=== PATIENT | female | born 1940 | race Caucasian/White ===

== ENCOUNTER 2020-02-17 11:54 | Observation (INO) | payer MEDICARE, OTHER, SELFPAY ==
[2020-02-17] VITALS (8 sets, daily range): BP systolic 134–165; BP diastolic 71–89; PULSE 115–130; RESP 22–30; TEMP 36.3–38.1; O2SAT 90–95; BMI 15.1
--- NOTE | ~2020-02-17 | CT_ITS ---
EXAMINATION: CTA chest PE protocol DATE: 02/17/2020 13:24 INDICATION: Shortness of breath, cough. Tachycardia. Positive d-dimer. Covid-positive patient. TECHNIQUE: Computed tomography angiography (CTA) of the chest was performed with 100 mL Omnipaque-350 intravenous contrast timed to evaluate the pulmonary arteries. Coronal maximum intensity projection 3D-reconstructions were created by the technologist. Automated exposure control and iterative reconst ruction technique were employed. Exam dose: 140.94 mGy-cm total exam DLP. COMPARISON: 03/15/2018 portable AP chest FINDINGS: There is diagnostic contrast enhancement of the pulmonary arteries and no evidence of pulmo nary embolism. Minimal posterior arch thoracic aortic aneurysm, measuring up to approximately 3.2 cm diameter. No ao rtic dissection. Normal heart size. Coronary artery calcification. No pericardial or pleural effusion. No hilar or mediastinal mass lesion or lymphadenopathy. There is substernal thyroid extension with so me calcification on the left, likely due to thyroid goiter. There is severe emphysema. There is mild dependent infiltrate or atelectasis at the lung bases, prima rily on the right. Otherwise no pulmonary consolidation. There are peripheral areas of honeycombing a nd/or bronchiectasis involving both lungs. There is a focal approximately 10 mm mass or infarct at the medial upper left kidney. Diffuse osteopenia. 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 Reviewed, dictated and finalized at [facility]. 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
--- NOTE | 2020-02-17 12:00 | ECG_ITS ---
Measurements Intervals [place] Rate: 118 P: 84 UT: 116 QRS: 42 QRSD: 84 T: 15 QT: 342 QTc: 480 Interpretive Statements SINUS TACHYCARDIA WITH SHORT UT INTERVAL ATRIAL PREMATURE COMPLEXES INFERIOR INFARCT, AGE INDETERMINATE BASELINE ARTIFACT- I, II, III, AVR, AVL, AVF, V1-V6 ABNORMAL ECG Electronically Signed On 02-17-2020 13:16:42 HEEL BUFFER by Jorge Alberto Olvera D.O.
--- NOTE | 2020-02-17 12:05 | ED.GENADULT ---
HPI - General Adult General Chief complaint: Shortness of Breath/Dyspnea Stated complaint: fever sob Source: patient Mode of arrival: ambulatory Limitations: no limitations History of Present Illness HPI narrative: Ragini is a 79F with a PMH of COPD, asthma and hypertension that presented to the ED with a cough, SOB and chills/feeling flushed. She chroncally has a productive cough and SOB. However, it may have been worse over the last couple days and she has been alternating between chills and feeling flushed as well. She did have a COVID exposure couple weeks ago as well. No CP, syncope/near-syncope, nausea or vomiting. Related Data Home Medications Medication Instructions Recorded Confirmed aspirin 81 mg tablet,delayed 81 mg PO DAILY 05/04/19 02/17/20 release budesonide 0.5 mg/2 mL suspension 0.5 mg INHALATION DAILY 05/04/19 02/17/20 for nebulization formoterol fumarate 20 mcg/2 mL 2 ml INHALATION Q12H 05/04/19 02/17/20 solution for nebulization ipratropium 0.5 mg-albuterol 3 mg 3 ml INHALATION Q4H PRN 05/04/19 02/17/20 (2.5 mg base)/3 mL nebulization soln theophylline 300 mg 150 mg PO DAILY cap 05/04/19 02/17/20 capsule,extended release 24 hr amlodipine 5 mg PO DAILY 02/17/20 02/17/20 lisinopril 10 mg PO DAILY 02/17/20 02/17/20 Allergies Allergy/AdvReac Type Severity Reaction Status Date / Time No Known Allergies Allergy Verified 05/04/19 12:29 Review of Systems Constitutional: Constitutional: Reports chills, Reports fatigue, Reports fever(s) and Reports weakness Eyes: Eyes: Reports no additional eye complaints ENT: Reports system reviewed and no additional complaints, except as documented Cardiovascular: Cardiovascular: Reports no additional cardiovascular complaints Respiratory: Respiratory: Reports no additional respiratory complaints Gastrointestinal: Gastrointestinal: Reports no additional gastrointestinal complaints Genitourinary: Genitourinary: Reports no additional female genitourinary complaints Musculoskeletal: Musculoskeletal: Reports no additional musculoskeletal complaints Integumentary/Breasts: Skin/Breast: Reports system reviewed and no additional complaints, except as docu Neurologic: Reports system reviewed and no additional complaints, except as documented Psychiatric: Psychiatric: Reports no additional psychiatric complaints Endocrine: Endocrine: Reports no additional endocrine complaints Hematologic/Lymphatic: Hematologic/Lymphatic: Reports no additional hematologic/lymphatic complaints Allergic/Immunologic: Allergic/Immunologic: Reports no additional allergic/immunologic complaints [facility] Past Medical History Medical History (Updated 02/17/20 @ 16:41 by Greyson Vogt DO) Asthma COPD (chronic obstructive pulmonary disease) Hypertension Surgical History Surgical History No history of previous surgery Social History Social History Smoking status: Former smoker Tobacco type: cigarettes Additional smoking assessment comments: Quit July 2015. 50 pack-year history Exam Const: General: alert Orientation/consciousness: patient oriented x3 Limitations: No altered mental status Other: In mild respiratory distress. HENMT: Head: normal to inspection Eyes: Conjunctivae: conjunctivae normal Pupils: Equal, round and reactive pupils present Neck: Neck: normal visual inspection Chest: Other: Barrel chested Resp: Other: Increased respiratory effort, tachypnea, prolonged expiratory phase, poor air movement, wet cough present on exam Cardio: Rate: regular rate Rhythm: regular rhythm Heart sounds: no murmurs GI: GI Palp: Yes Soft to palpation, No Tenderness to palpation present (GI) and No Guarding due to palpation present (GI) Back/Spine/Pelvis: Back: no CVA tenderness Skin: General skin exam: normal color Rashes: no rashes N
[2020-02-17 12:21] LABS: Hematocrit 42.3 % (35.0-42.0); Hemoglobin 14.5 g/dL (11.7-13.8); Immature Granulocyte Absolute 0.03 K/mm3 (0.00-0.00); Immature Granulocyte Percent A 0.6 % (0.0-0.0); Lymphocytes Absolute Auto 0.57 K/mm3 (1.10-4.50); Lymphocytes Percent Auto 11.2 % (18.0-42.0); Mean Corpuscular HGB Conc 34.3 g/dL (32.0-36.0); Mean Corpuscular Hemoglobin 31.7 pg (27.0-31.0); Mean Corpuscular Volume 92.6 fL (78.0-102.0); Mean Platelet Volume 9.1 fl (9.2-11.8); Monocytes Absolute Auto 0.61 K/mm3 (0.10-0.90); Neutrophils Absolute Auto 3.9 K/mm3 (1.7-7.2); Neutrophils Percent Auto 76.2 % (50.0-70.0); Platelet Count Result 199 K/mm3 (150-420); Red Blood Count 4.57 M/mm3 (4.20-5.40); Red Cell Distribution Width 12.6 % (11.6-14.4); White Blood Count 5.1 K/mm3 (4.8-10.8)
[2020-02-17] MEDS: ALBUTEROL SULFATE (*SP) INHALER 6 PUFF INHALATION (12:30)
[2020-02-17 12:38] LABS: Prothrombin Time 11.3 Seconds (9.50-12.10)
[2020-02-17 12:39] LABS: D Dimer 1.04 mg/L (0.19-0.50)
[2020-02-17 12:40] LABS: Influenza Control Valid (Valid); SARS-CoV-2 Ag Positive (Negative)
[2020-02-17 12:43] LABS: BNP 26.7 pg/mL (0-100)
[2020-02-17 12:47] LABS: Alanine Aminotransferase 26 U/L (14-59); Albumin Level 3.5 g/dL (3.4-5.0); Alkaline Phosphatase 86 U/L (46-116); Anion Gap 13 mmol/L (8-16); Aspartate Amino Transferase 26 U/L (15-37); Bilirubin,Total 0.4 mg/dL (0.00-1.00); Blood Urea Nitrogen 24 mg/dL (7-18); Calcium 9.5 mg/dL (8.5-10.1); Carbon Dioxide 26 mmol/L (21-32); Chloride 93 mmol/L (98-108); Estimated Glomerular Filt Rate 57; Glucose 121 mg/dL (70-99); Osmolality Calculated 279 mOsm/kg (285-295); Potassium 3.1 mmol/L (3.5-5.1); Sodium 132 mmol/L (136-145); Total Protein 7.3 g/dL (6.4-8.2); Troponin I 18.5 ng/L (0.00-60.4)
[2020-02-17] MEDS: POTASSIUM CHLORIDE 20 MEQ TABLET 40 MEQ PO (13:30)
[2020-02-17] MEDS: DEXAMETHASONE 2 MG TABLET 6 MG PO (13:30)
[2020-02-17 15:21] LABS: Lactate Dehydrogenase 232 U/L (81-234)
[2020-02-17 16:06] LABS: CRP 2.9 mg/dL (0.0-0.9)
[2020-02-17] MEDS: SODIUM CHLORIDE 0.9% IV 1,000 ML 999 ML IV CONT (18:09)
[2020-02-17] MEDS: ALBUTEROL SULFATE (*SP) INHALER 2 PUFF INHALATION (20:33)
[2020-02-17] MEDS: ENOXAPARIN 30 MG/0.3 ML SYRINGE SUB-Q (20:33)
[2020-02-18] VITALS (12 sets, daily range): BP systolic 92–169; BP diastolic 56–89; PULSE 77–122; RESP 14–24; TEMP 36.1; O2SAT 87–100
--- NOTE | 2020-02-18 02:10 | PC.NURSE ---
pt sleeping, respirations even and regular, no evidence of distress noted, tele monitor on heart rate in the upper 60's - 70's
--- NOTE | 2020-02-18 03:35 | PC.NURSE ---
pt ambulated to bathroom with no assistance, returned to bed, o2 sat checked and was upper 70's, pt recovered to 91% within a few minutes, pt reports this is normal for her to desat with exertion, pt denies any worsening sob at this time.
[2020-02-18] MEDS: ALBUTEROL SULFATE (*SP) INHALER 2 PUFF INHALATION ×2 (05:36→09:00)
--- NOTE | 2020-02-18 05:50 | PC.NURSE ---
pt oxygen saturation checked and found to be 89-90%, offered to apply oxygen and pt refused, pt stated she does not want to use oxygen until she has to, and doesn't feel it is necessary at this time.
--- NOTE | 2020-02-18 07:59 | PC.NURSE ---
Patient lying in bed without dyspnea. 92% room air. know COPD for long time. Ambulated to bathroom and back with just stand by assist. Has some grunting or sound with activity, but appears to be her normal- compensation with breathing with her COPD illness. Once back in bed o2 sat 88% but within 1 minute up 92-93% Noted morning coughing up secretions as she does at home. Patient states, I have a routine with my different nebs that I'm not having here.
[2020-02-18] MEDS: amLODIPine BESYLATE 5 MG TABLET PO (08:15)
[2020-02-18] MEDS: ASPIRIN 81 MG ENTERIC TABLET PO (08:15)
[2020-02-18] MEDS: ENOXAPARIN 30 MG/0.3 ML SYRINGE SUB-Q (08:16)
[2020-02-18] MEDS: lisinopriL 10 MG TABLET PO (08:17)
[2020-02-18] MEDS: BUDESONIDE/FORMOTEROL (*SP) 160-4.5 MCG 6 GM INH 2 PUFF INHALATION (08:56)
[2020-02-18 09:27] LABS: Hematocrit 39.5 % (35.0-42.0); Hemoglobin 13.8 g/dL (11.7-13.8); Immature Granulocyte Absolute 0.03 K/mm3 (0.00-0.00); Immature Granulocyte Percent A 0.6 % (0.0-0.0); Lymphocytes Absolute Auto 0.52 K/mm3 (1.10-4.50); Lymphocytes Percent Auto 11.3 % (18.0-42.0); Mean Corpuscular HGB Conc 34.9 g/dL (32.0-36.0); Mean Corpuscular Hemoglobin 32.4 pg (27.0-31.0); Mean Corpuscular Volume 92.7 fL (78.0-102.0); Mean Platelet Volume 9.4 fl (9.2-11.8); Monocytes Absolute Auto 0.21 K/mm3 (0.10-0.90); Monocytes Percent Auto 4.5 % (2.0-11.0); Neutrophils Absolute Auto 3.9 K/mm3 (1.7-7.2); Neutrophils Percent Auto 83.6 % (50.0-70.0); Platelet Count Result 198 K/mm3 (150-420); Red Blood Count 4.26 M/mm3 (4.20-5.40); Red Cell Distribution Width 12.5 % (11.6-14.4); White Blood Count 4.6 K/mm3 (4.8-10.8)
[2020-02-18 09:36] LABS: Alanine Aminotransferase 23 U/L (14-59); Alkaline Phosphatase 76 U/L (46-116); Anion Gap 9 mmol/L (8-16); Aspartate Amino Transferase 26 U/L (15-37); Bilirubin,Total 0.3 mg/dL (0.00-1.00); Blood Urea Nitrogen 17 mg/dL (7-18); Calcium 9.3 mg/dL (8.5-10.1); Carbon Dioxide 26 mmol/L (21-32); Chloride 96 mmol/L (98-108); Estimated CRCL calculation 30 ml/min; Estimated Glomerular Filt Rate > 60; Glucose 150 mg/dL (70-99); Osmolality Calculated 276 mOsm/kg (285-295); Potassium 4.3 mmol/L (3.5-5.1); Sodium 131 mmol/L (136-145); Total Protein 6.5 g/dL (6.4-8.2)
[2020-02-18 09:37] LABS: Magnesium 1.5 mg/dL (1.8-2.4)
[2020-02-18] MEDS: MAGNESIUM SULF 4 GM/WATER100ML 4 GM/100 ML BAG IVPB (10:17)
[2020-02-18] MEDS: SODIUM CHLORIDE 0.9% IV 1,000 ML 75 ML IV CONT (10:18)
[2020-02-18] MEDS: IPRATROPIUM 0.5 MG/ALBUTEROL SULFATE 2.5 MG AMPUL.NEB 3 ML INHALATION (12:31)
--- NOTE | 2020-02-18 12:59 | PM.SD ---
Same Day Admit/Disch: HPI History of Present Illness Chief complaint: covid 19 Narrative: Ragini Rodas is a 79 year old female who presented to the hospital with a cough shortness of breath and chills patient does have COPD asthma and hypertension her cough is chronic along with her shortness of breath related to her COPD. Shortness of breast has been increased over the last couple days and she did have a COVID exposure 2 weeks ago. COVID positive result from 02/17/2020. Patient admits that when she is at home she can walk short short distances but becomes short of breath she explains that this is an ongoing thing related to her COPD. Patient states that she has refused home oxygen in the past. Patient denies chest pain nausea vomiting or syncopal episodes. CTA was done in the ER and negative for PE. This morning during rounds patient states she feels pretty much at her normal with respect to breathing. [facility] Past Medical History Medical History (Updated 02/18/20 @ 14:06 by DIEGO Conn) Asthma COPD (chronic obstructive pulmonary disease) Hypertension Surgical History Surgical History No history of previous surgery Social History Social History Smoking packs per day: 0.75 Smoking cigarettes per day: 15.0 Smoking status: Former smoker Tobacco type: cigarettes Additional smoking assessment comments: Quit July 2015. 50 pack-year history Alcohol intake: never Substance use: never Spiritual care concerns: No Same Day Admit/Disch: Med Pre-admit Medications Home Medications Medication Instructions Recorded Confirmed Type aspirin 81 mg tablet,delayed 81 mg PO DAILY 05/04/19 02/17/20 History release budesonide 0.5 mg/2 mL suspension 0.5 mg INHALATION DAILY 05/04/19 02/17/20 History for nebulization formoterol fumarate 20 mcg/2 mL 2 ml INHALATION Q12H 05/04/19 02/17/20 History solution for nebulization ipratropium 0.5 mg-albuterol 3 mg 3 ml INHALATION Q4H PRN 05/04/19 02/17/20 History (2.5 mg base)/3 mL nebulization soln theophylline 300 mg 300 mg PO DAILY cap 05/04/19 02/18/20 History capsule,extended release 24 hr amlodipine 5 mg PO DAILY 02/17/20 02/17/20 History lisinopril 10 mg PO DAILY 02/17/20 02/17/20 History dexamethasone [Decadron] 6 mg PO DAILY 9 Days #9 tablet 02/18/20 Rx Exam Const: General: cooperative, comfortable, no acute distress, alert, awake and Physically active (for short distances) Nutritional Appearance: thin Chest: Other: barrel chest Resp: Effort & Inspection: labored (patient states this is her normal, she refused home oxygen in the past) Auscultation: clear to auscultation bilaterally Cardio: Rate: regular rate Rhythm: regular rhythm Heart sounds: S1 normal heart sound present and S2 normal heart sound present GI: GI Palp: Yes Soft to palpation and No Tenderness to palpation present (GI) Auscultation: normal bowel sounds Neuro: General: oriented to person, oriented to place and oriented to time Cranial nerves: Yes CN's II-XII intact bilaterally (grossly intact) Cognition (Neuro): normal cognition Speech: normal speech (does finish most sentences) Extrem: General: no pedal edema Psych: Mental Status: mental status grossly normal Affect: normal affect Attitude: cooperative Thought process: Normal thought process present Thought content: Yes Normal thought content present DS: Data Data Completed and Pending Labs on day of discharge: Labs from last 24 hours 02/18/20 02/18/20 02/18/20 08:40 08:39 08:39 WBC 4.6 L RBC 4.26 Hgb 13.8 Hct 39.5 MCV 92.7 MCH 32.4 H MCHC 34.9 RDW 12.5 Plt Count 198 MPV 9.4 Immature Gran % (Auto) 0.6 H Neut % (Auto) 83.6 H Lymph % (Auto) 11.3 L [place] % (Auto) 4.5 Eos % (Auto) 0.0 L Baso % (Auto) 0.0 Lymph # (Auto) 0.52 L Mon
--- NOTE | 2020-02-18 13:00 | HOMEO2EVAL ---
Home Oxygen Evaluation RC: Home Oxygen (O2) Evaluation Start: 02/18/20 10:25 Freq: ONCE Status: Active Protocol: RPE Activity Type Activity Date Activity User E-Sign Co-Sign Detail Recorded Client Recorded Date Recorded By Document 02/18/20 12:45 SJB [id number] 02/18/20 13:00 SJB Document 02/18/20 12:47 SJB [id number] 02/18/20 13:00 SJB Document 02/18/20 12:50 SJB [id number] 02/18/20 13:00 SJB 02/18/20 02/18/20 02/18/20 12:45 12:47 12:50 Home O2 Evaluation Test Phase Resting Exercise Exercise Oxygen Delivery Room Air Room Air Nasal Cannula Oxygen Flow Rate (L/min) 2 Pulse Oximetry (90-100 %) 91 87 L 95 Pulse Rate (60-100 beats/min) 117 H 122 H 112 H Activity Tolerance Good Good Good Rating of Perceived Dyspnea (PD) +3 Moderate +3 Moderate +3 Moderate Difficulty, But Difficulty, But Difficulty, But Can Continue Can Continue Can Continue Rate of Perceived Exertion (PE) 14 13 Somewhat 12 Hard Ambulation Distance (feet) 10 20 Home Oxygen Evaluation Comments Oxygen started Pt finished at 2 lpm. walk on 2 lpm with Sp02 from 92-95%, PLB encouraged. Tolerated well. Treatment Charges O2 Evaluation
--- NOTE | 2020-02-18 16:12 | PC.NURSE ---
iv removed, pt instructed on how to use portable oxygen tank and to make sure she turns it off when not in use, sumi called upon discharge to meet her at her house for further instruction on home o2
[2020-02-19 19:39] LABS: Procalcitonin <0.10 ng/mL (<0.10)
== END 2020-02-18 15:45 | disposition home or self-care (01) ==
LOC: CHSED 11:58 → CHS2ND 15:15
PROVIDERS: Nurse Practitioner Family; Admitting Provider Family Medicine; Emergency Provider Family Medicine; PCP Family Medicine; Visit Provider Family Medicine
DX: U07.1 COVID-19 (principal); E87.8 Other disorders of electrolyte and fluid balance, not elsewhere classified; J44.9 Chronic obstructive pulmonary disease, unspecified; I10 Essential (primary) hypertension; Z87.891 Personal history of nicotine dependence
CPT/HCPCS: 36415; 71275; 80053; 83615; 83735; 83880; 84145; 84484; 85025; 85380; 85610; 86140; 87426; 87804; 93005; 94618; 94640; 96365; 96372; 99285; A9270; G0378; J1650; J3475; J7030; J8540; Q9965; Q9967

== ENCOUNTER 2020-02-22 20:45 | Inpatient (IN) | payer MEDICARE, OTHER, SELFPAY ==
--- NOTE | ~2020-02-22 | XR_ITS ---
EXAMINATION: XR chest 1V portable EXAM DATE: 02/22/2020 21:23 INDICATION: Dyspnea, Covid + . TECHNIQUE: Portable AP frontal chest x-ray was obtained. Comparison is made to prior examination from 03/15/2018, 05/21/2017. FINDINGS: There is severe chronic hyperinflation. Again there is basilar reticulonodular pattern, cou ld be acute or chronic infection given that it was not present on prior studies. No confluent consoli dation, pneumothorax or pleural effusion suspected. There are no osseous abnormalities identified. Th ere is aortic arteriosclerosis. IMPRESSION: 1. Basilar reticulonodular opacities, could be acute or chronic infectious process. 2. Severe chronic hyperinflation. Reviewed, dictated and finalized at [facility]. 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 Basilar reticulonodular opacities, could be acute or chronic infectious pro cess. 2. Severe chronic hyperinflation.
--- NOTE | 2020-02-22 20:53 | ED.SOB ---
HPI - SOB/Dyspnea General Chief Complaint: Shortness of Breath/Dyspnea Stated Complaint: Trouble breathing,COVID + Time Seen by Provider: 02/22/20 20:53 Source: patient, family and RN notes reviewed Mode of arrival: wheelchair Limitations: no limitations History of Present Illness HPI Narrative: Patient was here 5 days ago. She was admitted and then discharged on 02/17. She was positive for COVID and was sent home on Decadron. She has been getting increasingly short of breath. She feels worse than when she was here 4 days ago. her daughter says that she would not normally asked to go to the hospital, but today asked to come to the hospital because she was so short of breath. She did not have any other treatment besides the Decadron. She also states that she has not been eating because her sense of taste and smell are gone. She says she has not felt like eating. MD elicited complaint: shortness of breath Pertinent past history: COPD Onset (ago): day(s) (4) Context: recent illness Timing: constant Severity: severe Exacerbating factors: lying flat, exertion and movement Relieving factors: nothing Known history of: COPD and congestive heart failure Associated symptoms: cough Treatment prior to arrival: oxygen Related Data Home oxygen amount: none Home Medications Medication Instructions Recorded Confirmed aspirin 81 mg tablet,delayed 81 mg PO DAILY 05/04/19 02/22/20 release budesonide 0.5 mg/2 mL suspension 0.5 mg INHALATION DAILY 05/04/19 02/22/20 for nebulization formoterol fumarate 20 mcg/2 mL 2 ml INHALATION Q12H 05/04/19 02/22/20 solution for nebulization ipratropium 0.5 mg-albuterol 3 mg 3 ml INHALATION Q4H PRN 05/04/19 02/22/20 (2.5 mg base)/3 mL nebulization soln theophylline 300 mg 300 mg PO DAILY cap 05/04/19 02/22/20 capsule,extended release 24 hr amlodipine 5 mg PO DAILY 02/17/20 02/22/20 lisinopril 10 mg PO DAILY 02/17/20 02/22/20 Allergies Allergy/AdvReac Type Severity Reaction Status Date / Time No Known Allergies Allergy Verified 02/22/20 21:09 Review of Systems Constitutional: Constitutional: Denies chills, Reports fatigue, Denies fever(s) and Reports weakness Eyes: Eyes: Reports no additional eye complaints ENT: Reports system reviewed and no additional complaints, except as documented Cardiovascular: Cardiovascular: Reports no additional cardiovascular complaints Respiratory: Respiratory: Reports as per HPI Gastrointestinal: Gastrointestinal: Reports no additional gastrointestinal complaints Genitourinary: Genitourinary: Reports no additional female genitourinary complaints Musculoskeletal: Musculoskeletal: Reports no additional musculoskeletal complaints Integumentary/Breasts: Skin/Breast: Reports system reviewed and no additional complaints, except as docu Neurologic: Reports system reviewed and no additional complaints, except as documented Psychiatric: Psychiatric: Reports no additional psychiatric complaints Endocrine: Endocrine: Reports no additional endocrine complaints [facility] Past Medical History Medical History (Updated 02/22/20 @ 22:45 by Hussain Merchant MD) Asthma COPD (chronic obstructive pulmonary disease) Hypertension Surgical History Surgical History No history of previous surgery Social History Social History Smoking packs per day: 0.75 Smoking cigarettes per day: 15.0 Smoking status: Former smoker Tobacco type: cigarettes Additional smoking assessment comments: Quit July 2015. 50 pack-year history Alcohol intake: never Substance use: never Spiritual care concerns: No Exam Const: General: ill appearing acutely and chronically Nutritional Appearance: thin Limitations: no limitations HENMT: Head: normal to inspection Ears: external ears normal Eyes: Conjunctivae: conjunctivae normal Pupils: Equal, round an
[2020-02-22 21:04] VITALS: BP 124/76; PULSE 116; RESP 24; TEMP 36.7; O2SAT 92
[2020-02-22 21:10] VITALS: PULSE 112; O2SAT 92
[2020-02-22 21:48] LABS: Basophils Absolute Auto 0.01 K/mm3 (0.00-0.10); Basophils Percent Auto 0.1 % (0.0-1.0); Hemoglobin 13.1 g/dL (11.7-13.8); Immature Granulocyte Absolute 0.12 K/mm3 (0.00-0.00); Immature Granulocyte Percent A 0.7 % (0.0-0.0); Lymphocytes Absolute Auto 0.15 K/mm3 (1.10-4.50); Lymphocytes Percent Auto 0.9 % (18.0-42.0); Mean Corpuscular HGB Conc 34.5 g/dL (32.0-36.0); Mean Corpuscular Hemoglobin 31.6 pg (27.0-31.0); Mean Corpuscular Volume 91.8 fL (78.0-102.0); Monocytes Percent Auto 2.5 % (2.0-11.0); Neutrophils Absolute Auto 15.3 K/mm3 (1.7-7.2); Neutrophils Percent Auto 95.8 % (50.0-70.0); Platelet Count Result 348 K/mm3 (150-420); Red Blood Count 4.14 M/mm3 (4.20-5.40); Red Cell Distribution Width 12.7 % (11.6-14.4)
[2020-02-22 21:49] LABS: HCO3 ABG 26.7 mmol/L (23-29); Oxygen Content ABG 19.5 %vol (16.0-22.0); Oxygen Saturation ABG 97.4 % (95-97); Oxyhemoglobin 96.5 % (94-100); PCO2 ABG 34.2 mmHg (35-45); PO2 ABG 89.1 mmHg (75-85); Total Hemoglobin 14.3 g/dL; pH ABG 7.51 (7.35-7.45)
[2020-02-22 21:51] LABS: Device NASAL CANNULA; Modified Allen's Test Pass; Site Drawn LEFT BRACHIAL
[2020-02-22 22:03] LABS: Alanine Aminotransferase 30 U/L (14-59); Albumin Level 3.1 g/dL (3.4-5.0); Alkaline Phosphatase 73 U/L (46-116); Anion Gap 10 mmol/L (8-16); Aspartate Amino Transferase 20 U/L (15-37); Bilirubin,Total 0.4 mg/dL (0.00-1.00); Blood Urea Nitrogen 23 mg/dL (7-18); Calcium 9.3 mg/dL (8.5-10.1); Carbon Dioxide 27 mmol/L (21-32); Chloride 97 mmol/L (98-108); Estimated Glomerular Filt Rate > 60; Glucose 130 mg/dL (70-99); Osmolality Calculated 283 mOsm/kg (285-295); Potassium 3.2 mmol/L (3.5-5.1); Sodium 134 mmol/L (136-145); Total Protein 6.7 g/dL (6.4-8.2)
[2020-02-22 22:05] LABS: CRP 6.4 mg/dL (0.0-0.9); Magnesium 1.7 mg/dL (1.8-2.4)
[2020-02-22 22:10] VITALS: BP 117/75; PULSE 117; RESP 18; O2SAT 94
[2020-02-22 22:34] VITALS: BP 120/68; PULSE 96; RESP 19; O2SAT 93
[2020-02-22] MEDS: POTASSIUM BICARBONATE 25 MEQ TABEF 50 MEQ PO (23:04)
[2020-02-22 23:32] VITALS: BP 139/76; PULSE 97; RESP 20; TEMP 37.1; O2SAT 94
[2020-02-23] VITALS (15 sets, daily range): BP systolic 90–167; BP diastolic 57–75; PULSE 68–126; RESP 20–30; TEMP 36.1–36.8; O2SAT 3–99; BMI 15.0
[2020-02-23] MEDS: REMDESIVIR 200 MG/NS 250 ML 200 MG/250 ML BAG 250 MG IVPB (00:33)
[2020-02-23] MEDS: DEXTROSE 5%/0.45% SOD CHL 1,000 ML 100 ML IV CONT (00:34)
--- NOTE | 2020-02-23 01:18 | ADMGEN ---
This patient, Ragini Rodas, was admitted to 2nd Floor Room 212-1. Patient/family oriented to hospital policies and general routines including ID bracelet, bed and alarms, visiting hours, pain management, procedures, bathroom and other care routines, personal items, smoking policy, room service/diet, and visiting hours. Information on how to activate the Rapid Response Team has been discussed. Patient/Family are encouraged to report perceived risks to care and to ask questions if they do not understand what they are told or what they should do.
[2020-02-23 05:47] LABS: Basophils Absolute Auto 0.01 K/mm3 (0.00-0.10); Basophils Percent Auto 0.1 % (0.0-1.0); Hematocrit 34.2 % (35.0-42.0); Hemoglobin 11.8 g/dL (11.7-13.8); Immature Granulocyte Absolute 0.07 K/mm3 (0.00-0.00); Immature Granulocyte Percent A 0.6 % (0.0-0.0); Lymphocytes Absolute Auto 0.32 K/mm3 (1.10-4.50); Lymphocytes Percent Auto 2.7 % (18.0-42.0); Mean Corpuscular HGB Conc 34.5 g/dL (32.0-36.0); Mean Corpuscular Hemoglobin 31.7 pg (27.0-31.0); Mean Corpuscular Volume 91.9 fL (78.0-102.0); Mean Platelet Volume 8.9 fl (9.2-11.8); Monocytes Absolute Auto 0.44 K/mm3 (0.10-0.90); Monocytes Percent Auto 3.6 % (2.0-11.0); Neutrophils Absolute Auto 11.2 K/mm3 (1.7-7.2); Platelet Count Result 262 K/mm3 (150-420); Red Blood Count 3.72 M/mm3 (4.20-5.40); Red Cell Distribution Width 12.5 % (11.6-14.4); White Blood Count 12.1 K/mm3 (4.8-10.8)
[2020-02-23 06:18] LABS: Alanine Aminotransferase 25 U/L (14-59); Anion Gap 8 mmol/L (8-16); Blood Urea Nitrogen 18 mg/dL (7-18); Calcium 8.5 mg/dL (8.5-10.1); Carbon Dioxide 29 mmol/L (21-32); Chloride 98 mmol/L (98-108); Estimated CRCL calculation 33 ml/min; Estimated Glomerular Filt Rate > 60; Glucose 139 mg/dL (70-99); Osmolality Calculated 283 mOsm/kg (285-295); Potassium 3.5 mmol/L (3.5-5.1); Sodium 135 mmol/L (136-145)
--- NOTE | 2020-02-23 07:43 | PM.IMHP ---
H&P: HPI History of Present Illness Date/Time: 02/23/20 07:43 Chief complaint: COVID + pneumonia Narrative: Ragini Rodas is a 79 year old female Who was in inpatient that was discharged on 02/18/2020. At that time patient was doing well and felt she could do the same at home with her nebulizers and home oxygen. At that time patient had low oxygen demand and had seemed to be improving during that stay. Unfortunately patient had increased oxygen demand and patient states that when she was discharged and using her home oxygen she only used a low amount. Patient denies any chest pain, no productive cough, minimal coughing, and denies any other issues. Review of Systems Review of Systems: Narrative: Little difficult to obtain since patient can only speak in 1-3 word sentences. Constitutional: Constitutional: Denies body ache(s), Denies chills and Reports fatigue Cardiovascular: Cardiovascular: Denies chest pain, Denies chest pain at rest and Denies chest pain with activity Respiratory: Respiratory: Reports cough (Nonproductive), Reports dyspnea and Reports dyspnea on exertion Gastrointestinal: Gastrointestinal: Reports no additional gastrointestinal complaints [facility] Past Medical History Medical History (Updated 02/23/20 @ 11:03 by DIEGO Conn) Asthma COPD (chronic obstructive pulmonary disease) Hypertension Surgical History Surgical History No history of previous surgery Social History Social History Smoking packs per day: 0.75 Smoking cigarettes per day: 15.0 Smoking status: Former smoker Tobacco type: cigarettes Additional smoking assessment comments: Quit July 2015. 50 pack-year history Alcohol intake: unknown Substance use: never Gender identity (if verbalized by the patient): Female Sexual Orientation (if Verbalized by the Patient): Straight or Heterosexual Spiritual care concerns: No Meds Home Medications and Allergies Home Medications Medication Instructions Recorded Confirmed Type aspirin 81 mg tablet,delayed 81 mg PO DAILY 05/04/19 02/22/20 History release budesonide 0.5 mg/2 mL suspension 0.5 mg INHALATION DAILY 05/04/19 02/22/20 History for nebulization formoterol fumarate 20 mcg/2 mL 2 ml INHALATION Q12H 05/04/19 02/22/20 History solution for nebulization ipratropium 0.5 mg-albuterol 3 mg 3 ml INHALATION Q4H PRN 05/04/19 02/22/20 History (2.5 mg base)/3 mL nebulization soln theophylline 300 mg 300 mg PO DAILY cap 05/04/19 02/22/20 History capsule,extended release 24 hr amlodipine 5 mg PO DAILY 02/17/20 02/22/20 History lisinopril 10 mg PO DAILY 02/17/20 02/22/20 History dexamethasone 6 mg tablet 6 mg PO DAILY #7 tablet 02/22/20 02/22/20 Rx dexamethasone 6 mg tablet 6 mg PO DAILY 9 Days #9 tablet 02/22/20 02/22/20 Rx Allergies Allergy/AdvReac Type Severity Reaction Status Date / Time No Known Allergies Allergy Verified 02/23/20 07:21 Vital Signs Vital Signs - 24 hr 02/22/20 21:04 02/22/20 21:10 02/22/20 22:10 Temperature 98.0 F Pulse Rate 116 H 112 H 117 H Respiratory Rate 24 H 18 Blood Pressure 124/76 117/75 Pulse Oximetry 92 92 94 02/22/20 22:34 02/22/20 23:32 02/23/20 00:00 Temperature 98.7 F 98.2 F Pulse Rate 96 97 97 Respiratory Rate 19 20 20 Blood Pressure 120/68 139/76 118/70 Pulse Oximetry 93 94 92 Exam Const: General: cooperative, alert and awake Nutritional Appearance: thin Resp: Effort & Inspection: labored (speaks in 1-3 word sentences, shallow respirations) Auscultation: diminished lung sounds Cardio: Rhythm: abnormal rhythm (AFib rate was up to 130s, gave metoprolol, now in the 70s to 80s) irregularly irregular Heart sounds: S1 normal heart sound present and S2 normal heart sound present GI: GI Palp: Yes Soft to palpation and No Tenderness to palpation present (GI) Auscult
[2020-02-23] MEDS: BUDESONIDE RESPULE NEB 0.5 MG/2 ML AMP INHALATION ×2 (08:51→17:41)
[2020-02-23] MEDS: amLODIPine BESYLATE 5 MG TABLET PO (08:56)
[2020-02-23] MEDS: ASPIRIN 81 MG ENTERIC TABLET PO (08:56)
[2020-02-23] MEDS: METOPROLOL TARTRATE INJ 5 MG/5 ML VIAL IV PUSH (08:56)
[2020-02-23] MEDS: DEXAMETHASONE SOD PHOS INJ 4 MG/ML VIAL IV PUSH ×2 (08:57→21:45)
[2020-02-23] MEDS: lisinopriL 10 MG TABLET PO (08:57)
[2020-02-23] MEDS: MAGNESIUM OXIDE 400 MG TABLET PO (08:57)
[2020-02-23] MEDS: THEOPHYLLINE ANHYDROUS 100 MG CAP.ER.24H 300 MG PO (08:57)
--- NOTE | 2020-02-23 09:00 | PC.NURSE ---
IV metoprolol 2.5mg given per MAIL ORDER BILLER Rowdy
[2020-02-23] MEDS: ENOXAPARIN 30 MG/0.3 ML SYRINGE SUB-Q ×2 (11:59→21:45)
[2020-02-23] MEDS: METOPROLOL SUCCINATE EXT REL 50 MG TABCR PO (12:00)
[2020-02-23] MEDS: IPRATROPIUM 0.5 MG/ALBUTEROL SULFATE 2.5 MG AMPUL.NEB 3 ML INHALATION ×3 (12:40→22:48)
--- NOTE | 2020-02-23 13:57 | PC.NURSE ---
Incinerator Attendant and RT ambulated patient in room. 100%. Decreased hi flow nasal cannula to 50 L 75% spo2 96%. OUTDOOR STUDIES PROFESSOR Rowdy notified.
--- NOTE | 2020-02-23 18:22 | PC.NURSE ---
TALBERT noted when up to commode, oxygen on at 3 L NC
[2020-02-23] MEDS: REMDESIVIR 100 MG/NS 250 ML 100 MG/250 ML BAG 250 MG IVPB (21:54)
[2020-02-24] VITALS (16 sets, daily range): BP systolic 114–160; BP diastolic 50–81; PULSE 65–94; RESP 22–26; TEMP 35.8–36.5; O2SAT 89–100
[2020-02-24] MEDS: IPRATROPIUM 0.5 MG/ALBUTEROL SULFATE 2.5 MG AMPUL.NEB 3 ML INHALATION ×4 (05:37→22:49)
[2020-02-24] MEDS: BUDESONIDE RESPULE NEB 0.5 MG/2 ML AMP INHALATION ×2 (05:38→17:33)
[2020-02-24 05:58] LABS: Hemoglobin 11.8 g/dL (11.7-13.8); Mean Corpuscular HGB Conc 34.7 g/dL (32.0-36.0); Mean Corpuscular Hemoglobin 31.7 pg (27.0-31.0); Mean Corpuscular Volume 91.4 fL (78.0-102.0); Mean Platelet Volume 9.2 fl (9.2-11.8); Platelet Count Result 345 K/mm3 (150-420); Red Blood Count 3.72 M/mm3 (4.20-5.40); Red Cell Distribution Width 12.8 % (11.6-14.4); White Blood Count 13.4 K/mm3 (4.8-10.8)
[2020-02-24 06:22] LABS: Alanine Aminotransferase 25 U/L (14-59); Anion Gap 8 mmol/L (8-16); Blood Urea Nitrogen 23 mg/dL (7-18); Calcium 8.6 mg/dL (8.5-10.1); Carbon Dioxide 28 mmol/L (21-32); Chloride 96 mmol/L (98-108); Estimated CRCL calculation 43 ml/min; Estimated Glomerular Filt Rate > 60; Glucose 96 mg/dL (70-99); Osmolality Calculated 277 mOsm/kg (285-295); Potassium 3.9 mmol/L (3.5-5.1); Sodium 132 mmol/L (136-145)
[2020-02-24] MEDS: lisinopriL 10 MG TABLET PO (09:16)
[2020-02-24] MEDS: THEOPHYLLINE ANHYDROUS 100 MG CAP.ER.24H 300 MG PO (09:16)
[2020-02-24] MEDS: ENOXAPARIN 30 MG/0.3 ML SYRINGE SUB-Q ×2 (09:16→21:25)
[2020-02-24] MEDS: DEXAMETHASONE SOD PHOS INJ 4 MG/ML VIAL IV PUSH ×2 (09:17→21:26)
[2020-02-24] MEDS: ASPIRIN 81 MG ENTERIC TABLET PO (09:17)
[2020-02-24] MEDS: MAGNESIUM OXIDE 400 MG TABLET PO (09:17)
[2020-02-24] MEDS: amLODIPine BESYLATE 5 MG TABLET PO (09:17)
[2020-02-24] MEDS: METOPROLOL SUCCINATE EXT REL 50 MG TABCR PO (09:17)
--- NOTE | 2020-02-24 10:26 | P.PN_ITS ---
Progress Note: A&P Assessment and Plan (1) Pneumonia due to 2019 novel coronavirus: Code(s): U07.1 - COVID-19; J12.89 - Other viral pneumonia <KALE Mcrae-C - Last Filed: 02/24/20 10:59> Status: Acute <FRANNY McraeP-C - Last Filed: 02/24/20 10:59> Assessment and Plan: * More than likely residual from covid * Chest x-ray and Basilar reticulonodular opacities, could be acute or chronic infectious process * Referred to Covid. * <FRANNY McraeP-C - Last Filed: 02/24/20 10:59> (2) Electrolyte imbalance: Code(s): E87.8 - Other disorders of electrolyte and fluid balance, not elsewhere classified <FRANNY McraeP-C - Last Filed: 02/24/20 10:59> Status: Acute <KALE Mcrae-C - Last Filed: 02/24/20 10:59> Assessment and Plan: * Resolved <FRANNY McraeP-C - Last Filed: 02/24/20 10:59> (3) COVID-19: Code(s): U07.1 - COVID-19 <KALE Mcrae-C - Last Filed: 02/24/20 10:59> Status: Acute <KALE Mcrae-C - Last Filed: 02/24/20 10:59> Assessment and Plan: * Patient tested positive on 02/17/2020 she will be off her quarantine on 02/28/2020 * Continue dexamethasone and remdesivir(restarted on 02/23/2020 * Patient on home oxygen at 3 L * Continue nebulizers and inhalers <Rosalinda Prescott KALE-C - Last Filed: 02/24/20 10:59> (4) Hypertension: Code(s): I10 - Essential (primary) hypertension <Rosalinda Prescott SENIOR PRINCIPAL-C - Last Filed: 02/24/20 10:59> Status: Acute <Rosalinda Prescott SENIOR PRINCIPAL-C - Last Filed: 02/24/20 10:59> Assessment and Plan: * Stable * Continue amlodipine 5 mg daily and metoprolol 50 mg daily * Vital signs as ordered. * Will adjust medication as needed <Rosalinda Prescott SENIOR PRINCIPALTrangDiego - Last Filed: 02/24/20 10:59> (5) COPD (chronic obstructive pulmonary disease): Code(s): J44.9 - Chronic obstructive pulmonary disease, unspecified <Rosalinda Prescott SENIOR PRINCIPALTrangDiego - Last Filed: 02/24/20 10:59> Status: Acute <Rosalinda Prescott SENIOR PRINCIPALChidi - Last Filed: 02/24/20 10:59> Assessment and Plan: * Continue inhalers * Continue steroids * Start Levaquin 500 mg daily <Rosalinda PrescottKALETrangDiego - Last Filed: 02/24/20 10:59> (6) Asthma: Code(s): J45.909 - Unspecified asthma, uncomplicated <Rosalinda Prescott TAHIRA - Last Filed: 02/24/20 10:59> Status: Acute <Rosalinda Prescott TAHIRA - Last Filed: 02/24/20 10:59> Assessment and Plan: * Referred to COPD <Rosalinda PrescottFRANNYAlfonzoDiego - Last Filed: 02/24/20 10:59> (7) Atrial fibrillation: Code(s): I48.91 - Unspecified atrial fibrillation <Rosalinda Prescott SENIOR PRINCIPALTrangDiego - Last Filed: 02/24/20 10:59> Status: Acute <Rosalinda PrescottKALETrangDiego - Last Filed: 02/24/20 10:59> Assessment and Plan: * Controlled * Continue metoprolol 50 mg * Continue Lovenox 30 mg twice daily * Continue telemetry <Rosalinda CastanedaTAHIRA Dickens - Last Filed: 02/24/20 10:59> Review of Systems Review of Systems: Narrative: 10 point system review <Rosalinda TonyaLISETTE Dickens - Last Filed: 02/24/20 10:59> All systems reviewed & are unremarkable except as noted in HPI and below (10 point system review) <Rosalinda TonyaTAHIRA Dickens - Last Filed: 02/24/20 10:59> Exam Narrative: Exam Narrative: GENERAL: Frail elderly woman with labored breathing, accessory muscle use, pierced lip breathing, and short of breath HEAD: normocephalic, atraumatic. EYES: PERRL. Sclera clear/white. Vision is
--- NOTE | 2020-02-24 10:26 | WPDPN ---
Progress Note: A&P Assessment and Plan (1) Pneumonia due to 2019 novel coronavirus: Code(s): U07.1 - COVID-19; J12.89 - Other viral pneumonia <Rosalinda Prescott KALE-C - Last Filed: 02/24/20 10:59> Status: Acute <KALE Mcrae-C - Last Filed: 02/24/20 10:59> Assessment and Plan: More than likely residual from covid Chest x-ray and Basilar reticulonodular opacities, could be acute or chronic infectious process Referred to Covid. <Rosalinda Prescott CELL TENDER-C - Last Filed: 02/24/20 10:59> (2) Electrolyte imbalance: Code(s): E87.8 - Other disorders of electrolyte and fluid balance, not elsewhere classified <Rosalinda Prescott KALE-C - Last Filed: 02/24/20 10:59> Status: Acute <Rosalinda Prescott KALE-C - Last Filed: 02/24/20 10:59> Assessment and Plan: Resolved <Rosalinda Prescott KALE-C - Last Filed: 02/24/20 10:59> (3) COVID-19: Code(s): U07.1 - COVID-19 <KALE Mcrae-C - Last Filed: 02/24/20 10:59> Status: Acute <Rosalinda Prescott KALE-C - Last Filed: 02/24/20 10:59> Assessment and Plan: Patient tested positive on 02/17/2020 she will be off her quarantine on 02/28/2020 Continue dexamethasone and remdesivir(restarted on 02/23/2020 Patient on home oxygen at 3 L Continue nebulizers and inhalers <Rosalinda Prescott KALE-C - Last Filed: 02/24/20 10:59> (4) Hypertension: Code(s): I10 - Essential (primary) hypertension <Rosalinda Prescott KALE-C - Last Filed: 02/24/20 10:59> Status: Acute <Rosalinda Prescott KALE-C - Last Filed: 02/24/20 10:59> Assessment and Plan: Stable Continue amlodipine 5 mg daily and metoprolol 50 mg daily Vital signs as ordered. Will adjust medication as needed <TAHIRA Mcrae - Last Filed: 02/24/20 10:59> (5) COPD (chronic obstructive pulmonary disease): Code(s): J44.9 - Chronic obstructive pulmonary disease, unspecified <Rosalinda Prescott TAHIRA - Last Filed: 02/24/20 10:59> Status: Acute <TAHIRA Mcrae - Last Filed: 02/24/20 10:59> Assessment and Plan: Continue inhalers Continue steroids Start Levaquin 500 mg daily <Rosalinda Prescott TAHIRA - Last Filed: 02/24/20 10:59> (6) Asthma: Code(s): J45.909 - Unspecified asthma, uncomplicated <TAHIRA Mcrae - Last Filed: 02/24/20 10:59> Status: Acute <Rosalinda Prescott TAHIRA - Last Filed: 02/24/20 10:59> Assessment and Plan: Referred to COPD <TAHIRA Mcrae - Last Filed: 02/24/20 10:59> (7) Atrial fibrillation: Code(s): I48.91 - Unspecified atrial fibrillation <Rosalinda Prescott TAHIRA - Last Filed: 02/24/20 10:59> Status: Acute <TAHIRA Mcrae - Last Filed: 02/24/20 10:59> Assessment and Plan: Controlled Continue metoprolol 50 mg Continue Lovenox 30 mg twice daily Continue telemetry <Rosalinda Prescott TAHIRA - Last Filed: 02/24/20 10:59> Review of Systems Review of Systems: Narrative: 10 point system review <Rosalinda Prescott CELL TENDERTrangDiego - Last Filed: 02/24/20 10:59> All systems reviewed & are unremarkable except as noted in HPI and below (10 point system review) <Rosalinda Prescott TAHIRA - Last Filed: 02/24/20 10:59> Exam Narrative: Exam Narrative: GENERAL: Frail elderly woman with labored breathing, accessory muscle use, pierced lip breathing, and short of breath HEAD: normocephalic, atraumatic. EYES: PERRL. Sclera clear/white. Vision is grossly intact. EARS: External ears normal, auditory canals clear and without drainage, TMs normal without perforation. Hearing grossly intact. NOSE: External nose normal with no obvious nasal discharge, nares without redness, no rhinorrhea. THROAT: Mucous membranes moist, posterior pharynx clear. NECK: Neck supple, non-tender without lymphadenopathy, masses or thyromegaly. CARDIOVASCULAR: Regula
[2020-02-24] MEDS: REMDESIVIR 100 MG/NS 250 ML 100 MG/250 ML BAG 250 MG IVPB (21:25)
[2020-02-25] VITALS (14 sets, daily range): BP systolic 105–118; BP diastolic 69; PULSE 59–88; RESP 14–24; TEMP 35.3–37; O2SAT 90–100
[2020-02-25 05:32] LABS: Hematocrit 37.4 % (35.0-42.0); Hemoglobin 12.8 g/dL (11.7-13.8); Mean Corpuscular HGB Conc 34.2 g/dL (32.0-36.0); Mean Corpuscular Hemoglobin 31.4 pg (27.0-31.0); Mean Corpuscular Volume 91.9 fL (78.0-102.0); Mean Platelet Volume 9.1 fl (9.2-11.8); Platelet Count Result 406 K/mm3 (150-420); Red Blood Count 4.07 M/mm3 (4.20-5.40); Red Cell Distribution Width 12.5 % (11.6-14.4); White Blood Count 14.4 K/mm3 (4.8-10.8)
[2020-02-25] MEDS: IPRATROPIUM 0.5 MG/ALBUTEROL SULFATE 2.5 MG AMPUL.NEB 3 ML INHALATION ×4 (05:35→22:48)
[2020-02-25] MEDS: BUDESONIDE RESPULE NEB 0.5 MG/2 ML AMP INHALATION ×2 (05:36→17:46)
[2020-02-25 06:12] LABS: Alanine Aminotransferase 25 U/L (14-59); Anion Gap 5 mmol/L (8-16); Blood Urea Nitrogen 23 mg/dL (7-18); Calcium 8.7 mg/dL (8.5-10.1); Carbon Dioxide 29 mmol/L (21-32); Chloride 94 mmol/L (98-108); Estimated CRCL calculation 35 ml/min; Estimated Glomerular Filt Rate > 60; Glucose 101 mg/dL (70-99); Magnesium 1.8 mg/dL (1.8-2.4); Osmolality Calculated 269 mOsm/kg (285-295); Potassium 3.9 mmol/L (3.5-5.1); Sodium 128 mmol/L (136-145)
[2020-02-25] MEDS: DEXAMETHASONE SOD PHOS INJ 4 MG/ML VIAL IV PUSH ×2 (09:58→21:18)
[2020-02-25] MEDS: ASPIRIN 81 MG ENTERIC TABLET PO (09:59)
[2020-02-25] MEDS: MAGNESIUM OXIDE 400 MG TABLET PO (09:59)
[2020-02-25] MEDS: lisinopriL 10 MG TABLET PO (09:59)
[2020-02-25] MEDS: ENOXAPARIN 30 MG/0.3 ML SYRINGE SUB-Q ×2 (09:59→21:18)
[2020-02-25] MEDS: ACETAMINOPHEN 500 MG TABLET 1000 MG PO (10:00)
[2020-02-25] MEDS: amLODIPine BESYLATE 5 MG TABLET PO (10:00)
[2020-02-25] MEDS: METOPROLOL SUCCINATE EXT REL 50 MG TABCR PO (10:01)
[2020-02-25] MEDS: THEOPHYLLINE ANHYDROUS 100 MG CAP.ER.24H 300 MG PO (10:01)
[2020-02-25] MEDS: SODIUM CHLORIDE 0.9% IV 1,000 ML 100 ML IV CONT ×2 (10:14→21:20)
--- NOTE | 2020-02-25 11:50 | P.PN_ITS ---
Progress Note: A&P Assessment and Plan (1) Pneumonia due to 2019 novel coronavirus: Code(s): U07.1 - COVID-19; J12.89 - Other viral pneumonia Status: Acute Assessment and Plan: * More than likely residual from covid * Chest x-ray and Basilar reticulonodular opacities, could be acute or chronic infectious process * Referred to Covid. * (2) Electrolyte imbalance: Code(s): E87.8 - Other disorders of electrolyte and fluid balance, not elsewhere classified Status: Acute Assessment and Plan: * Sodium low * Started normal saline (3) COVID-19: Code(s): U07.1 - COVID-19 Status: Acute Assessment and Plan: * Patient tested positive on 02/17/2020 she will be off her quarantine on 02/28/2020 * Continue dexamethasone and remdesivir(restarted on 02/23/2020 * Patient on home oxygen at 3 L * Continue nebulizers and inhalers (4) Hypertension: Code(s): I10 - Essential (primary) hypertension Status: Acute Assessment and Plan: * Stable * Continue amlodipine 5 mg daily and metoprolol 50 mg daily * Vital signs as ordered. * Will adjust medication as needed (5) COPD (chronic obstructive pulmonary disease): Code(s): J44.9 - Chronic obstructive pulmonary disease, unspecified Status: Acute Assessment and Plan: * Continue inhalers * Continue steroids * Continue Levaquin 500 mg daily (6) Asthma: Code(s): J45.909 - Unspecified asthma, uncomplicated Status: Acute Assessment and Plan: * Referred to COPD (7) Atrial fibrillation: Code(s): I48.91 - Unspecified atrial fibrillation Status: Acute Assessment and Plan: * Controlled * Continue metoprolol 50 mg * Continue Lovenox 30 mg twice daily * Continue telemetry Review of Systems Review of Systems: All systems reviewed & are unremarkable except as noted in HPI and below (10 point system review) Exam Narrative: Exam Narrative: GENERAL: Frail elderly woman with labored breathing, accessory muscle use, pierced lip breathing, and short of breath HEAD: normocephalic, atraumatic. EYES: PERRL. Sclera clear/white. Vision is grossly intact. EARS: External ears normal, auditory canals clear and without drainage, TMs normal without perforation. Hearing grossly intact. NOSE: External nose normal with no obvious nasal discharge, nares without redness, no rhinorrhea. THROAT: Mucous membranes moist, posterior pharynx clear. NECK: Neck supple, non-tender without lymphadenopathy, masses or thyromegaly. CARDIOVASCULAR: Regular rate and rhythm without murmurs, gallops, or rubs. RESPIRATORY: Diminished breath sounds throughout GASTROINTESTINAL: Abdomen soft, non-tender, nondistended. Bowel sounds are active. No hepato-splenomegaly, or palpable masses. No guarding. SKIN: warm, intact with no suspicious lesions or rash, good texture and turgor. NEURO: awake, alert, and oriented to person, place and time. There were no obvious focal neurologic abnormalities. Steady gait EXTREMITIES: Normal range of motion. No edema. No calf tenderness. Negative Homans sign bilaterally. BACK: Nontender without deformity or crepitance. No flank tenderness. Objective Data Vital Signs Vital Signs: Vital Signs - 24 hr 02/24/20 12:34 02/24/20 12:44 02/24/20 16:00 Temperature 97.0 F L Pulse Rate 75 76 76 Respiratory Rate 24 H 24 H 22 H Blood Pressure 114/81 Pulse Oximetry 91 100 91
--- NOTE | 2020-02-25 11:50 | WPDPN ---
Progress Note: A&P Assessment and Plan (1) Pneumonia due to 2019 novel coronavirus: Code(s): U07.1 - COVID-19; J12.89 - Other viral pneumonia Status: Acute Assessment and Plan: More than likely residual from covid Chest x-ray and Basilar reticulonodular opacities, could be acute or chronic infectious process Referred to Covid. (2) Electrolyte imbalance: Code(s): E87.8 - Other disorders of electrolyte and fluid balance, not elsewhere classified Status: Acute Assessment and Plan: Sodium low Started normal saline (3) COVID-19: Code(s): U07.1 - COVID-19 Status: Acute Assessment and Plan: Patient tested positive on 02/17/2020 she will be off her quarantine on 02/28/2020 Continue dexamethasone and remdesivir(restarted on 02/23/2020 Patient on home oxygen at 3 L Continue nebulizers and inhalers (4) Hypertension: Code(s): I10 - Essential (primary) hypertension Status: Acute Assessment and Plan: Stable Continue amlodipine 5 mg daily and metoprolol 50 mg daily Vital signs as ordered. Will adjust medication as needed (5) COPD (chronic obstructive pulmonary disease): Code(s): J44.9 - Chronic obstructive pulmonary disease, unspecified Status: Acute Assessment and Plan: Continue inhalers Continue steroids Continue Levaquin 500 mg daily (6) Asthma: Code(s): J45.909 - Unspecified asthma, uncomplicated Status: Acute Assessment and Plan: Referred to COPD (7) Atrial fibrillation: Code(s): I48.91 - Unspecified atrial fibrillation Status: Acute Assessment and Plan: Controlled Continue metoprolol 50 mg Continue Lovenox 30 mg twice daily Continue telemetry Review of Systems Review of Systems: All systems reviewed & are unremarkable except as noted in HPI and below (10 point system review) Exam Narrative: Exam Narrative: GENERAL: Frail elderly woman with labored breathing, accessory muscle use, pierced lip breathing, and short of breath HEAD: normocephalic, atraumatic. EYES: PERRL. Sclera clear/white. Vision is grossly intact. EARS: External ears normal, auditory canals clear and without drainage, TMs normal without perforation. Hearing grossly intact. NOSE: External nose normal with no obvious nasal discharge, nares without redness, no rhinorrhea. THROAT: Mucous membranes moist, posterior pharynx clear. NECK: Neck supple, non-tender without lymphadenopathy, masses or thyromegaly. CARDIOVASCULAR: Regular rate and rhythm without murmurs, gallops, or rubs. RESPIRATORY: Diminished breath sounds throughout GASTROINTESTINAL: Abdomen soft, non-tender, nondistended. Bowel sounds are active. No hepato-splenomegaly, or palpable masses. No guarding. SKIN: warm, intact with no suspicious lesions or rash, good texture and turgor. NEURO: awake, alert, and oriented to person, place and time. There were no obvious focal neurologic abnormalities. Steady gait EXTREMITIES: Normal range of motion. No edema. No calf tenderness. Negative Homans sign bilaterally. BACK: Nontender without deformity or crepitance. No flank tenderness. Objective Data Vital Signs Vital Signs: Vital Signs - 24 hr 02/24/20 12:34 02/24/20 12:44 02/24/20 16:00 Temperature 97.0 F L Pulse Rate 75 76 76 Respiratory Rate 24 H 24 H 22 H Blood Pressure 114/81 Pulse Oximetry 91 100 91 02/24/20 17:34 02/24/20 17:42 02/24/20 19:50 Temperature 97.7 F Pulse Rate 67 65 94 Respiratory Rate 24 H 24 H 26 H Blood Pressure 160/79 H Pulse Oximetry 94 99 90 02/24/20 22:49 02/24/20 23:01 02/24/20 23:30 Temperature 96.5 F L Pulse Rate 68 78 77 Respiratory Rate 22 H 24 H 22 H Blood Pressure 115/50 L Pulse Oximetry 91 99 91 02/25/20 05:37 02/25/20 05:42 02/25/20 05:43 Temperature Pulse Rate 84 88 76 Respiratory Rate 24 H 22 H 22 H Blood Pressure Pulse Oximetry 92 98 100 02/25/20 05:49 02/25/20
[2020-02-25] MEDS: REMDESIVIR 100 MG/NS 250 ML 100 MG/250 ML BAG 250 MG IVPB (21:35)
--- NOTE | 2020-02-25 23:26 | PC.NURSE ---
Patient's daughter returned call from case coordination. Stated patient will discharge to her home. She will have someone at her home 24 hour day with her mother. Patient also wants to make certain she continues on her home neb treatments when discharged.
[2020-02-26] VITALS (10 sets, daily range): BP systolic 113–133; BP diastolic 60–76; PULSE 70–87; RESP 18–24; TEMP 36.3–36.5; O2SAT 93–100
[2020-02-26] MEDS: IPRATROPIUM 0.5 MG/ALBUTEROL SULFATE 2.5 MG AMPUL.NEB 3 ML INHALATION ×2 (05:43→12:42)
[2020-02-26] MEDS: BUDESONIDE RESPULE NEB 0.5 MG/2 ML AMP INHALATION (05:44)
[2020-02-26 05:57] LABS: Hematocrit 41.3 % (35.0-42.0); Hemoglobin 13.7 g/dL (11.7-13.8); Mean Corpuscular HGB Conc 33.2 g/dL (32.0-36.0); Mean Corpuscular Hemoglobin 31.1 pg (27.0-31.0); Mean Corpuscular Volume 93.9 fL (78.0-102.0); Mean Platelet Volume 8.9 fl (9.2-11.8); Platelet Count Result 441 K/mm3 (150-420); Red Cell Distribution Width 12.6 % (11.6-14.4); White Blood Count 6.9 K/mm3 (4.8-10.8)
[2020-02-26 06:02] LABS: Alanine Aminotransferase 25 U/L (14-59); Albumin Level 2.5 g/dL (3.4-5.0); Alkaline Phosphatase 64 U/L (46-116); Anion Gap 6 mmol/L (8-16); Aspartate Amino Transferase 15 U/L (15-37); Bilirubin,Total 0.3 mg/dL (0.00-1.00); Blood Urea Nitrogen 18 mg/dL (7-18); Calcium 8.4 mg/dL (8.5-10.1); Carbon Dioxide 28 mmol/L (21-32); Chloride 96 mmol/L (98-108); Estimated CRCL calculation 38 ml/min; Estimated Glomerular Filt Rate > 60; Glucose 106 mg/dL (70-99); Osmolality Calculated 271 mOsm/kg (285-295); Potassium 4.3 mmol/L (3.5-5.1); Sodium 130 mmol/L (136-145); Total Protein 5.5 g/dL (6.4-8.2)
--- NOTE | 2020-02-26 09:42 | PM.DS ---
DS: Admitting Diagnosis Admitting Diagnosis Admitting Diagnosis: End-stage COPD and Covid DS: Discharge Diagnosis Discharge Diagnosis (1) Pneumonia due to 2019 novel coronavirus: Code(s): U07.1 - COVID-19; J12.89 - Other viral pneumonia Status: Acute Assessment and Plan: More than likely residual from covid Chest x-ray and Basilar reticulonodular opacities, could be acute or chronic infectious process Referred to Covid. (2) Electrolyte imbalance: Code(s): E87.8 - Other disorders of electrolyte and fluid balance, not elsewhere classified Status: Acute Assessment and Plan: Sodium low will discharge home with sodium pill and a repeat lab level in a couple of days (3) COVID-19: Code(s): U07.1 - COVID-19 Status: Acute Assessment and Plan: Patient tested positive on 02/17/2020 she will be off her quarantine on 02/28/2020 Continue dexamethasone and remdesivir(restarted on 02/23/2020) patient completed remdesivir she will go home with dexamethasone Patient on home oxygen at 3 L Continue nebulizers and inhalers (4) Hypertension: Code(s): I10 - Essential (primary) hypertension Status: Acute Assessment and Plan: Stable Continue amlodipine 5 mg daily and metoprolol 50 mg daily (5) COPD (chronic obstructive pulmonary disease): Code(s): J44.9 - Chronic obstructive pulmonary disease, unspecified Status: Acute Assessment and Plan: Continue inhalers Continue steroids Continue Levaquin 500 mg daily (6) Asthma: Code(s): J45.909 - Unspecified asthma, uncomplicated Status: Acute Assessment and Plan: Referred to COPD (7) Atrial fibrillation: Code(s): I48.91 - Unspecified atrial fibrillation Status: Acute Assessment and Plan: Controlled Continue metoprolol 50 mg Continue aspirin 81 mg daily DS: Summary Hospital Course Hospital Course: This is a 79-year-old white female that presented to the urgent care on 02/17/20 with shortness of breath she does have end-stage COPD, and chills. She did test positive for Covid on 02/17/2020 exposure 2 weeks previously. Patient was discharged on 02/18/2020 sent home with 10 days of dexamethasone. Patient return back to the ED on 02/22/2020 due to worsening shortness of breath. This time patient was given complete dose of remdesivir and dexamethasone. She was discharged home to complete her dexamethasone. Patient does have end-stage COPD and hospice was discussed with her. She will discuss it with her daughters to determine whether she should go under the care of hospice. This day of discharge she is at baseline with breathing and notes that she feels much better than she did when she was admitted. The patient denies CP, palpitation, extremity numbness, lightheadedness, dizziness, constipation, diarrhea, chills, or fever. Time Spent with Patient Time attestation: Total time spent providing and/or coordinating discharge services:60 Exam Narrative: Exam Narrative: GENERAL: Frail elderly woman with labored breathing, accessory muscle use, pierced lip breathing, and short of breath HEAD: normocephalic, atraumatic. EYES: PERRL. Sclera clear/white. Vision is grossly intact. EARS: External ears normal, auditory canals clear and without drainage, TMs normal without perforation. Hearing grossly intact. NOSE: External nose normal with no obvious nasal discharge, nares without redness, no rhinorrhea. THROAT: Mucous membranes moist, posterior pharynx clear. NECK: Neck supple, non-tender without lymphadenopathy, masses or thyromegaly. CARDIOVASCULAR: Regular rate and rhythm without murmurs, gallops, or rubs. RESPIRATORY: Diminished breath sounds throughout GASTROINTESTINAL: Abdomen soft, non-tender, nondistended. Bowel sounds are active. No hepato-splenomegaly, or palpable masses. No guarding. SKIN: warm, intact with no suspicious lesions or rash, good texture and turg
[2020-02-26] MEDS: ENOXAPARIN 30 MG/0.3 ML SYRINGE SUB-Q (10:21)
[2020-02-26] MEDS: THEOPHYLLINE ANHYDROUS 100 MG CAP.ER.24H 300 MG PO (10:21)
[2020-02-26] MEDS: DEXAMETHASONE SOD PHOS INJ 4 MG/ML VIAL IV PUSH (10:21)
[2020-02-26] MEDS: ASPIRIN 81 MG ENTERIC TABLET PO (10:22)
[2020-02-26] MEDS: amLODIPine BESYLATE 5 MG TABLET PO (10:22)
[2020-02-26] MEDS: METOPROLOL SUCCINATE EXT REL 50 MG TABCR PO (10:22)
[2020-02-26] MEDS: MAGNESIUM OXIDE 400 MG TABLET PO (10:23)
[2020-02-26] MEDS: lisinopriL 10 MG TABLET PO (10:23)
--- NOTE | 2020-03-15 14:47 | PC.NURSE ---
Unable to contact for discharge call back.
== END 2020-02-26 14:40 | disposition home or self-care (01) | DRG 177 ==
LOC: CHSED 22:45 → CHS2ND 02-23 08:10
PROVIDERS: Nurse Practitioner; Nurse Practitioner Family; Admitting Provider Emergency Medicine; Emergency Provider Emergency Medicine; PCP Family Medicine; Visit Provider Emergency Medicine
DX: U07.1 COVID-19 (principal); J12.89 Other viral pneumonia; J44.9 Chronic obstructive pulmonary disease, unspecified; I10 Essential (primary) hypertension; Z87.891 Personal history of nicotine dependence; I48.91 Unspecified atrial fibrillation; E87.8 Other disorders of electrolyte and fluid balance, not elsewhere classified
CPT/HCPCS: 36415; 36600; 71045; 80048; 80053; 82805; 83735; 84460; 85025; 85027; 86140; 94640; 99285; A9270; J1100; J1650; J7030

== ENCOUNTER 2021-01-02 10:04 | Outpatient (CLI) | payer MEDICARE, SELFPAY ==
[2021-01-02 10:19] LABS: Basophils Absolute Auto 0.03 K/mm3 (0.00-0.10); Basophils Percent Auto 0.4 % (0.0-1.0); Eosinophils Absolute Auto 0.31 K/mm3 (0.02-0.50); Eosinophils Percent Auto 4.6 % (1.0-6.0); Hematocrit 41.2 % (35.0-42.0); Hemoglobin 13.6 g/dL (11.7-13.8); Immature Granulocyte Absolute 0.02 K/mm3 (0.00-0.00); Immature Granulocyte Percent A 0.3 % (0.0-0.0); Lymphocytes Absolute Auto 2.08 K/mm3 (1.10-4.50); Lymphocytes Percent Auto 30.8 % (18.0-42.0); Mean Corpuscular Hemoglobin 31.9 pg (27.0-31.0); Mean Corpuscular Volume 96.7 fL (78.0-102.0); Mean Platelet Volume 8.8 fl (9.2-11.8); Monocytes Absolute Auto 0.66 K/mm3 (0.10-0.90); Monocytes Percent Auto 9.8 % (2.0-11.0); Neutrophils Absolute Auto 3.7 K/mm3 (1.7-7.2); Neutrophils Percent Auto 54.1 % (50.0-70.0); Platelet Count Result 204 K/mm3 (150-420); Red Blood Count 4.26 M/mm3 (4.20-5.40); Red Cell Distribution Width 12.8 % (11.6-14.4); White Blood Count 6.8 K/mm3 (4.8-10.8)
[2021-01-02 11:40] LABS: Alanine Aminotransferase 26 U/L (14-59); Albumin Level 4.1 g/dL (3.4-5.0); Alkaline Phosphatase 93 U/L (46-116); Anion Gap 8 mmol/L (8-16); Aspartate Amino Transferase 15 U/L (15-37); Bilirubin,Total 0.5 mg/dL (0.00-1.00); Blood Urea Nitrogen 9 mg/dL (7-18); Calcium 9.1 mg/dL (8.5-10.1); Carbon Dioxide 32 mmol/L (21-32); Chloride 101 mmol/L (98-108); Cholesterol 172 mg/dL (0-200); Estimated Glomerular Filt Rate > 60; Glucose 100 mg/dL (70-99); HDL Direct 95 mg/dL (40-60); LDL Cholesterol Calculated 63 mg/dL (<130); Osmolality Calculated 290 mOsm/kg (285-295); Potassium 3.4 mmol/L (3.5-5.1); Sodium 141 mmol/L (136-145); Total Protein 6.9 g/dL (6.4-8.2); Triglycerides 70 mg/dL (0-150)
== END 2021-01-02 10:05 | disposition home or self-care (01) ==
LOC: CHSLAB 10:06
PROVIDERS: PCP Nurse Practitioner Family; Visit Provider Nurse Practitioner Family
DX: I10 Essential (primary) hypertension (principal)
CPT/HCPCS: 36415; 80053; 80061; 85025

== ENCOUNTER 2021-01-14 08:43 | Inpatient (IN) | payer MEDICARE, OTHER, SELFPAY ==
[2021-01-14] VITALS (13 sets, daily range): BP systolic 115–165; BP diastolic 67–114; PULSE 74–96; RESP 16–24; TEMP 37–37.2; O2SAT 95–100; BMI 15.3
--- NOTE | ~2021-01-14 | XR_ITS ---
XR chest 1V portable DATE: 01/15/2021 12:31 INDICATION: Shortness of breath TECHNIQUE: Portable upright AP chest on 01/15/2021 at 1229 hours COMPARISON: 01/14/2021 portable AP chest FINDINGS: There is bilateral hyperinflation consistent with COPD. There is suggestion of mild infiltrate and/atelectasis in the left lower lung. The lungs otherwise ap pear clear. No pleural effusion or pulmonary congestion or pneumothorax. Normal heart size. There is aortic calcification. Prominent diffuse osteopenia. IMPRESSION: Bilateral hyperinflation consistent with COPD Mild infiltrate or atelectasis in the left lower lung Aortic atherosclerosis Prominent diffuse osteopenia Reviewed, dictated and finalized at location A. S SALESPERSON
--- NOTE | ~2021-01-14 | XR_ITS ---
EXAMINATION: XR chest 1V portable DATE: 01/14/2021 09:13 INDICATION: COPD presenting with dyspnea TECHNIQUE: frontal view of the chest was obtained. COMPARISON: Chest radiograph dated 02/22/2020 FINDINGS: Hyperexpansion of the lungs with increased lucency and architectural distortion consistent with emphy sema. Flattening of the diaphragm with blunting at costophrenic angles which could represent pleural parenchymal scarring or very small bilateral pleural effusions. There are few peripheral Darrick B-randal es at the lateral lower lung zones with improvement of the previously more prominent interstitial pat tern with no new airspace opacities, pleural effusion or pneumothorax. The cardiomediastinal silhouet te is normal. Calcified left hilar lymph nodes consistent with old granulomatous disease. Mild thorac ic levocurvature. IMPRESSION: 1. Emphysema. 2. Peripheral Darrick B-lines at the bilateral lower lung zones consistent with decreased now minimal pulmonary edema. Reviewed, dictated and finalized at location A.
--- NOTE | 2021-01-14 08:48 | ECG_ITS ---
Measurements Intervals [place] Rate: 85 P: 90 NE: 128 QRS: 60 QRSD: 86 T: -44 QT: 294 QTc: 351 Interpretive Statements SINUS RHYTHM WITH SINUS ARRHYTHMIA POSSIBLE LEFT ATRIAL ENLARGEMENT NONSPECIFIC ST & T-WAVE ABNORMALITY- DIFFUSE LEADS BASELINE ARTIFACT- I, II, III, AVR, AVL, AVF, V1-V6 BORDERLINE ECG Electronically Signed On 01-15-2021 20:05:48 PLSQL DEVELOPER by Jorge Alberto Olvera D.O.
[2021-01-14 09:08] LABS: Base Excess ABG 3.7 mmol/L (0-2); HCO3 ABG 30.2 mmol/L (23-29); Oxygen Content ABG 19.7 %vol (16.0-22.0); Oxygen Saturation ABG 97.3 % (95-97); Oxyhemoglobin 96.7 % (94-100); PCO2 ABG 53.5 mmHg (35-45); PO2 ABG 101.4 mmHg (75-85); Total Hemoglobin 14.4 g/dL (12.0-18.0); pH ABG 7.37 (7.35-7.45)
[2021-01-14 09:09] LABS: Basophils Absolute Auto 0.03 K/mm3 (0.00-0.10); Basophils Percent Auto 0.5 % (0.0-1.0); Hematocrit 42.4 % (35.0-42.0); Hemoglobin 14.1 g/dL (11.7-13.8); Immature Granulocyte Absolute 0.02 K/mm3 (0.00-0.00); Immature Granulocyte Percent A 0.3 % (0.0-0.0); Lymphocytes Absolute Auto 1.76 K/mm3 (1.10-4.50); Lymphocytes Percent Auto 26.6 % (18.0-42.0); Mean Corpuscular HGB Conc 33.3 g/dL (32.0-36.0); Mean Corpuscular Volume 96.1 fL (78.0-102.0); Mean Platelet Volume 8.8 fl (9.2-11.8); Monocytes Absolute Auto 0.93 K/mm3 (0.10-0.90); Monocytes Percent Auto 14.1 % (2.0-11.0); Neutrophils Absolute Auto 3.7 K/mm3 (1.7-7.2); Neutrophils Percent Auto 55.5 % (50.0-70.0); Platelet Count Result 162 K/mm3 (150-420); Red Blood Count 4.41 M/mm3 (4.20-5.40); Red Cell Distribution Width 12.7 % (11.6-14.4); White Blood Count 6.6 K/mm3 (4.8-10.8)
[2021-01-14 09:13] LABS: Device NASAL CANNULA; Modified Allen's Test Pass; Site Drawn RIGHT RADIAL
[2021-01-14 09:23] LABS: INR 1.1; Partial Thromboplastin Time 28.2 SEC (23.90-30.70); Prothrombin Time 12.1 Seconds (9.50-12.10)
[2021-01-14 09:33] LABS: Alanine Aminotransferase 25 U/L (14-59); Albumin Level 3.9 g/dL (3.4-5.0); Alkaline Phosphatase 106 U/L (46-116); Anion Gap 8 mmol/L (8-16); Aspartate Amino Transferase 16 U/L (15-37); Bilirubin,Total 0.3 mg/dL (0.00-1.00); Blood Urea Nitrogen 14 mg/dL (7-18); Calcium 9.2 mg/dL (8.5-10.1); Carbon Dioxide 34 mmol/L (21-32); Chloride 101 mmol/L (98-108); Estimated CRCL calculation 36 ml/min; Estimated Glomerular Filt Rate > 60; Glucose 119 mg/dL (70-99); NT Pro B Type Natriuretic Pept 411 pg/mL (0-450); Osmolality Calculated 297 mOsm/kg (285-295); Potassium 3.4 mmol/L (3.5-5.1); Sodium 143 mmol/L (136-145); Total Protein 7.2 g/dL (6.4-8.2); Troponin I 7.6 ng/L (0.00-60.4)
--- NOTE | 2021-01-14 09:39 | ED.SOB ---
HPI - SOB/Dyspnea General Chief Complaint: Shortness of Breath/Dyspnea Stated Complaint: Amulance Source: patient and EMS Mode of arrival: ambulatory Limitations: no limitations History of Present Illness HPI Narrative: This is 80-year-old female that is brought in by EMS with increased shortness of breath is currently on oxygen at2L at home but was not getting good flow with her oxygen and the patient desatted her saturations were 74 when EMS got there put her on 2L of oxygen along with a breathing treatment and steroids and the patient is currently satting at 100% there is some audible wheezing some shortness of breath with no chest pain no headache no blurry vision has a low-grade temperature with no abdominal pain no dysuria. MD elicited complaint: shortness of breath Pertinent past history: COPD Onset (ago): hour(s) Related Data Home Medications Medication Instructions Recorded Confirmed aspirin 81 mg tablet,delayed 81 mg PO DAILY 05/04/19 12/08/20 release budesonide 0.5 mg/2 mL suspension 0.5 mg INHALATION DAILY 05/04/19 12/08/20 for nebulization formoterol fumarate 20 mcg/2 mL 2 ml INHALATION Q12H 05/04/19 12/08/20 solution for nebulization ipratropium 0.5 mg-albuterol 3 mg 3 ml INHALATION Q4H PRN 05/04/19 12/08/20 (2.5 mg base)/3 mL nebulization soln theophylline 300 mg 300 mg PO DAILY cap 05/04/19 12/08/20 capsule,extended release 24 hr amlodipine 5 mg PO DAILY 02/17/20 12/08/20 Allergies Allergy/AdvReac Type Severity Reaction Status Date / Time No Known Allergies Allergy Verified 12/08/20 14:27 Review of Systems Review of Systems: All systems reviewed & are unremarkable except as noted in HPI and below PMFSH Past Medical History Medical History Asthma COPD (chronic obstructive pulmonary disease) COVID-19 Hypertension Pneumonia due to 2019 novel coronavirus Surgical History Surgical History No history of previous surgery Social History Social History Smoking packs per day: 0.75 Smoking cigarettes per day: 15.0 Smoking status: Former smoker Tobacco type: cigarettes Additional smoking assessment comments: Quit July 2015. 50 pack-year history Alcohol intake: unknown Substance use: never Gender identity (if verbalized by the patient): Female Sexual Orientation (if Verbalized by the Patient): Straight or Heterosexual Spiritual care concerns: No Exam Const: General: no acute distress Orientation/consciousness: patient oriented x3 HENMT: Head: normal to inspection Eyes: Conjunctivae: conjunctivae normal Pupils: Equal, round and reactive pupils present EOM: EOMs intact bilaterally Neck: Neck: normal visual inspection, no lymphadenopathy and no meningeal signs Chest: Chest palpation & inspection: normal inspection of the chest Resp: Effort & Inspection: normal respiratory effort Auscultation: wheezes and diminished lung sounds Cardio: Rate: regular rate Rhythm: regular rhythm GI: GI Palp: Yes Soft to palpation Percussion: Yes normal to percussion : General: Yes no CVA tenderness Urinary Catheter: Urinary Catheter: patent and draining Back/Spine/Pelvis: Back: no CVA tenderness Skin: General skin exam: normal color Rashes: no rashes Extrem: General: normal to inspection and no pedal edema Psych: Mental Status: mental status grossly normal Affect: normal affect Course Course Emergency Course: Patient x-ray and labs reviewed patient received breathing treatment EN route via EMS and steroids currently satting 100% advised patient will will admit the patient to the hospital. Admission diagnosis COPD exacerbation Disposition admission to acute hospital [facility] Condition guarded Vital Signs Vital signs: Vital Signs Pulse Rate 80 21 09:00 Respiratory Rate 20
--- NOTE | 2021-01-14 09:50 | PC.NURSE ---
Floor and registration notified of pt being admitted.
--- NOTE | 2021-01-14 10:51 | PC.NURSE ---
Phone report given to floor RN.
--- NOTE | 2021-01-14 11:54 | PM.IMHP ---
H&P: HPI History of Present Illness Date/Time: 01/14/21 11:54 this is a 80-year-old female who presented to our emergency department with complaints of shortness of breath. Patient has a past medical history of COPD, COVID pneumonia hypertension. According to patient last night she started to feel increased shortness of breath. Patient does have a history of COPD so she has chronic shortness of breath and uses 2 L nasal cannula at home. Along with her shortness of breath she describes her throat as having a burning sensation. Patient noted that this a.m. her shortness of breath worsened and not resolved with her breathing treatments. At that time her daughter told her that she needed to come to the emergency department, EMS was called she notes that when she was about to take her nebulizer treatment they came and she did not. While she was with EMS she did receive a nebulizer treatment in ED she received steroids. Patient has been vaccinated and tested positive for Covid pneumonia and February and was hospitalized here. Patient's vital signs 98.8, 89, 4, 97% on 2 L nasal cannula, 145/67, WBC 6.6, hemoglobin 14.1, hematocrit 42.4, platelet 162, sodium 143, potassium 3.4, BUN 14, creatinine 0.63, AST 16, ALT 25, troponin 7.6, BNP 411, blood gas pH 37, CO2 53.5, O2 101.4, bicarb 20.2 ,chest x-ray indicates emphysema and decreased now minimal pulmonary edema. Patient will be admitted for COPD exacerbation. Patient notes that her shortness of breath has now improved and she feels fine. Chief Complaint: Shortness of breath Review of Systems Review of Systems: A 14 organ system Review of Systems was performed and pertinent positives included in the HPI, otherwise remaining ROS is negative. [facility] Past Medical History Medical History Asthma COPD (chronic obstructive pulmonary disease) COVID-19 Hypertension Pneumonia due to 2019 novel coronavirus Surgical History Surgical History No history of previous surgery Social History Social History Smoking packs per day: 0.75 Smoking cigarettes per day: 15.0 Years smoked: 30 Smoking pack-years: 22.50 Smoking status: Former smoker Tobacco type: cigarettes Additional smoking assessment comments: Quit July 2015. 50 pack-year history Alcohol intake: never Substance use: never Gender identity (if verbalized by the patient): Female Sexual Orientation (if Verbalized by the Patient): Straight or Heterosexual Spiritual care concerns: No Meds Home Medications and Allergies Home Medications Medication Instructions Recorded Confirmed Type aspirin 81 mg tablet,delayed 81 mg PO DAILY 05/04/19 01/14/21 History release budesonide 0.5 mg/2 mL suspension 0.5 mg INHALATION DAILY 05/04/19 01/14/21 History for nebulization formoterol fumarate 20 mcg/2 mL 2 ml INHALATION Q12H 05/04/19 01/14/21 History solution for nebulization ipratropium 0.5 mg-albuterol 3 mg 3 ml INHALATION Q4H PRN 05/04/19 01/14/21 History (2.5 mg base)/3 mL nebulization soln lisinopril 10 mg PO DAILY 01/14/21 01/14/21 History metoprolol succinate 50 mg PO QAM 01/14/21 01/14/21 History theophylline 300 mg PO DAILY 01/14/21 01/14/21 History Allergies Allergy/AdvReac Type Severity Reaction Status Date / Time No Known Allergies Allergy Verified 01/14/21 09:50 Vital Signs Vital Signs - 24 hr 01/14/21 08:45 01/14/21 09:00 01/14/21 09:17 Temperature 98.9 F Pulse Rate 80 88 Respiratory Rate 20 24 H Blood Pressure 146/114 H 165/76 H Pulse Oximetry 100 100 99 01/14/21 10:47 01/14/21 11:07 01/14/21 11:10 Temperature 98.8 F Pulse Rate 90 89 Respiratory Rate 20 24 H Blood Pressure 145/67 H 145/67 H Pulse Oximetry 97 97 96 Exam Narrative: GENERAL: Elderly frail female, in no apparent distress. HEAD:
[2021-01-14] MEDS: IPRATROPIUM 0.5 MG/ALBUTEROL SULFATE 2.5 MG AMPUL.NEB 3 ML INHALATION ×2 (13:21→18:58)
[2021-01-14] MEDS: methylPREDNISolone SOD SUCC 125 MG VIAL 60 MG IV PUSH ×2 (13:22→18:58)
[2021-01-14] MEDS: ASPIRIN 81 MG ENTERIC TABLET PO (13:23)
[2021-01-14] MEDS: lisinopriL 10 MG TABLET PO (13:23)
[2021-01-14] MEDS: ENOXAPARIN 30 MG/0.3 ML SYRINGE SUB-Q (13:23)
[2021-01-14] MEDS: FUROSEMIDE INJ 40 MG/4 ML VIAL IV PUSH (13:23)
[2021-01-14] MEDS: POTASSIUM CHLORIDE 20 MEQ TABLET 40 MEQ PO (13:23)
[2021-01-14] MEDS: METOPROLOL SUCCINATE EXT REL 50 MG TABCR PO (13:24)
[2021-01-15] VITALS (13 sets, daily range): BP systolic 114–152; BP diastolic 63–80; PULSE 72–100; RESP 18–22; TEMP 36.3–37.2; O2SAT 91–100
[2021-01-15] MEDS: IPRATROPIUM 0.5 MG/ALBUTEROL SULFATE 2.5 MG AMPUL.NEB 3 ML INHALATION ×4 (00:34→18:15)
[2021-01-15] MEDS: ENOXAPARIN 30 MG/0.3 ML SYRINGE SUB-Q ×2 (00:34→12:33)
[2021-01-15] MEDS: methylPREDNISolone SOD SUCC 125 MG VIAL 60 MG IV PUSH ×3 (00:34→12:33)
[2021-01-15 05:27] LABS: Basophils Absolute Auto 0.01 K/mm3 (0.00-0.10); Basophils Percent Auto 0.1 % (0.0-1.0); Hematocrit 38.4 % (35.0-42.0); Immature Granulocyte Absolute 0.05 K/mm3 (0.00-0.00); Immature Granulocyte Percent A 0.5 % (0.0-0.0); Lymphocytes Absolute Auto 0.99 K/mm3 (1.10-4.50); Lymphocytes Percent Auto 9.5 % (18.0-42.0); Mean Corpuscular HGB Conc 33.9 g/dL (32.0-36.0); Mean Corpuscular Hemoglobin 32.3 pg (27.0-31.0); Mean Corpuscular Volume 95.3 fL (78.0-102.0); Mean Platelet Volume 9.2 fl (9.2-11.8); Monocytes Absolute Auto 0.52 K/mm3 (0.10-0.90); Neutrophils Absolute Auto 8.9 K/mm3 (1.7-7.2); Neutrophils Percent Auto 84.9 % (50.0-70.0); Platelet Count Result 202 K/mm3 (150-420); Red Blood Count 4.03 M/mm3 (4.20-5.40); Red Cell Distribution Width 12.7 % (11.6-14.4); White Blood Count 10.4 K/mm3 (4.8-10.8)
[2021-01-15 05:57] LABS: Alanine Aminotransferase 23 U/L (14-59); Albumin Level 3.4 g/dL (3.4-5.0); Alkaline Phosphatase 89 U/L (46-116); Anion Gap 8 mmol/L (8-16); Aspartate Amino Transferase < 10 U/L (15-37); Bilirubin,Total 0.2 mg/dL (0.00-1.00); Blood Urea Nitrogen 29 mg/dL (7-18); Calcium 9.3 mg/dL (8.5-10.1); Carbon Dioxide 30 mmol/L (21-32); Chloride 102 mmol/L (98-108); Estimated CRCL calculation 20 ml/min; Estimated Glomerular Filt Rate 44; Glucose 136 mg/dL (70-99); Magnesium 1.9 mg/dL (1.8-2.4); Osmolality Calculated 297 mOsm/kg (285-295); Potassium 4.8 mmol/L (3.5-5.1); Sodium 140 mmol/L (136-145); Total Protein 6.4 g/dL (6.4-8.2)
--- NOTE | 2021-01-15 08:31 | P.DS_ITS ---
DS: Admitting Diagnosis Discharge Date 01/25/2021 <TAHIRA Mcrae - Last Filed: 01/15/21 11:03> 01/15/2021 <Joanne Bull MD - Last Filed: 01/16/21 00:07> Admitting Diagnosis COPD exacerbation <TAHIRA Mcrae - Last Filed: 01/15/21 11:03> copd exacerbation <Joanne Bull MD - Last Filed: 01/16/21 00:07> DS: Discharge Diagnosis Discharge Diagnosis (1) Chronic respiratory failure with hypoxia, on home oxygen therapy: Code(s): J96.11 - Chronic respiratory failure with hypoxia; Z99.81 - Dependence on supplemental oxygen <TAHIRA Mcrae - Last Filed: 01/15/21 11:03> Status: Acute <TAHIRA Mcrae - Last Filed: 01/15/21 11:03> Assessment and Plan: * Secondary to COPD exacerbation * blood gas pH 37, CO2 53.5, O2 101.4, bicarb 20.2 * Continue supplementary oxygen with steroids and nebulizer treatment * Chest x-ray indicate emphysema with mild pulmonary edema <TAHIRA Mcrae - Last Filed: 01/15/21 11:03> (2) COPD exacerbation: Code(s): J44.1 - Chronic obstructive pulmonary disease with (acute) exacerbation <TAHIRA Mcrae - Last Filed: 01/15/21 11:03> Status: Acute <TAHIRA Mcrae - Last Filed: 01/15/21 11:03> Assessment and Plan: * blood gas pH 37, CO2 53.5, O2 101.4, bicarb 20.2 * Continue supplementary oxygen with steroids and nebulizer treatment Discharge Patient was discharged home with a taper prednisone and Symbicort <TAHIRA Mcrae - Last Filed: 01/15/21 11:03> (3) Electrolyte imbalance: Code(s): E87.8 - Other disorders of electrolyte and fluid balance, not elsewhere classified <TAHIRA Mcrae - Last Filed: 01/15/21 11:03> Status: Acute <FRANNY McraeP-C - Last Filed: 01/15/21 11:03> Assessment and Plan: * Potassium 3.4>4.8 * Replace with supplement <TAHIRA Mcrae - Last Filed: 01/15/21 11:03> (4) Hypertension: Code(s): I10 - Essential (primary) hypertension <Rosalinda Prescott TAHIRA - Last Filed: 01/15/21 11:03> Status: Acute <TAHIRA Mcrae - Last Filed: 01/15/21 11:03> Assessment and Plan: * Stable * Continue lisinopril and metoprolol <TAHIRA Mcrae - Last Filed: 01/15/21 11:03> (5) Asthma: Code(s): J45.909 - Unspecified asthma, uncomplicated <Rosalinda Prescott TAHIRA - Last Filed: 01/15/21 11:03> Status: Acute <Rosalinda Prescott TAHIRA - Last Filed: 01/15/21 11:03> Assessment and Plan: * Prior to COPD <TAHIRA Mcrae - Last Filed: 01/15/21 11:03> (6) Pulmonary edema: Code(s): J81.1 - Chronic pulmonary edema <Rosalinda Prescott TAHIRA - Last Filed: 01/15/21 11:03> Status: Acute <Rosalinda Prescott TAHIRA - Last Filed: 01/15/21 11:03> Assessment and Plan: * Chest x-ray indicate mild pulmonary edema patient without history of congestive heart failure * Possibly secondary to COPD * BMP within normal limits * 40 of Lasix given <Rosalinda Prescott TAHIRA - Last Filed: 01/15/21 11:03> DS: Summary Hospital Course Reason for hospitalization: Shortness of breath <Rosalinda Prescott RESIDENTIAL SALES REPRESENTATIVETrangDiego - Last Filed: 01/15/21 11:03> Hospital Course: this is a 80-year-old female who presented to our emergency department with complaints of shortness of breath. Patient has a past medical history of COPD, COVID pneumonia hypertension. According to patient last night she started to feel increased shortness of breath. Patient does have a history
--- NOTE | 2021-01-15 08:31 | PM.DS ---
DS: Admitting Diagnosis Discharge Date 01/25/2021 <TAHIRA Mcrae - Last Filed: 01/15/21 11:03> 01/15/2021 <Joanne Bull MD - Last Filed: 01/16/21 00:07> Admitting Diagnosis COPD exacerbation <TAHIRA Mcrae - Last Filed: 01/15/21 11:03> copd exacerbation <Joanne Bull MD - Last Filed: 01/16/21 00:07> DS: Discharge Diagnosis Discharge Diagnosis (1) Chronic respiratory failure with hypoxia, on home oxygen therapy: Code(s): J96.11 - Chronic respiratory failure with hypoxia; Z99.81 - Dependence on supplemental oxygen <TAHIRA Mcrae - Last Filed: 01/15/21 11:03> Status: Acute <TAHIRA Mcrae - Last Filed: 01/15/21 11:03> Assessment and Plan: Secondary to COPD exacerbation blood gas pH 37, CO2 53.5, O2 101.4, bicarb 20.2 Continue supplementary oxygen with steroids and nebulizer treatment Chest x-ray indicate emphysema with mild pulmonary edema <TAHIRA Mcrae - Last Filed: 01/15/21 11:03> (2) COPD exacerbation: Code(s): J44.1 - Chronic obstructive pulmonary disease with (acute) exacerbation <TAHIRA Mcrae - Last Filed: 01/15/21 11:03> Status: Acute <TAHIRA Mcrae - Last Filed: 01/15/21 11:03> Assessment and Plan: blood gas pH 37, CO2 53.5, O2 101.4, bicarb 20.2 Continue supplementary oxygen with steroids and nebulizer treatment Discharge Patient was discharged home with a taper prednisone and Symbicort <TAHIRA Mcrae - Last Filed: 01/15/21 11:03> (3) Electrolyte imbalance: Code(s): E87.8 - Other disorders of electrolyte and fluid balance, not elsewhere classified <TAHIRA Mcrae - Last Filed: 01/15/21 11:03> Status: Acute <TAHIRA Mcrae - Last Filed: 01/15/21 11:03> Assessment and Plan: Potassium 3.4>4.8 Replace with supplement <Rosalinda Cunningham KALE PrescottTrangDiego - Last Filed: 01/15/21 11:03> (4) Hypertension: Code(s): I10 - Essential (primary) hypertension <Rosalinda Prescott LISETTEDiego - Last Filed: 01/15/21 11:03> Status: Acute <Rosalinda Prescott LISETTEDiego - Last Filed: 01/15/21 11:03> Assessment and Plan: Stable Continue lisinopril and metoprolol <Rosalinda Cunningham Kenyon TAHIRA - Last Filed: 01/15/21 11:03> (5) Asthma: Code(s): J45.909 - Unspecified asthma, uncomplicated <Rosalinda Prescott LISETTEDiego - Last Filed: 01/15/21 11:03> Status: Acute <Rosalinda Prescott LISETTEDiego - Last Filed: 01/15/21 11:03> Assessment and Plan: Prior to COPD <Rosalinda Prescott TAHIRA - Last Filed: 01/15/21 11:03> (6) Pulmonary edema: Code(s): J81.1 - Chronic pulmonary edema <Rosalinda Prescott CASER INTrangDiego - Last Filed: 01/15/21 11:03> Status: Acute <Rosalinda Prescott TAHIRA - Last Filed: 01/15/21 11:03> Assessment and Plan: Chest x-ray indicate mild pulmonary edema patient without history of congestive heart failure Possibly secondary to COPD BMP within normal limits 40 of Lasix given <Rosalinda Cunningham Kenyon CASER INTrangDiego - Last Filed: 01/15/21 11:03> DS: Summary Hospital Course Reason for hospitalization: Shortness of breath <Rosalinda Cunningham TAHIRA Prescott - Last Filed: 01/15/21 11:03> Hospital Course: this is a 80-year-old female who presented to our emergency department with complaints of shortness of breath. Patient has a past medical history of COPD, COVID pneumonia hypertension. According to patient last night she started to feel increased shortness of breath. Patient does have a history of COPD so she has chronic shortness of breath and uses 2 L nasal cannula at home. Along with her shortness of breath she describes her throat as having a burning sensation. Patient noted that her shortness of breath worsened and did not resolved with her breathing treatments. At that time her daughter told her that she needed to come to
[2021-01-15] MEDS: AMOXICILLIN/CLAVULANATE K 875-125 MG TAB 1 TABLET PO ×2 (09:36→21:26)
[2021-01-15] MEDS: ASPIRIN 81 MG ENTERIC TABLET PO (09:37)
[2021-01-15] MEDS: METOPROLOL SUCCINATE EXT REL 50 MG TABCR PO (09:37)
[2021-01-15] MEDS: lisinopriL 10 MG TABLET PO (09:37)
[2021-01-15 13:18] LABS: Base Excess ABG 1.9 mmol/L (0-2); Oxygen Content ABG 19.5 %vol (16.0-22.0); Oxygen Saturation ABG 94.7 % (95-97); Oxyhemoglobin 94.1 % (94-100); PCO2 ABG 55.3 mmHg (35-45); PO2 ABG 77.5 mmHg (75-85); Total Hemoglobin 14.7 g/dL (12.0-18.0); pH ABG 7.34 (7.35-7.45)
[2021-01-15 13:19] LABS: Device ROOM AIR; Modified Allen's Test Pass; Site Drawn RIGHT RADIAL
[2021-01-15] MEDS: methylPREDNISolone SOD SUCC 40 MG VIAL IV PUSH (21:26)
[2021-01-16] VITALS (9 sets, daily range): BP systolic 122–126; BP diastolic 64–66; PULSE 69–88; RESP 16–20; TEMP 36.3–37.1; O2SAT 96–98
[2021-01-16] MEDS: IPRATROPIUM 0.5 MG/ALBUTEROL SULFATE 2.5 MG AMPUL.NEB 3 ML INHALATION ×3 (00:49→12:10)
[2021-01-16] MEDS: ENOXAPARIN 30 MG/0.3 ML SYRINGE SUB-Q (00:50)
[2021-01-16] MEDS: methylPREDNISolone SOD SUCC 40 MG VIAL IV PUSH ×2 (05:10→14:32)
[2021-01-16 05:13] LABS: Hematocrit 37.3 % (35.0-42.0); Hemoglobin 12.3 g/dL (11.7-13.8); Mean Corpuscular Hemoglobin 31.5 pg (27.0-31.0); Mean Corpuscular Volume 95.4 fL (78.0-102.0); Mean Platelet Volume 9.1 fl (9.2-11.8); Platelet Count Result 205 K/mm3 (150-420); Red Blood Count 3.91 M/mm3 (4.20-5.40); Red Cell Distribution Width 12.9 % (11.6-14.4); White Blood Count 15.7 K/mm3 (4.8-10.8)
[2021-01-16 05:28] LABS: Alanine Aminotransferase 21 U/L (14-59); Albumin Level 3.1 g/dL (3.4-5.0); Alkaline Phosphatase 79 U/L (46-116); Anion Gap 4 mmol/L (8-16); Aspartate Amino Transferase 17 U/L (15-37); Bilirubin,Total 0.2 mg/dL (0.00-1.00); Blood Urea Nitrogen 34 mg/dL (7-18); Calcium 9.2 mg/dL (8.5-10.1); Carbon Dioxide 33 mmol/L (21-32); Chloride 101 mmol/L (98-108); Estimated CRCL calculation 28 ml/min; Estimated Glomerular Filt Rate > 60; Glucose 129 mg/dL (70-99); Osmolality Calculated 295 mOsm/kg (285-295); Potassium 5.1 mmol/L (3.5-5.1); Sodium 138 mmol/L (136-145); Total Protein 6.2 g/dL (6.4-8.2)
[2021-01-16] MEDS: METOPROLOL SUCCINATE EXT REL 50 MG TABCR PO (09:18)
[2021-01-16] MEDS: lisinopriL 10 MG TABLET PO (09:19)
[2021-01-16] MEDS: ASPIRIN 81 MG ENTERIC TABLET PO (09:19)
[2021-01-16] MEDS: AMOXICILLIN/CLAVULANATE K 875-125 MG TAB 1 TABLET PO (09:20)
--- NOTE | 2021-01-16 09:53 | PM.DS ---
DS: Admitting Diagnosis Discharge Date 01/16/2021 Admitting Diagnosis copd DS: Discharge Diagnosis Discharge Diagnosis (1) Chronic respiratory failure with hypoxia, on home oxygen therapy: Code(s): J96.11 - Chronic respiratory failure with hypoxia; Z99.81 - Dependence on supplemental oxygen Status: Acute Assessment and Plan: Secondary to COPD exacerbation blood gas pH 37, CO2 53.5, O2 101.4, bicarb 20.2 Continue supplementary oxygen with steroids and nebulizer treatment Chest x-ray indicate emphysema with mild pulmonary edema (2) COPD exacerbation: Code(s): J44.1 - Chronic obstructive pulmonary disease with (acute) exacerbation Status: Acute Assessment and Plan: blood gas pH 37, CO2 53.5, O2 101.4, bicarb 20.2 Continue supplementary oxygen with steroids and nebulizer treatment Discharge Patient was discharged home with a taper prednisone and Symbicort (3) Electrolyte imbalance: Code(s): E87.8 - Other disorders of electrolyte and fluid balance, not elsewhere classified Status: Acute Assessment and Plan: Potassium 3.4>4.8 Replace with supplement (4) Hypertension: Code(s): I10 - Essential (primary) hypertension Status: Acute Assessment and Plan: Stable Continue lisinopril and metoprolol (5) Asthma: Code(s): J45.909 - Unspecified asthma, uncomplicated Status: Acute Assessment and Plan: Prior to COPD (6) Pulmonary edema: Code(s): J81.1 - Chronic pulmonary edema Status: Acute Assessment and Plan: Chest x-ray indicate mild pulmonary edema patient without history of congestive heart failure Possibly secondary to COPD BMP within normal limits 40 of Lasix given DS: Summary Hospital Course Reason for hospitalization: this is a 80-year-old female who presented to our emergency department with complaints of shortness of breath. Patient has a past medical history of COPD, COVID pneumonia hypertension. According to patient last night she started to feel increased shortness of breath. Patient does have a history of COPD so she has chronic shortness of breath and uses 2 L nasal cannula at home. Along with her shortness of breath she describes her throat as having a burning sensation. Patient noted that her shortness of breath worsened and did not resolved with her breathing treatments. At that time her daughter told her that she needed to come to the emergency department, EMS was called she notes that when she was about to take her nebulizer treatment they came and she did not take her treatment. While she was with EMS she did receive a nebulizer treatment and in ED she received steroids. Patient has been vaccinated and tested positive for Covid pneumonia and February and was hospitalized here. This day her condition has improved she agrees that she is ready for discharge she will discharge with taper prednisone. The patient denies , CP, palpitation, extremity numbness, lightheadedness, dizziness, constipation, diarrhea, chills, or fever. Hospital Course: this is a 80-year-old female who presented to our emergency department with complaints of shortness of breath. Patient has a past medical history of COPD, COVID pneumonia hypertension. According to patient last night she started to feel increased shortness of breath. Patient does have a history of COPD so she has chronic shortness of breath and uses 2 L nasal cannula at home. Along with her shortness of breath she describes her throat as having a burning sensation. Patient noted that her shortness of breath worsened and did not resolved with her breathing treatments. At that time her daughter told her that she needed to come to the emergency department, EMS was called she notes that when she was about to take her nebulizer treatment they came and she did not take her treatment. While she was with EMS she did receive a nebulizer treatment and in ED she receive
--- NOTE | 2021-01-16 10:49 | PHAR ---
01/16/21: spoke w/[facility]. confirmed pt takes theophylline 300mg 12hr tabs, one tab once daily, with rph. tls
--- NOTE | 2021-01-16 12:40 | ECHO_ITS ---
Patient Info Name: Ragini Rodas Age: 80 years : 1940 Gender: Female Ht: 62 in Wt: 83 lbs BSA: 1.27 m2 HR: 86 bpm BP: 140 / 58 mmHg Technical Quality: Fair Exam Date: 01/16/2021 1:33 PM Exam Location: [facility] Patient Status: Inpatient Admit Date: 01/14/2021 Staff Ordering Physician: Rosalinda PrescottP-Diego [employer] Supervisor: Natalya Louis Attending Provider: Shan Cardenas MD Referring Physician: Kenyon ALBRIGHT; Exam Type: CA echo doppler color flow Study Info Indications J81.1 - Chronic pulmonary edema Complete two-dimensional, color flow and Doppler transthoracic echocardiogram is performed. Summary 1. Complete two-dimensional, color flow and Doppler transthoracic echocardiogram is performed. 2. Left ventricular chamber dimension is normal. 3. Left ventricular systolic function is normal, estimated at 65-70%. 4. There is mildly increased left ventricular wall thickness. 5. The left ventricular diastolic function is grade I diastolic dysfunction. 6. E/e' 10 is mildly elevated. 7. There is mild aortic valve sclerosis. 8. The mitral valve has moderately calcified annulus. Left Ventricle E/e' 10 is mildly elevated. Left ventricular chamber dimension is normal. Left ventricular systolic function is normal, estimated at 65-70%. There is mildly increased left ventricular wall thickness. The left ventricular diastolic function is grade I diastolic dysfunction. Right Ventricle Right ventricular systolic function is normal and with normal TAPSE 1.9 cm. Right ventricular chamber dimension is normal. Left Atria Left atrial chamber dimension is normal. Right Atria Right atrial chamber dimension is normal. Aortic Valve The aortic valve is trileaflet. There is mild aortic valve sclerosis. There is no aortic valve stenosis. There is no aortic valve regurgitation. Pulmonic Valve There is no pulmonic regurgitation. Mitral Valve The mitral valve has moderately calcified annulus. There is no mitral valve stenosis. There is no mitral valve regurgitation. Tricuspid Valve There is no tricuspid valve regurgitation. Pericardium/Pleural There is no pericardial effusion. Inferior Vena Cava Normal inferior vena cava with >50% collapse upon inspiration consistent with normal right atrial pressure, 5 mmHg. Aorta The aortic root size at the sinus of Valsalva is normal. Left Ventricular Outflow Tract Name Value Normal LVOT 2D LVOT Diameter 1.9 cm LVOT Doppler LVOT Peak Velocity 129 cm/s LVOT Peak Gradient 7 mmHg LVOT Mean Gradient 4 mmHg LVOT VTI 28 cm LVOT VTI/AV VTI Ratio 0.8 LVOT Stroke Volume 83 ml Mitral Valve Name Value Normal MV Doppler MV Decel Sl
--- NOTE | 2021-01-17 13:30 | PC.NURSE ---
Pt states she received and understood her discharge instructions. Pt has no other comments.
== END 2021-01-16 15:40 | disposition home or self-care (01) | DRG 191 ==
LOC: CHSED 09:43 → CHS2ND 10:00
PROVIDERS: Nurse Practitioner; Admitting Provider Emergency Medicine; Emergency Provider Emergency Medicine; PCP Nurse Practitioner Family; Visit Provider Emergency Medicine
DX: J96.11 Chronic respiratory failure with hypoxia (principal); J44.9 Chronic obstructive pulmonary disease, unspecified; I10 Essential (primary) hypertension; Z99.81 Dependence on supplemental oxygen; Z87.891 Personal history of nicotine dependence; J44.1 Chronic obstructive pulmonary disease with (acute) exacerbation; J81.1 Chronic pulmonary edema; E87.8 Other disorders of electrolyte and fluid balance, not elsewhere classified; Z86.16 Personal history of COVID-19
CPT/HCPCS: 36415; 36600; 71045; 80053; 82805; 83735; 83880; 84484; 85025; 85027; 85380; 85610; 85730; 93005; 93306; 94640; 99285; A9270; J1650; J1940; J2920; J2930

== ENCOUNTER 2021-05-15 13:59 | Outpatient (CLI) | payer MEDICARE, SELFPAY ==
[2021-05-15 14:34] LABS: Anion Gap 12 mmol/L (8-16); Blood Urea Nitrogen 8 mg/dL (7-18); Calcium 9.6 mg/dL (8.5-10.1); Carbon Dioxide 30 mmol/L (21-32); Chloride 92 mmol/L (98-108); Estimated Glomerular Filt Rate > 60; Glucose 77 mg/dL (70-99); Magnesium 1.5 mg/dL (1.8-2.4); Osmolality Calculated 275 mOsm/kg (285-295); Potassium 3.4 mmol/L (3.5-5.1); Sodium 134 mmol/L (136-145)
== END 2021-05-15 14:00 | disposition home or self-care (01) ==
LOC: CHSLAB 14:01
PROVIDERS: PCP Family Medicine; Visit Provider Internal Medicine Cardiovascular Disease
DX: R60.0 Localized edema (principal)
CPT/HCPCS: 36415; 80048; 83735

== ENCOUNTER 2021-09-04 14:01 | Outpatient (CLI) | payer MEDICARE, SELFPAY ==
[2021-09-04 14:39] LABS: Anion Gap 6 mmol/L (8-16); Blood Urea Nitrogen 8 mg/dL (7-18); Calcium 9.5 mg/dL (8.5-10.1); Carbon Dioxide 33 mmol/L (21-32); Chloride 89 mmol/L (98-108); Estimated Glomerular Filt Rate > 60; Glucose 89 mg/dL (70-99); Magnesium 1.7 mg/dL (1.8-2.4); Osmolality Calculated 263 mOsm/kg (285-295); Potassium 3.7 mmol/L (3.5-5.1); Sodium 128 mmol/L (136-145)
== END 2021-09-04 14:02 | disposition home or self-care (01) ==
LOC: CHSLAB 14:05
PROVIDERS: PCP Family Medicine; Visit Provider Internal Medicine Cardiovascular Disease
DX: I51.89 Other ill-defined heart diseases (principal)
CPT/HCPCS: 36415; 80048; 83735

== ENCOUNTER 2021-09-12 22:37 | Inpatient (IN) | payer MEDICARE, OTHER, SELFPAY ==
--- NOTE | ~2021-09-12 | XR_ITS ---
EXAMINATION: XR chest 2V Exam Date/Time: 09/12/2021 22:45 CDT HISTORY: dyspnea/ HX OF COPD Comparison: 01/15/2021, and 06/13/2016. RESULT: Lines, tubes, and devices: None. Lungs and pleura: Severe emphysematous and senescent change, otherwise clear. Cardiomediastinal silhouette: Stable cardiomediastinal silhouette. Other: No acute osseous or upper abdominal finding. IMPRESSION: No acute cardiopulmonary process. Reviewed, dictated and finalized at location K.
[2021-09-12 22:41] VITALS: BP 190/90; PULSE 92; RESP 26; TEMP 36.6; O2SAT 93
--- NOTE | 2021-09-12 22:47 | ED.SOB ---
HPI - SOB/Dyspnea General Chief Complaint: Shortness of Breath/Dyspnea Stated Complaint: trouble breathing Time Seen by Provider: 09/12/21 22:47 Source: patient and RN notes reviewed Mode of arrival: ambulatory Limitations: no limitations History of Present Illness MD elicited complaint: shortness of breath Pertinent past history: COPD Onset (ago): day(s) (2) Timing: constant Severity: moderate Exacerbating factors: lying flat, exertion and coughing Relieving factors: nothing Known history of: COPD Associated symptoms: cough and sputum production Treatment prior to arrival: bronchodilator Related Data Home oxygen amount: 2 liters Home Medications Medication Instructions Recorded Confirmed aspirin 81 mg tablet,delayed 81 mg PO DAILY 05/04/19 09/12/21 release (Adult Low Dose Aspirin) budesonide 0.5 mg/2 mL suspension 0.5 mg inhalation DAILY 05/04/19 09/12/21 for nebulization formoterol fumarate 20 mcg/2 mL 2 ml inhalation Q12H 05/04/19 09/12/21 solution for nebulization (Perforomist) ipratropium 0.5 mg-albuterol 3 mg 3 ml inhalation Q4H PRN Shortness 05/04/19 09/12/21 (2.5 mg base)/3 mL nebulization Of Breath soln Allergies Allergy/AdvReac Type Severity Reaction Status Date / Time No Known Allergies Allergy Verified 09/12/21 23:19 Review of Systems Review of Systems: All systems reviewed & are unremarkable except as noted in HPI and below Constitutional: Constitutional: Denies chills and Denies fever(s) Cardiovascular: Cardiovascular: Denies chest pain and Denies rapid heart rate Respiratory: Respiratory: Reports as per HPI Gastrointestinal: Gastrointestinal: Denies diarrhea, Denies nausea and Denies vomiting PMF Past Medical History Medical History Asthma COPD (chronic obstructive pulmonary disease) COVID-19 Hypertension Pneumonia due to 2019 novel coronavirus Surgical History Surgical History No history of previous surgery Social History Social History Smoking packs per day: 0.75 Smoking cigarettes per day: 15.0 Years smoked: 30 Smoking pack-years: 22.50 Smoking status: Former smoker Tobacco type: cigarettes Second hand tobacco smoke exposure: No Additional smoking assessment comments: Quit July 2015. 50 pack-year history Alcohol intake: never Substance use: never Substance use type: does not use Gender identity (if verbalized by the patient): Female Sexual Orientation (if Verbalized by the Patient): Straight or Heterosexual Spiritual care concerns: No Exam Const: General: alert and ill appearing acutely and chronically Nutritional Appearance: well nourished and thin Orientation/consciousness: patient oriented x3 Limitations: no limitations HENMT: Head: normal to inspection Ears: external ears normal General nose exam: Normal external nose present Face and sinus: normal facial exam Mouth: Yes moist mucous membranes Eyes: Conjunctivae: conjunctivae normal Pupils: Equal, round and reactive pupils present EOM: EOMs intact bilaterally Neck: Neck: normal visual inspection Resp: Effort & Inspection: labored and tachypneic Auscultation: rales bilateral at the base and wheezes scattered wheezes Cardio: Rate: regular rate Rhythm: regular rhythm GI: GI Palp: Yes Soft to palpation and No Tenderness to palpation present (GI) Auscultation: normal bowel sounds Back/Spine/Pelvis: Cervical Spine: cervical ROM normal Thoracic/Lumbar Spine: thoraco-lumbar ROM normal Skin: General skin exam: normal color Rashes: no rashes Neuro: General: patient oriented x3, moves all extremities, no focal motor deficits and CN's II-XI intact bilaterally Speech: normal speech Extrem: General: normal to inspection and no clubbing, cyanosis or edema Psych: Mental Status: mental status grossly normal Af
[2021-09-12] MEDS: methylPREDNISolone SOD SUCC 125 MG VIAL IV PUSH (23:10)
[2021-09-12 23:16] LABS: Basophils Absolute Auto 0.03 K/mm3 (0.00-0.10); Basophils Percent Auto 0.2 % (0.0-1.0); Eosinophils Absolute Auto 0.06 K/mm3 (0.02-0.50); Eosinophils Percent Auto 0.5 % (1.0-6.0); Hematocrit 36.4 % (35.0-42.0); Hemoglobin 12.7 g/dL (11.7-13.8); Immature Granulocyte Absolute 0.05 K/mm3 (0.00-0.00); Immature Granulocyte Percent A 0.4 % (0.0-0.0); Lymphocytes Absolute Auto 1.76 K/mm3 (1.10-4.50); Lymphocytes Percent Auto 13.5 % (18.0-42.0); Mean Corpuscular HGB Conc 34.9 g/dL (32.0-36.0); Mean Corpuscular Hemoglobin 32.6 pg (27.0-31.0); Mean Corpuscular Volume 93.3 fL (78.0-102.0); Mean Platelet Volume 8.3 fl (9.2-11.8); Monocytes Absolute Auto 1.25 K/mm3 (0.10-0.90); Monocytes Percent Auto 9.6 % (2.0-11.0); Neutrophils Absolute Auto 9.8 K/mm3 (1.7-7.2); Neutrophils Percent Auto 75.8 % (50.0-70.0); Platelet Count Result 227 K/mm3 (150-420); Red Cell Distribution Width 12.3 % (11.6-14.4)
[2021-09-12 23:29] LABS: Prothrombin Time 11.1 Seconds (9.50-12.10)
[2021-09-12 23:34] LABS: Base Excess ABG 6.5 mmol/L (0-2); HCO3 ABG 31.7 mmol/L (23-29); Oxygen Saturation ABG 92.3 % (95-97); Oxyhemoglobin 91.8 % (94-100); PCO2 ABG 47.8 mmHg (35-45); PO2 ABG 63.8 mmHg (75-85); Total Hemoglobin 13.2 g/dL (12.0-18.0); pH ABG 7.44 (7.35-7.45)
[2021-09-12 23:35] LABS: Device NASAL CANNULA; Modified Allen's Test Pass; Site Drawn LEFT RADIAL
[2021-09-12 23:40] LABS: Alanine Aminotransferase 21 U/L (14-59); Albumin Level 4.3 g/dL (3.4-5.0); Alkaline Phosphatase 121 U/L (46-116); Anion Gap 8 mmol/L (8-16); Aspartate Amino Transferase 19 U/L (15-37); Bilirubin,Total 0.5 mg/dL (0.00-1.00); Blood Urea Nitrogen 13 mg/dL (7-18); Calcium 9.3 mg/dL (8.5-10.1); Carbon Dioxide 31 mmol/L (21-32); Chloride 84 mmol/L (98-108); Estimated Glomerular Filt Rate > 60; Glucose 125 mg/dL (70-99); Magnesium 1.9 mg/dL (1.8-2.4); NT Pro B Type Natriuretic Pept 810 pg/mL (0-450); Osmolality Calculated 257 mOsm/kg (285-295); Potassium 3.5 mmol/L (3.5-5.1); Sodium 123 mmol/L (136-145); Total Protein 7.6 g/dL (6.4-8.2)
[2021-09-12 23:46] VITALS: BP 155/89; PULSE 77; RESP 20; O2SAT 93
[2021-09-12 23:53] LABS: SARS-CoV-2 RNA PCR Negative (Negative)
[2021-09-13] VITALS (18 sets, daily range): BP systolic 118–167; BP diastolic 62–77; PULSE 72–90; RESP 16–22; TEMP 36.7–37; O2SAT 90–100; BMI 16.0
[2021-09-13] MEDS: SODIUM CHLORIDE 0.9% IV 1,000 ML 150 ML IV CONT (00:03)
[2021-09-13] MEDS: IPRATROPIUM 0.5 MG/ALBUTEROL SULFATE 2.5 MG AMPUL.NEB 3 ML INHALATION ×5 (00:09→23:40)
--- NOTE | 2021-09-13 01:57 | PC.NURSE ---
Patient admitted to room 202 from the ER, is alert but tired, chun c/o pain, oriented to room and call light, o2 at 2 l per n/c.
[2021-09-13] MEDS: LORATADINE 10 MG TABLET PO (08:20)
[2021-09-13] MEDS: METOPROLOL SUCCINATE EXT REL 50 MG TABCR PO (08:20)
[2021-09-13] MEDS: ASPIRIN 81 MG ENTERIC TABLET PO (08:20)
[2021-09-13] MEDS: MAGNESIUM OXIDE 400 MG TABLET PO (08:21)
[2021-09-13 08:25] LABS: Hemoglobin 12.6 g/dL (11.7-13.8); Mean Corpuscular Hemoglobin 32.6 pg (27.0-31.0); Mean Corpuscular Volume 93.3 fL (78.0-102.0); Mean Platelet Volume 8.3 fl (9.2-11.8); Platelet Count Result 193 K/mm3 (150-420); Red Blood Count 3.86 M/mm3 (4.20-5.40); Red Cell Distribution Width 12.5 % (11.6-14.4); White Blood Count 12.8 K/mm3 (4.8-10.8)
[2021-09-13 08:36] LABS: Anion Gap 6 mmol/L (8-16); Blood Urea Nitrogen 15 mg/dL (7-18); Calcium 9.1 mg/dL (8.5-10.1); Carbon Dioxide 32 mmol/L (21-32); Chloride 86 mmol/L (98-108); Estimated CRCL calculation 32 ml/min; Estimated Glomerular Filt Rate > 60; Glucose 135 mg/dL (70-99); Osmolality Calculated 260 mOsm/kg (285-295); Potassium 3.6 mmol/L (3.5-5.1); Sodium 124 mmol/L (136-145)
[2021-09-13] MEDS: hydroCHLOROthiazide 12.5 MG CAPSULE PO (09:16)
[2021-09-13] MEDS: lisinopriL 10 MG TABLET PO (09:16)
[2021-09-13] MEDS: THEOPHYLLINE 300 MG ER 12 HR TABLET PO (09:16)
--- NOTE | 2021-09-13 11:55 | PM.IMHP ---
H&P: HPI History of Present Illness Date/Time: 09/13/21 11:55 Chief Complaint: Increased Shortness of breath Narrative: This is a 81 year old female that presented to the emergency room with increased shortness of breath with Exertion. Patient has a past medical history of COPD, HtN, Electroylte imbalance and asthma . Patient was found to be negative of COVID and influenza and more than likely is having a exacerbation to her COPD . In the emergency room she was given a breathing treatment, IVF for Hyponatrema, IV Steroids and was sent to the floor. Patient has remained on oxygen and without oxygen she has been noted to be as low of 70's saturation. Once oxygen is back on patient is in the upper 90's. Patient sodium is currently 124 previously 119, Potassium 3.6 Cr 0.75, BUN 15, WBC 12.8 previously 13. At this time we will continue to gently treat the hyponatremia, and her breathing and plan for possible discharge one her electrolytes are more stable. Review of Systems Review of Systems: Shortness of breath All systems reviewed & are unremarkable except as noted in HPI and below PMFSH Past Medical History Medical History Asthma COPD (chronic obstructive pulmonary disease) COVID-19 Hypertension Pneumonia due to 2019 novel coronavirus Surgical History Surgical History No history of previous surgery Social History Social History Smoking packs per day: 0.75 Smoking cigarettes per day: 15.0 Years smoked: 30 Smoking pack-years: 22.50 Smoking status: Former smoker Tobacco type: cigarettes Second hand tobacco smoke exposure: No Additional smoking assessment comments: Quit July 2015. 50 pack-year history Alcohol intake: never Substance use: never Substance use type: does not use Gender identity (if verbalized by the patient): Female Sexual Orientation (if Verbalized by the Patient): Straight or Heterosexual Spiritual care concerns: No Comments At time as signature, I have reviewed and agree with nursing past medical, social, surgical and family history. Please see nursing chart for further information. There is no relevant family history pertinent to the presenting complaint. Meds Home Medications and Allergies Home Medications Medication Instructions Recorded Confirmed Type aspirin 81 mg tablet,delayed 81 mg PO DAILY 05/04/19 09/12/21 History release (Adult Low Dose Aspirin) budesonide 0.5 mg/2 mL suspension 0.5 mg inhalation DAILY 05/04/19 09/12/21 History for nebulization formoterol fumarate 20 mcg/2 mL 2 ml inhalation Q12H 05/04/19 09/12/21 History solution for nebulization (Perforomist) ipratropium 0.5 mg-albuterol 3 mg 3 ml inhalation Q4H PRN Shortness 05/04/19 09/12/21 History (2.5 mg base)/3 mL nebulization Of Breath soln magnesium oxide 400 mg PO DAILY #30 tabs 05/17/21 09/12/21 Rx lisinopril 10 See Rx Instructions .Route 09/08/21 09/12/21 Rx mg-hydrochlorothiazide 12.5 mg .COMPLEX #180 tabs tablet metoprolol succinate 50 mg See Rx Instructions .Route 09/08/21 09/12/21 Rx tablet,extended release 24 hr .COMPLEX #90 tabs theophylline 300 mg 300 mg PO DAILY #60 tabs 09/08/21 09/12/21 Rx tablet,extended release,12 hr cetirizine 10 mg tablet (Zyrtec) 10 mg PO DAILY PRN allergy 09/12/21 09/12/21 Rx symptoms 7 days #7 tabs Allergies Allergy/AdvReac Type Severity Reaction Status Date / Time No Known Allergies Allergy Verified 09/12/21 23:19 Vital Signs Vital Signs - 24 hr 09/12/21 22:41 09/12/21 22:41 09/12/21 22:41 Temperature 97.9 F Pulse Rate 92 92 Respiratory Rate 26 H Blood Pressure 190/90 H Pulse Oximetry 93 93 Oxygen Delivery Nasal Cannula Nasal Cannula Oxygen Flow Rate 2 2 09/12/21 23:46 09/13/21 00:09 09/13/21 00:20 Temperature Pulse Rate
[2021-09-13] MEDS: SODIUM CHLORIDE 0.9% IV 1,000 ML 75 ML IV CONT (12:35)
--- NOTE | 2021-09-13 17:08 | PC.NURSE ---
Pt daughter spoke with nurse, states pt is C/O decreased hearing, daughter states pt had been to her PCP for this issue and was given Claritin and Flonase. 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
[2021-09-14] VITALS (11 sets, daily range): BP systolic 132–138; BP diastolic 73–75; PULSE 64–96; RESP 18–20; TEMP 36.7–36.9; O2SAT 93–100
[2021-09-14] MEDS: SODIUM CHLORIDE 0.9% IV 1,000 ML 75 ML IV CONT (02:05)
[2021-09-14 05:08] LABS: Hematocrit 31.2 % (35.0-42.0); Hemoglobin 11.1 g/dL (11.7-13.8); Mean Corpuscular HGB Conc 35.6 g/dL (32.0-36.0); Mean Corpuscular Hemoglobin 32.7 pg (27.0-31.0); Mean Platelet Volume 8.5 fl (9.2-11.8); Platelet Count Result 190 K/mm3 (150-420); Red Blood Count 3.39 M/mm3 (4.20-5.40); Red Cell Distribution Width 12.4 % (11.6-14.4); White Blood Count 10.9 K/mm3 (4.8-10.8)
[2021-09-14] MEDS: BUDESONIDE RESPULE NEB 0.5 MG/2 ML AMP INHALATION (05:19)
[2021-09-14] MEDS: IPRATROPIUM 0.5 MG/ALBUTEROL SULFATE 2.5 MG AMPUL.NEB 3 ML INHALATION ×4 (05:20→23:57)
[2021-09-14 05:21] LABS: Anion Gap 4 mmol/L (8-16); Blood Urea Nitrogen 12 mg/dL (7-18); Calcium 8.6 mg/dL (8.5-10.1); Carbon Dioxide 33 mmol/L (21-32); Chloride 91 mmol/L (98-108); Estimated CRCL calculation 52 ml/min; Estimated Glomerular Filt Rate > 60; Glucose 111 mg/dL (70-99); Osmolality Calculated 266 mOsm/kg (285-295); Potassium 3.1 mmol/L (3.5-5.1); Sodium 128 mmol/L (136-145)
[2021-09-14] MEDS: lisinopriL 10 MG TABLET PO (09:19)
[2021-09-14] MEDS: PANTOPRAZOLE 40 MG TABLET PO (09:19)
[2021-09-14] MEDS: hydroCHLOROthiazide 12.5 MG CAPSULE PO (09:19)
[2021-09-14] MEDS: THEOPHYLLINE 300 MG ER 12 HR TABLET PO (09:19)
[2021-09-14] MEDS: LORATADINE 10 MG TABLET PO (09:19)
[2021-09-14] MEDS: MAGNESIUM OXIDE 400 MG TABLET PO (09:20)
[2021-09-14] MEDS: POTASSIUM CHLORIDE 20 MEQ TABLET PO (09:20)
[2021-09-14] MEDS: METOPROLOL SUCCINATE EXT REL 50 MG TABCR PO (09:20)
[2021-09-14] MEDS: ASPIRIN 81 MG ENTERIC TABLET PO (09:23)
--- NOTE | 2021-09-14 10:24 | P.PN_ITS ---
Progress Note: A&P Assessment and Plan (1) Hyponatremia: Code(s): E87.1 - Hypo-osmolality and hyponatremia Status: Acute Assessment and Plan: * IVF@ 75 ml/hr discontinued * monitor electrolytes slowly replenish * monitor intake and output (2) URI (upper respiratory infection): Code(s): J06.9 - Acute upper respiratory infection, unspecified Status: Acute Assessment and Plan: * Continue to use Oxygen as at home * monitor Dyspnea on exertion * continue breathing treatment * will consider steroids if indicated * Pneumonia has been ruled out at this time (3) TALBERT (dyspnea on exertion): Code(s): R06.00 - Dyspnea, unspecified Status: Acute Assessment and Plan: * not New this is worsening * Oxygen home dosage * continue breathing treatment * (4) COPD exacerbation: Code(s): J44.1 - Chronic obstructive pulmonary disease with (acute) exacerbation Status: Acute Assessment and Plan: * Continue breathing treatment * continue oxygen * continue to check saturation keep above 90% * Home health referral (5) Chronic GERD: Onset Date: 05/06/17 Code(s): K21.9 - Gastro-esophageal reflux disease without esophagitis Status: Acute Assessment and Plan: * Continue Protonix (6) Electrolyte imbalance: Code(s): E87.8 - Other disorders of electrolyte and fluid balance, not elsewhere classified Status: Acute Assessment and Plan: * Sodium 124 monitor and replenish as indication monitor for any neuro deficits currently 128 * Monitor WBC more than likely from steroid use * will start on Steroids * BNP 800 (7) Hypertension: Code(s): I10 - Essential (primary) hypertension Status: Acute Assessment and Plan: * Monitor blood pressure has remained stable * continue Medication from home * adjust medication as indicated Subjective Date/time seen: 09/14/21 10:24 Interval history: Mrs. Rodas Breathing continues to be labored and she has perched lip breathing. Patient labs are improving although she states she does not feel well. At this time we will continue to monitor patient. Patient saturation on oxygen is 96% but she quickly drops in the low 80's high 70's without it. Patient is encourage to get to the recliner chair although she would rather lay in bed. She is able to ambulae to the bathrooms. Exam Narrative: GENERAL:Ill-a profound respiratory Frail and in no acute distress. HEAD:Normocephalic, atraumatic. EYES: PERRLA ENT: Nares clear, no rhinorrhea or epistaxis. Mucous membranes moist. CHEST: Course to diminshed to auscultation. Mild respiratory distress. HEART: Regular rate and rhythm. Normal peripheral pulses. ABDOMEN: Soft, nontender, nondistended, normal active bowel sounds. EXTREMITIES: Normal range of motion. No edema. SKIN: Warm, dry, no rash. NEURO: No focal deficits. Alert and oriented x3. Objective Data Vital Signs Vital Signs: Vital Signs - 24 hr 09/13/21 12:45 09/13/21 12:52 09/13/21 15:36 Temperature 98.0 F Pulse Rate 86 86 72 Respiratory Rate 18 18 18 Blood Pressure 123/71 Pulse Oximetry 96 99 96 Oxygen Delivery Nasal Cannula Oxygen Flow Rate 2 8 2 09/13/21 18:24 09/13/21 18:34 09/13/21 23:05 Temperature 98.6 F Pulse Rate 83 80 84 Respiratory Rate 20 20 16
--- NOTE | 2021-09-14 10:24 | WPDPN ---
Progress Note: A&P Assessment and Plan (1) Hyponatremia: Code(s): E87.1 - Hypo-osmolality and hyponatremia Status: Acute Assessment and Plan: IVF@ 75 ml/hr discontinued monitor electrolytes slowly replenish monitor intake and output (2) URI (upper respiratory infection): Code(s): J06.9 - Acute upper respiratory infection, unspecified Status: Acute Assessment and Plan: Continue to use Oxygen as at home monitor Dyspnea on exertion continue breathing treatment will consider steroids if indicated Pneumonia has been ruled out at this time (3) TALBERT (dyspnea on exertion): Code(s): R06.00 - Dyspnea, unspecified Status: Acute Assessment and Plan: not New this is worsening Oxygen home dosage continue breathing treatment (4) COPD exacerbation: Code(s): J44.1 - Chronic obstructive pulmonary disease with (acute) exacerbation Status: Acute Assessment and Plan: Continue breathing treatment continue oxygen continue to check saturation keep above 90% Home health referral (5) Chronic GERD: Onset Date: 05/06/17 Code(s): K21.9 - Gastro-esophageal reflux disease without esophagitis Status: Acute Assessment and Plan: Continue Protonix (6) Electrolyte imbalance: Code(s): E87.8 - Other disorders of electrolyte and fluid balance, not elsewhere classified Status: Acute Assessment and Plan: Sodium 124 monitor and replenish as indication monitor for any neuro deficits currently 128 Monitor WBC more than likely from steroid use will start on Steroids BNP 800 (7) Hypertension: Code(s): I10 - Essential (primary) hypertension Status: Acute Assessment and Plan: Monitor blood pressure has remained stable continue Medication from home adjust medication as indicated Subjective Date/time seen: 09/14/21 10:24 Interval history: Mrs. Rodas Breathing continues to be labored and she has perched lip breathing. Patient labs are improving although she states she does not feel well. At this time we will continue to monitor patient. Patient saturation on oxygen is 96% but she quickly drops in the low 80's high 70's without it. Patient is encourage to get to the recliner chair although she would rather lay in bed. She is able to ambulae to the bathrooms. Exam Narrative: GENERAL:Ill-a profound respiratory Frail and in no acute distress. HEAD:Normocephalic, atraumatic. EYES: PERRLA ENT: Nares clear, no rhinorrhea or epistaxis. Mucous membranes moist. CHEST: Course to diminshed to auscultation. Mild respiratory distress. HEART: Regular rate and rhythm. Normal peripheral pulses. ABDOMEN: Soft, nontender, nondistended, normal active bowel sounds. EXTREMITIES: Normal range of motion. No edema. SKIN: Warm, dry, no rash. NEURO: No focal deficits. Alert and oriented x3. Objective Data Vital Signs Vital Signs: Vital Signs - 24 hr 09/13/21 12:45 09/13/21 12:52 09/13/21 15:36 Temperature 98.0 F Pulse Rate 86 86 72 Respiratory Rate 18 18 18 Blood Pressure 123/71 Pulse Oximetry 96 99 96 Oxygen Delivery Nasal Cannula Oxygen Flow Rate 2 8 2 09/13/21 18:24 09/13/21 18:34 09/13/21 23:05 Temperature 98.6 F Pulse Rate 83 80 84 Respiratory Rate 20 20 16 Blood Pressure 137/62 Pulse Oximetry 96 97 Oxygen Delivery Nasal Cannula Oxygen Flow Rate 2 2 09/13/21 23:41 09/13/21 23:58 09/14/21 05:20 Temperature Pulse Rate 90 88 96 Respiratory Rate 20 20 20 Blood Pressure Pulse Oximetry 91 94 Oxygen Delivery Oxygen Flow Rate 2 2 09/14/21 05:33 09/14/21 07:45 09/14/21 09:20 Temperature 98.1 F Pulse Rate 92 82 82 Respiratory Rate 20 18 Blood Pressure 138/73 Pulse Oximetry 96 Oxygen Delivery Nasal Cannula Oxygen Flow Rate 2 Intake/Output Intake/Output: Intake & Output 09/11/21 09/12/21 09/13/21 09/14/21 23:59 23:5
[2021-09-14] MEDS: methylPREDNISolone SOD SUCC 125 MG VIAL 60 MG IV PUSH (12:34)
--- NOTE | 2021-09-14 21:27 | PC.NURSE ---
Pt is currently sleeping w/the night light on and 3 side rails raised. NC in place. Call light within reach.
[2021-09-15] VITALS (9 sets, daily range): BP systolic 111–144; BP diastolic 57–77; PULSE 65–92; RESP 16–19; TEMP 36.5–36.9; O2SAT 94–100
[2021-09-15] MEDS: BUDESONIDE RESPULE NEB 0.5 MG/2 ML AMP INHALATION (06:17)
[2021-09-15] MEDS: IPRATROPIUM 0.5 MG/ALBUTEROL SULFATE 2.5 MG AMPUL.NEB 3 ML INHALATION ×2 (06:18→12:53)
[2021-09-15 09:00] LABS: Hematocrit 33.7 % (35.0-42.0); Hemoglobin 11.5 g/dL (11.7-13.8); Mean Corpuscular HGB Conc 34.1 g/dL (32.0-36.0); Mean Corpuscular Hemoglobin 32.6 pg (27.0-31.0); Mean Corpuscular Volume 95.5 fL (78.0-102.0); Mean Platelet Volume 8.5 fl (9.2-11.8); Platelet Count Result 229 K/mm3 (150-420); Red Blood Count 3.53 M/mm3 (4.20-5.40); Red Cell Distribution Width 12.6 % (11.6-14.4); White Blood Count 10.8 K/mm3 (4.8-10.8)
[2021-09-15] MEDS: POTASSIUM CHLORIDE 20 MEQ TABLET PO (09:13)
[2021-09-15] MEDS: hydroCHLOROthiazide 12.5 MG CAPSULE PO (09:13)
[2021-09-15] MEDS: LORATADINE 10 MG TABLET PO (09:13)
[2021-09-15 09:14] LABS: Anion Gap 4 mmol/L (8-16); Blood Urea Nitrogen 15 mg/dL (7-18); Calcium 9.3 mg/dL (8.5-10.1); Carbon Dioxide 35 mmol/L (21-32); Chloride 91 mmol/L (98-108); Estimated CRCL calculation 36 ml/min; Estimated Glomerular Filt Rate > 60; Glucose 169 mg/dL (70-99); Osmolality Calculated 274 mOsm/kg (285-295); Potassium 3.8 mmol/L (3.5-5.1); Sodium 130 mmol/L (136-145)
[2021-09-15] MEDS: PANTOPRAZOLE 40 MG TABLET PO (09:14)
[2021-09-15] MEDS: METOPROLOL SUCCINATE EXT REL 50 MG TABCR PO (09:14)
[2021-09-15] MEDS: ASPIRIN 81 MG ENTERIC TABLET PO (09:14)
[2021-09-15] MEDS: FLUTICASONE PROPIONATE 0.05% NA SPR 16 GM BTL (*BKC) 2 SPRAY NASAL (09:15)
[2021-09-15] MEDS: MAGNESIUM OXIDE 400 MG TABLET PO (09:15)
[2021-09-15] MEDS: lisinopriL 10 MG TABLET PO (09:15)
[2021-09-15] MEDS: THEOPHYLLINE 300 MG ER 12 HR TABLET PO (09:17)
--- NOTE | 2021-09-15 10:22 | PM.DS ---
DS: Admitting Diagnosis Discharge Date 09/15/2020 Admitting Diagnosis COPD exacerbation DS: Discharge Diagnosis Discharge Diagnosis (1) Hyponatremia: Code(s): E87.1 - Hypo-osmolality and hyponatremia Status: Acute Assessment and Plan: resolving NA 130 Fluid restriction (2) URI (upper respiratory infection): Code(s): J06.9 - Acute upper respiratory infection, unspecified Status: Acute Assessment and Plan: Inhaler antibiotic (3) Weakness: Code(s): R53.1 - Weakness Status: Acute Assessment and Plan: Adequate Nutrition Physical therapy at home Fall precaution Remove throw wrongs or anything that may cause a fall (4) Hypertension: Code(s): I10 - Essential (primary) hypertension Status: Acute Assessment and Plan: Take medication as prescribed monitor blood pressure Call when blood pressure medication is not working DS: Summary Hospital Course Reason for hospitalization: COPD Exacerbation Hospital Course: This is a 81 year old female that was admitted with COPD exacerbation and electrolyte imbalance. Patient has a past medical history of COPD, HtN, Electrolyte imbalance and asthma . Patient was negative for COVID and influenza and more than likely is having a exacerbation to her COPD .Patient has been treated with breathing treatment, IVF for Hyponatremia, IV Steroids in which she has continued to improve. Patient has remained on oxygen and without oxygen she has been noted to be as low of 70's saturation. Mrs. Hector has oxygen at home at all times. Patient continues to look sick but her labs have improved sodium is currently 130 previously 119, Potassium 3.8 Cr 0.64, BUN 15, WBC 12.8 previously 13. At this time we will send patient home with home health and oxygen. Patient will be on oral steroids and Flonase for nasal Time Spent with Patient Time attestation: Total time spent providing and/or coordinating discharge services: Exam Narrative: GENERAL:Ill-a profound respiratory? Frail? and in no acute distress. HEAD:Normocephalic, atraumatic. EYES: PERRLA ENT:? Nares clear, no rhinorrhea or epistaxis. Mucous membranes moist. CHEST: Course to? diminshed to auscultation. Mild respiratory distress. HEART:? Regular rate and rhythm. Normal peripheral pulses. ABDOMEN:? Soft, nontender, nondistended, normal active bowel sounds. EXTREMITIES: Normal range of motion. No edema. SKIN:? Warm, dry, no rash. NEURO: No focal deficits. Alert and oriented x3. DS: Data Data Completed and Pending Labs on day of discharge: Labs from last 24 hours 09/15/21 09/15/21 08:54 08:54 WBC 10.8 RBC 3.53 L Hgb 11.5 L Hct 33.7 L MCV 95.5 MCH 32.6 H MCHC 34.1 RDW 12.6 Plt Count 229 MPV 8.5 L Sodium 130 L Potassium 3.8 Chloride 91 L Carbon Dioxide 35 H Anion Gap 4 L BUN 15 Creatinine 0.64 Estim Creat Clear Calc 36 Estimated GFR > 60 Glucose 169 H Calculated Osmolality 274 L Calcium 9.3 Discharge Plan Discharge Attending physician on discharge: Ezra Nam Consulting providers: Susan Fatima ; Jean-Pierre Chung Discharging Clinician: Susan Fatima Anticipated Discharge Date/Time: 09/15/21 09:27 Patient Disposition: Home Health Service Activity: may shower and as tolerated Diet: as tolerated and regular Wound Care Instructions: follow printed instructions Discharge Instructions: Per Care Coordination: [facility] follow pt[facility] RN to call [phone] at discharge and fax discharge summary/orders to [phone]. Home Health will see Mercedes on Saturday and will call day prior to set up time of visit. Bath aide was requested as well. Appointment has been made for your Primary care provider Patient Instructions: Antibiotic Form, Methylprednisolone (By mouth), Fluticasone (Into the nose), A-fib (Atrial Fibrillation) (DC), Asthma (DC)
--- NOTE | 2021-09-16 11:12 | PC.NURSE ---
Follow up call made, spoke with daughter, states mom can't hear on the phone, doing well, was present during discharge and nurse did go over instructions, did not have any questions regarding care, states mom just raves about the nursing care as it is the most wonderful care.
== END 2021-09-15 15:30 | disposition home health service (06) | DRG 191 ==
LOC: CHSED 09-13 00:15 → CHS2ND 09-13 07:42
PROVIDERS: Nurse Practitioner Family; Admitting Provider Internal Medicine; Emergency Provider Emergency Medicine; PCP Nurse Practitioner Family; Visit Provider Internal Medicine
DX: J44.1 Chronic obstructive pulmonary disease with (acute) exacerbation (principal); E87.1 Hypo-osmolality and hyponatremia; I10 Essential (primary) hypertension; J06.9 Acute upper respiratory infection, unspecified; K21.9 Gastro-esophageal reflux disease without esophagitis; Z87.891 Personal history of nicotine dependence; Z99.81 Dependence on supplemental oxygen
CPT/HCPCS: 36415; 36600; 71046; 80048; 80053; 82805; 83735; 83880; 85025; 85027; 85610; 94640; 96374; 99285; A9270; C9803; J2930; J7030; U0003; U0005

== ENCOUNTER 2021-09-22 11:33 | Outpatient (CLI) | payer MEDICARE, SELFPAY ==
[2021-09-22 12:14] LABS: Alanine Aminotransferase 24 U/L (14-59); Albumin Level 3.6 g/dL (3.4-5.0); Alkaline Phosphatase 107 U/L (46-116); Anion Gap 6 mmol/L (8-16); Aspartate Amino Transferase 14 U/L (15-37); Bilirubin,Total 0.4 mg/dL (0.00-1.00); Blood Urea Nitrogen 13 mg/dL (7-18); Calcium 9.4 mg/dL (8.5-10.1); Carbon Dioxide 31 mmol/L (21-32); Chloride 91 mmol/L (98-108); Estimated Glomerular Filt Rate > 60; Glucose 107 mg/dL (70-99); Osmolality Calculated 266 mOsm/kg (285-295); Potassium 3.7 mmol/L (3.5-5.1); Sodium 128 mmol/L (136-145); Total Protein 7.6 g/dL (6.4-8.2)
== END 2021-09-22 11:34 | disposition home or self-care (01) ==
LOC: CHSLAB 11:36
PROVIDERS: PCP Nurse Practitioner Family; Visit Provider Nurse Practitioner Family
DX: E87.1 Hypo-osmolality and hyponatremia (principal)
CPT/HCPCS: 36415; 80053

== ENCOUNTER 2021-12-19 20:41 | Emergency (ER) | payer MEDICARE, OTHER, SELFPAY ==
--- NOTE | ~2021-12-19 | XR_ITS ---
EXAMINATION: XR chest 1V portable Exam Date/Time: 12/19/2021 21:25 CDT HISTORY: sob Comparison: 09/12/2021. RESULT: Lines, tubes, and devices: None. Lungs and pleura: Emphysematous and senescent change. Cardiomediastinal silhouette: Stable. Other: No acute osseous or upper abdominal finding. IMPRESSION: No acute cardiopulmonary process. Reviewed, dictated and finalized at location K.
[2021-12-19 20:59] VITALS: BP 158/97; PULSE 72; RESP 22; TEMP 36.6; O2SAT 99
[2021-12-19 21:39] VITALS: O2SAT 99
[2021-12-19 21:39] LABS: Basophils Absolute Auto 0.03 K/mm3 (0.00-0.10); Basophils Percent Auto 0.4 % (0.0-1.0); Eosinophils Absolute Auto 0.14 K/mm3 (0.02-0.50); Eosinophils Percent Auto 1.8 % (1.0-6.0); Hematocrit 34.3 % (35.0-42.0); Hemoglobin 11.9 g/dL (11.7-13.8); Immature Granulocyte Absolute 0.02 K/mm3 (0.00-0.00); Immature Granulocyte Percent A 0.3 % (0.0-0.0); Lymphocytes Percent Auto 18.8 % (18.0-42.0); Mean Corpuscular HGB Conc 34.7 g/dL (32.0-36.0); Mean Corpuscular Hemoglobin 31.9 pg (27.0-31.0); Mean Platelet Volume 8.2 fl (9.2-11.8); Monocytes Absolute Auto 0.94 K/mm3 (0.10-0.90); Monocytes Percent Auto 11.8 % (2.0-11.0); Neutrophils Absolute Auto 5.3 K/mm3 (1.7-7.2); Neutrophils Percent Auto 66.9 % (50.0-70.0); Platelet Count Result 217 K/mm3 (150-420); Red Blood Count 3.73 M/mm3 (4.20-5.40)
[2021-12-19 21:45] VITALS: BP 148/76; PULSE 67; O2SAT 99
[2021-12-19 21:54] LABS: Alanine Aminotransferase 17 U/L (14-59); Albumin Level 3.8 g/dL (3.4-5.0); Alkaline Phosphatase 82 U/L (46-116); Anion Gap 4 mmol/L (8-16); Aspartate Amino Transferase 14 U/L (15-37); Bilirubin,Total 0.3 mg/dL (0.00-1.00); Blood Urea Nitrogen 18 mg/dL (7-18); Carbon Dioxide 33 mmol/L (21-32); Chloride 89 mmol/L (98-108); Estimated Glomerular Filt Rate > 60; Glucose 116 mg/dL (70-99); Osmolality Calculated 264 mOsm/kg (285-295); Potassium 3.8 mmol/L (3.5-5.1); Sodium 126 mmol/L (136-145); Total Protein 6.6 g/dL (6.4-8.2)
--- NOTE | 2021-12-19 22:01 | ED.SOB ---
HPI - SOB/Dyspnea General Chief Complaint: Shortness of Breath/Dyspnea Stated Complaint: trouble breathing Time Seen by Provider: 12/19/21 20:45 Source: patient and RN notes reviewed Mode of arrival: ambulatory Limitations: no limitations History of Present Illness MD elicited complaint: shortness of breath Pertinent past history: COPD Onset (ago): day(s) (2) Timing: constant Severity: mild Exacerbating factors: nothing Relieving factors: oxygen, rest and bronchodilators Known history of: COPD Associated symptoms: wheezing and chest congestion Treatment prior to arrival: oxygen and bronchodilator Related Data Home Medications Medication Instructions Recorded Confirmed aspirin 81 mg tablet,delayed 81 mg PO DAILY 05/04/19 11/20/21 release (Adult Low Dose Aspirin) budesonide 0.5 mg/2 mL suspension 0.5 mg inhalation DAILY 05/04/19 11/20/21 for nebulization formoterol fumarate 20 mcg/2 mL 2 ml inhalation Q12H 05/04/19 11/20/21 solution for nebulization (Perforomist) ipratropium 0.5 mg-albuterol 3 mg 3 ml inhalation Q4H PRN Shortness 05/04/19 11/20/21 (2.5 mg base)/3 mL nebulization Of Breath soln lisinopril 10 1 tablet PO .afternoon 09/22/21 11/20/21 mg-hydrochlorothiazide 12.5 mg tablet Allergies Allergy/AdvReac Type Severity Reaction Status Date / Time No Known Allergies Allergy Verified 12/19/21 21:04 Review of Systems Review of Systems: All systems reviewed & are unremarkable except as noted in HPI and below Constitutional: Constitutional: Reports no additional constitutional complaints Eyes: Eyes: Reports no additional eye complaints ENT: Reports system reviewed and no additional complaints, except as documented Cardiovascular: Cardiovascular: Reports no additional cardiovascular complaints Respiratory: Respiratory: Reports chest congestion, Reports dyspnea and Reports wheezing Gastrointestinal: Gastrointestinal: Reports no additional gastrointestinal complaints Genitourinary: Genitourinary: Reports no additional female genitourinary complaints Musculoskeletal: Musculoskeletal: Reports no additional musculoskeletal complaints Integumentary/Breasts: Skin/Breast: Reports system reviewed and no additional complaints, except as docu Neurologic: Reports system reviewed and no additional complaints, except as documented Psychiatric: Psychiatric: Reports no additional psychiatric complaints Endocrine: Endocrine: Reports no additional endocrine complaints Hematologic/Lymphatic: Hematologic/Lymphatic: Reports no additional hematologic/lymphatic complaints Allergic/Immunologic: Allergic/Immunologic: Reports no additional allergic/immunologic complaints PMFSH Past Medical History Medical History Asthma COPD (chronic obstructive pulmonary disease) COPD exacerbation COVID-19 TALBERT (dyspnea on exertion) Edema of both legs Hypertension Pneumonia due to 2019 novel coronavirus Pulmonary edema Weakness Surgical History Surgical History No history of previous surgery Social History Social History Smoking packs per day: 0.75 Smoking cigarettes per day: 15.0 Years smoked: 30 Smoking pack-years: 22.50 Smoking status: Former smoker Tobacco type: cigarettes Second hand tobacco smoke exposure: No Additional smoking assessment comments: Quit July 2015. 50 pack-year history Alcohol intake: never Substance use: never Substance use type: does not use Gender identity (if verbalized by the patient): Female Sexual Orientation (if Verbalized by the Patient): Straight or Heterosexual Spiritual care concerns: No Exam Const: General: no acute distress, alert and well nourished; No diaphoretic Nutritional Appearance: well nourished Orientation/consciousness: patient oriented x3 Limitations: no limit
== END 2021-12-19 22:26 | disposition home or self-care (01) ==
PROVIDERS: Emergency Provider Emergency Medicine; PCP Family Medicine
DX: J40 Bronchitis, not specified as acute or chronic (principal); J44.9 Chronic obstructive pulmonary disease, unspecified; E87.1 Hypo-osmolality and hyponatremia; I10 Essential (primary) hypertension; Z86.16 Personal history of COVID-19; Z79.82 Long term (current) use of aspirin
CPT/HCPCS: 36415; 71045; 80053; 85025; 99283

== ENCOUNTER 2022-02-13 21:30 | Emergency (ER) | payer MEDICARE, OTHER, SELFPAY ==
--- NOTE | ~2022-02-13 | CT_ITS ---
EXAMINATION: CT brain wo con DATE: 02/13/2022 22:22 INDICATION: NEAR SYNCOPE, DAUGHTER STATES PT WAS NOT ACTING NORMAL . TECHNIQUE: Computed tomography (CT) of the head was performed without intravenous contrast. The mA wa s adjusted according to patient size. Iterative reconstruction technique was employed. The dose-lengt h product was 605.33 mGy-cm. COMPARISON: None FINDINGS: No acute intracranial hemorrhage or extra-axial fluid collection. No hydrocephalus, mass, or herniation. No acute ischemic infarct. Unremarkable dural venous sinus attenuation. No acute osseous abnormality. Minimal dependent fluid in the right sphenoid sinus. Small left mastoid effusion. The remaining aerat ed spaces are clear. Mild atrophy and moderate chronic white matter change. Atherosclerotic intracranial calcification. IMPRESSION: No acute intracranial process. Reviewed, dictated and finalized at location K. CAL LEADER
--- NOTE | ~2022-02-13 | CT_ITS ---
EXAMINATION: CT diagnostic chest wo con DATE: 02/14/2022 00:22 INDICATION: Right middle lobe pneumonia. TECHNIQUE: Computed tomography (CT) of the chest was performed without intravenous contrast. The dose -length product was 342.44 mGy-cm. Automated exposure control and iterative reconstruction technique were employed. COMPARISON: CT dated 02/17/2020 FINDINGS: There is atherosclerosis of the aorta and coronary arteries. Heart size normal. No thoracic lymphadenopathy. There is severe emphysema. There is thickening of the major fissure, likely right m iddle lobe atelectasis.. There is right lower lobe airspace disease, consistent with pneumonia. No pn eumothorax. No endobronchial lesions. There is atherosclerosis of the aorta and coronary arteries. No thoracic lymphadenopathy. The mass in the left kidney is not identified on the current study due to lack of contrast. There is moderate thoracic spondylosis. Accentuated kyphosis. Sclerotic lesion in T 9 is unchanged from prior examination, likely benign. IMPRESSION: 1. Thickening of the fissure, likely right middle lobe atelectasis. 2: Right lower lobe airspace disease, consistent with pneumonia. 3: Emphysema. Reviewed, dictated and finalized at location A. TURE TESTER
--- NOTE | ~2022-02-13 | XR_ITS ---
EXAMINATION: XR chest 1V portable Exam Date/Time: 02/13/2022 22:14 LOZENGE MAKER HISTORY: SOB, GENERALIZED CP HX COPD, PULMONARY EDEMA, PNEUMONIA Comparison: None available. RESULT: Lines, tubes, and devices: None. Lungs and pleura: Subsegmental consolidation in the right middle lobe, with some component of volume loss in the right middle lobe. Mild right lateral costophrenic angle blunting. Diffuse senescent/emp hysematous changes. Cardiomediastinal silhouette: Stable. Other: No acute osseous or upper abdominal finding. IMPRESSION: Findings suspicious for right middle lobe pneumonia, with some degree of atelectasis. Trace right ple ural effusion versus chronic pleural parenchymal scarring. Reviewed, dictated and finalized at location K. NGE MAKER 12/19/2021 IMPRESSION: Findings suspicious for right middle lobe pneumonia, with some degree of atelec tasis. Trace right pleural effusion versus chronic pleural parenchymal scarring .
[2022-02-13 21:35] VITALS: BP 126/78; PULSE 95
--- NOTE | 2022-02-13 21:35 | ECG_ITS ---
Measurements Intervals [place] Rate: 78 P: 80 NH: 127 QRS: 27 QRSD: 80 T: 120 QT: 336 QTc: 385 Interpretive Statements SINUS RHYTHM WITH SINUS ARRHYTHMIA MARKED BASELINE ARTIFACT LEFT VENTRICULAR HYPERTROPHY AND ST-T CHANGE, CONSIDER REPOLARIZATION ABNORMALITY OR MYOCARDIAL ISCHEMIA ABNORMAL ECG COMPARED TO ECG 01/14/2021 08:59:30 LEFT VENTRICULAR HYPERTROPHY NOW PRESENT ST (T WAVE) DEVIATION NOW PRESENT Electronically Signed On 02-14-2022 15:32:15 WELT INSOLE CHANNELER by True Fortune M.D.
[2022-02-13 21:46] VITALS: BP 128/68; PULSE 90
[2022-02-13 21:54] LABS: Basophils Absolute Auto 0.03 K/mm3 (0.00-0.10); Basophils Percent Auto 0.2 % (0.0-1.0); Eosinophils Absolute Auto 0.08 K/mm3 (0.02-0.50); Eosinophils Percent Auto 0.6 % (1.0-6.0); Hematocrit 34.7 % (35.0-42.0); Immature Granulocyte Absolute 0.08 K/mm3 (0.00-0.00); Immature Granulocyte Percent A 0.6 % (0.0-0.0); Lymphocytes Absolute Auto 2.02 K/mm3 (1.10-4.50); Lymphocytes Percent Auto 14.2 % (18.0-42.0); Mean Corpuscular HGB Conc 34.6 g/dL (32.0-36.0); Mean Corpuscular Hemoglobin 32.2 pg (27.0-31.0); Mean Platelet Volume 8.4 fl (9.2-11.8); Monocytes Absolute Auto 1.03 K/mm3 (0.10-0.90); Monocytes Percent Auto 7.2 % (2.0-11.0); Neutrophils Percent Auto 77.2 % (50.0-70.0); Platelet Count Result 224 K/mm3 (150-420); Red Blood Count 3.73 M/mm3 (4.20-5.40); Red Cell Distribution Width 12.9 % (11.6-14.4); White Blood Count 14.3 K/mm3 (4.8-10.8)
[2022-02-13] MEDS: SODIUM CHLORIDE 0.9% IV 500 ML 999 ML IV CONT (21:55)
[2022-02-13 22:11] LABS: Alanine Aminotransferase 18 U/L (14-59); Albumin Level 3.7 g/dL (3.4-5.0); Alkaline Phosphatase 89 U/L (46-116); Anion Gap 6 mmol/L (8-16); Aspartate Amino Transferase 19 U/L (15-37); Bilirubin,Total 0.3 mg/dL (0.00-1.00); Blood Urea Nitrogen 26 mg/dL (7-18); Calcium 9.6 mg/dL (8.5-10.1); Carbon Dioxide 33 mmol/L (21-32); Chloride 94 mmol/L (98-108); Estimated Glomerular Filt Rate > 60; Glucose 119 mg/dL (70-99); Osmolality Calculated 281 mOsm/kg (285-295); Potassium 3.5 mmol/L (3.5-5.1); Sodium 133 mmol/L (136-145); Total Protein 6.9 g/dL (6.4-8.2); Troponin I 11.5 ng/L (0.00-60.4)
[2022-02-13 22:14] LABS: Lactic Acid Reflex 1.6 mmol/L (0.4-2.0)
[2022-02-13 22:19] VITALS: PULSE 89; RESP 24; O2SAT 98
[2022-02-13] MEDS: ALBUTEROL SULFATE NEB 2.5 MG/3 ML INH INHALATION (22:19)
[2022-02-13 22:30] VITALS: PULSE 68; RESP 20
[2022-02-13 23:00] VITALS: BP 124/56; PULSE 84; RESP 16; O2SAT 98
[2022-02-14 00:18] LABS: Influenza A QL RT-PCR Negative (Negative); Influenza B QL RT-PCR Negative (Negative); RSV RNA, RT-PCR Negative (Negative); SARS-CoV-2 RNA PCR Negative (Negative); Strep Group A RT-PCR Not Detected (Negative)
[2022-02-14] MEDS: AZITHROMYCIN 250 MG TABLET 500 MG PO (00:24)
--- NOTE | 2022-02-14 00:51 | ED.GENADULT ---
HPI - General Adult General Chief complaint: Unspecified Stated complaint: ambulance Time Seen by Provider: 02/13/22 21:33 Source: patient, family, EMS and RN notes reviewed Mode of arrival: EMS Limitations: no limitations History of Present Illness complaint: Pt was slowly responsive w/o any acute LOC or syncope Onset (ago): hour(s) (1) Location: chest (mild SOB, no fever documented.) Radiation: non-radiation Severity: mild Severity scale (1-10): 3 Relieving factors: none Exacerbating factors: none Associated symptoms: cough Related Data Home Medications Medication Instructions Recorded Confirmed aspirin 81 mg tablet,delayed 81 mg PO DAILY 05/04/19 02/19/22 release (Adult Low Dose Aspirin) budesonide 0.5 mg/2 mL suspension 0.5 mg inhalation DAILY 05/04/19 02/19/22 for nebulization formoterol fumarate 20 mcg/2 mL 2 ml inhalation Q12H 05/04/19 02/19/22 solution for nebulization (Perforomist) lisinopril 10 1 tablet PO .afternoon 09/22/21 02/19/22 mg-hydrochlorothiazide 12.5 mg tablet revefenacin 175 mcg/3 mL solution 175 mcg inhalation DAILY 02/19/22 02/19/22 for nebulization (Yupelri) Allergies Allergy/AdvReac Type Severity Reaction Status Date / Time No Known Allergies Allergy Verified 02/19/22 13:58 Review of Systems Review of Systems: All systems reviewed & are unremarkable except as noted in HPI and below Constitutional: Constitutional: Reports no additional constitutional complaints Eyes: Eyes: Reports no additional eye complaints ENT: Reports system reviewed and no additional complaints, except as documented Cardiovascular: Cardiovascular: Reports no additional cardiovascular complaints Respiratory: Respiratory: Reports no additional respiratory complaints Gastrointestinal: Gastrointestinal: Reports no additional gastrointestinal complaints Genitourinary: Genitourinary: Reports no additional female genitourinary complaints Musculoskeletal: Musculoskeletal: Reports no additional musculoskeletal complaints Integumentary/Breasts: Skin/Breast: Reports system reviewed and no additional complaints, except as docu Neurologic: Reports system reviewed and no additional complaints, except as documented Psychiatric: Psychiatric: Reports no additional psychiatric complaints Endocrine: Endocrine: Reports no additional endocrine complaints Hematologic/Lymphatic: Hematologic/Lymphatic: Reports no additional hematologic/lymphatic complaints Allergic/Immunologic: Allergic/Immunologic: Reports no additional allergic/immunologic complaints PMFSH Past Medical History Medical History Asthma COPD (chronic obstructive pulmonary disease) COPD exacerbation COVID-19 TALBERT (dyspnea on exertion) Edema of both legs Hypertension Pneumonia due to 2019 novel coronavirus Pulmonary edema Weakness Surgical History Surgical History No history of previous surgery Social History Social History Smoking packs per day: 0.75 Smoking cigarettes per day: 15.0 Years smoked: 30 Smoking pack-years: 22.50 Smoking status: Former smoker Tobacco type: cigarettes Second hand tobacco smoke exposure: No Additional smoking assessment comments: Quit July 2015. 50 pack-year history Alcohol intake: never Substance use: never Substance use type: does not use Gender identity (if verbalized by the patient): Female Sexual Orientation (if Verbalized by the Patient): Straight or Heterosexual Spiritual care concerns: No Exam Const: General: healthy appearing, no acute distress and well nourished Nutritional Appearance: well nourished Orientation/consciousness: patient oriented x3 Limitations: no limitations HENMT: Head: normal to inspection Ears: external ears normal, TM's normal bilaterally and EAC's normal Face/Nose
[2022-02-14 01:17] VITALS: BP 114/58; PULSE 79; RESP 18; TEMP 36.8; O2SAT 100
== END 2022-02-14 01:26 | disposition home or self-care (01) ==
PROVIDERS: Emergency Provider Emergency Medicine; PCP Family Medicine
DX: J18.9 Pneumonia, unspecified organism (principal); J44.9 Chronic obstructive pulmonary disease, unspecified; I10 Essential (primary) hypertension; Z79.82 Long term (current) use of aspirin; Z87.891 Personal history of nicotine dependence; Z20.822 Contact with and (suspected) exposure to COVID-19
CPT/HCPCS: 36415; 70450; 71045; 71250; 80053; 83605; 84484; 85025; 87637; 87651; 93005; 94640; 96361; 96365; 99284; A9270; J0696; J7040

== ENCOUNTER 2022-03-11 09:48 | Inpatient (IN) | payer MEDICARE, OTHER, SELFPAY ==
--- NOTE | ~2022-03-11 | XR_ITS ---
EXAMINATION: XR surgery orthopedic DATE: 03/15/2022 10:04 INDICATION: Distal right radius fracture. TECHNIQUE: 3 intraoperative fluoroscopic views of right wrist were obtained. I was not present. Fluor oscopy exposure time was 101 seconds. COMPARISON: Right wrist radiographs 03/11/2022 FINDINGS: There is a comminuted fracture of distal radius in near anatomic alignment status post open reduction internal fixation with volar plate and screws. IMPRESSION: 1. Comminuted fracture of distal right radius status post open reduction internal fixation. Reviewed, dictated and finalized at location A. L SPRAY OPERATOR IMPRESSION: 1. Comminuted fracture of distal right radius status post open reduction manager of internal audit al fixation.
--- NOTE | ~2022-03-11 | XR_ITS ---
EXAMINATION: XR surgery orthopedic DATE: 03/15/2022 10:04 INDICATION: Intertrochanteric fracture of proximal right femur. TECHNIQUE: 5 intraoperative fluoroscopic views of right hip were obtained. I was not present. Fluoros copy exposure time was 81 seconds. COMPARISON: Right hip radiographs 03/11/2022 FINDINGS: There is a comminuted intertrochanteric fracture of proximal right femur in near-anatomic a lignment status post open reduction internal fixation with antegrade intramedullary michael, femoral head /neck screw, and distal interlocking screw. There is mild right hip osteoarthritis. IMPRESSION: 1. Comminuted intertrochanteric fracture of proximal right femur status post open reduction internal fixation. 2. Mild right hip osteoarthritis. Reviewed, dictated and finalized at location A. CARE LIAISON IMPRESSION: 1. Comminuted intertrochanteric fracture of proximal right femur status post op en reduction internal fixation. 2. Mild right hip osteoarthritis.
--- NOTE | ~2022-03-11 | US_ITS ---
EXAMINATION: US renal BI DATE: 03/13/2022 17:44 INDICATION: hematuria TECHNIQUE: Multiple grayscale and Doppler ultrasound images of the kidneys were obtained. COMPARISON: None. FINDINGS: The right kidney measures 11.2 x 3.5 x 4.0 cm. The left kidney measures 11.0 x 5.3 x 5.5 cm. The kidn eys demonstrate normal parenchymal echogenicity. Mild bilateral cortical thinning and scarring, great er on the left. There is no hydronephrosis. The bladder is partially filled and contains echogenic de bris. Donovan catheter. IMPRESSION: Mild renal atrophy and scarring. Urinary bladder debris, which may represent blood, pus, or crystalli ne material. Reviewed, dictated and finalized at location K. SPERSON MEN'S HATS IMPRESSION: Mild renal atrophy and scarring. Urinary bladder debris, which may represent bl ood, pus, or crystalline material.
--- NOTE | ~2022-03-11 | XR_ITS ---
EXAMINATION: XR chest 1V DATE: 03/11/2022 11:12 INDICATION: Fall. TECHNIQUE: A single frontal view of the chest was obtained. COMPARISON: Chest single view 02/13/2022, chest CT 02/14/2022 FINDINGS: The lungs are hyperexpanded with lucencies and interstitial opacities, consistent with emph ysema. No pleural effusion or pneumothorax. The heart size is normal. Calcified left hilar lymph node s are consistent with old granulomatous disease. IMPRESSION: 1. Emphysema. Reviewed, dictated and finalized at location A. CTOR OF EMERGENCY NURSING IMPRESSION: 1. Emphysema.
--- NOTE | ~2022-03-11 | XR_ITS ---
EXAMINATION: XR hip RT 2V w AP pelvis DATE: 03/11/2022 11:12 INDICATION: Right hip injury. Fall. TECHNIQUE: An anteroposterior view of the pelvis and 2 views of right hip were obtained. COMPARISON: None. FINDINGS: There is a comminuted intertrochanteric fracture of proximal right femur. The main distal f racture fragment demonstrates 15 degrees varus angulation and 22 degrees posterior angulation. There is mild osteoarthritis of the hips. There is lumbar dextroscoliosis and severe spondylosis. IMPRESSION: 1. Comminuted intertrochanteric fracture of proximal right femur. 2. Mild osteoarthritis of the hips. Reviewed, dictated and finalized at location A. [place] SALES TEAMMATE
--- NOTE | ~2022-03-11 | XR_ITS ---
EXAMINATION: XR wrist RT min 3V DATE: 03/11/2022 11:12 INDICATION: Right wrist injury. Fall. TECHNIQUE: 4 views of right wrist were obtained. COMPARISON: None. FINDINGS: There is a comminuted fracture of distal radial metaphysis. The main distal fracture fragme nt demonstrates impaction and dorsal angulation. There is 32 degrees dorsal tilt of the distal articu lar surface. Ulnar styloid is intact. Scapholunate dissociation is noted. There is mild osteoarthriti s of first carpometacarpal joint and severe osteoarthritis of first metacarpophalangeal joint. IMPRESSION: 1. Comminuted fracture of distal radius. 2. Scapholunate dissociation. 3. Polyarticular osteoarthritis. Reviewed, dictated and finalized at location A. THESIOLOGY TECH
--- NOTE | ~2022-03-11 | XR_ITS ---
EXAMINATION: XR wrist RT min 3V DATE: 03/11/2022 12:45 INDICATION: Distal right radius fracture status post splinting. TECHNIQUE: 3 views of right wrist were obtained. COMPARISON: Right wrist radiographs 03/11/2022 FINDINGS: There is a comminuted fracture of distal radial metaphysis. The distal fracture fragment de monstrates dorsal angulation and impaction. There is 22 degrees dorsal tilt of the distal articular s urface. Ulnar styloid is intact. There is mild osteoarthritis of triscaphe joint and first carpometac arpal joint. Splint material is noted. IMPRESSION: 1. Comminuted fracture of distal radius with improvement in alignment. Reviewed, dictated and finalized at location A. NT TECHNICAL PROFESSIONAL
[2022-03-11 09:50] VITALS: BP 114/68; PULSE 75; RESP 18; TEMP 36.9; O2SAT 100
--- NOTE | 2022-03-11 11:18 | ECG_ITS ---
Measurements Intervals [place] Rate: 58 P: 83 PA: 147 QRS: 17 QRSD: 86 T: 89 QT: 421 QTc: 416 Interpretive Statements SINUS BRADYCARDIA LEFT VENTRICULAR HYPERTROPHY AND ST-T CHANGE BORDERLINE T WAVE ABNORMALITY- INFERIOR LEADS BASELINE ARTIFACT- I, II, III, AVR, AVL, AVF, V1-V6 BORDERLINE ECG COMPARED TO ECG 02/13/2022 21:53:32 SINUS BRADYCARDIA NOW PRESENT Electronically Signed On 03-11-2022 15:24:17 [employer] PORT[employer] DEVELOPER by Jorge Alberto Olvera D.O.
--- NOTE | 2022-03-11 11:19 | ED.GENADULT ---
HPI - General Adult General Chief complaint: Fall Stated complaint: Fall - hip & wrist pain Time Seen by Provider: 03/11/22 10:04 History of Present Illness HPI narrative: This is a 81-year-old female history of severe COPD presenting ED following a fall. Patient says that she got tangled up in her oxygen tubing and fell landing on her right hip. She also hurt her right wrist. She denies head trauma, loss of consciousness, chest pain difficulty breathing abdominal pain or any other symptoms. She has not been ambulatory since the incident. Related Data Home Medications Medication Instructions Recorded Confirmed aspirin 81 mg tablet,delayed 81 mg PO DAILY 05/04/19 02/19/22 release (Adult Low Dose Aspirin) budesonide 0.5 mg/2 mL suspension 0.5 mg inhalation DAILY 05/04/19 02/19/22 for nebulization formoterol fumarate 20 mcg/2 mL 2 ml inhalation Q12H 05/04/19 02/19/22 solution for nebulization (Perforomist) lisinopril 10 1 tablet PO .afternoon 09/22/21 02/19/22 mg-hydrochlorothiazide 12.5 mg tablet revefenacin 175 mcg/3 mL solution 175 mcg inhalation DAILY 02/19/22 02/19/22 for nebulization (Yupelri) Allergies Allergy/AdvReac Type Severity Reaction Status Date / Time No Known Allergies Allergy Verified 03/11/22 10:01 [facility] Past Medical History Medical History Asthma COPD (chronic obstructive pulmonary disease) COPD exacerbation COVID-19 TALBERT (dyspnea on exertion) Edema of both legs Hypertension Pneumonia due to 2019 novel coronavirus Pulmonary edema Weakness Surgical History Surgical History No history of previous surgery Social History Social History Smoking packs per day: 0.75 Smoking cigarettes per day: 15.0 Years smoked: 30 Smoking pack-years: 22.50 Smoking status: Former smoker Tobacco type: cigarettes Second hand tobacco smoke exposure: No Additional smoking assessment comments: Quit July 2015. 50 pack-year history Alcohol intake: never Substance use: never Substance use type: does not use Gender identity (if verbalized by the patient): Female Sexual Orientation (if Verbalized by the Patient): Straight or Heterosexual Spiritual care concerns: No Exam Narrative: APPEARANCE: Patient appears frail Head: atraumatic. EYES: EOMI, NOSE: Atraumatic NECK: Trachea midline RESPIRATORY: No increased rate of breathing CARDIOVASCULAR: RRR, ABDOMINAL: Non-distended MUSCULOSKELETAl: focal exam of the right wrist revealed deformity. Warehouse Engineer strength is intact, cap refills less than 2 seconds, radial and ulnar pulses intact. Focal exam of the right lower extremity revealed a shortened and externally rotated foot. There is pain and hip with passive and active range of motion. Pulses are +2 in the TPN PT distribution. NEURO: Alert. Moving 4/4 extremities SKIN:: Warm, dry. Normal color PSYCHIATRIC: Normal affect Course Vital Signs Vital signs: Vital Signs Temperature 98.4 F 03/11/22 09:50 Pulse Rate 75 03/11/22 09:50 Respiratory Rate 18 03/11/22 09:50 Blood Pressure 114/68 03/11/22 09:50 Pulse Oximetry 100 03/11/22 09:50 Oxygen Delivery Nasal Cannula 03/11/22 09:50 Oxygen Flow Rate 2 03/11/22 09:50 Temperature 98.4 F 03/11/22 09:50 Pulse Rate 75 03/11/22 09:50 Respiratory Rate 18 03/11/22 09:50 Blood Pressure 114/68 03/11/22 09:50 Pulse Oximetry 100 03/11/22 09:50 Oxygen Delivery Nasal Cannula 03/11/22 09:50 Oxygen Flow Rate 2 03/11/22 09:50 Procedures Orthopedic Splinting/Casting Injury #1: Side: right Upper Extremity Injury Location: wrist Upper Extremity Immobilizer: sugar tong splint Splint: customized in ED Pre-Procedure Neuro Vascular Exam: normal Post-Procedure Neuro Vascular Exam: normal M
[2022-03-11] MEDS: SODIUM CHLORIDE 0.9% IV 1,000 ML 999 ML IV CONT (11:33)
[2022-03-11] MEDS: HYDROmorphone HCL INJ (*CRX) 1 MG/ML SYR 0.5 MG IV PUSH (11:35)
[2022-03-11 11:56] LABS: Basophils Percent Auto 0.4 % (0.2-1.2); Eosinophils Absolute Auto 0.1 K/mm3 (0-0.3); Eosinophils Percent Auto 1.6 % (0-4.4); Hematocrit 30.1 % (37.0-47.0); Hemoglobin 10.2 g/dL (12.0-15.0); Immature Granulocyte Absolute 0.04 K/mm3 (0.00-0.031); Immature Granulocyte Percent A 0.5 % (0-0.5); Lymphocytes Absolute Auto 0.94 K/mm3 (0.9-3.2); Lymphocytes Percent Auto 11.9 % (18.3-44.2); Mean Corpuscular HGB Conc 33.9 g/dl (32-36); Mean Corpuscular Hemoglobin 31.4 pg (26-34); Mean Corpuscular Volume 92.6 fl (80-100); Mean Platelet Volume 8.3 fl (7.4-10.4); Monocytes Absolute Auto 0.7 K/mm3 (0.1-0.6); Monocytes Percent Auto 8.4 % (2.6-8.5); Neutrophils Absolute Auto 6.1 K/mm3 (1.3-6.7); Neutrophils Percent Auto 77.2 % (45.5-73.1); Platelet Count Result 193 k/mm3 (150-375); Red Blood Count 3.25 M/mm3 (4.2-5.4); Red Cell Distribution Width 12.9 % (11.5-14.5); White Blood Count 7.9 K/mm3 (4.5-10.0)
[2022-03-11 12:15] LABS: Alanine Aminotransferase 19 U/L (6-35); Alkaline Phosphatase 71 U/L (38-126); Anion Gap 4 mmol/L (8-16); Aspartate Amino Transferase 25 U/L (14-36); Bilirubin,Total 0.3 mg/dL (0.2-1.3); Blood Urea Nitrogen 12 mg/dL (7-17); Calcium 8.8 mg/dL (8.4-10.2); Carbon Dioxide 32 mmol/L (22-30); Chloride 92 mmol/L (98-107); Estimated CRCL calculation 60 ml/min; Estimated Glomerular Filt Rate > 60; Glucose 120 mg/dL (65-110); Lipase 40 U/L (23-300); Magnesium 1.8 mg/dL (1.6-2.3); Potassium 3.4 mmol/L (3.4-5.0); Sodium 128 mmol/L (137-145)
[2022-03-11 12:27] LABS: INR 1.1; Prothrombin Time 14.1 Seconds (11.1-14.7)
[2022-03-11 12:28] LABS: Partial Thromboplastin Time 32.3 SECONDS (22.3-36.8)
[2022-03-11 12:38] LABS: SARS-CoV-2 RNA PCR Negative
[2022-03-11] MEDS: ONDANSETRON INJ 4 MG/2 ML VIAL IV PUSH (13:02)
[2022-03-11] MEDS: LACTATED RINGERS 1,000 ML 75 ML IV CONT (13:34)
[2022-03-11 13:56] VITALS: BP 149/73; PULSE 63; RESP 17; O2SAT 98
[2022-03-11 14:01] LABS: Add Urine Microscopic? YES; Appearance Urine Clear (Clear); Bilirubin Urine Negative (Negative); Blood Urine 1+ (Negative); Color Urine Yellow (Yellow); Glucose Urine UA Negative (Negative); Ketones Urine Negative (Negative); Leukocyte Esterase Ur Negative LEU/UL (Negative); Nitrate Urine Negative (Negative); Protein Urine Negative (Negative); Specific Grav Ur 1.015 (1.001-1.035); Urobilinogen Urine 0.2 mg/dL (<2.0); pH Urine 7.5 (5.0-9.0)
--- NOTE | 2022-03-11 14:05 | PM.CNOR ---
Assessment and Plan Assessment and plan (1) Intertrochanteric fracture of right hip: Code(s): S72.141A - Displaced intertrochanteric fracture of right femur, initial encounter for closed fracture Status: Acute (2) Fracture of wrist: Code(s): S62.109A - Fracture of unspecified carpal bone, unspecified wrist, initial encounter for closed fracture Status: Acute Plan Displaced right hip intertrochanteric fracture and displaced distal radius extra-articular of the distal radius. Pleasant active elderly female with severe COPD. Chronic O2 by nasal cannula. Will benefit from ORIF of the right hip with gamma nail. Ipsilateral right wrist fracture is moderately displaced and unstable. ORIF may improve postoperative function and mobility. We discussed the risks, benefits, and alternatives to surgery. Plan for Hanna gamma nail (short locked nail), and Hanna volar wrist plate. Proceed with ORIF right hip intertrochanteric fracture with gamma nail, and ORIF right distal radius fracture. History of Present Illness HPI Consult date: 03/11/22 Chief complaint: Hip Fracture Narrative: Patient complains of acute right hip and right wrist pain. She tripped on her oxygen cords. Fell from standing height. Admitted through the emergency room for definitive management. No previous hip pain. Comfortable at rest. No numbness, tingling, or other associated symptoms. Typically she is a community ambulator. She has a walker but does not always use it. Review of Systems Review of Systems: Denies loss of consciousness. O2 nasal cannula chronically. All systems reviewed & are unremarkable except as noted in HPI and below PMFSH Past Medical History Medical History (Updated 03/11/22 @ 14:08 by Nam Downs MD) Asthma COPD (chronic obstructive pulmonary disease) COPD exacerbation COVID-19 TALBERT (dyspnea on exertion) Edema of both legs Hypertension Intertrochanteric fracture of right hip Pneumonia due to 2019 novel coronavirus Pulmonary edema Weakness Surgical History Surgical History No history of previous surgery Social History Social History Smoking packs per day: 0.75 Smoking cigarettes per day: 15.0 Years smoked: 30 Smoking pack-years: 22.50 Smoking status: Former smoker Tobacco type: cigarettes Second hand tobacco smoke exposure: No Additional smoking assessment comments: Quit July 2015. 50 pack-year history Alcohol intake: never Substance use: never Substance use type: does not use Gender identity (if verbalized by the patient): Female Sexual Orientation (if Verbalized by the Patient): Straight or Heterosexual Spiritual care concerns: No Meds Home Medications and Allergies Home Medications Medication Instructions Recorded Confirmed Type aspirin 81 mg tablet,delayed 81 mg PO DAILY 05/04/19 02/19/22 History release (Adult Low Dose Aspirin) budesonide 0.5 mg/2 mL suspension 0.5 mg inhalation DAILY 05/04/19 02/19/22 History for nebulization formoterol fumarate 20 mcg/2 mL 2 ml inhalation Q12H 05/04/19 02/19/22 History solution for nebulization (Perforomist) magnesium oxide 400 mg PO DAILY #30 tabs 05/17/21 02/19/22 Rx metoprolol succinate 50 mg See Rx Instructions .Route 09/08/21 02/19/22 Rx tablet,extended release 24 hr .COMPLEX #90 tabs lisinopril 10 1 tablet PO .afternoon 09/22/21 02/19/22 History mg-hydrochlorothiazide 12.5 mg tablet theophylline 300 mg See Rx Instructions .Route 12/15/21 02/19/22 Rx tablet,extended release,12 hr .COMPLEX #90 tabs albuterol sulfate 90 mcg/actuation 2 puff inhalation QID #8.5 grams 12/20/21 02/19/22 Rx aerosol inhaler (Ventolin HFA) methylprednisolone 4 mg tablets in See Rx Instructions PO .COMPLEX 12/20/21 02/19/22 Rx a dose pack (Medrol (Philip)) #21 ea azithromycin 500 mg tablet 5
[2022-03-11 14:13] LABS: Mucus Urine Rare /lpf; Squamous Epithelial Cell Urine Rare /hpf (Few); WBC Urine 0-3 /hpf
--- NOTE | 2022-03-11 15:04 | ADMGEN ---
This patient, Ragini Rodas, was admitted to 2 Medical Room 259-. Patient/family oriented to hospital policies and general routines including ID bracelet, bed and alarms, visiting hours, pain management, procedures, bathroom and other care routines, personal items, smoking policy, room service/diet, and visiting hours. Information on how to activate the Rapid Response Team has been discussed. Patient/Family are encouraged to report perceived risks to care and to ask questions if they do not understand what they are told or what they should do.
[2022-03-11 15:05] VITALS: BMI 17.3
[2022-03-11 15:31] VITALS: O2SAT 97
[2022-03-11 16:00] VITALS: BP 148/63; PULSE 64; RESP 16; TEMP 36.1; O2SAT 96
[2022-03-11 20:00] VITALS: O2SAT 94
--- NOTE | 2022-03-11 21:43 | PM.IMHP ---
H&P: HPI History of Present Illness Date/Time: 03/11/22 21:43 Chief Complaint: Fall Narrative: this is an 81-year-old female patient who has COPD and is chronically on oxygen at 2 L per nasal cannula. The patient stated that she had tripped on her oxygen 2 being as she was going to take her medication. The patient fell on her right hip and her right wrist. The patient stated she did not have any dizziness or chest pain prior to falling on the floor. She stated that it was a mechanical fall. She did not lose consciousness and denies hitting her head. The patient has not been able to ambulate since the fall. H&H is 10.2 and 30.1. Sodium is low at 128 but it has been chronically low. The patient is negative for COVID. Right wrist x-ray was read as communicated fracture of distal radius with improvement in alignment. Her right wrist has been wrapped. Chest x-ray was read as emphysema. Hip and pelvis x-ray was read as comminuted intertrochanteric fracture of proximal right femur. Mild osteoarthritis of the hip. Wrist x-ray was read as comminuted fracture of distal radius. Scapholunate dissociation. Polyarticular osteoarthritis. Dr. Downs and has been consulted and plans on a orthopedic surgery tomorrow. The patient is being admitted to inpatient status on the date of service of 03/11/2022 Review of Systems Review of Systems: see HPI All systems reviewed & are unremarkable except as noted in HPI and below Constitutional: Constitutional: Reports as per HPI and Reports no additional constitutional complaints Eyes: Eyes: Reports as per HPI and Reports no additional eye complaints ENT: Reports system reviewed and no additional complaints, except as documented and Reports Normal hearing present Cardiovascular: Cardiovascular: Reports no additional cardiovascular complaints Respiratory: Respiratory: Reports no additional respiratory complaints and Reports no additional respiratory complaints Gastrointestinal: Gastrointestinal: Reports as per HPI and Reports no additional gastrointestinal complaints Musculoskeletal: Musculoskeletal: Reports no additional musculoskeletal complaints Integumentary/Breasts: Skin/Breast: Reports system reviewed and no additional complaints, except as docu and Reports as per HPI Neurologic: Reports system reviewed and no additional complaints, except as documented, Reports as per HPI and Reports Normal hearing present Psychiatric: Psychiatric: Reports no additional psychiatric complaints and Reports as per HPI Endocrine: Endocrine: Reports no additional endocrine complaints Hematologic/Lymphatic: Hematologic/Lymphatic: Reports no additional hematologic/lymphatic complaints Allergic/Immunologic: Allergic/Immunologic: Reports no additional allergic/immunologic complaints [facility] Past Medical History Medical History Asthma COPD (chronic obstructive pulmonary disease) COPD exacerbation COVID-19 TALBERT (dyspnea on exertion) Edema of both legs Hypertension Intertrochanteric fracture of right hip Pneumonia due to 2019 novel coronavirus Pulmonary edema Weakness Surgical History Surgical History No history of previous surgery Social History Social History (Updated 03/11/22 @ 23:38 by Orin Olmstead NP) Social History: the patient is . She has 3 daughters. 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 She now lives with her 1 daughter and Alison. She believes that her daughter is the durable power county attorney for healthcare. The patient is a former smoker. She does not use any alcohol marijuana or illicit drugs. Code status full code Smoking packs per day: 0.75 Smoking cigarettes per day: 15.0 Years smoked: 30 Smoking pack-years: 22.50 Smoking status: Former smoker Tobacco type: cigarettes Second hand tobacco smoke exp
[2022-03-11 22:01] VITALS: BP 121/54; PULSE 73; RESP 16; TEMP 36.5; O2SAT 94
[2022-03-11] MEDS: ASPIRIN 81 MG ENTERIC TABLET PO (22:57)
[2022-03-11] MEDS: POTASSIUM CHLORIDE 10 MEQ TABLET.ER PO (22:57)
[2022-03-11] MEDS: hydroCHLOROthiazide 12.5 MG CAPSULE PO (22:57)
[2022-03-11] MEDS: lisinopriL 10 MG TABLET PO (22:58)
[2022-03-12] VITALS (8 sets, daily range): BP systolic 116–171; BP diastolic 52–78; PULSE 64–89; RESP 16–21; TEMP 36.1–36.6; O2SAT 97–100; BMI 17.3
[2022-03-12] MEDS: BUDESONIDE RESPULE NEB 0.5 MG/2 ML AMP INHALATION ×3 (00:05→21:14)
[2022-03-12] MEDS: ALBUTEROL SULFATE (*SP) AEROSOL 1 PUFF 2 PUFF INHALATION ×2 (00:05→21:14)
[2022-03-12 05:44] LABS: Basophils Percent Auto 0.1 % (0.2-1.2); Eosinophils Percent Auto 0.1 % (0-4.4); Hematocrit 27.1 % (37.0-47.0); Hemoglobin 9.3 g/dL (12.0-15.0); Immature Granulocyte Absolute 0.05 K/mm3 (0.00-0.031); Immature Granulocyte Percent A 0.5 % (0-0.5); Lymphocytes Absolute Auto 1.02 K/mm3 (0.9-3.2); Lymphocytes Percent Auto 9.9 % (18.3-44.2); Mean Corpuscular HGB Conc 34.3 g/dl (32-36); Mean Corpuscular Hemoglobin 31.6 pg (26-34); Mean Corpuscular Volume 92.2 fl (80-100); Mean Platelet Volume 8.6 fl (7.4-10.4); Monocytes Absolute Auto 1.2 K/mm3 (0.1-0.6); Monocytes Percent Auto 11.2 % (2.6-8.5); Neutrophils Absolute Auto 8.1 K/mm3 (1.3-6.7); Neutrophils Percent Auto 78.2 % (45.5-73.1); Platelet Count Result 183 k/mm3 (150-375); Red Blood Count 2.94 M/mm3 (4.2-5.4); White Blood Count 10.3 K/mm3 (4.5-10.0)
[2022-03-12 05:50] LABS: Alanine Aminotransferase 21 U/L (6-35); Albumin Level 3.8 g/dL (3.5-5.1); Alkaline Phosphatase 71 U/L (38-126); Anion Gap 7 mmol/L (8-16); Aspartate Amino Transferase 23 U/L (14-36); Bilirubin,Total 0.4 mg/dL (0.2-1.3); Blood Urea Nitrogen 15 mg/dL (7-17); Calcium 8.6 mg/dL (8.4-10.2); Carbon Dioxide 27 mmol/L (22-30); Chloride 90 mmol/L (98-107); Estimated CRCL calculation 49 ml/min; Estimated Glomerular Filt Rate > 60; Glucose 112 mg/dL (65-110); Magnesium 1.7 mg/dL (1.6-2.3); Potassium 3.7 mmol/L (3.4-5.0); Sodium 124 mmol/L (137-145)
[2022-03-12 06:16] LABS: Thyroid Stimulating Hormone Reflex 0.609 uIU/mL (0.465-4.68)
[2022-03-12] MEDS: LACTATED RINGERS 1,000 ML 75 ML IV CONT ×2 (06:40→21:36)
[2022-03-12] MEDS: METOPROLOL SUCCINATE EXT REL 50 MG TABCR BY MOUTH (09:40)
[2022-03-12] MEDS: MAGNESIUM OXIDE 400 MG TABLET PO (09:40)
[2022-03-12] MEDS: THEOPHYLLINE 300 MG ER 12 HR TABLET BY MOUTH (09:40)
[2022-03-12] MEDS: POTASSIUM CHLORIDE 10 MEQ TABLET.ER PO (09:41)
[2022-03-12] MEDS: PANTOPRAZOLE 40 MG TABLET PO ×2 (09:41→20:01)
--- NOTE | 2022-03-12 12:30 | P.PNIM_ITS ---
Progress Note: A&P Assessment and Plan (1) Intertrochanteric fracture of right hip: Code(s): S72.141A - Displaced intertrochanteric fracture of right femur, initial encounter for closed fracture Status: Acute Assessment and Plan: * Hip and pelvis xray indicated a comminuted intertrochanteric fracture of the right femur * Ortho consulted * Surgical intervention for nail in the hip and plate for the wrist * Post op care per ortho * Pain medications [place], fentanyl, and Tylenol ordered * Anti-emetics Zofran * DVT per ortho, SCDs for now * PT/OT (2) COPD (chronic obstructive pulmonary disease): Code(s): J44.9 - Chronic obstructive pulmonary disease, unspecified Status: Acute Assessment and Plan: * chest xray indicates emphysema * Chronic oxygen need of 2LNC * respiratory status stable at this time * Continue with home inhalers and theophylline (3) Fracture of wrist: Code(s): S62.109A - Fracture of unspecified carpal bone, unspecified wrist, initial encounter for closed fracture Status: Acute Assessment and Plan: * Xrays indicate comminuted facture of the distal radius with improvement in alignment * Ortho consulted * Plan is for surgical intervention with plate * PT/OT when appropriate * Post op care per ortho * Pain medications on board (4) Hyponatremia: Code(s): E87.1 - Hypo-osmolality and hyponatremia Status: Acute Assessment and Plan: * Chronic low sodium * Na upon arrival 126 * Currently 124 * Urine labs ordered * Hold HCTZ * Do not see any other medications to be problems * Consult Nephrology if worsening tomorrow * Increase by 4-6 per 24 hours * Patient stated that she usually take sodium tabs (5) Diastolic dysfunction: Code(s): I51.89 - Other ill-defined heart diseases Status: Acute Assessment and Plan: * Echo from 2020 shows EF of 65-70% with a grade 1 diastolic dysfunction * Continue home metoprolol and lisinopril * Trend urine output and daily weights * Appears to be chronic diastolic heart failure not in exacerbation * does not take any medications at home in lines of diuretics (6) Chronic GERD: Onset Date: 05/06/17 Code(s): K21.9 - Gastro-esophageal reflux disease without esophagitis Status: Acute Assessment and Plan: * Continue ppi (7) Hypertension: Code(s): I10 - Essential (primary) hypertension Status: Acute Assessment and Plan: * BP is 116/52 * Hold HCTZ with hyponatremia * Continue lisinopril and metoprolol * Continue to trend BP * Adjust therapy as indicated Time Spent With Patient Time with patient: Greater than 35 minutes Subjective Date/time seen: 03/12/22 1230 Interval history: 03/12/22 1230 Patient seems to be doing well. She did state that she is feeling ok. At one point she did have some arm pain, but thinks that it was related to the splint. She denies chest pain, shortness of breath, nausea, vomiting, diarrhea, constipation, weakness, or fatigue. 03/11/22? 21:43 ?this is an 81-year-old female patient who has COPD and is chronically on oxygen at 2 L per nasal cannula.? The patient stated that she had tripped on her oxygen 2 being as
--- NOTE | 2022-03-12 12:30 | PM.IMPN ---
Progress Note: A&P Assessment and Plan (1) Intertrochanteric fracture of right hip: Code(s): S72.141A - Displaced intertrochanteric fracture of right femur, initial encounter for closed fracture Status: Acute Assessment and Plan: Hip and pelvis xray indicated a comminuted intertrochanteric fracture of the right femur Ortho consulted Surgical intervention for nail in the hip and plate for the wrist Post op care per ortho Pain medications [place], fentanyl, and Tylenol ordered Anti-emetics Zofran DVT per ortho, SCDs for now PT/OT (2) COPD (chronic obstructive pulmonary disease): Code(s): J44.9 - Chronic obstructive pulmonary disease, unspecified Status: Acute Assessment and Plan: chest xray indicates emphysema Chronic oxygen need of 2LNC respiratory status stable at this time Continue with home inhalers and theophylline (3) Fracture of wrist: Code(s): S62.109A - Fracture of unspecified carpal bone, unspecified wrist, initial encounter for closed fracture Status: Acute Assessment and Plan: Xrays indicate comminuted facture of the distal radius with improvement in alignment Ortho consulted Plan is for surgical intervention with plate PT/OT when appropriate Post op care per ortho Pain medications on board (4) Hyponatremia: Code(s): E87.1 - Hypo-osmolality and hyponatremia Status: Acute Assessment and Plan: Chronic low sodium Na upon arrival 126 Currently 124 Urine labs ordered Hold HCTZ Do not see any other medications to be problems Consult Nephrology if worsening tomorrow Increase by 4-6 per 24 hours Patient stated that she usually take sodium tabs (5) Diastolic dysfunction: Code(s): I51.89 - Other ill-defined heart diseases Status: Acute Assessment and Plan: Echo from 2020 shows EF of 65-70% with a grade 1 diastolic dysfunction Continue home metoprolol and lisinopril Trend urine output and daily weights Appears to be chronic diastolic heart failure not in exacerbation does not take any medications at home in lines of diuretics (6) Chronic GERD: Onset Date: 05/06/17 Code(s): K21.9 - Gastro-esophageal reflux disease without esophagitis Status: Acute Assessment and Plan: Continue ppi (7) Hypertension: Code(s): I10 - Essential (primary) hypertension Status: Acute Assessment and Plan: BP is 116/52 Hold HCTZ with hyponatremia Continue lisinopril and metoprolol Continue to trend BP Adjust therapy as indicated Time Spent With Patient Time with patient: Greater than 35 minutes Subjective Date/time seen: 03/12/22 1230 Interval history: 03/12/22 1230 Patient seems to be doing well. She did state that she is feeling ok. At one point she did have some arm pain, but thinks that it was related to the splint. She denies chest pain, shortness of breath, nausea, vomiting, diarrhea, constipation, weakness, or fatigue. 03/11/22? 21:43 ?this is an 81-year-old female patient who has COPD and is chronically on oxygen at 2 L per nasal cannula.? The patient stated that she had tripped on her oxygen 2 being as she was going to take her medication.? The patient fell on her right hip and her right wrist.? The patient stated she did not have any dizziness or chest pain prior to falling on the floor.? She stated that it was a mechanical fall.? She did not lose consciousness and denies hitting her head.? The patient has not been able to ambulate since the fall.? H&H is 10.2 and 30.1.? Sodium is low at 128 but it has been chronically low.? The patient is negative for COVID.? Right wrist x-ray was read as communicated fracture of distal radius with improvement in alignment.? Her right wrist has been wrapped.? Chest x-ray was read as emphysema.? Hip an
[2022-03-12 13:37] LABS: Creatinine Urine 48.4 mg/dL; Urea Random Urine 379 MG/DL
[2022-03-12 13:39] LABS: Sodium Urine Random 133 meq/L
--- NOTE | 2022-03-12 14:27 | PM.PNORT ---
Progress Note: A&P Assessment and Plan (1) Intertrochanteric fracture of right hip: Code(s): S72.141A - Displaced intertrochanteric fracture of right femur, initial encounter for closed fracture Status: Acute (2) Fracture of wrist: Code(s): S62.109A - Fracture of unspecified carpal bone, unspecified wrist, initial encounter for closed fracture Status: Acute Plan Displaced right hip intertrochanteric fracture and displaced distal radius extra-articular of the distal radius. Pleasant active elderly female with severe COPD.? Chronic O2 by nasal cannula.? Will benefit from ORIF of the right hip with gamma nail.? Ipsilateral right wrist fracture is moderately displaced and unstable. ORIF may improve postoperative function and mobility. Dr. Downs, the patient, and the patient's family discussed the risks, benefits, and alternatives to surgery. Plan for [place] gamma nail (short locked nail), and [place] volar wrist plate. Proceed with ORIF right hip intertrochanteric fracture with gamma nail, and ORIF right distal radius fracture. Discussed plan with patient and her family again today. Answered all questions. Significant swelling in patient's left hand. Discussed that she needs to ice and elevate the hand to help decrease swelling pre-operatively. Patient will likely need to go to a rehab facility postoperatively. Family will discuss plans with care-coordination. Patient will need to be NPO at midnight. Tentative plan for surgery tomorrow. Subjective Subjective Date/Time Seen: 03/12/22 14:27 Interval history: Patient resting comfortably in bed. No pain at rest. Answered all questions. Family at bedside. Left hand is very swollen. No other complaints. Review of Systems Review of Systems: All systems reviewed & are unremarkable except as noted in HPI and below Exam Narrative: Elderly thin 81 y/o female. Patient is alert and oriented. Resting comfortably in bed. No acute distress. Left arm in sugartong splint. Large amount of swelling in her hand. No rashes or lesions noted. Warm, normal appearing skin. Tenderness at left hip. Left lower leg shortened and externally rotated. Calf nontender. Distal pulses palpable. Normal capillary refill. Patient able to move and wiggle toes and fingers. Light touch sensation intact. Objective Data Vital Signs Vital Signs: Vital Signs - 24 hr 03/11/22 15:31 03/11/22 16:00 03/11/22 20:00 Temperature 97.0 F L Pulse Rate 64 Respiratory Rate 16 Blood Pressure 148/63 H Pulse Oximetry 97 96 94 Oxygen Delivery Nasal Cannula Nasal Cannula Oxygen Flow Rate 2 2 03/11/22 22:01 03/12/22 00:05 03/12/22 00:05 Temperature 97.7 F Pulse Rate 73 71 71 Respiratory Rate 16 16 16 Blood Pressure 121/54 L Pulse Oximetry 94 97 Oxygen Delivery Nasal Cannula Oxygen Flow Rate 2 03/12/22 00:20 03/12/22 06:00 03/12/22 08:10 Temperature 97.0 F L Pulse Rate 72 64 71 Respiratory Rate 16 21 H 16 Blood Pressure 116/52 L Pulse Oximetry 100 Oxygen Delivery Oxygen Flow Rate 03/12/22 08:18 Temperature Pulse Rate 70 Respiratory Rate 16 Blood Pressure Pulse Oximetry Oxygen Delivery Oxygen Flow Rate Intake/Output Intake/Output: Intake & Output 03/09/22 03/10/22 03/11/22 03/12/22 23:59 23:59 23:59 23:59 Intake Total 1370 2020 Output Total 600 200 Balance 770 1820 Meds/Results Medications: Active Medications Generic Name Dose Route Start Last Admin Trade Name Freq PRN Reason Stop Dose Admin Hydrocodone Bitart/Acetaminophen 1 tab 03/11/22 12:30 Hydrocodone/Acetaminophen (*Crx) 5-325 Mg Tablet PO Q4H PRN Pain Rated 4-6 Albuterol 2 puff 03/11/22 21:50 03/12/22 00:05 Albuterol Sulfate (*Sp) Aerosol 1 Puff INHALATION 2 puff Q12HRT [facility] Administration Aspirin 81 mg 03/12/22 17:00 Aspirin 81 Mg Enteric Tablet PO 1700 [facility] Budesonide 0.5 mg 03/11/22 23:20 03/12/22 08:14
[2022-03-12] MEDS: lisinopriL 10 MG TABLET PO (16:48)
[2022-03-12] MEDS: ASPIRIN 81 MG ENTERIC TABLET PO (16:48)
--- NOTE | 2022-03-12 18:14 | PHAR ---
PT'S HOME MEDS HAVE BEEN VERIFIED YUPELRI 175 MCG/3 ML/ NEB FORMOTEROL 20 MCG/2 ML NEB
[2022-03-12] MEDS: HYDROcodone/acetaminophen (*CRX) 5-325 MG TABLET 1 TAB PO (22:22)
[2022-03-13 02:00] VITALS: BP 149/61; PULSE 72
[2022-03-13 06:00] VITALS: BP 150/67; PULSE 84; RESP 18; TEMP 36.6; O2SAT 96
[2022-03-13 06:00] LABS: Basophils Percent Auto 0.3 % (0.2-1.2); Eosinophils Absolute Auto 0.1 K/mm3 (0-0.3); Eosinophils Percent Auto 0.8 % (0-4.4); Hematocrit 30.2 % (37.0-47.0); Hemoglobin 10.4 g/dL (12.0-15.0); Immature Granulocyte Absolute 0.05 K/mm3 (0.00-0.031); Immature Granulocyte Percent A 0.5 % (0-0.5); Lymphocytes Absolute Auto 1.05 K/mm3 (0.9-3.2); Lymphocytes Percent Auto 9.9 % (18.3-44.2); Mean Corpuscular HGB Conc 34.4 g/dl (32-36); Mean Corpuscular Hemoglobin 31.8 pg (26-34); Mean Corpuscular Volume 92.4 fl (80-100); Mean Platelet Volume 8.6 fl (7.4-10.4); Monocytes Absolute Auto 0.9 K/mm3 (0.1-0.6); Monocytes Percent Auto 8.7 % (2.6-8.5); Neutrophils Absolute Auto 8.5 K/mm3 (1.3-6.7); Neutrophils Percent Auto 79.8 % (45.5-73.1); Platelet Count Result 161 k/mm3 (150-375); Red Blood Count 3.27 M/mm3 (4.2-5.4); White Blood Count 10.6 K/mm3 (4.5-10.0)
[2022-03-13 06:13] LABS: Anion Gap 4 mmol/L (8-16); Aspartate Amino Transferase 28 U/L (14-36); Bilirubin,Total 0.6 mg/dL (0.2-1.3); Blood Urea Nitrogen 10 mg/dL (7-17); Calcium 8.3 mg/dL (8.4-10.2); Carbon Dioxide 32 mmol/L (22-30); Chloride 85 mmol/L (98-107); Estimated CRCL calculation 60 ml/min; Estimated Glomerular Filt Rate > 60; Glucose 111 mg/dL (65-110); Magnesium 1.5 mg/dL (1.6-2.3); Potassium 3.4 mmol/L (3.4-5.0); Sodium 121 mmol/L (137-145)
[2022-03-13 06:14] LABS: Alanine Aminotransferase 21 U/L (6-35); Albumin Level 3.6 g/dL (3.5-5.1); Alkaline Phosphatase 71 U/L (38-126)
[2022-03-13] MEDS: MAGNESIUM SULF 4 GM/WATER100ML 4 GM/100 ML BAG IVPB (07:52)
[2022-03-13] MEDS: SODIUM CHLORIDE 0.9% IV 1,000 ML 75 ML IV CONT ×2 (07:53→21:49)
[2022-03-13] MEDS: POTASSIUM CHLORIDE 10 MEQ TABLET.ER PO (07:57)
[2022-03-13] MEDS: THEOPHYLLINE 300 MG ER 12 HR TABLET BY MOUTH (07:58)
[2022-03-13] MEDS: PANTOPRAZOLE 40 MG TABLET PO ×2 (07:58→21:53)
[2022-03-13] MEDS: METOPROLOL SUCCINATE EXT REL 50 MG TABCR BY MOUTH (07:58)
[2022-03-13] MEDS: HYDROcodone/acetaminophen (*CRX) 5-325 MG TABLET 1 TAB PO ×2 (08:09→21:50)
[2022-03-13 09:30] VITALS: PULSE 72; RESP 18; O2SAT 97
[2022-03-13] MEDS: BUDESONIDE RESPULE NEB 0.5 MG/2 ML AMP INHALATION ×2 (09:30→21:00)
[2022-03-13] MEDS: ALBUTEROL SULFATE (*SP) AEROSOL 1 PUFF 2 PUFF INHALATION ×2 (09:30→21:00)
--- NOTE | 2022-03-13 10:00 | P.PNIM_ITS ---
Progress Note: A&P Assessment and Plan (1) Intertrochanteric fracture of right hip: Code(s): S72.141A - Displaced intertrochanteric fracture of right femur, initial encounter for closed fracture Status: Acute Assessment and Plan: * Hip and pelvis xray indicated a comminuted intertrochanteric fracture of the right femur * Ortho consulted * Surgical intervention for nail in the hip and plate for the wrist, scheduled for 03/13/22, now postponed due to low sodium * Na remains low at 121, repeat sodium is 119 * Post op care per ortho * Pain medications [place], fentanyl, and Tylenol ordered * Anti-emetics Zofran * DVT per ortho, SCDs for now * PT/OT (2) Hyponatremia: Code(s): E87.1 - Hypo-osmolality and hyponatremia Status: Acute Assessment and Plan: * Chronic low sodium * Na upon arrival 126 * Currently 121, repeat this afternoon was 119 * Urine labs ordered * Hold HCTZ * Do not see any other medications to be problems * Consult Nephrology thank you for your help * Add 1 gram sodium tabs BID * Urine labs: Na 133, Urea 379, Cr 48.4 * Glucose is 111, no correction adjustments * Increase by 4-6 per 24 hours * Patient stated that she usually take sodium tabs, however, after further investigation sound that she has been off of sodium tabs for a while (3) COPD (chronic obstructive pulmonary disease): Code(s): J44.9 - Chronic obstructive pulmonary disease, unspecified Status: Acute Assessment and Plan: * chest xray indicates emphysema * Chronic oxygen need of 2LNC * respiratory status stable at this time * Continue with home inhalers and theophylline (4) Fracture of wrist: Code(s): S62.109A - Fracture of unspecified carpal bone, unspecified wrist, initial encounter for closed fracture Status: Acute Assessment and Plan: * Xrays indicate comminuted facture of the distal radius with improvement in alignment * Ortho consulted * Plan is for surgical intervention with plate * PT/OT when appropriate * Post op care per ortho * Pain medications on board (5) Diastolic dysfunction: Code(s): I51.89 - Other ill-defined heart diseases Status: Acute Assessment and Plan: * Echo from 2020 shows EF of 65-70% with a grade 1 diastolic dysfunction * Continue home metoprolol and lisinopril * Trend urine output and daily weights * Appears to be chronic diastolic heart failure not in exacerbation * does not take any medications at home in lines of diuretics (6) Chronic GERD: Onset Date: 05/06/17 Code(s): K21.9 - Gastro-esophageal reflux disease without esophagitis Status: Acute Assessment and Plan: * Continue ppi (7) Hypertension: Code(s): I10 - Essential (primary) hypertension Status: Acute Assessment and Plan: * BP is 150/67 * Hold HCTZ with hyponatremia * Continue lisinopril and metoprolol * Continue to trend BP * Adjust therapy as indicated Plan Mg 1.5, replace with 4gm Constipation miralax and senna added and started Time Spent With Patient Time with patient: Greater than 35 minutes Subjective Date/time seen: 03/13/22 1000 Interval history: 03/13/22 1000 Patient was lying
--- NOTE | 2022-03-13 10:00 | PM.IMPN ---
Progress Note: A&P Assessment and Plan (1) Intertrochanteric fracture of right hip: Code(s): S72.141A - Displaced intertrochanteric fracture of right femur, initial encounter for closed fracture Status: Acute Assessment and Plan: Hip and pelvis xray indicated a comminuted intertrochanteric fracture of the right femur Ortho consulted Surgical intervention for nail in the hip and plate for the wrist, scheduled for 03/13/22, now postponed due to low sodium Na remains low at 121, repeat sodium is 119 Post op care per ortho Pain medications [place], fentanyl, and Tylenol ordered Anti-emetics Zofran DVT per ortho, SCDs for now PT/OT (2) Hyponatremia: Code(s): E87.1 - Hypo-osmolality and hyponatremia Status: Acute Assessment and Plan: Chronic low sodium Na upon arrival 126 Currently 121, repeat this afternoon was 119 Urine labs ordered Hold HCTZ Do not see any other medications to be problems Consult Nephrology thank you for your help Add 1 gram sodium tabs BID Urine labs: Na 133, Urea 379, Cr 48.4 Glucose is 111, no correction adjustments Increase by 4-6 per 24 hours Patient stated that she usually take sodium tabs, however, after further investigation sound that she has been off of sodium tabs for a while (3) COPD (chronic obstructive pulmonary disease): Code(s): J44.9 - Chronic obstructive pulmonary disease, unspecified Status: Acute Assessment and Plan: chest xray indicates emphysema Chronic oxygen need of 2LNC respiratory status stable at this time Continue with home inhalers and theophylline (4) Fracture of wrist: Code(s): S62.109A - Fracture of unspecified carpal bone, unspecified wrist, initial encounter for closed fracture Status: Acute Assessment and Plan: Xrays indicate comminuted facture of the distal radius with improvement in alignment Ortho consulted Plan is for surgical intervention with plate PT/OT when appropriate Post op care per ortho Pain medications on board (5) Diastolic dysfunction: Code(s): I51.89 - Other ill-defined heart diseases Status: Acute Assessment and Plan: Echo from 2020 shows EF of 65-70% with a grade 1 diastolic dysfunction Continue home metoprolol and lisinopril Trend urine output and daily weights Appears to be chronic diastolic heart failure not in exacerbation does not take any medications at home in lines of diuretics (6) Chronic GERD: Onset Date: 05/06/17 Code(s): K21.9 - Gastro-esophageal reflux disease without esophagitis Status: Acute Assessment and Plan: Continue ppi (7) Hypertension: Code(s): I10 - Essential (primary) hypertension Status: Acute Assessment and Plan: BP is 150/67 Hold HCTZ with hyponatremia Continue lisinopril and metoprolol Continue to trend BP Adjust therapy as indicated Plan Mg 1.5, replace with 4gm Constipation miralax and senna added and started Time Spent With Patient Time with patient: Greater than 35 minutes Subjective Date/time seen: 03/13/22 1000 Interval history: 03/13/22 1000 Patient was lying in bed. Patient was a little irritated that her surgery postponed her sodium. Did talk to Dr. Kathleen who is suggesting 1 g salt tabs b.i.d.. Patient's sodium was 121 this morning. She is stating that she is constipated and she is also complaining of needing breathing treatment. She denies any chest pain, shortness a breath, nausea or vomiting. 03/12/22 1230 Patient seems to be doing well. She did state that she is feeling ok. At one point she did have some arm pain, but thinks that it was related to the splint. She denies chest pain, shortness of breath, nausea, vomiting, diarrhea, constipation, weakness, or fatigue. 03/11/22? 21:43 ?th
[2022-03-13] MEDS: SODIUM CHLORIDE 1 GM TABLET PO ×2 (11:03→17:37)
--- NOTE | 2022-03-13 11:51 | PM.CNNEP ---
Assessment and Plan Assessment and plan (1) Hyponatremia: Code(s): E87.1 - Hypo-osmolality and hyponatremia Status: Acute Assessment and Plan: acute on chronic baseline sodium runs ~ 126 - 134mmol/L in the last year suspected chronic etiology due to COPD/lung disease acute drop possibly due to previous IVFs versus pain from fracture versus HCTZ versus pain medications agree with trial of salt tabs goal of therapy is a rate of change of 6 - 8mmol/L in 24 hours for completeness - will check TSH, cortisol, SPEP, UPEP, serum/urine osmolality follow trend of sodium (2) Intertrochanteric fracture of right hip: Code(s): S72.141A - Displaced intertrochanteric fracture of right femur, initial encounter for closed fracture Status: Acute Assessment and Plan: Hip and pelvis xray with comminuted intertrochanteric fracture of the right femur Orthopedics following planning for surgical intervention one sodium is stabilized pain control PT/OT as tolerated (3) Fracture of wrist: Code(s): S62.109A - Fracture of unspecified carpal bone, unspecified wrist, initial encounter for closed fracture Status: Acute Assessment and Plan: Ortho following this issue as well planning surgical intervention once sodium stabilized (4) COPD (chronic obstructive pulmonary disease): Code(s): J44.9 - Chronic obstructive pulmonary disease, unspecified Status: Chronic Assessment and Plan: appears compensated continue home inhalers and chornic oxygen (5) Diastolic dysfunction: Code(s): I51.89 - Other ill-defined heart diseases Status: Acute Assessment and Plan: stable/compensated at this time (6) Hypertension: Code(s): I10 - Essential (primary) hypertension Status: Acute Assessment and Plan: continue metoprolol and lisinopril holding HCTZ in the context of #1 follow trend of hemodynamics Will continue to follow. History of Present Illness Reason for Consult Consult date: 03/13/22 Reason for consult: hyponatremia (acute on chronic) Chief Complaint Chief complaint: Hip Fracture History of Present Illness Narrative: The patient is an 81-year-old female with a past medical history as outlined below who presented to [facility] emergency room following a fall. According to the patient, she stated that she tripped on her oxygen tubing as she was walking to the counter to get to her medications. She fell on her right hip and right wrist area and reported no dizziness, chest pain prior to the fall. No reported loss of consciousness or hitting her head either. Unfortunately, since that fall, she has not been able to ambulate and she presented to the ER for further assessment. Workup and evaluation emergency room demonstrated the patient to be hemodynamically stable and imaging studies of her right wrist and right hip demonstrated a fracture of the distal radius and a inter trochanteric fracture of the proximal right femur, respectively. Routine blood test demonstrated relative anemia and hyponatremia which appears to be a chronic issue from review of her records. Her chest x-ray demonstrated COPD /emphysematous changes. She was subsequent admitted to the hospital for possible surgical intervention by Orthopedic surgery. Since her admission, her sodium level worsened to 121 by labs done this morning and because of this finding, surgery was canceled. However, in spite of this laboratory abnormality, the patient was otherwise asymptomatic. Renal consultation was requested due to the a for mentioned hyponatremia. From review of her records, the patient has had chronic hyponatremia for the last year so with sodiums fluctuating anywhere from 126-134 millimoles per L. Apparently, there was some mention that she had been on salt tablets in the past but both her and her family are not entirely clear on this issue. My urbina
[2022-03-13 12:21] LABS: Sodium 119 mmol/L (137-145)
[2022-03-13 14:00] VITALS: BP 128/53; PULSE 90; RESP 18; TEMP 36.3; O2SAT 97
[2022-03-13 15:52] LABS: Hemoglobin 9.3 g/dL (12.0-15.0)
--- NOTE | 2022-03-13 16:52 | WPDURCON ---
Assessment and Plan Assessment and plan (1) Hematuria: Code(s): R31.9 - Hematuria, unspecified Status: Acute Assessment and Plan: etiology unclear possibly secondary to catheter irritation. Have recommended Flushing catheter if appears to be worsening. If becomes more red in nature would recommend switching out for a 3 way Donovan for CBI. Will obtain renal and bladder ultrasound to evaluate her upper tracts and see if any clots in bladder. Urology Consult Note HPI Date Seen: 03/13/22 Time Seen: 16:52 Requesting Physician: Landen Phan MD Primary Care Provider: Greyson Vogt DO Consult Narrative Reason for consult: Hematuria Narrative: .Ragini Rodas is a 81 year old female who was admitted after a fall and has a inter trochanteric fracture on the right. She is due to undergo surgical intervention but developed a low sodium level. We were asked to see her after her Donovan catheter developed some hematuria. She denies any prior hematuria or voiding symptoms. Her urinalysis on admission had 6-10 red cells present. Patient denies any flank pain or prior history of stones. Review of Systems Review of Systems: All systems reviewed & are unremarkable except as noted in HPI and below PMFSH Past Medical History Medical History Asthma COPD (chronic obstructive pulmonary disease) COPD exacerbation COVID-19 TALBERT (dyspnea on exertion) Edema of both legs Hypertension Intertrochanteric fracture of right hip Pneumonia due to 2019 novel coronavirus Pulmonary edema Weakness Surgical History Surgical History No history of previous surgery Social History Social History Social History: the patient is . She has 3 daughters. 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 She now lives with her 1 daughter and Alison. She believes that her daughter is the durable power criminal attorney for healthcare. The patient is a former smoker. She does not use any alcohol marijuana or illicit drugs. Code status full code Smoking packs per day: 0.75 Smoking cigarettes per day: 15.0 Years smoked: 30 Smoking pack-years: 22.50 Smoking status: Former smoker Tobacco type: cigarettes Second hand tobacco smoke exposure: No Additional smoking assessment comments: Quit July 2015. 50 pack-year history Alcohol intake: never Substance use: never Substance use type: does not use Lack of Transportation: No Lack of Food: Never True Current Housing: I Have Housing Concerned About Future Housing: No Difficulty Paying Gas/Electric Bills: No Difficulty Paying for Meds: No Currently Unemployed: No Education: Grade School Difficulty w/ Childcare or Family Care: No Gender identity (if verbalized by the patient): Female Sexual Orientation (if Verbalized by the Patient): Straight or Heterosexual Spiritual care concerns: No Meds Home Medications and Allergies Home Medications Medication Instructions Recorded Confirmed Type aspirin 81 mg tablet,delayed 81 mg PO DAILY 05/04/19 03/11/22 History release (Adult Low Dose Aspirin) budesonide 0.5 mg/2 mL suspension 0.5 mg inhalation BID 05/04/19 03/11/22 History for nebulization formoterol fumarate 20 mcg/2 mL 2 ml inhalation Q12H 05/04/19 03/11/22 History solution for nebulization (Perforomist) magnesium oxide 400 mg PO DAILY #30 tabs 05/17/21 03/11/22 Rx metoprolol succinate 50 mg See Rx Instructions .Route 09/08/21 03/11/22 Rx tablet,extended release 24 hr .COMPLEX #90 tabs lisinopril 10 1 tablet PO .afternoon 09/22/21 03/11/22 History mg-hydrochlorothiazide 12.5 mg tablet theophylline 300 mg See Rx Instructions .Route 12/15/21 03/11/22 Rx tablet,extended release,12 hr .COMPLEX #90
[2022-03-13] MEDS: MAGNESIUM OXIDE 400 MG TABLET PO (17:36)
[2022-03-13] MEDS: polyethylene glycoL 3350 17 GM POWD.PACK PO (17:37)
[2022-03-13] MEDS: lisinopriL 10 MG TABLET PO (17:37)
[2022-03-13] MEDS: ASPIRIN 81 MG ENTERIC TABLET PO (17:37)
[2022-03-13] MEDS: SENNA/DOCUSATE SODIUM TABLET 1 TAB PO (17:37)
[2022-03-13 19:15] LABS: Sodium 124 mmol/L (137-145)
[2022-03-13 20:45] LABS: Hematocrit 25.5 % (37.0-47.0); Hemoglobin 9.2 g/dL (12.0-15.0)
[2022-03-13 21:00] VITALS: PULSE 82; RESP 18; O2SAT 99
[2022-03-13 21:28] VITALS: BP 132/53; PULSE 80; RESP 18; TEMP 36.8; O2SAT 97
[2022-03-14] VITALS (12 sets, daily range): BP systolic 104–124; BP diastolic 49–68; PULSE 65–94; RESP 17–18; TEMP 36.3–37.2; O2SAT 95–100
[2022-03-14 03:16] LABS: Basophils Percent Auto 0.4 % (0.2-1.2); Eosinophils Absolute Auto 0.1 K/mm3 (0-0.3); Eosinophils Percent Auto 1.4 % (0-4.4); Hematocrit 24.2 % (37.0-47.0); Hemoglobin 8.3 g/dL (12.0-15.0); Immature Granulocyte Absolute 0.05 K/mm3 (0.00-0.031); Immature Granulocyte Percent A 0.6 % (0-0.5); Lymphocytes Absolute Auto 1.17 K/mm3 (0.9-3.2); Lymphocytes Percent Auto 13.8 % (18.3-44.2); Mean Corpuscular HGB Conc 34.3 g/dl (32-36); Mean Corpuscular Hemoglobin 31.8 pg (26-34); Mean Corpuscular Volume 92.7 fl (80-100); Mean Platelet Volume 8.8 fl (7.4-10.4); Monocytes Percent Auto 11.4 % (2.6-8.5); Neutrophils Absolute Auto 6.2 K/mm3 (1.3-6.7); Neutrophils Percent Auto 72.4 % (45.5-73.1); Platelet Count Result 141 k/mm3 (150-375); Red Blood Count 2.61 M/mm3 (4.2-5.4); Red Cell Distribution Width 13.2 % (11.5-14.5); White Blood Count 8.5 K/mm3 (4.5-10.0)
[2022-03-14 03:31] LABS: Alanine Aminotransferase 17 U/L (6-35); Albumin Level 2.8 g/dL (3.5-5.1); Alkaline Phosphatase 56 U/L (38-126); Anion Gap 3 mmol/L (8-16); Aspartate Amino Transferase 23 U/L (14-36); Bilirubin,Total 0.4 mg/dL (0.2-1.3); Blood Urea Nitrogen 14 mg/dL (7-17); Calcium 7.5 mg/dL (8.4-10.2); Carbon Dioxide 30 mmol/L (22-30); Chloride 92 mmol/L (98-107); Estimated CRCL calculation 49 ml/min; Estimated Glomerular Filt Rate > 60; Glucose 105 mg/dL (65-110); Magnesium 2.2 mg/dL (1.6-2.3); Potassium 3.1 mmol/L (3.4-5.0); Sodium 125 mmol/L (137-145)
[2022-03-14] MEDS: HYDROcodone/acetaminophen (*CRX) 5-325 MG TABLET 1 TAB PO ×3 (05:34→17:58)
[2022-03-14 07:54] LABS: Hematocrit 24.6 % (37.0-47.0); Hemoglobin 8.3 g/dL (12.0-15.0)
--- NOTE | 2022-03-14 08:00 | PC.NURSE ---
Notified Dr. Kathleen of 2099 Na level of 124. Next draw at 0300, Dr Kathleen aware this nurse to notify him of next Na level. Called service at 0400 and gave them my call back number. No return call received Called service at 5 and again relayed my call back number. No return call received. Na level 125 0300 draw. Report given to next shift nurse of lab levels including K level of 3.1 Pt in pain due to fractures , body position in awkward position due to pt HOB elevation in order to breathe effectively and pain to right side fractures. Pt states has no pain when I don't move . Gave pt norco x2 over client delivery manager and pt much more comfortable. Surgery pending.
[2022-03-14 08:53] LABS: Sodium 122 mmol/L (137-145)
[2022-03-14] MEDS: polyethylene glycoL 3350 17 GM POWD.PACK PO (10:03)
[2022-03-14] MEDS: PANTOPRAZOLE 40 MG TABLET PO ×2 (10:03→21:01)
[2022-03-14] MEDS: POTASSIUM CHLORIDE 10 MEQ TABLET.ER PO (10:03)
[2022-03-14] MEDS: SENNA/DOCUSATE SODIUM TABLET 1 TAB PO (10:03)
[2022-03-14] MEDS: METOPROLOL SUCCINATE EXT REL 50 MG TABCR BY MOUTH (10:03)
[2022-03-14] MEDS: POTASSIUM CHLORIDE 20 MEQ TABLET 40 MEQ PO (10:04)
[2022-03-14] MEDS: SODIUM CHLORIDE 1 GM TABLET PO ×3 (10:04→17:58)
[2022-03-14] MEDS: SODIUM CHLORIDE 0.9% IV 1,000 ML 75 ML IV CONT (10:04)
[2022-03-14] MEDS: THEOPHYLLINE 300 MG ER 12 HR TABLET BY MOUTH (10:04)
[2022-03-14] MEDS: BUDESONIDE RESPULE NEB 0.5 MG/2 ML AMP INHALATION ×2 (10:31→19:44)
[2022-03-14] MEDS: ALBUTEROL SULFATE (*SP) AEROSOL 1 PUFF 2 PUFF INHALATION ×2 (10:31→19:45)
--- NOTE | 2022-03-14 12:25 | WPDUROPN2 ---
Progress Note: A&P Assessment and Plan (1) Hematuria: Code(s): R31.9 - Hematuria, unspecified Status: Acute Assessment and Plan: SAKINA shows Mild renal atrophy and scarring. Urinary bladder debris, which may represent blood, pus, or crystalline material. Patient's urine has cleared, no history of urologic issues otherwise. Patient can have a voiding trial and breaux removal when necessary prior to discharge home. No further workup needed at this time, it is likely a result of traumatic breaux insertion. Will plan a f/u outpatient cystoscopy at a later date. Subjective Subjective Date/Time Seen: 03/14/22 12:25 Gross hematuria is improved, urine in catheter tubing is clear. Urine in the catheter bag is light pink. Patient is sitting up in bed and denies any abdominal pain, flank pain or discomfort with her breaux. Review of Systems Cardiovascular: Cardiovascular: Denies chest pain Respiratory: Respiratory: Reports no additional respiratory complaints Gastrointestinal: Gastrointestinal: Denies abdominal pain, Denies nausea and Denies vomiting Genitourinary: Genitourinary: Reports hematuria Musculoskeletal: Musculoskeletal: Reports arthralgias Exam Resp: Effort & Inspection: normal respiratory effort GI: GI Palp: Yes Soft to palpation and No Tenderness to palpation present (GI) : General: Yes no CVA tenderness Urinary Catheter: Urinary Catheter: patent and draining and urine clear Extrem: Right lower extremity: no edema Left lower extremity: no edema Objective Data Vital Signs Vital Signs: Vital Signs - 24 hr 03/13/22 14:00 03/13/22 21:28 03/13/22 21:00 Temperature 97.4 F L 98.3 F Pulse Rate 90 80 82 Respiratory Rate 18 18 18 Blood Pressure 128/53 L 132/53 L Pulse Oximetry 97 97 99 Oxygen Delivery Nasal Cannula Oxygen Flow Rate 2 03/13/22 21:00 03/14/22 05:07 03/14/22 09:59 Temperature 98.9 F Pulse Rate 82 76 94 Respiratory Rate 18 17 18 Blood Pressure 114/49 L 113/54 L Pulse Oximetry 100 98 Oxygen Delivery Oxygen Flow Rate 03/14/22 10:03 03/14/22 10:25 03/14/22 10:25 Temperature Pulse Rate 80 91 91 Respiratory Rate 18 Blood Pressure Pulse Oximetry 96 Oxygen Delivery Nasal Cannula Oxygen Flow Rate 2 03/14/22 10:36 03/14/22 10:00 Temperature Pulse Rate 84 Respiratory Rate 18 Blood Pressure Pulse Oximetry 96 Oxygen Delivery Nasal Cannula Oxygen Flow Rate 2 Intake/Output Intake/Output: Intake & Output 03/11/22 03/12/22 03/13/22 03/14/22 23:59 23:59 23:59 23:59 Intake Total 1370 4030 3573 1480 Output Total 600 1600 975 400 Balance 770 2430 2598 1080 Meds/Results Medications: Active Medications Generic Name Dose Route Start Last Admin Trade Name Freq PRN Reason Stop Dose Admin Hydrocodone Bitart/Acetaminophen 1 tab 03/11/22 12:30 03/14/22 10:05 Hydrocodone/Acetaminophen (*Crx) 5-325 Mg Tablet PO 1 tab Q4H PRN Administration Pain Rated 4-6 Albuterol 2 puff 03/11/22 21:50 03/14/22 10:31 Albuterol Sulfate (*Sp) Aerosol 1 Puff INHALATION 2 puff Q12HRT CRISTEL Administration Aspirin 81 mg 03/12/22 17:00 03/13/22 17:37 Aspirin 81 Mg Enteric Tablet PO 81 mg 1700 CRISTEL Administration Budesonide 0.5 mg 03/11/22 23:20 03/14/22 10:31 Budesonide Respule Neb 0.5 Mg/2 Ml Amp INHALATION 0.5 mg Q12HRT CRISTEL Administration Fentanyl Citrate 50 mcg 03/11/22 12:30 Fentanyl Citrate Inj (*Crx) 100 Mcg/2 Ml Vial IV PUSH Q2H PRN Pain Rated 7-10 Home Med 1 each 03/12/22 20:00 03/14/22 10:35 Home Medication: Formoterol Fumarate [Perforomist] 20 Mcg/2 Ml Solution For Nebulization INHALATION 04/11/22 19:59 1 each Q12HRT CRISTEL Administration Home Med 1 each 03/13/22 13:00 03/13/22 14:16 Home Medication: Revefenacin [Yupelri] 175 Mcg/3 Ml Solution For Nebulization INHALATION 04/12/22 08:59 1 each DAILY@1300 CRISTEL Administration Lisinopril 10 mg 03/11
[2022-03-14 15:03] LABS: Osmolality, Urine 493 mOsm/kg (50-1200)
--- NOTE | 2022-03-14 15:39 | PM.PNNEP ---
Progress Note: A&P Assessment and Plan (1) Hyponatremia: Code(s): E87.1 - Hypo-osmolality and hyponatremia Status: Acute Assessment and Plan: slow improvement noted acute on chronic baseline sodium runs ~ 126 - 134mmol/L in the last year suspected chronic etiology due to COPD/lung disease acute drop possibly due to previous IVFs versus pain from fracture versus HCTZ versus pain medications increase dosage of salt tabs today (1.5gm bid) goal of therapy is a rate of change of 6 - 8mmol/L in 24 hours evalutaion to date: TSH okay cortisol (not done?) SPEP/UPEP/somolality pending follow trend of sodium (2) Intertrochanteric fracture of right hip: Code(s): S72.141A - Displaced intertrochanteric fracture of right femur, initial encounter for closed fracture Status: Acute Assessment and Plan: hip and pelvis xray with comminuted intertrochanteric fracture of the right femur Orthopedics following planning for surgical intervention one sodium is stabilized pain control PT/OT as tolerated (3) Fracture of wrist: Code(s): S62.109A - Fracture of unspecified carpal bone, unspecified wrist, initial encounter for closed fracture Status: Acute Assessment and Plan: Ortho following this issue as well planning surgical intervention once sodium stabilized (4) COPD (chronic obstructive pulmonary disease): Code(s): J44.9 - Chronic obstructive pulmonary disease, unspecified Status: Chronic Assessment and Plan: appears compensated continue home inhalers and chornic oxygen (5) Diastolic dysfunction: Code(s): I51.89 - Other ill-defined heart diseases Status: Acute Assessment and Plan: stable/compensated at this time (6) Hypertension: Code(s): I10 - Essential (primary) hypertension Status: Acute Assessment and Plan: continue metoprolol and lisinopril holding HCTZ in the context of #1 follow trend of hemodynamics Will continue to follow. Subjective Date/time seen: 03/14/22 15:39 Slow improvement in sodium noted; appears to be doing reasonably well -- no major pain except with movement of right hip; breating/respiratory status seems stable at the time of my visit; no other issues voiced. Exam Narrative: General: elderly female in NAD Heart: normal S1 and S2; no rub Lungs: clear to auscultation Abdomen: soft, nontender, nondistended, positive bowel sounds Extremities: right wrist in splint; right hip externally rotated Skin: warm and dry Objective Data Vital Signs Vital Signs: Vital Signs Temp Pulse Resp BP Pulse Ox O2 Del Method O2 Flow Rate 03/14/22 13:50 65 18 03/14/22 10:00 96 Nasal Cannula 2 03/14/22 10:36 84 18 03/14/22 10:25 91 18 03/14/22 10:25 91 96 Nasal Cannula 2 03/14/22 10:03 80 03/14/22 09:59 94 18 113/54 L 98 03/14/22 05:07 98.9 F 76 17 114/49 L 100 03/13/22 21:00 82 18 03/13/22 21:00 82 18 99 Nasal Cannula 2 03/13/22 21:28 98.3 F 80 18 132/53 L 97 Intake/Output Intake/Output: Intake & Output 03/11/22 03/12/22 03/13/22 03/14/22 23:59 23:59 23:59 23:59 Intake Total 1370 4030 3573 2220 Output Total 600 1600 975 950 Balance 770 2430 2598 1270 Meds/Results Medications: Active Medications Generic Name Dose Route Start Last Admin Trade Name Freq PRN Reason Stop Dose Admin Hydrocodone Bitart/Acetaminophen 1 tab 03/11/22 12:30 03/14/22 17:58 Hydrocodone/Acetaminophen (*Crx) 5-325 Mg Tablet PO 1 tab Q4H PRN Administration Pain Rated 4-6 Albuterol 2 puff 03/11/22 21:50 03/14/22 10:31 Albuterol Sulfate (*Sp) Aerosol 1 Puff INHALATION 2 puff Q12HRT CRISTEL Administration Aspirin 81 mg 03/12/22 17:00 03/14/22 17:58 Aspirin 81 Mg Enteric Tablet PO 81 mg 1700 CRISTEL Administration Budesonide 0.5 mg 03/11/22 23:20
--- NOTE | 2022-03-14 15:39 | P.PNNP_ITS ---
Progress Note: A&P Assessment and Plan (1) Hyponatremia: Code(s): E87.1 - Hypo-osmolality and hyponatremia Status: Acute Assessment and Plan: * slow improvement noted * acute on chronic * baseline sodium runs ~ 126 - 134mmol/L in the last year * suspected chronic etiology due to COPD/lung disease * acute drop possibly due to previous IVFs versus pain from fracture versus HCTZ versus pain medications * increase dosage of salt tabs today (1.5gm bid) * goal of therapy is a rate of change of 6 - 8mmol/L in 24 hours * evalutaion to date: * TSH okay * cortisol (not done?) * SPEP/UPEP/somolality pending * follow trend of sodium (2) Intertrochanteric fracture of right hip: Code(s): S72.141A - Displaced intertrochanteric fracture of right femur, initial encounte r for closed fracture Status: Acute Assessment and Plan: * hip and pelvis xray with comminuted intertrochanteric fracture of the right femur * Orthopedics following * planning for surgical intervention one sodium is stabilized * pain control * PT/OT as tolerated (3) Fracture of wrist: Code(s): S62.109A - Fracture of unspecified carpal bone, unspecified wrist, initial encounter for closed fracture Status: Acute Assessment and Plan: * Ortho following this issue as well * planning surgical intervention once sodium stabilized (4) COPD (chronic obstructive pulmonary disease): Code(s): J44.9 - Chronic obstructive pulmonary disease, unspecified Status: Chronic Assessment and Plan: * appears compensated * continue home inhalers and chornic oxygen (5) Diastolic dysfunction: Code(s): I51.89 - Other ill-defined heart diseases Status: Acute Assessment and Plan: * stable/compensated at this time (6) Hypertension: Code(s): I10 - Essential (primary) hypertension Status: Acute Assessment and Plan: * continue metoprolol and lisinopril * holding HCTZ in the context of #1 * follow trend of hemodynamics Will continue to follow. Subjective Date/time seen: 03/14/22 15:39 Slow improvement in sodium noted; appears to be doing reasonably well -- no major pain except with movement of right hip; breating/respiratory status seems stable at the time of my visit; no other issues voiced. Exam Narrative: General: elderly female in NAD Heart: normal S1 and S2; no rub Lungs: clear to auscultation Abdomen: soft, nontender, nondistended, positive bowel sounds Extremities: right wrist in splint; right hip externally rotated Skin: warm and dry Objective Data Vital Signs Vital Signs: Vital Signs Temp Pulse Resp BP Pulse Ox O2 Del Method O2 Flow Rate 03/14/22 13:50 65 18 03/14/22 10:00 96 Nasal Cannula 2 03/14/22 10:36 84 18 03/14/22 10:25 91 18 03/14/22 10:25 91 96 Nasal Cannula 2 03/14/22 10:03 80 03/14/22 09:59 94 18 113/54 L 98 03/14/22 05:07 98.9 F 76 17 114/49 L 100 03/13/22 21:00 82 18 03/13/22 21:00 82 18 99 Nasal Cannula 2 03/13/22 21:28 98.3 F 80 18 132/53 L 97 Intake/Output Intake/Output: Intake & Output 03/11/22 03/12/22 03/13/22 03/14/22 23:59 23:59 23:59 23:59
--- NOTE | 2022-03-14 16:59 | PM.IMPN ---
Progress Note: A&P Assessment and Plan (1) Intertrochanteric fracture of right hip: Code(s): S72.141A - Displaced intertrochanteric fracture of right femur, initial encounter for closed fracture Status: Acute Assessment and Plan: secondary to fall. Appreciate orthopedic surgery consultation. Plan for surgical intervention on 03/13/2022, however postponed due to hyponatremia. Appreciate orthopedic surgery recommendations. Continue pain control and supportive care (2) Hyponatremia: Code(s): E87.1 - Hypo-osmolality and hyponatremia Status: Acute Assessment and Plan: sodium down to 119 this admission, improved to 122 today. Appreciate Nephrology recommendations. Continue sodium chloride tabs 1 g b.i.d.. HCTZ on hold. TSH within normal limits. SPEP, UPEP, osmolality pending. Continue to monitor sodium levels closely (3) Fracture of wrist: Code(s): S62.109A - Fracture of unspecified carpal bone, unspecified wrist, initial encounter for closed fracture Status: Acute Assessment and Plan: appreciate orthopedic surgery consultation and recommendations. anticipating surgery with improvement in sodium levels (4) Hematuria: Code(s): R31.9 - Hematuria, unspecified Status: Acute Assessment and Plan: Appreciate urology recommendations. Renal ultrasound showed mild renal atrophy and scarring with urinary bladder debris which may represent blood, pus, or crystalline material. Hematuria has resolved. felt to be related to traumatic Donovan insertion. Continue with Donovan catheter at this time, plan for voiding trial postoperatively. Outpatient cystoscopy down the line (5) COPD (chronic obstructive pulmonary disease): Code(s): J44.9 - Chronic obstructive pulmonary disease, unspecified Status: Chronic Assessment and Plan: not in acute exacerbation. remaining stable on baseline oxygen, 2 L at all times (6) Hypertension: Code(s): I10 - Essential (primary) hypertension Status: Acute Assessment and Plan: blood pressures are stable. Continue lisinopril and metoprolol. HCTZ on hold as above. Subjective Date/time seen: 03/14/22 16:59 Interval history: Date of service: 03/14/2022 patient is seen in follow-up for right hip and wrist fracture. denies any right wrist pain. No hip pain at rest but reports 9/10 pain with movement. Denies shortness of breath, cough, chest pain. No dysphagia. No abdominal pain, nausea, vomiting, fever, or chills. Review of Systems Review of Systems: All systems reviewed & are unremarkable except as noted in HPI and below Exam Narrative: General: Well-nourished, well-appearing 81-year-old female, sitting up in bed eating lunch, comfortable, NARD Neuro: awake, alert and oriented x4, speech clear, no focal neuro deficits noted HEENMT: normocephalic, atraumatic, EOMI, sclerae anicteric, moist oral mucosa Respiratory: clear to auscultation bilaterally, nonlabored breathing Cardio: regular rate, regular rhythm with S1-S2 Abdomen: nondistended, normoactive bowel sounds, soft, nontender to palpation Extremities: right wrist in splint, able to wiggle fingers, brisk capillary refill, swelling of right hand below splint noted. Right leg externally rotated and shortened, right hip nontender to palpation, bilateral lower extremities nono edema, erythema, or tenderness to palpation, DP pulses 2+ bilaterally, able to wiggle toes bilaterally Skin: no rashes or lesions, warm and dry Psych: appropriate mood and affect, judgment and insight intact Objective Data Vital Signs Vital Signs: Vital Signs - 24 hr 03/13/22 21:28 03/13/22 21:00 03/13/22 21:00 Temperature 98.3 F Pulse Rate 80 82 82 Respiratory Rate 18 18 18 Blood Pressure 132/53 L Pulse Oximetry 97 99 Oxygen Delivery Nasal Cannula Oxygen Flow Rate 2 03/14/22 05:07 03/14/22 09:59 03/14/22
[2022-03-14 17:47] LABS: Sodium 123 mmol/L (137-145)
[2022-03-14] MEDS: ASPIRIN 81 MG ENTERIC TABLET PO (17:58)
[2022-03-14] MEDS: lisinopriL 10 MG TABLET PO (17:58)
[2022-03-14] MEDS: MAGNESIUM OXIDE 400 MG TABLET PO (17:58)
[2022-03-15] VITALS (20 sets, daily range): BP systolic 120–160; BP diastolic 55–77; PULSE 71–88; RESP 10–20; TEMP 36.3–37.4; O2SAT 94–100
[2022-03-15 00:27] LABS: Sodium 126 mmol/L (137-145)
[2022-03-15 05:09] LABS: Hematocrit 23.9 % (37.0-47.0); Hemoglobin 8.3 g/dL (12.0-15.0); Mean Corpuscular HGB Conc 34.7 g/dl (32-36); Mean Corpuscular Volume 92.3 fl (80-100); Mean Platelet Volume 8.8 fl (7.4-10.4); Platelet Count Result 176 k/mm3 (150-375); Red Blood Count 2.59 M/mm3 (4.2-5.4); Red Cell Distribution Width 13.4 % (11.5-14.5); White Blood Count 8.9 K/mm3 (4.5-10.0)
[2022-03-15 05:24] LABS: Anion Gap 2 mmol/L (8-16); Blood Urea Nitrogen 15 mg/dL (7-17); Calcium 7.7 mg/dL (8.4-10.2); Carbon Dioxide 29 mmol/L (22-30); Chloride 97 mmol/L (98-107); Estimated CRCL calculation 60 ml/min; Estimated Glomerular Filt Rate > 60; Glucose 94 mg/dL (65-110); Potassium 4.1 mmol/L (3.4-5.0); Sodium 128 mmol/L (137-145)
--- NOTE | 2022-03-15 06:36 | PCDIET ---
Daughter came this am 0530 at pt bedside. Pt NPO after midnight. Slept all night. To surgery per bed with OR nurse v Daughter went w the pt
[2022-03-15] MEDS: TRANEXAMIC ACID 1,000MG/ISO100 1,000 MG/100 ML BAG 200 MG IVPB (07:00)
[2022-03-15] MEDS: LACTATED RINGERS 1,000 ML 30 ML IV CONT ×2 (07:00→10:20)
--- NOTE | 2022-03-15 07:11 | WPDANESEPPF ---
Anes - Initial Pre Proc Eval Procedure: Operation Date: 03/15/22 07:30 Proposed Procedures p Right Intertrochanteric Nail - Nam Downs MD s Open Reduction Internal Fixation Right Wrist - Nam Downs MD Date/Time: 03/15/22 07:11 Surgeon: Alyssa Hernández PA-C Pre Op Diagnosis: Hip Fracture Patient Data Age: 81 Gender: F Height: 1.57 m Weight: 42.9 kg Last Vital Signs Temp 37.4 C 03/15/22 06:39 Pulse 80 03/15/22 06:39 Resp 14 03/15/22 06:39 BP 125/62 03/15/22 06:39 Pulse Ox 96 03/15/22 06:39 O2 Del Method Nasal Cannula 03/15/22 06:39 O2 Flow Rate 2 03/15/22 06:39 Allergies Allergy/AdvReac Type Severity Reaction Status Date / Time No Known Allergies Allergy Verified 03/11/22 10:01 Home Medications Medication Instructions Recorded Confirmed Type aspirin 81 mg tablet,delayed 81 mg PO DAILY 05/04/19 03/11/22 History release (Adult Low Dose Aspirin) budesonide 0.5 mg/2 mL suspension 0.5 mg inhalation BID 05/04/19 03/11/22 History for nebulization formoterol fumarate 20 mcg/2 mL 2 ml inhalation Q12H 05/04/19 03/11/22 History solution for nebulization (Perforomist) magnesium oxide 400 mg PO DAILY #30 tabs 05/17/21 03/11/22 Rx metoprolol succinate 50 mg See Rx Instructions .Route 09/08/21 03/11/22 Rx tablet,extended release 24 hr .COMPLEX #90 tabs lisinopril 10 1 tablet PO .afternoon 09/22/21 03/11/22 History mg-hydrochlorothiazide 12.5 mg tablet theophylline 300 mg See Rx Instructions .Route 12/15/21 03/11/22 Rx tablet,extended release,12 hr .COMPLEX #90 tabs potassium chloride 10 mEq 10 meq PO DAILY #90 tabs 02/15/22 03/11/22 Rx tablet,extended release revefenacin 175 mcg/3 mL solution 175 mcg inhalation BID 02/19/22 03/11/22 History for nebulization (Chasity) albuterol sulfate 90 mcg/actuation 2 puff inhalation BID 03/11/22 03/11/22 History aerosol inhaler (Ventolin HFA) Laboratory Tests 03/11/22 03/14/22 03/14/22 13:49 07:37 07:46 WBC RBC Hgb 8.3 g/dL L g/dL (12.0-15.0) Hct 24.6 % L % (37.0-47.0) MCV MCH MCHC RDW Plt Count MPV Sodium 122 mmol/L L mmol/L (137-145) Potassium Chloride Carbon Dioxide Anion Gap BUN Creatinine Estim Creat Clear Calc Estimated GFR Glucose Calcium Urine Osmolality 493 mOsm/kg mOsm/kg (50-1200) 03/14/22 03/15/22 03/15/22 17:22 00:06 04:46 WBC 8.9 K/mm3 K/mm3 (4.5-10.0) RBC 2.59 M/mm3 L M/mm3 (4.2-5.4) Hgb 8.3 g/dL L g/dL (12.0-15.0) Hct 23.9 % L % (37.0-47.0) MCV 92.3 fl fl (80-100) MCH 32.0 pg pg (26-34) MCHC 34.7 g/dl g/dl (32-36) RDW 13.4 % % (11.5-14.5) Plt Count 176 k/mm3 k/mm3 (150-375) MPV 8.8 fl fl (7.4-10.4) Sodium 123 mmol/L L mmol/L 126 mmol/L L mmol/L (137-145) (137-145) Potassium Chloride Carbon Dioxide Anion Gap BUN Creatinine Estim Creat Clear Calc Estimated GFR Glucose Calcium Urine Osmolality 03/15/22 04:46 WBC RBC Hgb Hct MCV MCH MCHC RDW Plt Count MPV Sodium 128 mmol/L L mmol/L (137-145) Potassium 4.1 mmol/L mmol/L (3.4-5.0) Chloride 97 mmol/L L mmol/L (98-107) Carbon Dioxide 29 mmol/L mmol/L (22-30) Anion Gap 2 mmol/L L mmol/L (8-16) BUN 15 mg/dL mg/dL (7-17) Creatinine 0.40 mg/dL L mg/dL (0.7-1.0) Estim Creat Clear Calc 60 ml/min ml/min Estimated GFR > 60 (59 - ) Glucose 94 mg/dL mg/dL (65-110)
--- NOTE | 2022-03-15 07:17 | WPDHPUPDATE1 ---
History and Physical Update Update Date/Time: 03/15/22 07:17 History and Physical has been reviewed, including an updated exam of the patient. There are NO changes in the patient's condition. Risks, benefits, and alternatives have been discussed and questions answered. Patient agrees to proceed with procedure.
[2022-03-15] MEDS: ceFAZolin 2 GM/D5W 50 ML 2 GM/50 ML BAG IVPB ×2 (07:26→17:33)
[2022-03-15] MEDS: BUPIVACAINE/EPINEPHRINE 0.5% 10 ML VIAL 20 ML INFILTRATE (08:16)
--- NOTE | 2022-03-15 08:29 | SUR.OPER ---
Upon transfer to fracture table, wound noted to perineum/buttocks with active weeping drainage and scattered bleeding. Wound photos obtained and loaded into chart. Dr. Downs and JAYESH Reynolds aware.
[2022-03-15] MEDS: ALBUTEROL SULFATE (*SP) AEROSOL 1 PUFF 2 PUFF INHALATION ×2 (08:44→21:06)
[2022-03-15] MEDS: BUDESONIDE RESPULE NEB 0.5 MG/2 ML AMP INHALATION ×2 (08:44→21:06)
--- NOTE | 2022-03-15 08:45 | PCRCNOTE ---
RT entered room for 0800 txs, pt was not in room, [facility] to [facility], morning meds not administered, will resume scheduled tx at 1300.
--- NOTE | 2022-03-15 09:09 | PCWOUND ---
WOCN NOTE Received consult for pressure ulcer to coccyx. Patient currently in the OR, will assess patient tomorrow AM.
[2022-03-15] MEDS: SODIUM CHLORIDE 1 GM TABLET PO ×2 (12:23→17:32)
[2022-03-15] MEDS: THEOPHYLLINE 300 MG ER 12 HR TABLET BY MOUTH (12:24)
[2022-03-15] MEDS: PANTOPRAZOLE 40 MG TABLET PO ×2 (12:24→21:25)
[2022-03-15] MEDS: SODIUM CHLORIDE 500 MG TABLET PO ×2 (12:25→17:32)
[2022-03-15] MEDS: METOPROLOL SUCCINATE EXT REL 50 MG TABCR BY MOUTH (12:25)
[2022-03-15] MEDS: POTASSIUM CHLORIDE 10 MEQ TABLET.ER PO (12:25)
[2022-03-15] MEDS: polyethylene glycoL 3350 17 GM POWD.PACK PO (12:29)
[2022-03-15] MEDS: HYDROcodone/acetaminophen (*CRX) 5-325 MG TABLET 1 TAB PO (12:34)
[2022-03-15] MEDS: SENNA/DOCUSATE SODIUM TABLET 2 TAB PO ×2 (12:36→21:26)
[2022-03-15] MEDS: ENOXAPARIN 30 MG/0.3 ML SYRINGE SUB-Q (12:38)
[2022-03-15] MEDS: FAMOTIDINE 20 MG TABLET PO ×2 (12:38→21:25)
--- NOTE | 2022-03-15 15:19 | PM.IMPN ---
Progress Note: A&P Assessment and Plan (1) Intertrochanteric fracture of right hip: Code(s): S72.141A - Displaced intertrochanteric fracture of right femur, initial encounter for closed fracture Status: Acute Assessment and Plan: Secondary to fall. Appreciate orthopedic surgery consultation. underwent surgical repair today. Tolerated the procedure well. Appreciate orthopedic surgery recommendations. Continue pain control and supportive care (2) Hyponatremia: Code(s): E87.1 - Hypo-osmolality and hyponatremia Status: Acute Assessment and Plan: sodium down to 119 this admission. Sodium improved at appropriate rate, up to 128 today. Appreciate Nephrology recommendations. Continue sodium chloride tabs 500 mg b.i.d. Continue fluid restriction diet. HCTZ on hold. TSH within normal limits. SPEP, UPEP, osmolality pending. Continue to monitor sodium levels closely (3) Fracture of wrist: Code(s): S62.109A - Fracture of unspecified carpal bone, unspecified wrist, initial encounter for closed fracture Status: Acute Assessment and Plan: underwent surgical repair today. Appreciate orthopedic surgery consultation and recommendations. Continue PT/OT (4) Hematuria: Code(s): R31.9 - Hematuria, unspecified Status: Acute Assessment and Plan: Appreciate urology recommendations. Renal ultrasound showed mild renal atrophy and scarring with urinary bladder debris which may represent blood, pus, or crystalline material. Hematuria has resolved. [place] to be related to traumatic Donovan insertion. Continue with Donovan catheter at this time, plan for voiding trial postoperatively. Outpatient cystoscopy down the line (5) COPD (chronic obstructive pulmonary disease): Code(s): J44.9 - Chronic obstructive pulmonary disease, unspecified Status: Chronic Assessment and Plan: not in acute exacerbation. remaining stable on baseline oxygen, 2 L at all times (6) Hypertension: Code(s): I10 - Essential (primary) hypertension Status: Acute Assessment and Plan: blood pressures are stable. Continue lisinopril and metoprolol. HCTZ on hold as above. (7) Normocytic anemia: Code(s): D64.9 - Anemia, unspecified Status: Acute Assessment and Plan: acute on chronic. Hemoglobin 8.3 today. Continue to monitor closely postoperatively. No evidence of active bleeding. Subjective Date/time seen: 03/15/22 15:19 Interval history: Date of service: 03/15/2022 patient is seen in follow-up for right hip and wrist fracture. underwent surgical repair today. She tolerated the procedure well. At this time she has no pain in her hip or her wrist. She has not yet been out of bed. She initially declined therapy but did change her mind and states that she will attempt. She complains of chronic shortness of breath that is unchanged. She denies cough. No chest pain. No nausea or vomiting. She does feel thirsty and wishes she did not have a fluid restriction. Review of Systems Review of Systems: All systems reviewed & are unremarkable except as noted in HPI and below Exam Narrative: General: Well-nourished, well-appearing 81-year-old female, sitting up in bed, comfortable, NARD Neuro: awake, alert and oriented x4, speech clear, no focal neuro deficits noted HEENMT: normocephalic, atraumatic, EOMI, sclerae anicteric, moist oral mucosa Respiratory: clear to auscultation bilaterally, nonlabored breathing Cardio: regular rate, regular rhythm with S1-S2 Abdomen: nondistended, normoactive bowel sounds, soft, nontender to palpation Extremities: right wrist in splint, able to wiggle fingers, brisk capillary refill, 2+ edema of right hand and fingers below splint noted. Right hip incision covered with dressing that is clean and dry, nontender to palpation. Bilateral lower extremities no edema, erythema, or te
--- NOTE | 2022-03-15 17:04 | W.PM.PROC2 ---
Procedure Note - Detailed Date of Procedure 03/15/22 Pre-op Diagnosis 1. Displaced right hip intertrochanteric fracture 2. Displaced right wrist distal radius extra-articular fracture Post-op Diagnosis Same Procedure Performed 1. ORIF right hip fracture with cephalomedullary nail 2. ORIF right distal radius fracture with volar plate Surgeon Nam Downs MD Anesthesia General Description of Procedure The short gamma nail was used. Lag screw length was 80 millimeters. Operative details. The patient was given a general anesthetic, then carefully placed in fracture table. Sterile prep and drape performed in the usual fashion. Sterile curtain was used. Gentle traction was utilized to reduce the fracture. Fluoroscopy was used to confirm anatomic reduction and a proper placement of the implants. A longitudinal incision was created at the tip of the trochanter. The deep fascia was incised. The cannulated awl was used to open the proximal femur. The guidewire was placed across the fracture. The reamer was used to open the canal. The gamma nail was placed across the fracture site. A separate incision was made for placement of the cannulated guide sleeve. The guide pin was placed in the center of the femoral head. Appropriate measurement was taken. The pin was over reamed. The screw was placed with excellent purchase. The set screw was placed proximally and backed out a quater turn. The jig was removed. The wound was irrigated. The deep fascia was closed with #1 Vicryl suture followed by 2-0 Vicryl suture and edwin. Sterile dressing was applied. The patient was transferred to the recovery room in stable condition. There were no complications. Attention was turned to the right hand. The patient was taken out of traction and the leg support was reapplied. A hand table was placed. The hand was prepped and draped in the usual sterile fashion with a well-padded tourniquet. The limb was exsanguinated and the tourniquet inflated to 250 millimeters of mercury. A longitudinal incision was created over the flexor carpi radialis tendon. Dissection was brought down through the sheath. The pronator quadratus was identified and released off of the radius. The fracture was carefully exposed and cleared of debris. Reduction was obtained with traction and manipulation. Fluoroscopy was used to confirm anatomic reduction. The volar plate was placed on the radius and the position was confirmed. Provisional pins were placed. The dynamic cortical screw was applied. The plate was fine tuned and fluoroscopy was use to confirm that the joint would not be violated. Subsequent distal pins and screws were placed, followed by the proximal row. The wound was irrigated and closed. 2-0 Vicryl suture was used to reapproximate the pronator quadratus. The tourniquet was released and meticulous hemostasis was confirmed. The skin was closed with 3-0 Monocryl suture and a running 4-0 Monocryl suture. Steri-Strips were applied on the skin. A sterile bulky dressing with a volar splint was applied. Implants [place] gamma nail 11 x 180 mm. 125 degree angle. Lag screw 80 mm. Distal locking screw 32.5 mm. [place] right extra short intermediate volar locking plate. 2.7 mm locking and nonlocking screws. Estimated Blood Loss 100 Packing No Pathology None sent Complications No immediate complications Condition Stable Disposition PACU [facility] Billing Surgery - Charge Forward: Surgery Billing
[2022-03-15] MEDS: MAGNESIUM OXIDE 400 MG TABLET PO (17:32)
[2022-03-15] MEDS: ASPIRIN 81 MG ENTERIC TABLET PO (17:32)
[2022-03-15] MEDS: lisinopriL 10 MG TABLET PO (17:32)
[2022-03-16] VITALS (12 sets, daily range): BP systolic 110–172; BP diastolic 58–80; PULSE 74–115; RESP 16–18; TEMP 36.3–37.2; O2SAT 94–100
[2022-03-16] MEDS: ceFAZolin 2 GM/D5W 50 ML 2 GM/50 ML BAG IVPB ×2 (00:06→09:35)
[2022-03-16] MEDS: HYDROcodone/acetaminophen (*CRX) 5-325 MG TABLET 1 TAB PO (00:12)
[2022-03-16 05:57] LABS: Hematocrit 25.7 % (37.0-47.0); Hemoglobin 8.8 g/dL (12.0-15.0); Mean Corpuscular HGB Conc 34.2 g/dl (32-36); Mean Corpuscular Hemoglobin 31.7 pg (26-34); Mean Corpuscular Volume 92.4 fl (80-100); Mean Platelet Volume 8.4 fl (7.4-10.4); Platelet Count Result 206 k/mm3 (150-375); Red Blood Count 2.78 M/mm3 (4.2-5.4); Red Cell Distribution Width 13.5 % (11.5-14.5); White Blood Count 9.8 K/mm3 (4.5-10.0)
[2022-03-16 06:17] LABS: Anion Gap 3 mmol/L (8-16); Blood Urea Nitrogen 18 mg/dL (7-17); Calcium 8.4 mg/dL (8.4-10.2); Carbon Dioxide 31 mmol/L (22-30); Chloride 95 mmol/L (98-107); Estimated CRCL calculation 49 ml/min; Estimated Glomerular Filt Rate > 60; Glucose 115 mg/dL (65-110); Potassium 4.3 mmol/L (3.4-5.0); Sodium 129 mmol/L (137-145)
--- NOTE | 2022-03-16 07:54 | WPDANESPN ---
Anes - Prog Note Post-Op Date/Time: 03/16/22 07:54 Cardiovascular status: normal Respiratory status: normal Airway patency: baseline Mental status: baseline Post-Op hydration status: normal Vital Signs: Last Vital Signs Temp 36.4 C L 03/16/22 04:53 Pulse 91 03/16/22 04:53 Resp 18 03/16/22 04:53 BP 172/79 H 03/16/22 04:53 Pulse Ox 96 03/16/22 04:53 O2 Del Method Nasal Cannula 03/15/22 21:08 O2 Flow Rate 2 03/15/22 21:08 Pain Score (VAS): 03/20 I/O: Intake & Output 03/15/22 03/15/22 03/16/22 15:59 23:59 07:59 Intake Total 150 290 240 Output Total 50 400 Balance 100 290 -160 Laboratory Tests 03/16/22 05:44 03/16/22 05:44 03/16/22 03/16/22 05:44 05:44 WBC 9.8 RBC 2.78 L Hgb 8.8 L Hct 25.7 L MCV 92.4 MCH 31.7 MCHC 34.2 RDW 13.5 Plt Count 206 MPV 8.4 Sodium 129 L Potassium 4.3 Chloride 95 L Carbon Dioxide 31 H Anion Gap 3 L BUN 18 H Creatinine 0.50 L Estim Creat Clear Calc 49 Estimated GFR > 60 Glucose 115 H Calcium 8.4 Post-procedural complaints: none Patient Feedback: Patient satisfied with anesthetic care.
[2022-03-16] MEDS: SENNA/DOCUSATE SODIUM TABLET 2 TAB PO ×2 (09:30→21:24)
[2022-03-16] MEDS: ENOXAPARIN 30 MG/0.3 ML SYRINGE SUB-Q (09:31)
[2022-03-16] MEDS: METOPROLOL SUCCINATE EXT REL 50 MG TABCR BY MOUTH (09:31)
[2022-03-16] MEDS: FAMOTIDINE 20 MG TABLET PO ×2 (09:31→21:24)
[2022-03-16] MEDS: SODIUM CHLORIDE 1 GM TABLET PO ×2 (09:32→17:34)
[2022-03-16] MEDS: POTASSIUM CHLORIDE 10 MEQ TABLET.ER PO (09:32)
[2022-03-16] MEDS: PANTOPRAZOLE 40 MG TABLET PO ×2 (09:32→21:24)
[2022-03-16] MEDS: polyethylene glycoL 3350 17 GM POWD.PACK PO (09:32)
[2022-03-16] MEDS: THEOPHYLLINE 300 MG ER 12 HR TABLET BY MOUTH (09:33)
[2022-03-16] MEDS: SODIUM CHLORIDE 500 MG TABLET PO ×2 (09:33→17:34)
--- NOTE | 2022-03-16 10:46 | PCOTNOTE ---
Patient requested to wait to participate in OT until after lunch. Will see then for OT.
--- NOTE | 2022-03-16 12:53 | P.PNNP_ITS ---
Progress Note: A&P Assessment and Plan (1) Hyponatremia: Code(s): E87.1 - Hypo-osmolality and hyponatremia Status: Acute Assessment and Plan: * improvement noted * acute on chronic * baseline sodium runs ~ 126 - 134mmol/L in the last year * suspected chronic etiology due to COPD/lung disease * acute drop possibly due to previous IVFs versus pain from fracture versus HCTZ versus pain medications * evaluation to date: * TSH okay * cortisol (not done?) * SPEP/UPEP/somolality pending * will attempt to wean salt tabs * follow trend of sodium (2) Intertrochanteric fracture of right hip: Code(s): S72.141A - Displaced intertrochanteric fracture of right femur, initial encounter for closed fracture Status: Acute Assessment and Plan: * hip and pelvis xray with comminuted intertrochanteric fracture of the right femur * Orthopedics following * ORIF right hip fracture with cephalomedullary nail (on 03/15/22) * pain control * PT/OT as tolerated (3) Fracture of wrist: Code(s): S62.109A - Fracture of unspecified carpal bone, unspecified wrist, initial encounter for closed fracture Status: Acute Assessment and Plan: * Ortho following * s/p ORIF right distal radius fracture with volar plate (on 03/15/22) * splint in place * PT/OT as tolerated (4) COPD (chronic obstructive pulmonary disease): Code(s): J44.9 - Chronic obstructive pulmonary disease, unspecified Status: Chronic Assessment and Plan: * appears compensated * continue home inhalers and chronic oxygen (5) Diastolic dysfunction: Code(s): I51.89 - Other ill-defined heart diseases Status: Acute Assessment and Plan: * stable/compensated at this time (6) Hypertension: Code(s): I10 - Essential (primary) hypertension Status: Acute Assessment and Plan: * continue metoprolol and lisinopril * holding HCTZ in the context of #1 * follow trend of hemodynamics Will continue to follow. Subjective Date/time seen: 03/16/22 12:53 Unable to see yesterday as was out of room in OR for her Orthopedic surgery; s/p surgical intervention on her right hip and right wrist yesterday and tolerated these interventions reasonably well; working with therapy as tolerated; sodium improving with current interventions. Exam Narrative: General: elderly female in NAD Heart: normal S1 and S2; no rub Lungs: clear to auscultation Abdomen: soft, nontender, nondistended, positive bowel sounds Extremities: right wrist in splint; some edema noted to fingers Skin: right hip incision dressings in place Objective Data Vital Signs Vital Signs: Vital Signs Temp Pulse Resp BP Pulse Ox O2 Del Method O2 Flow Rate 03/16/22 10:00 98.3 F 86 18 110/58 L 99 03/16/22 08:00 94 Nasal Cannula 2 03/16/22 09:31 96 03/16/22 04:53 97.5 F L 91 18 172/79 H 96 03/16/22 00:35 97.3 F L 74 18 141/58 H 100 03/15/22 20:00 84 20 97 Nasal Cannula 2 03/15/22 21:41 97.6 F 84 20 146/59 H 97 03/15/22 21:21 79 18 03/15/22 21:08 84 18 03/15/22 21:08 84 18 95 Nasal Cannula 2 03/15/22 21:04 97.6 F 84 20 146/59 H 97 Intake/Output Intake/Output: Intake & Ou
--- NOTE | 2022-03-16 12:53 | PM.PNNEP ---
Progress Note: A&P Assessment and Plan (1) Hyponatremia: Code(s): E87.1 - Hypo-osmolality and hyponatremia Status: Acute Assessment and Plan: improvement noted acute on chronic baseline sodium runs ~ 126 - 134mmol/L in the last year suspected chronic etiology due to COPD/lung disease acute drop possibly due to previous IVFs versus pain from fracture versus HCTZ versus pain medications evaluation to date: TSH okay cortisol (not done?) SPEP/UPEP/somolality pending will attempt to wean salt tabs follow trend of sodium (2) Intertrochanteric fracture of right hip: Code(s): S72.141A - Displaced intertrochanteric fracture of right femur, initial encounter for closed fracture Status: Acute Assessment and Plan: hip and pelvis xray with comminuted intertrochanteric fracture of the right femur Orthopedics following ORIF right hip fracture with cephalomedullary nail (on 03/15/22) pain control PT/OT as tolerated (3) Fracture of wrist: Code(s): S62.109A - Fracture of unspecified carpal bone, unspecified wrist, initial encounter for closed fracture Status: Acute Assessment and Plan: Ortho following s/p ORIF right distal radius fracture with volar plate (on 03/15/22) splint in place PT/OT as tolerated (4) COPD (chronic obstructive pulmonary disease): Code(s): J44.9 - Chronic obstructive pulmonary disease, unspecified Status: Chronic Assessment and Plan: appears compensated continue home inhalers and chronic oxygen (5) Diastolic dysfunction: Code(s): I51.89 - Other ill-defined heart diseases Status: Acute Assessment and Plan: stable/compensated at this time (6) Hypertension: Code(s): I10 - Essential (primary) hypertension Status: Acute Assessment and Plan: continue metoprolol and lisinopril holding HCTZ in the context of #1 follow trend of hemodynamics Will continue to follow. Subjective Date/time seen: 03/16/22 12:53 Unable to see yesterday as was out of room in OR for her Orthopedic surgery; s/p surgical intervention on her right hip and right wrist yesterday and tolerated these interventions reasonably well; working with therapy as tolerated; sodium improving with current interventions. Exam Narrative: General: elderly female in NAD Heart: normal S1 and S2; no rub Lungs: clear to auscultation Abdomen: soft, nontender, nondistended, positive bowel sounds Extremities: right wrist in splint; some edema noted to fingers Skin: right hip incision dressings in place Objective Data Vital Signs Vital Signs: Vital Signs Temp Pulse Resp BP Pulse Ox O2 Del Method O2 Flow Rate 03/16/22 10:00 98.3 F 86 18 110/58 L 99 03/16/22 08:00 94 Nasal Cannula 2 03/16/22 09:31 96 03/16/22 04:53 97.5 F L 91 18 172/79 H 96 03/16/22 00:35 97.3 F L 74 18 141/58 H 100 03/15/22 20:00 84 20 97 Nasal Cannula 2 03/15/22 21:41 97.6 F 84 20 146/59 H 97 03/15/22 21:21 79 18 03/15/22 21:08 84 18 03/15/22 21:08 84 18 95 Nasal Cannula 2 03/15/22 21:04 97.6 F 84 20 146/59 H 97 Intake/Output Intake/Output: Intake & Output 03/13/22 03/14/22 03/15/22 03/16/22 23:59 23:59 23:59 23:59 Intake Total 3573 2460 640 740 Output Total 975 950 300 400 Balance 2598 1510 340 340 Meds/Results Medications: Active Medications Generic Name Dose Route Start Last Admin Trade Name Freq PRN Reason Stop Dose Admin Hydrocodone Bitart/Acetaminophen 1 tab 03/11/22 12:30 03/16/22 00:12 Hydrocodone/Acetaminophen (*Crx) 5-325 Mg Tablet PO 1 tab Q4H PRN Administration Pain Rated 4-6 Albuterol 2 puff 03/11/22 21:50 03/16/22 08:40 Albuterol Sulfate (*Sp) Aerosol 1 Puff INHALATION Not Given Q12HRT [facility] Aspirin 81 mg 03/12/22 17:00 03/15/22 17:32 Aspirin 81 Mg Enteric Tablet PO
--- NOTE | 2022-03-16 14:52 | PM.IMPN ---
Progress Note: A&P Assessment and Plan (1) Intertrochanteric fracture of right hip: Code(s): S72.141A - Displaced intertrochanteric fracture of right femur, initial encounter for closed fracture Status: Acute Assessment and Plan: Secondary to fall. Appreciate orthopedic surgery consultation. underwent surgical repair on 03/15/2022. Tolerated the procedure well. Appreciate orthopedic surgery recommendations. Continue pain control and supportive care (2) Hyponatremia: Code(s): E87.1 - Hypo-osmolality and hyponatremia Status: Acute Assessment and Plan: Sodium down to 119 this admission. Sodium improved at appropriate rate, up to 129 today. Appreciate Nephrology recommendations. Continue sodium chloride tabs 1500 mg b.i.d. Continue fluid restriction diet. HCTZ on hold. TSH within normal limits. SPEP, UPEP, osmolality pending. Continue to monitor sodium levels closely (3) Fracture of wrist: Code(s): S62.109A - Fracture of unspecified carpal bone, unspecified wrist, initial encounter for closed fracture Status: Acute Assessment and Plan: underwent surgical repair on 03/15. Appreciate orthopedic surgery consultation and recommendations. Continue PT/OT (4) Hematuria: Code(s): R31.9 - Hematuria, unspecified Status: Acute Assessment and Plan: Appreciate urology recommendations. Renal ultrasound showed mild renal atrophy and scarring with urinary bladder debris which may represent blood, pus, or crystalline material. Hematuria has resolved. [place] to be related to traumatic Donovan insertion. Continue with Donovan catheter at this time, plan for voiding trial postoperatively when more mobile. Will need outpatient cystoscopy at a later date (5) COPD (chronic obstructive pulmonary disease): Code(s): J44.9 - Chronic obstructive pulmonary disease, unspecified Status: Chronic Assessment and Plan: Not in acute exacerbation. remaining stable on baseline oxygen, 2 L at all times (6) Hypertension: Code(s): I10 - Essential (primary) hypertension Status: Acute Assessment and Plan: blood pressures are stable. Continue lisinopril and metoprolol. HCTZ on hold in can likely be discontinued as blood pressure stable off this medication (7) Normocytic anemia: Code(s): D64.9 - Anemia, unspecified Status: Acute Assessment and Plan: acute on chronic. Hemoglobin 8.8 today. Continue to monitor closely postoperatively. No evidence of active bleeding. Subjective Date/time seen: 03/16/22 14:52 Interval history: Date of service: 03/16/2022 patient is seen in follow-up for right hip and wrist fracture. underwent surgical repair On 03/15/2022. She tolerated the procedure well. her pain is well controlled at this time. When she is sitting she has no pain at all. She did get up with therapy today and did some exercises. Her pain was exacerbated with the movements. States her shortness of breath is at baseline. Denies wheezing or cough. Tolerating her diet. She has not had a bowel movement but feels as though she needs to. No issues with her Donovan catheter. Review of Systems Review of Systems: All systems reviewed & are unremarkable except as noted in HPI and below Exam Narrative: General: well-nourished, well-appearing 81-year-old female, sitting up in bed, comfortable, NARD Neuro: awake, alert and oriented x4, speech clear, no focal neuro deficits noted HEENMT: normocephalic, atraumatic, EOMI, sclerae anicteric, moist oral mucosa Respiratory: clear to auscultation bilaterally, nonlabored breathing Cardio: regular rate, regular rhythm with S1-S2 Abdomen: nondistended, normoactive bowel sounds, soft, nontender to palpation Extremities: right wrist in splint, able to wiggle fingers, brisk capillary refill, 2+ edema of right hand and fingers below splint noted. Right hip incis
--- NOTE | 2022-03-16 15:49 | PM.PNORT ---
Progress Note: A&P Assessment and Plan (1) Intertrochanteric fracture of right hip: Code(s): S72.141A - Displaced intertrochanteric fracture of right femur, initial encounter for closed fracture Status: Acute (2) Fracture of wrist: Code(s): S62.109A - Fracture of unspecified carpal bone, unspecified wrist, initial encounter for closed fracture Status: Acute Plan POD #1 ORIF right hip fracture with cephalomedullary nail. ORIF right distal radius fracture with volar plate Patient tolerated procedure well. Wrist splint intact. Recommended ice and elevation on the wrist to decrease swelling. She was able to get up to a chair today. Notes pain that is controlled with pain medications. She will need discharged to SNF or rehab. Ortho instructions: D/C to SNF/rehab Follow up in office in 2 weeks for staple removal, splint removal, suture removal, and cast aplication. Xrays before hand if she is still at rehab. Please call [facility] for appointment. . Wound Care: Hip: remove edwin at 2 weeks post op. Daily dressing changes until healed. Keep wrist splint dry. PT: Weight bearing as tolerated right hip. May bear weight on forearm on right arm and use a walker with forearm support. DVT prophylaxis: continue Lovenox for 30 days total Subjective Subjective Date/Time Seen: 03/16/22 15:49 Interval history: Patient resting comfortably in bed. No acute distress. Notes pain in the hip and wrist. She did get up and sit in the chair today. No other complaints. Review of Systems Review of Systems: All systems reviewed & are unremarkable except as noted in HPI and below Exam Narrative: Thin 81 y/o female. No acute distress. Alert and oriented. Wearing nasal canula. Sitting up in bed. Wrist splint in place. Significant swelling and bruising in fingers. Splint not too tight. Hip dressing dry and intact. Small amount of drainage. Wiggles fingers and toes. Calf and thigh non-tender. No hematoma. Neurovasuclarly intact. Objective Data Vital Signs Vital Signs: Vital Signs - 24 hr 03/15/22 21:04 03/15/22 21:08 03/15/22 21:08 Temperature 97.6 F Pulse Rate 84 84 84 Respiratory Rate 20 18 18 Blood Pressure 146/59 H Pulse Oximetry 97 95 Oxygen Delivery Nasal Cannula Oxygen Flow Rate 2 03/15/22 21:21 03/15/22 21:41 03/15/22 20:00 Temperature 97.6 F Pulse Rate 79 84 84 Respiratory Rate 18 20 20 Blood Pressure 146/59 H Pulse Oximetry 97 97 Oxygen Delivery Nasal Cannula Oxygen Flow Rate 2 03/16/22 00:35 03/16/22 04:53 03/16/22 09:31 Temperature 97.3 F L 97.5 F L Pulse Rate 74 91 96 Respiratory Rate 18 18 Blood Pressure 141/58 H 172/79 H Pulse Oximetry 100 96 Oxygen Delivery Oxygen Flow Rate 03/16/22 08:00 03/16/22 10:00 03/16/22 14:00 Temperature 98.3 F 99.0 F Pulse Rate 86 101 H Respiratory Rate 18 18 Blood Pressure 110/58 L 149/80 H Pulse Oximetry 94 99 100 Oxygen Delivery Nasal Cannula Oxygen Flow Rate 2 Intake/Output Intake/Output: Intake & Output 03/13/22 03/14/22 03/15/22 03/16/22 23:59 23:59 23:59 23:59 Intake Total 3573 2460 640 740 Output Total 975 950 300 400 Balance 2598 1510 340 340 Meds/Results Medications: Active Medications Generic Name Dose Route Start Last Admin Trade Name Freq PRN Reason Stop Dose Admin Hydrocodone Bitart/Acetaminophen 1 tab 03/11/22 12:30 03/16/22 00:12 Hydrocodone/Acetaminophen (*Crx) 5-325 Mg Tablet PO 1 tab Q4H PRN Administration Pain Rated 4-6 Albuterol 2 puff 03/11/22 21:50 03/16/22 08:40 Albuterol Sulfate (*Sp) Aerosol 1 Puff INHALATION Not Given Q12HRT [facility] Aspirin 81 mg 03/12/22 17:00 03/15/22 17:32 Aspirin 81 Mg Enteric Tablet PO 81 mg 1700 [facility] Administration Budesonide 0.5 mg 03/11/22 23:20 03/16/22 08:40 Budesonide Respule Neb 0.5 Mg/2 Ml Amp INHALATION Not Given Q12HRT [facility] Enoxaparin Sodium 30 mg 03/15
[2022-03-16] MEDS: lisinopriL 10 MG TABLET PO (17:33)
[2022-03-16] MEDS: ASPIRIN 81 MG ENTERIC TABLET PO (17:33)
[2022-03-16] MEDS: MAGNESIUM OXIDE 400 MG TABLET PO (17:34)
[2022-03-16] MEDS: ALBUTEROL SULFATE (*SP) AEROSOL 1 PUFF 2 PUFF INHALATION (21:51)
[2022-03-16] MEDS: BUDESONIDE RESPULE NEB 0.5 MG/2 ML AMP INHALATION (21:51)
[2022-03-17] VITALS (12 sets, daily range): BP systolic 113–152; BP diastolic 50–65; PULSE 74–91; RESP 12–20; TEMP 36.8; O2SAT 98
[2022-03-17] MEDS: HYDROcodone/acetaminophen (*CRX) 5-325 MG TABLET 1 TAB PO ×2 (04:09→08:53)
[2022-03-17 06:04] LABS: Hematocrit 24.5 % (37.0-47.0); Mean Corpuscular HGB Conc 32.7 g/dl (32-36); Mean Corpuscular Hemoglobin 32.1 pg (26-34); Mean Corpuscular Volume 98.4 fl (80-100); Mean Platelet Volume 8.6 fl (7.4-10.4); Platelet Count Result 189 k/mm3 (150-375); Red Blood Count 2.49 M/mm3 (4.2-5.4); Red Cell Distribution Width 13.6 % (11.5-14.5); White Blood Count 7.1 K/mm3 (4.5-10.0)
[2022-03-17 06:16] LABS: Anion Gap 2 mmol/L (8-16); Blood Urea Nitrogen 14 mg/dL (7-17); Calcium 8.1 mg/dL (8.4-10.2); Carbon Dioxide 30 mmol/L (22-30); Chloride 91 mmol/L (98-107); Estimated CRCL calculation 60 ml/min; Estimated Glomerular Filt Rate > 60; Glucose 105 mg/dL (65-110); Potassium 3.7 mmol/L (3.4-5.0); Sodium 123 mmol/L (137-145)
[2022-03-17] MEDS: SENNA/DOCUSATE SODIUM TABLET 2 TAB PO ×2 (08:49→20:21)
[2022-03-17] MEDS: METOPROLOL SUCCINATE EXT REL 50 MG TABCR BY MOUTH (08:50)
[2022-03-17] MEDS: FAMOTIDINE 20 MG TABLET PO ×2 (08:50→20:21)
[2022-03-17] MEDS: PANTOPRAZOLE 40 MG TABLET PO ×2 (08:51→20:21)
[2022-03-17] MEDS: POTASSIUM CHLORIDE 10 MEQ TABLET.ER PO (08:52)
[2022-03-17] MEDS: SODIUM CHLORIDE 1 GM TABLET PO ×2 (08:52→17:19)
[2022-03-17] MEDS: THEOPHYLLINE 300 MG ER 12 HR TABLET BY MOUTH (08:52)
[2022-03-17] MEDS: SODIUM CHLORIDE 500 MG TABLET PO ×2 (08:52→17:19)
--- NOTE | 2022-03-17 11:20 | PCPTNOTE ---
Attempted treatment however due to patient being in pain nursing asked to hold until MD can adjust medication to try treatment. Will attempted at later time.
[2022-03-17] MEDS: BUDESONIDE RESPULE NEB 0.5 MG/2 ML AMP INHALATION ×2 (11:54→21:15)
[2022-03-17] MEDS: ALBUTEROL SULFATE (*SP) AEROSOL 1 PUFF 2 PUFF INHALATION ×2 (11:59→21:15)
[2022-03-17] MEDS: MORPHINE SULFATE (*CRX) 2 MG/ML INJ 1 MG IV PUSH (12:52)
--- NOTE | 2022-03-17 13:15 | PM.IMPN ---
Progress Note: A&P Assessment and Plan (1) Intertrochanteric fracture of right hip: Code(s): S72.141A - Displaced intertrochanteric fracture of right femur, initial encounter for closed fracture Status: Acute Assessment and Plan: Secondary to fall. Appreciate orthopedic surgery consultation. underwent surgical repair on 03/15/2022. Tolerated the procedure well. Appreciate orthopedic surgery recommendations. Continue pain control, transition to scheduled tylenol. Supportive care. Continue PT/OT (2) Hyponatremia: Code(s): E87.1 - Hypo-osmolality and hyponatremia Status: Acute Assessment and Plan: Sodium down to 119 this admission. Sodium improved at appropriate rate up to 129 yesterday with slight decline to 123 today. Appreciate Nephrology recommendations. Continue sodium chloride tabs 1500 mg b.i.d. Continue fluid restriction diet. HCTZ on hold. TSH within normal limits. SPEP, UPEP, osmolality pending. Continue to monitor sodium levels closely. Recheck this afternoon (3) Fracture of wrist: Code(s): S62.109A - Fracture of unspecified carpal bone, unspecified wrist, initial encounter for closed fracture Status: Acute Assessment and Plan: underwent surgical repair on 03/15. Appreciate orthopedic surgery consultation and recommendations. Continue PT/OT (4) Hematuria: Code(s): R31.9 - Hematuria, unspecified Status: Acute Assessment and Plan: Appreciate urology recommendations. Renal ultrasound showed mild renal atrophy and scarring with urinary bladder debris which may represent blood, pus, or crystalline material. Hematuria has resolved. [place] to be related to traumatic Donovan insertion. Continue with Donovan catheter at this time, plan for voiding trial tomorrow.. Will need outpatient cystoscopy at a later date (5) COPD (chronic obstructive pulmonary disease): Code(s): J44.9 - Chronic obstructive pulmonary disease, unspecified Status: Chronic Assessment and Plan: Not in acute exacerbation. remaining stable on baseline oxygen, 2 L at all times (6) Hypertension: Code(s): I10 - Essential (primary) hypertension Status: Acute Assessment and Plan: blood pressures are stable. Continue lisinopril and metoprolol. HCTZ on hold due to hyponatremia and will be discontinued as blood pressure stable off this medication (7) Normocytic anemia: Code(s): D64.9 - Anemia, unspecified Status: Acute Assessment and Plan: acute on chronic. Hemoglobin 8.0 today. Continue to monitor closely postoperatively. No evidence of active bleeding. Subjective Date/time seen: 03/17/22 13:15 Interval history: Date of service: 03/17/2022 patient is seen in follow-up for right hip and wrist fracture. underwent surgical repair on 03/15/2022. She is complaining of more significant pain in her hip today. She has no wrist pain. She has been trying to elevate her arm. She had a bowel movement yesterday. She endorses chronic shortness of breath. No issues with her Donovan catheter. Tolerating her diet. Review of Systems Review of Systems: All systems reviewed & are unremarkable except as noted in HPI and below Exam Narrative: General: well-nourished, well-appearing 81-year-old female, sitting up in bed, comfortable, NARD Neuro: awake, alert and oriented x4, speech clear, no focal neuro deficits noted HEENMT: normocephalic, atraumatic, EOMI, sclerae anicteric Respiratory: clear to auscultation bilaterally, nonlabored breathing Cardio: regular rate, regular rhythm with S1-S2 Abdomen: nondistended, normoactive bowel sounds, soft, nontender to palpation Extremities: right wrist in splint, able to wiggle fingers, brisk capillary refill, 2+ edema of right hand and fingers below splint noted. Right hip incision covered with dressing that is clean and dry, nontender to palpation, no eviden
--- NOTE | 2022-03-17 13:33 | P.PNNP_ITS ---
Progress Note: A&P Assessment and Plan (1) Hyponatremia: Code(s): E87.1 - Hypo-osmolality and hyponatremia Status: Acute Assessment and Plan: * back down by AM labs * possibly due to IVFs given in OR yesterday? * sodium recheck order for this afternoon * acute on chronic * baseline sodium runs ~ 126 - 134mmol/L in the last year * suspected chronic etiology due to COPD/lung disease * acute drop possibly due to previous IVFs versus pain from fracture versus HCTZ versus pain medications * evaluation to date: * TSH okay * cortisol (not done?) * SPEP/UPEP and serum/urine osmolality pending * follow trend of sodium (2) Intertrochanteric fracture of right hip: Code(s): S72.141A - Displaced intertrochanteric fracture of right femur, initial encounter for closed fracture Status: Acute Assessment and Plan: * hip and pelvis xray with comminuted intertrochanteric fracture of the right femur * Orthopedics following * ORIF right hip fracture with cephalomedullary nail (on 03/15/22) * pain control * PT/OT as tolerated (3) Fracture of wrist: Code(s): S62.109A - Fracture of unspecified carpal bone, unspecified wrist, initial encounter for closed fracture Status: Acute Assessment and Plan: * Ortho following * s/p ORIF right distal radius fracture with volar plate (on 03/15/22) * splint in place * PT/OT as tolerated (4) COPD (chronic obstructive pulmonary disease): Code(s): J44.9 - Chronic obstructive pulmonary disease, unspecified Status: Chronic Assessment and Plan: * appears compensated * continue home inhalers and chronic oxygen (5) Diastolic dysfunction: Code(s): I51.89 - Other ill-defined heart diseases Status: Acute Assessment and Plan: * stable/compensated at this time (6) Hypertension: Code(s): I10 - Essential (primary) hypertension Status: Acute Assessment and Plan: * continue metoprolol and lisinopril * holding HCTZ in the context of #1 * follow trend of hemodynamics Will continue to follow. Subjective Date/time seen: 03/17/22 13:33 Having more issues with pain in her hip but seems manageable with current medications/interventions; sodium down a bit by AM labs (not clear why); no other issues/events overnight or earlier this morning. Exam Narrative: General: elderly female in NAD Heart: normal S1 and S2; no rub Lungs: clear to auscultation Abdomen: soft, nontender, nondistended, positive bowel sounds Extremities: right wrist in splint; some edema noted to fingers Skin: right hip incision dressings in place Objective Data Vital Signs Vital Signs: Vital Signs Temp Pulse Resp BP Pulse Ox O2 Del Method O2 Flow Rate 03/17/22 12:00 81 18 03/17/22 12:15 85 18 03/17/22 08:00 98 Nasal Cannula 2 03/17/22 08:50 74 03/17/22 08:48 74 152/65 H 03/16/22 20:00 80 18 98 Nasal Cannula 2 03/16/22 22:03 80 18 03/16/22 21:53 98 Nasal Cannula 2 03/16/22 21:52 81 18 03/16/22 20:53 99 F 77 16 138/61 100 03/16/22 18:00 98.3 F 115 H 18 135/63 100 Intake/Output Intake/Output: Intake & Output 03/14/22 03/15/22 03/16/22
--- NOTE | 2022-03-17 13:33 | PM.PNNEP ---
Progress Note: A&P Assessment and Plan (1) Hyponatremia: Code(s): E87.1 - Hypo-osmolality and hyponatremia Status: Acute Assessment and Plan: back down by AM labs possibly due to IVFs given in OR yesterday? sodium recheck order for this afternoon acute on chronic baseline sodium runs ~ 126 - 134mmol/L in the last year suspected chronic etiology due to COPD/lung disease acute drop possibly due to previous IVFs versus pain from fracture versus HCTZ versus pain medications evaluation to date: TSH okay cortisol (not done?) SPEP/UPEP and serum/urine osmolality pending follow trend of sodium (2) Intertrochanteric fracture of right hip: Code(s): S72.141A - Displaced intertrochanteric fracture of right femur, initial encounter for closed fracture Status: Acute Assessment and Plan: hip and pelvis xray with comminuted intertrochanteric fracture of the right femur Orthopedics following ORIF right hip fracture with cephalomedullary nail (on 03/15/22) pain control PT/OT as tolerated (3) Fracture of wrist: Code(s): S62.109A - Fracture of unspecified carpal bone, unspecified wrist, initial encounter for closed fracture Status: Acute Assessment and Plan: Ortho following s/p ORIF right distal radius fracture with volar plate (on 03/15/22) splint in place PT/OT as tolerated (4) COPD (chronic obstructive pulmonary disease): Code(s): J44.9 - Chronic obstructive pulmonary disease, unspecified Status: Chronic Assessment and Plan: appears compensated continue home inhalers and chronic oxygen (5) Diastolic dysfunction: Code(s): I51.89 - Other ill-defined heart diseases Status: Acute Assessment and Plan: stable/compensated at this time (6) Hypertension: Code(s): I10 - Essential (primary) hypertension Status: Acute Assessment and Plan: continue metoprolol and lisinopril holding HCTZ in the context of #1 follow trend of hemodynamics Will continue to follow. Subjective Date/time seen: 03/17/22 13:33 Having more issues with pain in her hip but seems manageable with current medications/interventions; sodium down a bit by AM labs (not clear why); no other issues/events overnight or earlier this morning. Exam Narrative: General: elderly female in NAD Heart: normal S1 and S2; no rub Lungs: clear to auscultation Abdomen: soft, nontender, nondistended, positive bowel sounds Extremities: right wrist in splint; some edema noted to fingers Skin: right hip incision dressings in place Objective Data Vital Signs Vital Signs: Vital Signs Temp Pulse Resp BP Pulse Ox O2 Del Method O2 Flow Rate 03/17/22 12:00 81 18 03/17/22 12:15 85 18 03/17/22 08:00 98 Nasal Cannula 2 03/17/22 08:50 74 03/17/22 08:48 74 152/65 H 03/16/22 20:00 80 18 98 Nasal Cannula 2 03/16/22 22:03 80 18 03/16/22 21:53 98 Nasal Cannula 2 03/16/22 21:52 81 18 03/16/22 20:53 99 F 77 16 138/61 100 03/16/22 18:00 98.3 F 115 H 18 135/63 100 Intake/Output Intake/Output: Intake & Output 03/14/22 03/15/22 03/16/22 03/17/22 23:59 23:59 23:59 23:59 Intake Total 2460 640 1290 900 Output Total 030 385 7315 325 Balance 1510 340 265 575 Meds/Results Medications: Active Medications Generic Name Dose Route Start Last Admin Trade Name Freq PRN Reason Stop Dose Admin Acetaminophen 650 mg 03/17/22 11:15 03/17/22 17:19 Acetaminophen 325 Mg Tablet PO 650 mg Q6HR CRISTEL Administration Hydrocodone Bitart/Acetaminophen 1 tab 03/11/22 12:30 03/17/22 08:53 Hydrocodone/Acetaminophen (*Crx) 5-325 Mg Tablet PO 1 tab Q4H PRN Administration Pain Rated 4-6 Albuterol 2 puff 03/11/22 21:50 03/17/22 11:59 Albuterol Sulfate (*Sp) Aerosol 1 Puff INHALATION 2 puff Q12HRT CRISTEL Administration Aspir
--- NOTE | 2022-03-17 13:36 | PC.NURSE ---
Around noon today, primary RN was notified of complaint of late delivery of breathing treatments. RN addressed concerns with family stating that to promote healing, we will address the time management of breathing treatments. refueling ramp supervisor also notified of complaint and provided patient with the patient advocate contact information.
[2022-03-17 14:37] LABS: Sodium 129 mmol/L (137-145)
[2022-03-17] MEDS: ASPIRIN 81 MG ENTERIC TABLET PO (17:17)
[2022-03-17] MEDS: lisinopriL 10 MG TABLET PO (17:18)
[2022-03-17] MEDS: MAGNESIUM OXIDE 400 MG TABLET PO (17:18)
[2022-03-17] MEDS: ACETAMINOPHEN 325 MG TABLET 650 MG PO ×2 (17:19→23:13)
[2022-03-18] VITALS (11 sets, daily range): BP systolic 103–140; BP diastolic 58–71; PULSE 70–99; RESP 14–20; TEMP 36.3–36.8; O2SAT 97–100
[2022-03-18 05:34] LABS: Hematocrit 23.5 % (37.0-47.0); Hemoglobin 7.8 g/dL (12.0-15.0); Mean Corpuscular HGB Conc 33.2 g/dl (32-36); Mean Corpuscular Hemoglobin 31.6 pg (26-34); Mean Corpuscular Volume 95.1 fl (80-100); Mean Platelet Volume 8.2 fl (7.4-10.4); Platelet Count Result 215 k/mm3 (150-375); Red Blood Count 2.47 M/mm3 (4.2-5.4); Red Cell Distribution Width 13.6 % (11.5-14.5); White Blood Count 6.8 K/mm3 (4.5-10.0)
[2022-03-18 05:44] LABS: Anion Gap 3 mmol/L (8-16); Blood Urea Nitrogen 15 mg/dL (7-17); Calcium 8.2 mg/dL (8.4-10.2); Carbon Dioxide 31 mmol/L (22-30); Chloride 92 mmol/L (98-107); Estimated CRCL calculation 49 ml/min; Estimated Glomerular Filt Rate > 60; Glucose 100 mg/dL (65-110); Potassium 3.5 mmol/L (3.4-5.0); Sodium 126 mmol/L (137-145)
[2022-03-18] MEDS: ACETAMINOPHEN 325 MG TABLET 650 MG PO ×4 (05:54→23:32)
[2022-03-18] MEDS: BUDESONIDE RESPULE NEB 0.5 MG/2 ML AMP INHALATION ×2 (07:45→20:48)
[2022-03-18] MEDS: ALBUTEROL SULFATE (*SP) AEROSOL 1 PUFF 2 PUFF INHALATION ×2 (07:45→20:48)
[2022-03-18] MEDS: SENNA/DOCUSATE SODIUM TABLET 2 TAB PO ×2 (08:59→20:51)
[2022-03-18] MEDS: FAMOTIDINE 20 MG TABLET PO ×2 (09:00→20:51)
[2022-03-18] MEDS: ENOXAPARIN 30 MG/0.3 ML SYRINGE SUB-Q (09:00)
[2022-03-18] MEDS: PANTOPRAZOLE 40 MG TABLET PO ×2 (09:05→20:51)
[2022-03-18] MEDS: SODIUM CHLORIDE 1 GM TABLET PO ×2 (09:05→17:16)
[2022-03-18] MEDS: POTASSIUM CHLORIDE 10 MEQ TABLET.ER PO (09:05)
[2022-03-18] MEDS: SODIUM CHLORIDE 500 MG TABLET PO ×2 (09:05→17:16)
[2022-03-18] MEDS: METOPROLOL SUCCINATE EXT REL 50 MG TABCR BY MOUTH (09:05)
[2022-03-18] MEDS: THEOPHYLLINE 300 MG ER 12 HR TABLET BY MOUTH (09:06)
--- NOTE | 2022-03-18 09:46 | P.PNNP_ITS ---
Progress Note: A&P Assessment and Plan (1) Hyponatremia: Code(s): E87.1 - Hypo-osmolality and hyponatremia Status: Acute Assessment and Plan: * fluctuations noted * acute on chronic * baseline sodium runs ~ 126 - 134mmol/L in the last year * suspected chronic etiology due to COPD/lung disease * acute drop possibly due to previous IVFs versus pain from fracture versus HCTZ versus pain medications * suspect more pain issues and need for pain medications recently * evaluation to date: * TSH okay * cortisol (not done?) * SPEP/UPEP and serum/urine osmolality pending * follow trend of sodium (2) Intertrochanteric fracture of right hip: Code(s): S72.141A - Displaced intertrochanteric fracture of right femur, initial encounter for closed fracture Status: Acute Assessment and Plan: * hip and pelvis xray with comminuted intertrochanteric fracture of the right fe mur * Orthopedics following * ORIF right hip fracture with cephalomedullary nail (on 03/15/22) * pain control * PT/OT as tolerated (3) Fracture of wrist: Code(s): S62.109A - Fracture of unspecified carpal bone, unspecified wrist, initial encounter for closed fracture Status: Acute Assessment and Plan: * Ortho following * s/p ORIF right distal radius fracture with volar plate (on 03/15/22) * splint in place * PT/OT as tolerated (4) COPD (chronic obstructive pulmonary disease): Code(s): J44.9 - Chronic obstructive pulmonary disease, unspecified Status: Chronic Assessment and Plan: * appears compensated * continue home inhalers and chronic oxygen (5) Diastolic dysfunction: Code(s): I51.89 - Other ill-defined heart diseases Status: Acute Assessment and Plan: * stable/compensated at this time (6) Hypertension: Code(s): I10 - Essential (primary) hypertension Status: Acute Assessment and Plan: * continue metoprolol and lisinopril * holding HCTZ in the context of #1 * follow trend of hemodynamics Will continue to follow. Subjective Date/time seen: 03/18/22 09:46 Working with therapy as tolerated; pain issues noted but tolerable with current interventions; notes shortness of breath as well but this is a chronic issue; reports some difficulty with sleeping at night as well. Exam Narrative: General: elderly female in NAD Heart: normal S1 and S2; no rub Lungs: clear to auscultation Abdomen: soft, nontender, nondistended, positive bowel sounds Extremities: right wrist in splint; some edema noted to fingers Skin: right hip incision dressings noted Objective Data Vital Signs Vital Signs: Vital Signs Temp Pulse Resp BP Pulse Ox O2 Del Method O2 Flow Rate 03/18/22 09:05 99 03/18/22 09:04 99 140/59 L 03/18/22 07:58 72 20 03/18/22 07:48 70 20 03/18/22 07:48 98 Nasal Cannula 2 03/18/22 05:18 98.3 F 72 14 103/71 100 03/17/22 21:25 79 18 03/17/22 21:10 78 18 03/17/22 20:40 98.3 F 83 12 116/56 L 98 03/17/22 17:18 128/55 L 03/17/22 16:07 80 18 03/17/22 15:57 84 18 03/17/22 14:00 98.2 F 91 20 113/50 L 98 03/17/22 12:00 81 18 03/17/22 12:15 85 18 Intake/Output
--- NOTE | 2022-03-18 09:46 | PM.PNNEP ---
Progress Note: A&P Assessment and Plan (1) Hyponatremia: Code(s): E87.1 - Hypo-osmolality and hyponatremia Status: Acute Assessment and Plan: fluctuations noted acute on chronic baseline sodium runs ~ 126 - 134mmol/L in the last year suspected chronic etiology due to COPD/lung disease acute drop possibly due to previous IVFs versus pain from fracture versus HCTZ versus pain medications suspect more pain issues and need for pain medications recently evaluation to date: TSH okay cortisol (not done?) SPEP/UPEP and serum/urine osmolality pending follow trend of sodium (2) Intertrochanteric fracture of right hip: Code(s): S72.141A - Displaced intertrochanteric fracture of right femur, initial encounter for closed fracture Status: Acute Assessment and Plan: hip and pelvis xray with comminuted intertrochanteric fracture of the right femur Orthopedics following ORIF right hip fracture with cephalomedullary nail (on 03/15/22) pain control PT/OT as tolerated (3) Fracture of wrist: Code(s): S62.109A - Fracture of unspecified carpal bone, unspecified wrist, initial encounter for closed fracture Status: Acute Assessment and Plan: Ortho following s/p ORIF right distal radius fracture with volar plate (on 03/15/22) splint in place PT/OT as tolerated (4) COPD (chronic obstructive pulmonary disease): Code(s): J44.9 - Chronic obstructive pulmonary disease, unspecified Status: Chronic Assessment and Plan: appears compensated continue home inhalers and chronic oxygen (5) Diastolic dysfunction: Code(s): I51.89 - Other ill-defined heart diseases Status: Acute Assessment and Plan: stable/compensated at this time (6) Hypertension: Code(s): I10 - Essential (primary) hypertension Status: Acute Assessment and Plan: continue metoprolol and lisinopril holding HCTZ in the context of #1 follow trend of hemodynamics Will continue to follow. Subjective Date/time seen: 03/18/22 09:46 Working with therapy as tolerated; pain issues noted but tolerable with current interventions; notes shortness of breath as well but this is a chronic issue; reports some difficulty with sleeping at night as well. Exam Narrative: General: elderly female in NAD Heart: normal S1 and S2; no rub Lungs: clear to auscultation Abdomen: soft, nontender, nondistended, positive bowel sounds Extremities: right wrist in splint; some edema noted to fingers Skin: right hip incision dressings noted Objective Data Vital Signs Vital Signs: Vital Signs Temp Pulse Resp BP Pulse Ox O2 Del Method O2 Flow Rate 03/18/22 09:05 99 03/18/22 09:04 99 140/59 L 03/18/22 07:58 72 20 03/18/22 07:48 70 20 03/18/22 07:48 98 Nasal Cannula 2 03/18/22 05:18 98.3 F 72 14 103/71 100 03/17/22 21:25 79 18 03/17/22 21:10 78 18 03/17/22 20:40 98.3 F 83 12 116/56 L 98 03/17/22 17:18 128/55 L 03/17/22 16:07 80 18 03/17/22 15:57 84 18 03/17/22 14:00 98.2 F 91 20 113/50 L 98 03/17/22 12:00 81 18 03/17/22 12:15 85 18 Intake/Output Intake/Output: Intake & Output 03/15/22 03/16/22 03/17/22 03/18/22 23:59 23:59 23:59 23:59 Intake Total 640 1290 1400 150 Output Total 300 1025 625 100 Balance 340 265 775 50 Meds/Results Medications: Active Medications Generic Name Dose Route Start Last Admin Trade Name Freq PRN Reason Stop Dose Admin Acetaminophen 650 mg 03/17/22 11:15 03/18/22 05:54 Acetaminophen 325 Mg Tablet PO 650 mg Q6HR CRISTEL Administration Hydrocodone Bitart/Acetaminophen 1 tab 03/11/22 12:30 03/17/22 08:53 Hydrocodone/Acetaminophen (*Crx) 5-325 Mg Tablet PO 1 tab Q4H PRN Administration Pain Rated 4-6 Albuterol 2 puff 03/11/22 21:50 03/18/22 07:45 Albuter
--- NOTE | 2022-03-18 12:37 | PCOTNOTE ---
Attempted to see pt for Occupational Therapy treatment. Pt refused to participate at this time due to not feeling good and being tired. Pt refused to get out of bed, stating I will do anything as long as I can stay in the bed. Pt was educated on the importance of mobilization for continued strengthening and independence, however, still declined.
--- NOTE | 2022-03-18 12:59 | PM.IMPN ---
Progress Note: A&P Assessment and Plan (1) Intertrochanteric fracture of right hip: Code(s): S72.141A - Displaced intertrochanteric fracture of right femur, initial encounter for closed fracture Status: Acute Assessment and Plan: Secondary to fall. Appreciate orthopedic surgery consultation. underwent surgical repair on 03/15/2022. Tolerated the procedure well. Appreciate orthopedic surgery recommendations. Continue pain control, transition to scheduled tylenol. Supportive care. Continue PT/OT. Plan for discharge to [facility] (2) Hyponatremia: Code(s): E87.1 - Hypo-osmolality and hyponatremia Status: Acute Assessment and Plan: Sodium down to 119 this admission. Suspect chronic issue given lung disease, possibly acutely worsened due to pain/IV fluids. Sodium improved at appropriate rate and now fluctuating between 123-129. Appreciate Nephrology recommendations. Continue sodium chloride tabs 1500 mg b.i.d. Continue fluid restriction diet. HCTZ discontinued. TSH within normal limits. SPEP, UPEP, osmolality pending. Continue to monitor sodium levels closely. (3) Fracture of wrist: Code(s): S62.109A - Fracture of unspecified carpal bone, unspecified wrist, initial encounter for closed fracture Status: Acute Assessment and Plan: underwent surgical repair on 03/15. Appreciate orthopedic surgery consultation and recommendations. Continue PT/OT (4) Hematuria: Code(s): R31.9 - Hematuria, unspecified Status: Acute Assessment and Plan: Appreciate urology recommendations. Renal ultrasound showed mild renal atrophy and scarring with urinary bladder debris which may represent blood, pus, or crystalline material. Hematuria has resolved. [place] to be related to traumatic Donovan insertion. Remove Donovan today and proceed with voiding trial. Will need outpatient cystoscopy at a later date (5) COPD (chronic obstructive pulmonary disease): Code(s): J44.9 - Chronic obstructive pulmonary disease, unspecified Status: Chronic Assessment and Plan: Not in acute exacerbation. Remaining stable on baseline oxygen, 2 L at all times (6) Hypertension: Code(s): I10 - Essential (primary) hypertension Status: Acute Assessment and Plan: Blood pressures are stable. Continue lisinopril and metoprolol. Stop HCTZ. (7) Normocytic anemia: Code(s): D64.9 - Anemia, unspecified Status: Acute Assessment and Plan: Acute on chronic. Hemoglobin 7.8 today. Continue to monitor closely postoperatively. No evidence of active bleeding. Subjective Date/time seen: 03/18/22 12:59 Interval history: Date of service: 03/18/2022 patient is seen in follow-up for right hip and wrist fracture. underwent surgical repair on 03/15/2022. Patient is not feeling well after taking her medications this morning. States she feels ?hot on the inside. ? States this occasionally happens when taking her medicine in usually passes on its own. It is she denies abdominal pain, nausea, vomiting, fever, or chills. States she did not sleep well last night. No hip or wrist pain at rest. She was able to participate in therapy and feels she is tolerating this well. No issues with Donovan catheter. Feels somewhat short of breath today, though this is typical for her Review of Systems Review of Systems: All systems reviewed & are unremarkable except as noted in HPI and below Exam Narrative: General: well-nourished, well-appearing 81-year-old female, sitting up in bed, comfortable, NARD Neuro: awake, alert and oriented x4, speech clear, no focal neuro deficits noted HEENMT: normocephalic, atraumatic, EOMI, sclerae anicteric Respiratory: clear to auscultation bilaterally, nonlabored breathing Cardio: regular rate, regular rhythm with S1-S2 Abdomen: nondistended, normoactive bowel sounds, soft, nontender to pal
[2022-03-18] MEDS: MAGNESIUM OXIDE 400 MG TABLET PO (17:16)
[2022-03-18] MEDS: lisinopriL 10 MG TABLET PO (17:16)
[2022-03-18] MEDS: ASPIRIN 81 MG ENTERIC TABLET PO (17:16)
[2022-03-19] VITALS (9 sets, daily range): BP systolic 125–133; BP diastolic 56–68; PULSE 70–93; RESP 14–20; TEMP 36.6; O2SAT 95–100
[2022-03-19 05:44] LABS: Hematocrit 23.3 % (37.0-47.0); Hemoglobin 7.6 g/dL (12.0-15.0); Mean Corpuscular HGB Conc 32.6 g/dl (32-36); Mean Corpuscular Hemoglobin 32.1 pg (26-34); Mean Corpuscular Volume 98.3 fl (80-100); Mean Platelet Volume 8.3 fl (7.4-10.4); Platelet Count Result 245 k/mm3 (150-375); Red Blood Count 2.37 M/mm3 (4.2-5.4); White Blood Count 5.6 K/mm3 (4.5-10.0)
[2022-03-19] MEDS: ACETAMINOPHEN 325 MG TABLET 650 MG PO ×2 (05:49→12:32)
[2022-03-19 05:56] LABS: Anion Gap 1 mmol/L (8-16); Blood Urea Nitrogen 13 mg/dL (7-17); Carbon Dioxide 31 mmol/L (22-30); Chloride 96 mmol/L (98-107); Estimated CRCL calculation 60 ml/min; Estimated Glomerular Filt Rate > 60; Glucose 95 mg/dL (65-110); Potassium 3.3 mmol/L (3.4-5.0); Sodium 128 mmol/L (137-145)
[2022-03-19] MEDS: POTASSIUM CHLORIDE 20 MEQ TABLET PO (08:29)
[2022-03-19] MEDS: SODIUM CHLORIDE 1 GM TABLET PO (08:30)
[2022-03-19] MEDS: SODIUM CHLORIDE 500 MG TABLET PO (08:30)
[2022-03-19] MEDS: ENOXAPARIN 30 MG/0.3 ML SYRINGE SUB-Q (08:31)
[2022-03-19] MEDS: PANTOPRAZOLE 40 MG TABLET PO (08:31)
[2022-03-19] MEDS: polyethylene glycoL 3350 17 GM POWD.PACK PO (08:31)
[2022-03-19] MEDS: POTASSIUM CHLORIDE 10 MEQ TABLET.ER PO (08:31)
[2022-03-19] MEDS: THEOPHYLLINE 300 MG ER 12 HR TABLET BY MOUTH (08:31)
[2022-03-19] MEDS: FAMOTIDINE 20 MG TABLET PO (08:31)
[2022-03-19] MEDS: SENNA/DOCUSATE SODIUM TABLET 2 TAB PO (08:31)
[2022-03-19] MEDS: METOPROLOL SUCCINATE EXT REL 50 MG TABCR BY MOUTH (08:38)
--- NOTE | 2022-03-19 08:44 | PCPTNOTE ---
Attempted to see patient for PT, however patient declined. Patient reported she just got done working with OT and needed to rest before PT.
[2022-03-19] MEDS: ALBUTEROL SULFATE (*SP) AEROSOL 1 PUFF 2 PUFF INHALATION (09:14)
[2022-03-19] MEDS: BUDESONIDE RESPULE NEB 0.5 MG/2 ML AMP INHALATION (09:14)
[2022-03-19 10:03] LABS: Iron 49 ug/dL (37-170)
[2022-03-19 10:12] LABS: Percent Iron Saturation 18 % (20-50)
--- NOTE | 2022-03-19 10:31 | PM.PNNEP ---
Progress Note: A&P Assessment and Plan (1) Hyponatremia: Code(s): E87.1 - Hypo-osmolality and hyponatremia Status: Acute Assessment and Plan: fluctuations noted acute on chronic baseline sodium runs ~ 126 - 134mmol/L in the last year suspected chronic etiology due to COPD/lung disease acute drop possibly due to previous IVFs versus pain from fracture versus HCTZ versus pain medications suspect more pain issues and need for pain medications recently evaluation to date: TSH okay cortisol (not done?) SPEP/UPEP and serum/urine osmolality pending follow trend of sodium (2) Intertrochanteric fracture of right hip: Code(s): S72.141A - Displaced intertrochanteric fracture of right femur, initial encounter for closed fracture Status: Acute Assessment and Plan: hip and pelvis xray with comminuted intertrochanteric fracture of the right femur Orthopedics following ORIF right hip fracture with cephalomedullary nail (on 03/15/22) pain control PT/OT as tolerated (3) Fracture of wrist: Code(s): S62.109A - Fracture of unspecified carpal bone, unspecified wrist, initial encounter for closed fracture Status: Acute Assessment and Plan: Ortho following s/p ORIF right distal radius fracture with volar plate (on 03/15/22) splint in place PT/OT as tolerated (4) COPD (chronic obstructive pulmonary disease): Code(s): J44.9 - Chronic obstructive pulmonary disease, unspecified Status: Chronic Assessment and Plan: appears compensated continue home inhalers and chronic oxygen (5) Diastolic dysfunction: Code(s): I51.89 - Other ill-defined heart diseases Status: Acute Assessment and Plan: stable/compensated at this time (6) Hypertension: Code(s): I10 - Essential (primary) hypertension Status: Acute Assessment and Plan: continue metoprolol and lisinopril holding HCTZ in the context of #1 follow trend of hemodynamics Will continue to follow. Subjective Date/time seen: 03/19/22 10:31 Appears to be doing relatively well; pain control appears satisfactory with current medications/therapy; sodium remains relatively stable as well; breathing/respiratory status at baseline. Exam Narrative: General: elderly female in NAD Heart: normal S1 and S2; no rub Lungs: clear to auscultation Abdomen: soft, nontender, nondistended, positive bowel sounds Extremities: right wrist in splint; some edema noted to fingers Skin: right hip incision dressings Objective Data Vital Signs Vital Signs: Vital Signs Temp Pulse Resp BP Pulse Ox O2 Del Method O2 Flow Rate 03/19/22 09:15 95 2 03/19/22 09:28 76 20 03/19/22 09:10 74 20 03/19/22 08:42 70 14 126/68 100 03/19/22 08:38 70 03/19/22 07:57 Nasal Cannula 2 03/19/22 05:26 97.9 F 75 17 125/56 L 99 03/18/22 21:39 97.8 F 87 17 130/61 97 03/18/22 20:49 70 18 03/18/22 20:49 70 18 98 Nasal Cannula 2 03/18/22 14:05 97.3 F L 73 16 121/58 L 100 03/18/22 14:20 70 20 03/18/22 14:14 73 20 Intake/Output Intake/Output: Intake & Output 03/16/22 03/17/22 03/18/22 03/19/22 23:59 23:59 23:59 23:59 Intake Total 1290 1400 1180 120 Output Total 1025 625 100 Balance 103 404 4633 120 Meds/Results Medications: Active Medications Generic Name Dose Route Start Last Admin Trade Name Freq PRN Reason Stop Dose Admin Acetaminophen 650 mg 03/17/22 11:15 03/19/22 05:49 Acetaminophen 325 Mg Tablet PO 650 mg Q6HR CRISTEL Administration Hydrocodone Bitart/Acetaminophen 1 tab 03/11/22 12:30 03/17/22 08:53 Hydrocodone/Acetaminophen (*Crx) 5-325 Mg Tablet PO 1 tab Q4H PRN Administration Pain Rated 4-6 Albuterol 2 puff 03/11/22 21:50 03/19/22 09:14 Albuterol Sulfate (*Sp) Aerosol 1 Puff INHALATION 2 puff Q12HRT [facility]
--- NOTE | 2022-03-19 10:31 | P.PNNP_ITS ---
Progress Note: A&P Assessment and Plan (1) Hyponatremia: Code(s): E87.1 - Hypo-osmolality and hyponatremia Status: Acute Assessment and Plan: * fluctuations noted * acute on chronic * baseline sodium runs ~ 126 - 134mmol/L in the last year * suspected chronic etiology due to COPD/lung disease * acute drop possibly due to previous IVFs versus pain from fracture versus HCTZ versus pain medications * suspect more pain issues and need for pain medications recently * evaluation to date: * TSH okay * cortisol (not done?) * SPEP/UPEP and serum/urine osmolality pending * follow trend of sodium (2) Intertrochanteric fracture of right hip: Code(s): S72.141A - Displaced intertrochanteric fracture of right femur, initial encounter for closed fracture Status: Acute Assessment and Plan: * hip and pelvis xray with comminuted intertrochanteric fracture of the right fe mur * Orthopedics following * ORIF right hip fracture with cephalomedullary nail (on 03/15/22) * pain control * PT/OT as tolerated (3) Fracture of wrist: Code(s): S62.109A - Fracture of unspecified carpal bone, unspecified wrist, initial encounter for closed fracture Status: Acute Assessment and Plan: * Ortho following * s/p ORIF right distal radius fracture with volar plate (on 03/15/22) * splint in place * PT/OT as tolerated (4) COPD (chronic obstructive pulmonary disease): Code(s): J44.9 - Chronic obstructive pulmonary disease, unspecified Status: Chronic Assessment and Plan: * appears compensated * continue home inhalers and chronic oxygen (5) Diastolic dysfunction: Code(s): I51.89 - Other ill-defined heart diseases Status: Acute Assessment and Plan: * stable/compensated at this time (6) Hypertension: Code(s): I10 - Essential (primary) hypertension Status: Acute Assessment and Plan: * continue metoprolol and lisinopril * holding HCTZ in the context of #1 * follow trend of hemodynamics Will continue to follow. Subjective Date/time seen: 03/19/22 10:31 Appears to be doing relatively well; pain control appears satisfactory with current medications/therapy; sodium remains relatively stable as well; breathi ng/respiratory status at baseline. Exam Narrative: General: elderly female in NAD Heart: normal S1 and S2; no rub Lungs: clear to auscultation Abdomen: soft, nontender, nondistended, positive bowel sounds Extremities: right wrist in splint; some edema noted to fingers Skin: right hip incision dressings Objective Data Vital Signs Vital Signs: Vital Signs Temp Pulse Resp BP Pulse Ox O2 Del Method O2 Flow Rate 03/19/22 09:15 95 2 03/19/22 09:28 76 20 03/19/22 09:10 74 20 03/19/22 08:42 70 14 126/68 100 03/19/22 08:38 70 03/19/22 07:57 Nasal Cannula 2 03/19/22 05:26 97.9 F 75 17 125/56 L 99 03/18/22 21:39 97.8 F 87 17 130/61 97 03/18/22 20:49 70 18 03/18/22 20:49 70 18 98 Nasal Cannula 2 03/18/22 14:05 97.3 F L 73 16 121/58 L 100 03/18/22 14:20 70 20 03/18/22 14:14 73 20 Intake/Output Intake/Output: Intake & Output
[2022-03-19 11:56] LABS: Hematocrit 28.8 % (37.0-47.0); Hemoglobin 9.1 g/dL (12.0-15.0)
--- NOTE | 2022-03-19 12:44 | PM.DS ---
DS: Admitting Diagnosis Discharge Date 03/20/2022 Admitting Diagnosis Hip fracture DS: Discharge Diagnosis Discharge Diagnosis (1) Intertrochanteric fracture of right hip: Code(s): S72.141A - Displaced intertrochanteric fracture of right femur, initial encounter for closed fracture Status: Acute Assessment and Plan: Secondary to fall. Patient was seen in consultation by General surgery and underwent surgical repair on 03/15/2022. She tolerated the procedure well. Participated in PT/OT during admission will continue therapy at [facility] following discharge. Continue Tylenol for pain control. Lovenox for 30 days for DVT prophylaxis per Orthopedic surgery recommendations. Follow-up with Orthopedic surgery as an outpatient (2) Hyponatremia: Code(s): E87.1 - Hypo-osmolality and hyponatremia Status: Acute Assessment and Plan: Sodium decreased to 119 this admission. Suspect chronic issue given lung disease, likely acutely worsened due to pain/IV fluids. Sodium improved at appropriate rate with fluid restriction and salt tabs. Sodium remains stable 12-128. Suspect this to be patient's baseline, may have some improvement when she has recovered from her surgery and pain has resolved. Continue with sodium chloride 1500 mg b.i.d.. Continue fluid restriction diet. HCTZ discontinued. TSH within normal limits. (3) Fracture of wrist: Code(s): S62.109A - Fracture of unspecified carpal bone, unspecified wrist, initial encounter for closed fracture Status: Acute Assessment and Plan: Underwent surgical repair on 03/15. Appreciate orthopedic surgery consultation and recommendations. Continue PT/OT. (4) Hematuria: Code(s): R31.9 - Hematuria, unspecified Status: Acute Assessment and Plan: Resolved. Patient was seen in consultation by Urology. Renal ultrasound showed mild renal atrophy and scarring with urinary bladder debris which may represent blood, pus, or crystalline material. [place] to be related to traumatic Donovan insertion. Donovan was removed and patient able to void independently. She will follow-up with urology as an outpatient for cystoscopy. (5) COPD (chronic obstructive pulmonary disease): Code(s): J44.9 - Chronic obstructive pulmonary disease, unspecified Status: Chronic Assessment and Plan: Not in acute exacerbation. Remained stable on baseline oxygen, 2 L at all times (6) Hypertension: Code(s): I10 - Essential (primary) hypertension Status: Acute Assessment and Plan: Blood pressures were stable. Continue lisinopril and metoprolol. HCTZ discontinued due to hyponatremia. (7) Normocytic anemia: Code(s): D64.9 - Anemia, unspecified Status: Acute Assessment and Plan: Acute on chronic. H&H with postoperative decline, however remained stable. No evidence of blood loss. H&H will be monitored at outside facility. DS: Summary Hospital Course Hospital Course: Date of admission: 03/11/2022 Date of discharge: 03/19/2022 Ragini Rodas is 81-year-old female with a history of COPD with chronic 2 L supplemental oxygen requirement and hypertension who presented to the emergency department on 03/11/2022 after suffering a fall at home in which she laid on her right hip from right wrist. On presentation to the ED, her vital signs were stable, she was afebrile, hemoglobin 10.2, hematocrit 30.1, sodium 128, additional laboratory workup unremarkable. Patient was admitted to the hospitalist service for further evaluation and management was seen in consultation by Orthopedic surgery and nephrology. Please see above for further details. Patient underwent surgical repair and tolerated the procedure well. Her sodium improved an appropriate rate. Per she participated in therapy during admission and discharge was arranged to [facility] to continue therapy. Patrick
--- NOTE | 2022-03-19 16:52 | PM.PNORT ---
Progress Note: A&P Assessment and Plan (1) Intertrochanteric fracture of right hip: Code(s): S72.141A - Displaced intertrochanteric fracture of right femur, initial encounter for closed fracture Status: Acute (2) Fracture of wrist: Code(s): S62.109A - Fracture of unspecified carpal bone, unspecified wrist, initial encounter for closed fracture Status: Acute Plan Subjective The patient is doing well without complaints. Pain is well controlled. Examination Right splint intact. Wiggles her fingers. Capillary refill brisk. Elbow motion good. Right hip dressing scant serosanguineous drainage. Thigh soft. Mild swelling. Mild bilateral edema. Calf nontender. Wiggles toes with good strength. Impression Status post ORIF of the hip intertrochanteric fracture and right wrist fracture. Progressing nicely. Using the platform walker. Wounds are healing well. Continue therapy as able. Subjective Subjective Date/Time Seen: 03/19/22 16:52 Objective Data Vital Signs Vital Signs: Vital Signs - 24 hr 03/18/22 20:49 03/18/22 20:49 03/18/22 21:39 Temperature 36.6 C Pulse Rate 70 70 87 Respiratory Rate 18 18 17 Blood Pressure 130/61 Pulse Oximetry 98 97 Oxygen Delivery Nasal Cannula Oxygen Flow Rate 2 03/19/22 05:26 03/19/22 07:57 03/19/22 08:38 Temperature 36.6 C Pulse Rate 75 70 Respiratory Rate 17 Blood Pressure 125/56 L Pulse Oximetry 99 Oxygen Delivery Nasal Cannula Oxygen Flow Rate 2 03/19/22 08:42 03/19/22 09:10 03/19/22 09:28 Temperature Pulse Rate 70 74 76 Respiratory Rate 14 20 20 Blood Pressure 126/68 Pulse Oximetry 100 Oxygen Delivery Oxygen Flow Rate 03/19/22 09:15 03/19/22 13:05 03/19/22 13:15 Temperature Pulse Rate 76 74 Respiratory Rate 20 20 Blood Pressure Pulse Oximetry 95 Oxygen Delivery Oxygen Flow Rate 2 03/19/22 16:19 Temperature 36.6 C Pulse Rate 93 Respiratory Rate 18 Blood Pressure 133/57 L Pulse Oximetry 99 Oxygen Delivery Oxygen Flow Rate Intake/Output Intake/Output: Intake & Output 03/16/22 03/17/22 03/18/22 03/19/22 23:59 23:59 23:59 23:59 Intake Total 1290 1400 1180 430 Output Total 1025 625 100 Balance 049 760 9459 430 Meds/Results Medications: Active Medications Generic Name Dose Route Start Last Admin Trade Name Nita PRN Reason Stop Dose Admin Acetaminophen 650 mg 03/17/22 11:15 03/19/22 12:32 Acetaminophen 325 Mg Tablet PO 650 mg Q6HR CRISTEL Administration Hydrocodone Bitart/Acetaminophen 1 tab 03/11/22 12:30 03/17/22 08:53 Hydrocodone/Acetaminophen (*Crx) 5-325 Mg Tablet PO 1 tab Q4H PRN Administration Pain Rated 4-6 Albuterol 2 puff 03/11/22 21:50 03/19/22 09:14 Albuterol Sulfate (*Sp) Aerosol 1 Puff INHALATION 2 puff Q12HRT CRISTEL Administration Aspirin 81 mg 03/12/22 17:00 03/18/22 17:16 Aspirin 81 Mg Enteric Tablet PO 81 mg 1700 CRISTEL Administration Budesonide 0.5 mg 03/11/22 23:20 03/19/22 09:14 Budesonide Respule Neb 0.5 Mg/2 Ml Amp INHALATION 0.5 mg Q12HRT CRISTEL Administration Enoxaparin Sodium 30 mg 03/15/22 11:56 03/19/22 08:31 Enoxaparin 30 Mg/0.3 Ml Syringe SUB-Q 30 mg DAILY CRISTEL Administration Famotidine 20 mg 03/15/22 11:56 03/19/22 08:31 Famotidine 20 Mg Tablet PO 20 mg Q12HR CRISTEL Administration Home Med 1 each 03/12/22 20:00 03/19/22 09:17 Home Medication: Formoterol Fumarate [Perforomist] 20 Mcg/2 Ml Solution For Nebulization INHALATION 04/11/22 19:59 1 each Q12HRT CRISTEL Administration Home Med 1 each 03/13/22 13:00 03/19/22 13:24 Home Medication: Revefenacin [Yupelri] 175 Mcg/3 Ml Solution For Nebulization INHALATION 04/12/22 08:59 1 each DAILY@1300 CRISTEL Administration Lisinopril 10 mg 03/11/22 21:55 03/18/22 17:16 Lisinopril 10 Mg Tablet PO 10 mg 1700 [facility] Administration Magnesium Oxide 400 mg 03/13/22 17:00 03/18/22 17:16
== END 2022-03-19 16:30 | DRG 481 ==
LOC: ANHED 12:34 → ANH2MED 14:01
PROVIDERS: Internal Medicine Nephrology; Nurse Practitioner; Orthopaedic Surgery; Admitting Provider Internal Medicine; Emergency Provider Emergency Medicine; PCP Family Medicine; Visit Provider Physician Assistant
PROC: 0QS636Z Reposition Right Upper Femur with Intramedullary Internal Fixation Device, Percutaneous Approach (ICD-10-PCS; CPT 27245; principal; 2022-03-15 07:30)
PROC: 0QS636Z Reposition Right Upper Femur with Intramedullary Internal Fixation Device, Percutaneous Approach (ICD-10-PCS; CPT 25575; 2022-03-15 07:30)
DX: S72.141A Displaced intertrochanteric fracture of right femur, initial encounter for closed fracture (principal); E87.1 Hypo-osmolality and hyponatremia; S52.551A Other extraarticular fracture of lower end of right radius, initial encounter for closed fracture; I50.32 Chronic diastolic (congestive) heart failure; T83.83XA Hemorrhage due to genitourinary prosthetic devices, implants and grafts, initial encounter; I11.0 Hypertensive heart disease with heart failure; J44.9 Chronic obstructive pulmonary disease, unspecified; D64.9 Anemia, unspecified; K21.9 Gastro-esophageal reflux disease without esophagitis; M16.0 Bilateral primary osteoarthritis of hip; R31.9 Hematuria, unspecified; Y65.8 Other specified misadventures during surgical and medical care; W19.XXXA Unspecified fall, initial encounter; Z20.822 Contact with and (suspected) exposure to COVID-19; Z99.81 Dependence on supplemental oxygen; Z87.891 Personal history of nicotine dependence
CPT/HCPCS: 29125; 36415; 71045; 73110; 73502; 76775; 80048; 80053; 81001; 82570; 82728; 83540; 83550; 83690; 83735; 83935; 84295; 84300; 84443; 84540; 85014; 85018; 85025; 85027; 85610; 85730; 86850; 86900; 86901; 93005; 94640; 96361; 96374; 97110; 97161; 97166; 97530; 97535; 99199; 99285; A9270; C1713; C1769; J0131; J0690; J1100; J1170; J1650; J2270; J2405; J2704; J3010; J3475; J7030; J7120; U0003; U0005

== ENCOUNTER 2022-11-29 17:13 | Inpatient (IN) | payer MEDICARE, OTHER, SELFPAY ==
[2022-11-29] VITALS (19 sets, daily range): BP systolic 120–227; BP diastolic 62–107; PULSE 76–97; RESP 14–27; TEMP 37.9; O2SAT 97–100; BMI 16.6
--- NOTE | ~2022-11-29 | CT_ITS ---
EXAMINATION: CTA chest PE protocol DATE: 11/29/2022 18:47 INDICATION: Shortness of breath, elevated d-dimer TECHNIQUE: Computed tomography angiography (CTA) of the chest was performed with 100 mL Omnipaque-350 intravenous contrast timed to evaluate the pulmonary arteries. Coronal maximum intensity projection 3D-reconstructions were created by the technologist. Automated exposure control and iterative reconst ruction technique were employed. Exam dose: 151.17 mGy-cm total exam DLP. COMPARISON: None. FINDINGS: There is diagnostic contrast enhancement of the pulmonary arteries and no evidence of pulmo nary embolism. There is mild thoracic aortic aneurysm, the posterior aortic arch measuring up to 3.2 cm approximate diameter. Heart size is within normal range. No hilar or mediastinal mass lesion or lymphadenopathy. Severe emphysematous changes of the lungs. There is patchy infiltrate in the dependent right lower lobe, which may be due to atelectasis, pneumo akbar and/or aspiration pneumonitis. Severe degenerative disc disease in the lower cervical spine. Osteopenia. IMPRESSION: No evidence of pulmonary embolism Patchy dependent infiltrate which may be due to atelectasis, pneumonia or aspiration pneumonitis Reviewed, dictated and finalized at [facility]. Reviewed, dictated and finalized at [facility]. IMPRESSION: No evidence of pulmonary embolism Patchy dependent infiltrate which may be due to atelectasis, pneumonia or aspir ation pneumonitis
--- NOTE | ~2022-11-29 | XR_ITS ---
XR chest 1V portable DATE: 11/29/2022 17:47 INDICATION: Dyspnea. History of COPD. TECHNIQUE: 2 portable AP views on 11/29/2022 at 1748 1749 hours COMPARISON: 03/11/2022 AP chest FINDINGS: Bilateral hyperinflation and relative flattening the diaphragm consistent with history of C OPD. No pulmonary infiltrate or consolidation, pleural effusion or pulmonary vascular congestion or pneumo thorax is detected. Heart size appears within normal range. There is extensive thoracic aortic and abdominal aortic calci fication. Diffuse osteopenia. IMPRESSION: Bilateral hyperinflation consistent with COPD Aortic atherosclerosis Prominent osteopenia Reviewed, dictated and finalized at location [facility].
--- NOTE | 2022-11-29 17:25 | ECG_ITS ---
Measurements Intervals [place] Rate: 75 P: 84 NV: 138 QRS: 75 QRSD: 90 T: -49 QT: 340 QTc: 381 Interpretive Statements SINUS RHYTHM LEFT VENTRICULAR HYPERTROPHY WITH ST-T CHANGE NONSPECIFIC ST & T-WAVE ABNORMALITY- HIGH LATERAL LEADS BASELINE ARTIFACT- I, II, III, AVR, AVL, AVF, V1-V6 BORDERLINE ECG COMPARED TO ECG 03/11/2022 12:04:15 SINUS RHYTHM NOW PRESENT Electronically Signed On 11-29-2022 18:56:18 CDT by Jorge Alberto Olvera D.O.
[2022-11-29 17:50] LABS: Basophils Absolute Auto 0.04 K/mm3 (0.00-0.10); Basophils Percent Auto 0.2 % (0.0-1.0); Eosinophils Absolute Auto 0.04 K/mm3 (0.02-0.50); Eosinophils Percent Auto 0.2 % (1.0-6.0); Hematocrit 38.9 % (35.0-42.0); Immature Granulocyte Absolute 0.09 K/mm3 (0.00-0.00); Immature Granulocyte Percent A 0.5 % (0.0-0.0); Lymphocytes Absolute Auto 1.21 K/mm3 (1.10-4.50); Lymphocytes Percent Auto 7.2 % (18.0-42.0); Mean Corpuscular HGB Conc 33.4 g/dL (32.0-36.0); Mean Corpuscular Hemoglobin 31.3 pg (27.0-31.0); Mean Corpuscular Volume 93.5 fL (78.0-102.0); Mean Platelet Volume 8.5 fl (9.2-11.8); Monocytes Absolute Auto 1.17 K/mm3 (0.10-0.90); Neutrophils Absolute Auto 14.3 K/mm3 (1.7-7.2); Neutrophils Percent Auto 84.9 % (50.0-70.0); Platelet Count Result 259 K/mm3 (150-420); Red Blood Count 4.16 M/mm3 (4.20-5.40); Red Cell Distribution Width 12.6 % (11.6-14.4); White Blood Count 16.8 K/mm3 (4.8-10.8)
[2022-11-29] MEDS: IPRATROPIUM 0.5 MG/ALBUTEROL SULFATE 2.5 MG AMPUL.NEB 3 ML INHALATION (17:58)
[2022-11-29 18:09] LABS: Partial Thromboplastin Time 27.3 SEC (23.90-30.70); Prothrombin Time 10.9 Seconds (9.50-12.10)
[2022-11-29 18:12] LABS: D Dimer 0.63 mg/L (0.19-0.50)
[2022-11-29 18:22] LABS: Alanine Aminotransferase 18 U/L (14-59); Albumin Level 3.8 g/dL (3.4-5.0); Alkaline Phosphatase 95 U/L (46-116); Anion Gap 5 mmol/L (8-16); Aspartate Amino Transferase 13 U/L (15-37); Bilirubin,Total 0.4 mg/dL (0.00-1.00); Blood Urea Nitrogen 14 mg/dL (7-18); Carbon Dioxide 34 mmol/L (21-32); Chloride 90 mmol/L (98-108); Estimated CRCL calculation 45 ml/min; Estimated Glomerular Filt Rate > 60; Glucose 103 mg/dL (70-99); Magnesium 2.1 mg/dL (1.8-2.4); NT Pro B Type Natriuretic Pept 363 pg/mL (0-450); Osmolality Calculated 268 mOsm/kg (285-295); Potassium 3.8 mmol/L (3.5-5.1); Sodium 129 mmol/L (136-145); Total Protein 7.4 g/dL (6.4-8.2); Troponin I 10.8 ng/L (0.00-60.4)
[2022-11-29 18:30] LABS: Influenza A QL RT-PCR Negative (Negative); Influenza B QL RT-PCR Negative (Negative); RSV RNA, RT-PCR Negative (Negative); SARS-CoV-2 RNA PCR Negative (Negative)
[2022-11-29] MEDS: SODIUM CHLORIDE 0.9% IV 500 ML 999 ML IV CONT (18:49)
[2022-11-29 19:03] LABS: Appearance Urine Clear (Clear); Bilirubin Urine Negative (Negative); Blood Urine 2+ (Negative); Color Urine Light Yellow (Yellow); Glucose Urine UA Negative (Negative); Ketones Urine Negative (Negative); Leukocyte Esterase Ur Negative LEU/UL (Negative); Nitrate Urine Negative (Negative); Protein Urine Negative (Negative); Specific Grav Ur 1.015 (1.010-1.020); Urobilinogen Urine 0.2 mg/dL (0.2-1.0)
--- NOTE | 2022-11-29 19:06 | ED.URI ---
HPI - URI/Sore Throat General Chief Complaint: Upper Respiratory Infection Stated Complaint: short of breath Time Seen by Provider: 11/29/22 17:15 Source: patient and family Mode of arrival: wheelchair Limitations: no limitations History of Present Illness HPI Narrative: this is an 82-year-old female presents with some family with low-grade fever 100.3 with shortness of breath cough that is productive of white sputum, patient has no chest pain no abdominal pain no nausea vomiting. Patient has a history of hypertension and initially blood pressure was 2 8/107 and O2 sats 100% on 2L. Patient has a history of hypertension. MD elicited complaint: fever and cough Pertinent past history: COPD Onset (ago): day(s) Consistency: constant Severity: moderate Description of mucous: other Related Data Home Medications Medication Instructions Recorded Confirmed aspirin 81 mg tablet,delayed 81 mg PO DAILY 05/04/19 11/29/22 release (Adult Low Dose Aspirin) budesonide 0.5 mg/2 mL suspension 0.5 mg inhalation BID 05/04/19 11/29/22 for nebulization formoterol fumarate 20 mcg/2 mL 2 ml inhalation Q12H 05/04/19 11/29/22 solution for nebulization (Perforomist) albuterol sulfate 90 mcg/actuation 2 puff inhalation BID 03/11/22 11/29/22 aerosol inhaler (Ventolin HFA) revefenacin 175 mcg/3 mL solution 175 mcg inhalation DAILY 06/18/22 11/29/22 for nebulization (Yupelri) Allergies Allergy/AdvReac Type Severity Reaction Status Date / Time No Known Allergies Allergy Verified 11/29/22 17:26 Review of Systems Review of Systems: All systems reviewed & are unremarkable except as noted in HPI and below PMFSH Past Medical History Medical History Asthma COPD (chronic obstructive pulmonary disease) COPD exacerbation COVID-19 TALBERT (dyspnea on exertion) Edema of both legs Hypertension Intertrochanteric fracture of right hip Pneumonia due to 2019 novel coronavirus Pulmonary edema Weakness Surgical History Surgical History History of open reduction and internal fixation (ORIF) procedure (~03/15/22) ORIF right hip fracture with cephalomedullary nail ORIF right distal radius fracture with volar plate Social History Social History Social History: the patient is . She has 3 daughters. 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 She now lives with her 1 daughter in [place]. She believes that her daughter is the durable power disability attorney for healthcare. The patient is a former smoker. She does not use any alcohol marijuana or illicit drugs. Code status full code Smoking packs per day: 0.75 Smoking cigarettes per day: 15.0 Years smoked: 30 Smoking pack-years: 22.50 Smoking status: Former smoker Tobacco type: cigarettes Second hand tobacco smoke exposure: No Additional smoking assessment comments: Quit July 2015. 50 pack-year history Alcohol intake: never Substance use: never Substance use type: does not use Lack of Transportation: No Lack of Food: Never True Current Housing: I Have Housing Concerned About Future Housing: No Difficulty Paying Gas/Electric Bills: No Difficulty Paying for Meds: No Currently Unemployed: No Education: Grade School Difficulty w/ Childcare or Family Care: No Living arrangements: with family Additional living arrangements comments: Lives with daughter, Elinor and son in law Sky. Occupation/Education: retired Gender identity (if verbalized by the patient): Female Sexual Orientation (if Verbalized by the Patient): Straight or Heterosexual Spiritual care concerns: No Exam Const: General: no acute distress Nutritional Appearance: thin Limitations: no limitations HENMT: Head: normal to inspection Eyes: Conjunctivae: conjunctivae no
[2022-11-29 19:10] LABS: Add Urine Microscopic? YES; Bacteria Urine None seen /hpf; Squamous Epithelial Cell Urine None seen /hpf (Few); WBC Urine 0-3 /hpf (0-3)
[2022-11-29] MEDS: cefTRIAXone 2 GM/NS 100 ML 2 GM/100 ML BAG IVPB (19:46)
[2022-11-29] MEDS: AZITHROMYCIN 500 MG/NS 250 ML 500 MG/250 ML BAG 250 MG IVPB (20:26)
[2022-11-29] MEDS: ALBUTEROL SULFATE (*SP) INHALER 2 PUFF INHALATION (20:31)
--- NOTE | 2022-11-29 20:45 | ADMGEN ---
This patient, Ragini Rodas, was admitted to 2nd Floor Room 207-1. Patient oriented to hospital policies and general routines including ID bracelet, bed and alarms, visiting hours, pain management, procedures, bathroom and other care routines, personal items, smoking policy, room service/diet, and visiting hours. Information on how to activate the Rapid Response Team has been discussed. Patient are encouraged to report perceived risks to care and to ask questions if they do not understand what they are told or what they should do.
--- NOTE | 2022-11-29 20:50 | PC.NURSE ---
2040-pt transported to floor by [facility], via hospital stretcher. pt has iv abx azithromycin infusing at 250ml/hr, and remains on 2L nc. 1999-junior underwriter called report to HUSSAIN Young.
--- NOTE | 2022-11-29 21:00 | PC.NURSE ---
2040-pt transferred to floor with iv abx infusing per orders
[2022-11-30] VITALS (22 sets, daily range): BP systolic 92–114; BP diastolic 42–59; PULSE 59–96; RESP 15–19; TEMP 36.2–36.7; O2SAT 91–100
[2022-11-30] MEDS: IPRATROPIUM 0.5 MG/ALBUTEROL SULFATE 2.5 MG AMPUL.NEB 3 ML INHALATION ×5 (00:28→23:50)
--- NOTE | 2022-11-30 01:17 | PC.NURSE ---
On 11/30/22, the OCCUPATIONAL PSYCHOLOGIST, Hannah Leonard, provided care and completed [facility] on this patient. I have reviewed the OCCUPATIONAL PSYCHOLOGIST's documentation and agree with the findings.
[2022-11-30 05:29] LABS: Basophils Absolute Auto 0.02 K/mm3 (0.00-0.10); Basophils Percent Auto 0.1 % (0.0-1.0); Eosinophils Absolute Auto 0.03 K/mm3 (0.02-0.50); Eosinophils Percent Auto 0.2 % (1.0-6.0); Hematocrit 29.8 % (35.0-42.0); Hemoglobin 9.9 g/dL (11.7-13.8); Immature Granulocyte Absolute 0.09 K/mm3 (0.00-0.00); Immature Granulocyte Percent A 0.6 % (0.0-0.0); Lymphocytes Absolute Auto 2.09 K/mm3 (1.10-4.50); Lymphocytes Percent Auto 14.1 % (18.0-42.0); Mean Corpuscular HGB Conc 33.2 g/dL (32.0-36.0); Mean Corpuscular Volume 93.4 fL (78.0-102.0); Mean Platelet Volume 8.5 fl (9.2-11.8); Monocytes Absolute Auto 1.34 K/mm3 (0.10-0.90); Neutrophils Absolute Auto 11.3 K/mm3 (1.7-7.2); Platelet Count Result 184 K/mm3 (150-420); Red Blood Count 3.19 M/mm3 (4.20-5.40); Red Cell Distribution Width 12.8 % (11.6-14.4); White Blood Count 14.9 K/mm3 (4.8-10.8)
[2022-11-30] MEDS: BUDESONIDE RESPULE NEB 0.5 MG/2 ML AMP INHALATION ×2 (05:31→17:43)
[2022-11-30 05:44] LABS: Alanine Aminotransferase 12 U/L (14-59); Albumin Level 2.7 g/dL (3.4-5.0); Alkaline Phosphatase 69 U/L (46-116); Anion Gap 3 mmol/L (8-16); Aspartate Amino Transferase 10 U/L (15-37); Bilirubin,Total 0.3 mg/dL (0.00-1.00); Blood Urea Nitrogen 19 mg/dL (7-18); Calcium 8.9 mg/dL (8.5-10.1); Carbon Dioxide 31 mmol/L (21-32); Chloride 95 mmol/L (98-108); Estimated CRCL calculation 27 ml/min; Estimated Glomerular Filt Rate 59; Glucose 94 mg/dL (70-99); Osmolality Calculated 270 mOsm/kg (285-295); Potassium 3.5 mmol/L (3.5-5.1); Sodium 129 mmol/L (136-145); Total Protein 5.5 g/dL (6.4-8.2)
[2022-11-30] MEDS: ALBUTEROL SULFATE (*SP) INHALER 2 PUFF INHALATION ×2 (06:13→18:48)
--- NOTE | 2022-11-30 08:13 | PC.NURSE ---
COFFEE MACHINE TECHNICIAN notified of decrease in BP and low sodium. Awaiting further orders.
[2022-11-30] MEDS: FUROSEMIDE 20 MG TABLET BY MOUTH (08:20)
[2022-11-30] MEDS: ASPIRIN 81 MG ENTERIC TABLET PO (08:20)
[2022-11-30] MEDS: MAGNESIUM OXIDE 400 MG TABLET PO (08:21)
[2022-11-30] MEDS: METOPROLOL SUCCINATE EXT REL 50 MG TABCR BY MOUTH (08:21)
[2022-11-30] MEDS: POTASSIUM CHLORIDE 10 MEQ ER TABLET PO (08:22)
[2022-11-30] MEDS: predniSONE 20 MG TABLET 40 MG PO (08:23)
[2022-11-30] MEDS: THEOPHYLLINE 300 MG ER 12 HR TABLET BY MOUTH (08:24)
--- NOTE | 2022-11-30 09:12 | PM.IMHP ---
H&P: HPI History of Present Illness Date/Time: 11/30/22 09:12 Chief Complaint: Difficulty breathing Narrative: This is a 82-year-old female patient with past history of COPD, asthma, hypertension and pulmonary edema who presented to the emergency department with difficulty breathing ongoing for the last couple of days. Patient was started on prednisone by primary care for COPD exacerbation couple days ago and she wears home oxygen at 2 liters/minute all the time. Despite this patient had worsening Of difficulty breathing. She was evaluated in the emergency department last night and found to have elevated white blood cell count and positive D-dimer. CTA was completed no PE but it did show patchy dependent infiltrate which may be due to atelectasis pneumonia or aspiration pneumonitis. Patient was started on Rocephin and azithromycin for pneumonia. Oxygen saturations were normal on home setting. Patient was given an IV fluid bolus due to findings of hyponatremia. Repeat labs were obtained this morning unchanged from prior in regards to sodium level. Review of records shows the patient has chronic hyponatremia with baseline sodium is ranging from 122-133 in averaging around 127-129 which is where she is at currently. Patient reports that she is feeling somewhat better already. She is primarily concerned about how long she will need to be in the hospital. Patient denies fever chills but did elevated temperature 37.9 in the emergency department. Patient denies dizziness or lightheadedness. Morning vital signs were indicative of hypotension. Manual blood pressure was 90/40. Ordered additional IV fluids, patient not receiving 30 milliliters/kilogram due to history of pulmonary embolism. Ordered IV albumin and will plan to obtain orthostatic vital signs after albumin administration. Patient did receive her home dose of medications including theophylline and 20 mg furosemide this morning which she takes every other day. Patient denies chest pain, nausea, vomiting, bowel or bladder problems. Review of Systems Review of Systems: All systems reviewed & are unremarkable except as noted in HPI and below [facility] Past Medical History Medical History (Updated 11/30/22 @ 12:13 by Jules Fabian APRN) Asthma CAP (community acquired pneumonia) COPD (chronic obstructive pulmonary disease) COPD exacerbation COVID-19 TALBERT (dyspnea on exertion) Edema of both legs Hypertension Intertrochanteric fracture of right hip Pneumonia due to 2019 novel coronavirus Pulmonary edema Weakness Surgical History Surgical History History of open reduction and internal fixation (ORIF) procedure (~03/15/22) ORIF right hip fracture with cephalomedullary nail ORIF right distal radius fracture with volar plate Social History Social History Social History: the patient is . She has 3 daughters. 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 She now lives with her 1 daughter in [place]. She believes that her daughter is the durable power sonoscope operator for healthcare. The patient is a former smoker. She does not use any alcohol marijuana or illicit drugs. Code status full code Smoking packs per day: 0.75 Smoking cigarettes per day: 15.0 Years smoked: 30 Smoking pack-years: 22.50 Smoking status: Former smoker Second hand tobacco smoke exposure: No Additional smoking assessment comments: Quit July 2015. 50 pack-year history Alcohol intake: never Substance use: never Substance use type: does not use Lack of Transportation: No Lack of Food: Never True Current Housing: I Have Housing Concerned About Future Housing: No Difficulty Paying Gas/Electric Bills: No Difficulty Paying for Meds: No Currently Unemployed: No Education: Grade School Difficulty w/ Childcare or Family Care:
[2022-11-30] MEDS: LACTATED RINGERS 500 ML IV CONT (09:49)
[2022-11-30] MEDS: ALBUMIN HUMAN 25% 25 GM/100 ML 100 ML IVPB ×3 (09:51→23:58)
--- NOTE | 2022-11-30 10:04 | PC.NURSE ---
IV site in LAC occluded. IV site started in LFA. Attempts x 1 and patient tolerated well.
[2022-11-30] MEDS: ACETYLCYSTEINE 20% INHAL SOLN 800 MG/4 ML VIAL (11:19)
[2022-11-30] MEDS: ACETYLCYSTEINE 20% INHAL SOLN 800 MG/4 ML VIAL 200 MG INHALATION ×3 (11:35→23:51)
--- NOTE | 2022-11-30 16:56 | PHAR ---
HOME MED: Formoterol Fumarate [Perforomist] 20 mcg/2 mL solution for nebulization Revefenacin [Yupelri] 175 mcg/3 mL solution for nebulization PHARMACY VERBALLY VERIFIED MEDS OVER THE PHONE WITH THE NURSE
[2022-11-30] MEDS: SODIUM CHLORIDE 0.9% IV 1,000 ML 60 ML IV CONT (17:07)
[2022-11-30] MEDS: cefTRIAXone 2 GM/NS 100 ML 2 GM/100 ML BAG IVPB (19:29)
[2022-11-30] MEDS: ENOXAPARIN 30 MG/0.3 ML SYRINGE SUB-Q (20:30)
[2022-11-30] MEDS: guaiFENesin 12 HR 600 MG TABCR PO (20:30)
[2022-11-30] MEDS: AZITHROMYCIN 500 MG/NS 250 ML 500 MG/250 ML BAG 250 MG IVPB (20:30)
[2022-12-01] VITALS (19 sets, daily range): BP systolic 115–140; BP diastolic 58–79; PULSE 55–88; RESP 14–20; TEMP 36.4–36.8; O2SAT 97–100
[2022-12-01] MEDS: ALBUTEROL SULFATE (*SP) INHALER 2 PUFF INHALATION ×2 (05:10→18:32)
[2022-12-01] MEDS: BUDESONIDE RESPULE NEB 0.5 MG/2 ML AMP INHALATION ×2 (05:12→18:32)
[2022-12-01] MEDS: IPRATROPIUM 0.5 MG/ALBUTEROL SULFATE 2.5 MG AMPUL.NEB 3 ML INHALATION ×4 (05:12→23:21)
[2022-12-01] MEDS: ACETYLCYSTEINE 20% INHAL SOLN 800 MG/4 ML VIAL 200 MG INHALATION ×4 (05:14→23:21)
[2022-12-01 05:38] LABS: Basophils Absolute Auto 0.01 K/mm3 (0.00-0.10); Basophils Percent Auto 0.1 % (0.0-1.0); Eosinophils Absolute Auto 0.02 K/mm3 (0.02-0.50); Eosinophils Percent Auto 0.2 % (1.0-6.0); Hematocrit 28.5 % (35.0-42.0); Hemoglobin 9.5 g/dL (11.7-13.8); Immature Granulocyte Absolute 0.05 K/mm3 (0.00-0.00); Immature Granulocyte Percent A 0.5 % (0.0-0.0); Lymphocytes Absolute Auto 1.43 K/mm3 (1.10-4.50); Lymphocytes Percent Auto 15.1 % (18.0-42.0); Mean Corpuscular HGB Conc 33.3 g/dL (32.0-36.0); Mean Corpuscular Hemoglobin 31.1 pg (27.0-31.0); Mean Corpuscular Volume 93.4 fL (78.0-102.0); Mean Platelet Volume 8.3 fl (9.2-11.8); Monocytes Absolute Auto 0.75 K/mm3 (0.10-0.90); Monocytes Percent Auto 7.9 % (2.0-11.0); Neutrophils Absolute Auto 7.2 K/mm3 (1.7-7.2); Neutrophils Percent Auto 76.2 % (50.0-70.0); Platelet Count Result 148 K/mm3 (150-420); Red Blood Count 3.05 M/mm3 (4.20-5.40); Red Cell Distribution Width 13.2 % (11.6-14.4); White Blood Count 9.5 K/mm3 (4.8-10.8)
[2022-12-01 05:58] LABS: Anion Gap 6 mmol/L (8-16); Blood Urea Nitrogen 17 mg/dL (7-18); Calcium 9.3 mg/dL (8.5-10.1); Carbon Dioxide 33 mmol/L (21-32); Chloride 94 mmol/L (98-108); Estimated CRCL calculation 37 ml/min; Estimated Glomerular Filt Rate > 60; Glucose 101 mg/dL (70-99); Osmolality Calculated 277 mOsm/kg (285-295); Potassium 3.2 mmol/L (3.5-5.1); Sodium 133 mmol/L (136-145)
[2022-12-01] MEDS: MAGNESIUM OXIDE 400 MG TABLET PO (09:07)
[2022-12-01] MEDS: guaiFENesin 12 HR 600 MG TABCR PO ×2 (09:07→20:28)
[2022-12-01] MEDS: METOPROLOL SUCCINATE EXT REL 50 MG TABCR BY MOUTH (09:08)
[2022-12-01] MEDS: ASPIRIN 81 MG ENTERIC TABLET PO (09:08)
[2022-12-01] MEDS: THEOPHYLLINE 300 MG ER 12 HR TABLET BY MOUTH (09:08)
[2022-12-01] MEDS: POTASSIUM CHLORIDE 10 MEQ ER TABLET PO (09:08)
[2022-12-01] MEDS: predniSONE 20 MG TABLET 40 MG PO (09:09)
--- NOTE | 2022-12-01 09:16 | PM.IMPN ---
Progress Note: A&P Assessment and Plan (1) CAP (community acquired pneumonia): Code(s): J18.9 - Pneumonia, unspecified organism Status: Acute Assessment and Plan: Basilar pneumonia noted on CTA. Elevated white blood cell count but patient has also been on steroids for a couple days prior to hospitalization. History of COPD. On IV ceftriaxone and azithromycin for treatment of pneumonia. Viral panel testing was negative for flu, RSV or COVID. Patient on several nebulizer treatments and we will use home medications when available this evening. Until then patient is on DuoNebs. She is beginning to produce some thick sputum. The commenced nebs ordered as well as oral guaifenesin for respiratory secretion thinning. (2) COPD exacerbation: Code(s): J44.1 - Chronic obstructive pulmonary disease with (acute) exacerbation Status: Acute Assessment and Plan: On oral steroids and antibiotics for pneumonia. Continue home medication nebulizers and inhalers. Oxygen per NC (3) Hyponatremia: Code(s): E87.1 - Hypo-osmolality and hyponatremia Status: Chronic Assessment and Plan: Chronic, patient is at baseline. Will monitor with daily labs while admitted. Caution over correction. (4) Chronic respiratory failure with hypoxia, on home oxygen therapy: Code(s): J96.11 - Chronic respiratory failure with hypoxia; Z99.81 - Dependence on supplemental oxygen Status: Chronic Assessment and Plan: Stable on 2 liters/minute nasal cannula which is home dosing (5) Hypertension: Qualifiers: Hypertension type: unspecified Qualified Code(s): I10 - Essential (primary) hypertension Code(s): I10 - Essential (primary) hypertension Status: Chronic Assessment and Plan: Blood pressure reviewed 921. Patient significantly hypertensive on arrival to the emergency department, normalized on admission and hypotensive this morning. Hold lisinopril. Ordered IV fluid bolus and q.6 hour IV albumin which will discontinue after 3 doses. (6) Weakness: Code(s): R53.1 - Weakness Status: Acute Assessment and Plan: Generalized weakness, no focality, PT OT consulted and patient will be allowed to ambulate with assistance and up to chair for meals / bedside commode. Will obtain orthostatic vital signs prior to working with therapy. (7) Normocytic anemia: Code(s): D64.9 - Anemia, unspecified Status: Chronic Assessment and Plan: Chronic and stable, patient was hemoconcentrated upon ER blood draw. No indications of acute blood loss. Monitor with daily labs. (8) Hypokalemia: Code(s): E87.6 - Hypokalemia Status: Acute Assessment and Plan: 3.2 potassium already taking 10 meq will add 40 paola x1 and will recheck labs in the morning. Plan Q4 hours vital signs and telemetry monitoring Orthostatic vital signs after IV fluids and albumin Resume home medications except hold lisinopril. Addition of Mucomyst and guaifenesin for respiratory secretion thinning Flu vaccine high dose to be given per patient request on admission screening Subjective Date/time seen: 12/01/22 09:16 Interval history: Patient remains on oxygen at 3l nc. Patient states she is feeling a lot better and she denies shortness of breath or anymore than usual. Patient is very shaky and frail. She states that she has to urinate frequently and she is not able to eat as much. At this time patient need at least another day or two of IV antibiotic and to Monitor her labs. Potassium will be replenished to day. Patient is sitting in recliner chair and I will add a IS for her to use. Exam Narrative: GENERAL: Thin, Chronically ill appearing, alert and oriented, in no apparent distress. She is pleasant and conversant in full sentences. Supplemental oxygen in place HEENT: Pupils are equally round and briskly reactive to light. CHEST/LUNGS: Lungs, diminish
[2022-12-01] MEDS: POTASSIUM CHLORIDE 20 MEQ ER TABLET 40 MEQ PO (12:48)
[2022-12-01] MEDS: cefTRIAXone 2 GM/NS 100 ML 2 GM/100 ML BAG IVPB (19:55)
[2022-12-01] MEDS: AZITHROMYCIN 500 MG/NS 250 ML 500 MG/250 ML BAG 250 MG IVPB (20:27)
[2022-12-01] MEDS: ENOXAPARIN 30 MG/0.3 ML SYRINGE SUB-Q (20:28)
--- NOTE | 2022-12-01 21:30 | PC.NURSE ---
Pt's dentures removed for bed time and placed in a cup w/warm water and Efferdent by the sink.
[2022-12-02] VITALS (7 sets, daily range): BP systolic 113–144; BP diastolic 66–70; PULSE 52–62; RESP 14–17; TEMP 36.1–36.7; O2SAT 98–100
[2022-12-02] MEDS: IPRATROPIUM 0.5 MG/ALBUTEROL SULFATE 2.5 MG AMPUL.NEB 3 ML INHALATION (05:08)
[2022-12-02] MEDS: ALBUTEROL SULFATE (*SP) INHALER 2 PUFF INHALATION (05:09)
[2022-12-02] MEDS: ACETYLCYSTEINE 20% INHAL SOLN 800 MG/4 ML VIAL 200 MG INHALATION (05:09)
[2022-12-02] MEDS: BUDESONIDE RESPULE NEB 0.5 MG/2 ML AMP INHALATION (05:09)
[2022-12-02 06:00] LABS: Basophils Absolute Auto 0.01 K/mm3 (0.00-0.10); Basophils Percent Auto 0.1 % (0.0-1.0); Eosinophils Absolute Auto 0.04 K/mm3 (0.02-0.50); Eosinophils Percent Auto 0.5 % (1.0-6.0); Hematocrit 30.1 % (35.0-42.0); Hemoglobin 9.9 g/dL (11.7-13.8); Immature Granulocyte Absolute 0.03 K/mm3 (0.00-0.00); Immature Granulocyte Percent A 0.4 % (0.0-0.0); Lymphocytes Percent Auto 18.7 % (18.0-42.0); Mean Corpuscular HGB Conc 32.9 g/dL (32.0-36.0); Mean Corpuscular Hemoglobin 31.1 pg (27.0-31.0); Mean Corpuscular Volume 94.7 fL (78.0-102.0); Mean Platelet Volume 9.1 fl (9.2-11.8); Monocytes Absolute Auto 0.78 K/mm3 (0.10-0.90); Monocytes Percent Auto 9.1 % (2.0-11.0); Neutrophils Absolute Auto 6.1 K/mm3 (1.7-7.2); Neutrophils Percent Auto 71.2 % (50.0-70.0); Platelet Count Result 179 K/mm3 (150-420); Red Blood Count 3.18 M/mm3 (4.20-5.40); Red Cell Distribution Width 13.1 % (11.6-14.4); White Blood Count 8.6 K/mm3 (4.8-10.8)
[2022-12-02 06:07] LABS: Anion Gap 4 mmol/L (8-16); Blood Urea Nitrogen 17 mg/dL (7-18); Calcium 9.2 mg/dL (8.5-10.1); Carbon Dioxide 32 mmol/L (21-32); Chloride 98 mmol/L (98-108); Estimated CRCL calculation 43 ml/min; Estimated Glomerular Filt Rate > 60; Glucose 85 mg/dL (70-99); Osmolality Calculated 278 mOsm/kg (285-295); Potassium 4.7 mmol/L (3.5-5.1); Sodium 134 mmol/L (136-145)
[2022-12-02] MEDS: predniSONE 20 MG TABLET 40 MG PO (09:30)
[2022-12-02] MEDS: MAGNESIUM OXIDE 400 MG TABLET PO (09:30)
[2022-12-02] MEDS: THEOPHYLLINE 300 MG ER 12 HR TABLET BY MOUTH (09:30)
[2022-12-02] MEDS: POTASSIUM CHLORIDE 10 MEQ ER TABLET PO (09:31)
[2022-12-02] MEDS: ASPIRIN 81 MG ENTERIC TABLET PO (09:31)
[2022-12-02] MEDS: FUROSEMIDE 20 MG TABLET BY MOUTH (09:31)
[2022-12-02] MEDS: METOPROLOL SUCCINATE EXT REL 50 MG TABCR BY MOUTH (09:31)
[2022-12-02] MEDS: guaiFENesin 12 HR 600 MG TABCR PO (09:55)
--- NOTE | 2022-12-02 11:34 | PM.DS ---
DS: Admitting Diagnosis Discharge Date 12/02/2022 Admitting Diagnosis Community-acquired pneumonia, COPD exacerbation, chronic hyponatremia, chronic respiratory failure with hypoxia on home oxygen therapy, essential hypertension, generalized weakness, chronic normocytic anemia DS: Discharge Diagnosis Discharge Diagnosis (1) CAP (community acquired pneumonia): Code(s): J18.9 - Pneumonia, unspecified organism Status: Acute (2) COPD exacerbation: Code(s): J44.1 - Chronic obstructive pulmonary disease with (acute) exacerbation Status: Acute (3) Hyponatremia: Code(s): E87.1 - Hypo-osmolality and hyponatremia Status: Chronic (4) Chronic respiratory failure with hypoxia, on home oxygen therapy: Code(s): J96.11 - Chronic respiratory failure with hypoxia; Z99.81 - Dependence on supplemental oxygen Status: Chronic (5) Hypertension: Qualifiers: Hypertension type: unspecified Qualified Code(s): I10 - Essential (primary) hypertension Code(s): I10 - Essential (primary) hypertension Status: Chronic (6) Weakness: Code(s): R53.1 - Weakness Status: Acute (7) Normocytic anemia: Code(s): D64.9 - Anemia, unspecified Status: Chronic (8) Hypokalemia: Code(s): E87.6 - Hypokalemia Status: Acute DS: Summary Hospital Course Reason for hospitalization: Difficulty breathing with pneumonia and COPD exacerbation Hospital Course: Patient was admitted to the hospital with pneumonia as COPD exacerbation and worsening difficulty breathing. Patient received IV Rocephin and Zithromax for pneumonia. Initially she had low blood pressure so she received IV fluids and IV albumin which improved her blood pressure within 24 hours. Patient also received Mucomyst nebulizers to thin respiratory secretions. Now she is mobilizing secretions with cough. Patient wears home oxygen at 2 liters/minute all. She has remained stable on 2 liters/minute during hospital stay. Patient reports that she is feeling somewhat better and is ready for discharge. Vital signs have stabilized. Discussed resuming all home medications with the addition Zithromax and Augmentin. Patient and family updated with plan of care and are in agreement. Discharge in stable condition. Status at Discharge Cognitive/behavioral status at discharge: Awake, alert, oriented and pleasant Functional status at discharge: uses cane/walker Overall status at discharge: patient is progressing back to baseline Time Spent with Patient Time attestation: Total time spent providing and/or coordinating discharge services: 45 Time spent: Greater than 30 minutes Exam Narrative: GENERAL: Thin, Chronically ill appearing, alert and oriented, in no apparent distress. She is pleasant and conversant in full sentences. Supplemental oxygen in place HEENT: Pupils are equally round and briskly reactive to light. CHEST/LUNGS: Lungs, diminished throughout with improved air movement. Loose sounding cough. HEART: The patient has a regular rate and rhythm. No murmurs, rubs, or gallops are appreciated. radial pulses 2+, pedal pulses 1+ ABDOMEN: The patient's abdomen is soft, nontender, and nondistended. Bowel sounds are positive. EXTREMITIES: The patient has no peripheral edema. There is no focal long bone tenderness or deformity. SKIN: The patient's skin is warm and dry, without rashes or lesions. PSYCHIATRIC: The patient has normal mental status and has an appropriate affect. NEUROLOGIC: There are no gross deficits to the cranial nerves. Patient moves all extremities well DS: Data Data Completed and Pending Completed studies during hospitalization: CXR, CTA chest Labs on day of discharge: Labs from last 24 hours 12/02/22 05:41 WBC 8.6 RBC 3.18 L Hgb 9.9 L Hct 30.1 L MCV 94.7 MCH 31.1 H MCHC 32.9 RDW 13.1 Plt Count 179 MPV 9.1 L Immature Gran % (Auto) 0.4 H Neut % (Auto)
--- NOTE | 2022-12-02 12:32 | PC.NURSE ---
Telemetry and q4H VS discontinued at 1030am.
--- NOTE | 2022-12-02 13:35 | PC.NURSE ---
Pt discharged to home and family care. New medication instruction given : dose, times, purpose and possible SE. Pt instructed to drink 4 to 6 glasses of water daily. Current medications reviewed with pt and family. Follow up appointments discussed. Pt assisted to the family car via WC by RN.
--- NOTE | 2022-12-02 20:13 | PC.NURSE ---
Ludivina Fabian NP, called [facility] for transfer to [facility] ICU 2. Pateint taken to [facility] via [facility].
== END 2022-12-02 13:00 | disposition home or self-care (01) | DRG 190 ==
LOC: CHSED 19:21 → CHS2ND 22:10
PROVIDERS: Nurse Practitioner; Nurse Practitioner Family; Admitting Provider Internal Medicine; Emergency Provider Emergency Medicine; PCP Nurse Practitioner Family; Visit Provider Internal Medicine
DX: J18.9 Pneumonia, unspecified organism (principal); J44.0 Chronic obstructive pulmonary disease with (acute) lower respiratory infection; E87.1 Hypo-osmolality and hyponatremia; I10 Essential (primary) hypertension; Z20.822 Contact with and (suspected) exposure to COVID-19; Z79.82 Long term (current) use of aspirin; Z87.891 Personal history of nicotine dependence; J96.11 Chronic respiratory failure with hypoxia; E87.6 Hypokalemia; J44.1 Chronic obstructive pulmonary disease with (acute) exacerbation; D64.9 Anemia, unspecified; I73.9 Peripheral vascular disease, unspecified; Z99.81 Dependence on supplemental oxygen; Z23 Encounter for immunization
CPT/HCPCS: 36415; 71045; 71275; 80048; 80053; 81001; 83735; 83880; 84132; 84484; 85025; 85380; 85610; 85730; 87040; 87637; 90471; 90694; 93005; 94640; 97110; 97161; 97165; A9270; G0008; J0456; J0696; J1650; J7030; J7040; J7120; J7512; P9047; Q9967

== ENCOUNTER 2024-12-27 09:47 | Emergency (ER) | payer MEDICARE, OTHER, SELFPAY ==
[2024-12-27] VITALS (11 sets, daily range): BP systolic 170–188; BP diastolic 74–83; PULSE 65–78; RESP 12–24; TEMP 36.8; O2SAT 94–98
--- NOTE | ~2024-12-27 | XR_ITS ---
Examination: XR wrist RT min 3V Clinical History: chronic Rt. wrist pain/weakness Comparison: 03/11/2022 Technique: 3 views right wrist Findings/impression: 1. Radial plate and screw fixation intact without associated hardware failure or fracture. 2. No other acute abnormality noted. 3. Widening of scapholunate interval; early SLAC wrist. Reviewed, dictated and finalized at location R.
--- NOTE | ~2024-12-27 | XR_ITS ---
Examination: XR chest 1V portable Clinical History: dyspnea Comparison: 11/29/2022 Technique: Portable AP Findings: Heart size normal. Chronic hyperinflation and interstitial changes. Worsening superimposed interstitial changes. No acute bony abnormality. IMPRESSION: 1. Suspect interstitial pulmonary edema and/or pneumonitis superimposed upon emphysema. Reviewed, dictated and finalized at location R. IMPRESSION: 1. Suspect interstitial pulmonary edema and/or pneumonitis superimposed upon e mphysema.
--- NOTE | 2024-12-27 09:51 | ECG_ITS ---
Test Date: 2024-12-27 10:18:09 Measurements Intervals Walker Rate: 64 P: 86 NH: 134 QRS: 49 QRSD: 74 T: 58 QT: 383 QTc: 397 Interpretive Statements SINUS RHYTHM WITH MARKED SINUS ARRHYTHMIA LEFT VENTRICULAR HYPERTROPHY AND ST-T CHANGE BORDERLINE ST-T WAVE ABNORMALITY- INF/HIGH LAT LEADS BASELINE ARTIFACT- I, II, III, AVR, AVL, AVF, V1-V6 BORDERLINE ECG No previous ECG available for comparison Electronically Signed On 12-27-2024 10:52:39 CDT by Jorge Alberto Olvera D.O.
--- NOTE | 2024-12-27 09:53 | ED_ITS ---
HPI - General Adult General Chief complaint: Shortness of Breath/Dyspnea Stated complaint: short of breath Time Seen by Provider: 12/27/24 09:51 History of Present Illness HPI narrative: Ragini is an 84F with a PMH of CHF, COPD, Afib and GERD that presented to the ED via EMS for dyspnea. It started this morning but she has had worsening dyspnea on exertion for some time. She denied cough, CP, fevers, body aches and lightheadedness. Related Data Home Medications ?Medication ?Instructions ?Recorded ?Confirmed ?Last Taken ?Type aspirin 81 mg tablet,delayed 81 mg PO DAILY 05/04/19 0 10/10/23 03/10/22 History release (Adult Low Dose Aspirin) albuterol sulfate 90 mcg/actuation 2 puff inhalation B ID 03/11/22 10/10/23 03/11/22 History aerosol inhaler (Ventolin HFA) Allergies Allergy/AdvReac Type Severity Reaction Status Date / Time No Known Allergies Allergy Verified 10/10/23 11:38 Review of Systems 2 Review of Systems: All systems reviewed & are unremarkable except as noted in HPI and below PMFSH Past Medical History Medical History Intertrochanteric fracture of right hip CAP (community acquired pneumonia) Edema of both legs TALBERT (dyspnea on exertion) Weakness Pulmonary edema COPD exacerbation Pneumonia due to 2019 novel coronavirus COVID-19 Hypertension COPD (chronic obstructive pulmonary disease) Asthma Surgical History Surgical History History of open reduction and internal fixation (ORIF) procedure (~03/15/22) ORIF right hip fracture with cephalomedullary nail ORIF right distal radius fracture with volar plate Social History Social History Social History: the patient is . She has 3 daughters. 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 She now lives with her 1 daughter in [place]. She believes that her daughter is the durable power civil rights attorney for healthcare. The patient is a former smoker. She does not use any alcohol marijuana or illicit drugs. Code status full code Smoking packs per day: 0.75 Smoking cigarettes per day: 15.0 Years smoked: 30 Smoking pack-years: 22.50 Smoking status: Former smoker Second hand tobacco smoke exposure: No Additional smoking assessment comments: Quit July 2015. 50 pack-year history Alcohol intake: never Substance use: never Substance use type: does not use Lack of Transportation: No Lack of Food: Never True Current Housing: I Have Housing Concerned About Future Housing: No Difficulty Paying Gas/Electric Bills: No Difficulty Paying for Meds: No Currently Unemployed: No Education: Grade School Difficulty w/ Childcare or Family Care: No Living arrangements: with family Additional living arrangements comments: Lives with daughter, Elinor and son in law Sky. Occupation/Education: retired Gender identity (if verbalized by the patient): Female Sexual Orientation (if Verbalized by the Patient): Straight or Heterosexual Spiritual care concerns: No Exam 2 Const: General: comfortable, no acute distress, well developed, alert, awake and Physically active Orientation/consciousness: oriented to person, oriented to place and oriented to time Other: chronically ill appearing. HENMT: Head: normal to inspection, normocephalic and atraumatic Ears: h earing grossly normal bilaterally and external ears normal Face/Nose/Sinus: N ormal external nose present Eyes: General: appearance normal, both eyes and all related structures P eriorbital: periorbital findings normal Sclera: sclerae normal Pupils: E qual, round and reactive pupils present Neck: Neck: normal visual inspection Chest: Chest palpation & inspection: normal inspection of the chest Resp: Effort & Inspection: normal respiratory effort, able to speak in complete sentences and no respiratory distress Auscultation: clear to auscultation bilaterally Other: diffuse wheezing with prolonged expiratory phase and poor air movement Cardio: Jugular venous distension: no JVD Rate: regular rate Rhythm: r egular rhythm Skin: General skin exam: normal color and no rashes or lesions noted Neuro: General: oriented to person, oriented to place and oriented to time Cranial nerves: Yes Equal, round and reactive pupils present Extrem: General: normal to inspection Course Course Emergency Course: Ordered CXR, labs, methylprednisolone and duoneb as well as EKG EKG shows NSR with a rate of 64, normal axis, No ST elevation but LVH Examination: XR chest 1V portable Clinical History: dyspnea Comparison: 11/29/2022 Technique: Portable AP Findings: Heart size normal. Chronic hyperinflation and interstitial changes. Worsening superimposed interstitial changes. No acute bony abnormality. IMPRESSION: 1. Suspect interstitial pulmonary edema and/or pneumonitis superimposed upon emphysema. Given doxycycline and IV lasix given elevated BNP and CXR findings. Will plan to treat for CHF and COPD exacerbation Examination: XR wrist RT min 3V Clinical History: chronic Rt. wrist pain/weakness Comparison: 03/11/2022 Technique: 3 views right wrist Findings/impression: 1. Radial plate and screw fixation intact without associated hardware failure or fracture. 2. No other acute abnormality noted. 3. Widening of scapholunate interval; early SLAC wrist. Vital Signs Vital signs: Vital Signs Temperature 98.2 F 12/27/24 09:47 Pulse Rate 75 12/27/24 09:47 Respiratory Rate 24 H 12/27/24 09:47 Blood Pressure 188/83 H 12/27/24 09:47 Pulse Oximetry 94 12/27/24 09:47 Oxygen Delivery Nasal Cannula 12/27/24 09:47 Oxygen Flow Rate 3 12/27/24 09:47 Temperature 98.2 F 12/27/24 09:47 Pulse Rate 70 12/27/24 11:16 Respiratory Rate 15 12/27/24 11:16 Blood Pressure 174/81 H 12/27/24 11:01 Pulse Oximetry 95 12/27/24 11:01 Oxygen Delivery Nasal Cannula 12/27/24 11:01 Oxygen Flow Rate 3 12/27/24 11:01 Medical Decision Making Vital Signs Vital Signs: Vital Signs Temperature 98.2 F 12/27/24 09:47 Pulse Rate 75 12/27/24 09:47 Respiratory Rate 24 H 12/27/24 09:47 Blood Pressure 188/83 H 12/27/24 09:47 Pulse Oximetry 94 12/27/24 09:47 Oxygen Delivery Nasal Cannula 12/27/24 09:47 Oxygen Flow Rate 3 12/27/24 09:47 Temperature 98.2 F 12/27/24 09:47 Pulse Rate 70 12/27/24 11:16 Respiratory Rate 15 12/27/24 11:16 Blood Pressure 174/81 H 12/27/24 11:01 Pulse Oximetry 95 12/27/24 11:01 Oxygen Delivery Nasal Cannula 12/27/24 11:01 Oxygen Flow Rate 3 12/27/24 11:01 Lab Data 12/27/24 10:00 12/27/24 10:00 Labs: Lab Results 12/27/24 Range/Units 10:00 WBC 6.9 (4.8-10.8) K/mm3 RBC 3.85 L (4.20-5.40) M/mm3 Hgb 12.0 (11.7-13.8) g/dL Hct 37.8 (35.0-42.0) % MCV 98.2 (78.0-102.0) fL MCH 31.2 H (27.0-31.0) pg MCHC 31.7 L (32-36) g/dL RDW 13.0 (11.6-14.4) % Plt Count 168 (150-420) K/mm3 MPV 9.1 L (9.2-11.8) fl Immature Gran % (Auto) 0.4 H (0.0-0.0) % Neut % (Auto) 59.3 (50.0-70.0) % Lymph % (Auto) 27.7 (18.0-42.0) % Bucks % (Auto) 7.7 (2.0-11.0) % Eos % (Auto) 4.5 (1.0-6.0) % Baso % (Auto) 0.4 (0.0-1.0) % Lymph # (Auto) 1.91 (1.10-4.50) K/mm3 Bucks # (Auto) 0.53 (0.10-0.90) K/mm3 Eos # (Auto) 0.31 (0.02-0.50) K/mm3 Baso # (Auto) 0.03 (0.00-0.10) K/mm3 Abs Immat Gran (auto) 0.03 H (0.00-0.00) K/mm3 Absolute Neuts (auto) 4.09 (1.70-7.20) K/mm3 Absolute Nucleated RBC 0.00 (0.00-0.00) K/mm3 Nucleated RBC % 0.0 (0-0.0) % Sodium 139 (137-145) mmol/L Potassium 4.4 (3.4-5.0) mmol/L Chloride 99 (98-107) mmol/L Carbon Dioxide 36 H (22-30) mmol/L Anion Gap 4 (4-12) mmol/L BUN 21 H (7-17) mg/dL Creatinine 0.63 L (0.7-1.0) mg/dL Estim Creat Clear Calc Not Reportable Estimated GFR > 60 (59 - ) Glucose 109 (65-110) mg/dL Calculated Osmolality 292 (285-295) mOsm/kg Calcium 10.1 (8.4-10.2) mg/dL Magnesium 2.1 (1.6-2.3) mg/dL Total Bilirubin 0.7 (0.2-1.3) mg/dL AST 31 (14-36) U/L ALT 16 (6-35) U/L Alkaline Phosphatase 69 (38-126) U/L Troponin I < 0.012 (0.000-0.034) ng/mL NT-Pro-B Natriuret Pep 378 H (19.9-100) pg/mL Total Protein 7.9 (6.3-8.2) g/dL Albumin 4.5 (3.5-5.1) g/dL Influenza A (RT-PCR) Negative (Negative) Influenza B (RT-PCR) Negative (Negative) RSV (RT-PCR) Negative (Negative) SARS-CoV-2 RNA (RT-PCR) Negative (Negative) Discharge Plan Discharge Clinical Impression: SLAC (scapholunate advanced collapse) wrist, COPD exacerbation, Chronic diastolic (congestive) heart failure Patient Disposition: Home Condition: Stable Instructions: Antibiotic Form Patient Language: Urdu Prescriptions: New prednisone 20 mg tablet 40 mg PO DAILY 4 Days Qty: 8 0RF doxycycline hyclate 100 mg tablet 100 mg PO BID Qty: 10 0RF furosemide [Lasix] 40 mg tablet 40 mg PO DAILY Qty: 5 0RF Continued aspirin [Adult Low Dose Aspirin] 81 mg tablet,delayed release (DR/EC) 81 mg PO DAILY albuterol sulfate [Ventolin HFA] 90 mcg/actuation HFA aerosol inhaler 2 puff inhalation BID acetaminophen [Mapap (acetaminophen)] 325 mg Tablet 650 mg PO Q6HR Qty: 30 0RF sennosides-docusate sodium [Senokot-S] 8.6-50 mg Tablet 1 tab-cap PO Q12HR PRN (Reason: constipation) Qty: 30 0RF magnesium oxide 400 mg magnesium tablet 400 mg PO DAILY Qty: 30 5RF benzonatate 200 mg capsule 200 mg PO BID PRN (Reason: cough) Qty: 20 0RF Perforomist 20 mcg/2 mL solution for nebulization See Rx Instructions .ROUTE .COMPLEX Qty: 60 11RF Dose Instruction: USE 1 VIAL IN NEBULIZER TWICE DAILY - - Morning and Evening Rx Instructions: USE 1 VIAL IN NEBULIZER TWICE DAILY - - Morning and Evening Yupelri 175 mcg/3 mL solution for nebulization See Rx Instructions .ROUTE .COMPLEX Qty: 30 11RF Dose Instruction: USE 1 VIAL IN NEBULIZER DAILY - Home Mortgage Disclosure Act Specialist Before Breakfast Rx Instructions: USE 1 VIAL IN NEBULIZER DAILY - Home Mortgage Disclosure Act Specialist Before Breakfast budesonide 0.5 mg/2 mL suspension for nebulization See Rx Instructions .ROUTE .COMPLEX Qty: 60 11RF Dose Instruction: USE 1 VIAL IN NEBULIZER TWICE DAILY - - Rinse Mouth After Use Rx Instructions: USE 1 VIAL IN NEBULIZER TWICE DAILY - - Rinse Mouth After Use metoprolol succinate 50 mg tablet extended release 24 hr See Rx Instructions .ROUTE .COMPLEX Qty: 90 3RF Dose Instruction: TAKE 1 TABLET BY MOUTH EVERY MORNING Rx Instructions: TAKE 1 TABLET BY MOUTH EVERY MORNING theophylline 300 mg tablet extended release 12 hr See Rx Instructions .ROUTE .COMPLEX Qty: 90 3RF Dose Instruction: TAKE 1 TABLET BY MOUTH DAILY Rx Instructions: TAKE 1 TABLET BY MOUTH DAILY lisinopril 10 mg tablet See Rx Instructions .ROUTE .COMPLEX Qty: 90 3RF Dose Instruction: TAKE 1 TABLET BY MOUTH DAILY AT 5PM, DIRECTED Rx Instructions: TAKE 1 TABLET BY MOUTH DAILY AT 5PM, DIRECTED potassium chloride 10 mEq tablet,ER particles/crystals See Rx Instructions .ROUTE .COMPLEX Qty: 90 3RF Dose Instruction: TAKE 1 TABLET BY MOUTH DAILY Rx Instructions: TAKE 1 TABLET BY MOUTH DAILY Held furosemide 20 mg tablet See Rx Instructions .ROUTE .COMPLEX Qty: 90 0RF Hold Instructions: Resume on 01/02/25. Dose Instruction: TAKE 1 TABLET BY MOUTH EVERY OTHER DAY Rx Instructions: TAKE 1 TABLET BY MOUTH EVERY OTHER DAY Follow-up/Referrals: Muriel Zhao NP [Primary Care Provider, Family Practice]
[2024-12-27] MEDS: IPRATROPIUM 0.5 MG/ALBUTEROL SULFATE 2.5 MG (BASE) AMPUL.NEB 3 ML INHALATION (10:03)
[2024-12-27 10:05] LABS: Hematocrit 37.8 % (35.0-42.0); Hemoglobin 12.0 g/dL (11.7-13.8); Immature Granulocyte Percent A 0.4 % (0.0-0.0); Lymphocytes Absolute Auto 1.91 K/mm3 (1.10-4.50); Mean Corpuscular HGB Conc 31.7 g/dL (32-36); Mean Corpuscular Hemoglobin 31.2 pg (27.0-31.0); Mean Corpuscular Volume 98.2 fL (78.0-102.0); Nucleated Red Blood Cells Absolute Auto 0.00 K/mm3 (0.00-0.00); Nucleated Red Blood Cells Perc 0.0 % (0-0.0); Platelet Count Result 168 K/mm3 (150-420); Red Blood Count 3.85 M/mm3 (4.20-5.40); White Blood Count 6.9 K/mm3 (4.8-10.8)
[2024-12-27 10:18] LABS: Alanine Aminotransferase 16 U/L (6-35); Albumin Level 4.5 g/dL (3.5-5.1); Alkaline Phosphatase 69 U/L (38-126); Anion Gap 4 mmol/L (4-12); Aspartate Amino Transferase 31 U/L (14-36); Bilirubin,Total 0.7 mg/dL (0.2-1.3); Blood Urea Nitrogen 21 mg/dL (7-17); Calcium 10.1 mg/dL (8.4-10.2); Carbon Dioxide 36 mmol/L (22-30); Chloride 99 mmol/L (98-107); Estimated Glomerular Filt Rate > 60; Glucose 109 mg/dL (65-110); Magnesium 2.1 mg/dL (1.6-2.3); Osmolality Calculated 292 mOsm/kg (285-295); Potassium 4.4 mmol/L (3.4-5.0); Sodium 139 mmol/L (137-145); Total Protein 7.9 g/dL (6.3-8.2)
[2024-12-27 10:27] LABS: NT Pro B Type Natriuretic Pept 378 pg/mL (19.9-100)
[2024-12-27 10:30] LABS: Troponin I < 0.012 ng/mL (0.000-0.034)
[2024-12-27 10:41] LABS: Influenza A QL RT-PCR Negative (Negative); Influenza B QL RT-PCR Negative (Negative); RSV RNA, RT-PCR Negative (Negative); SARS-CoV-2 RNA PCR Negative (Negative)
[2024-12-27] MEDS: DOXYCYCLINE HYCLATE 100 MG TABLET PO (11:03)
[2024-12-27] MEDS: FUROSEMIDE INJ 40 MG/4 ML VIAL IV PUSH (11:03)
--- NOTE | 2024-12-27 11:13 | PC.NURSE ---
dr gallego in with pt and family , discussing plan of care.
== END 2024-12-27 11:46 | disposition home or self-care (01) ==
PROVIDERS: Emergency Provider Family Medicine; PCP Nurse Practitioner Family
DX: M19.031 Primary osteoarthritis, right wrist (principal); I11.0 Hypertensive heart disease with heart failure; I50.9 Heart failure, unspecified; J44.9 Chronic obstructive pulmonary disease, unspecified; Z87.891 Personal history of nicotine dependence; Z20.822 Contact with and (suspected) exposure to COVID-19
CPT/HCPCS: 36415; 71045; 73110; 80053; 83735; 83880; 84484; 85025; 87637; 93005; 94640; 96374; 96375; 99284; A9270; J1938; J2919

== ENCOUNTER 2025-01-30 18:05 | Observation (INO) | payer MEDICARE, OTHER, SELFPAY ==
--- OUTSIDE RECORDS SUMMARY | 2024-09-10 07:10 | XMS_ITS ---
Author Organization [facility] Address [address] [place], [place] [id number] Care Team Providers Care Second Hand Name Role Phone JAZMINE GRAY Unavailable [phone] Greyson Vogt Unavailable Unavailable Allergies No Known Allergies REASON FOR VISIT *General care Medications Medication SIG (Take, Route, Frequency, Duration) Notes Start Date End Date Status Theophylline Active Potassimin Active Vital Signs Height 62 in 09/10/2024 Weight 84 lbs 09/10/2024 BMI 15.36 kg/m2 09/10/2024 Height-cm 157.48 cm 09/10/2024 Weight-kg 38.1 kg 09/10/2024 Encounters Encounter Location Date Provider Diagnosis [address] [id number] 09/10/2024 JAZMINE GRAY Tinea unguium B35.1 ; Pain in right toe(s) M79.674 ; Pain in left toe(s) M79.675 and Atherosclerosis of nikolai arteries of extremities with intermittent claudication, bilateral legs I70.213 Assessments Encounter Date Diagnosis (ICD Code) Assessment Notes Treatment Notes Treatment Clinical Notes Section Notes 09/10/2024 Tinea unguium (ICD-10 - B35.1) FUNGAL TOENAILS: Discussed various treatment options for fungal toenails including debridement, topical antifungals, oral antifungals, toenail avulsion, or toenail matrixectomy. NAIL DEBRIDEMENT: Nails 1-5 Bilateral were debrided extensively with nail nippers and emery board, reducing length and girth to pink healthy tissue with any subungual debris and necrotic tissue removed 09/10/2024 Pain in right toe(s) (ICD-10 - M79.674) 09/10/2024 Pain in left toe(s) (ICD-10 - M79.675) 09/10/2024 Atherosclerosis of nikolai arteries of extremities with intermittent claudication, bilateral legs (ICD-10 - I70.213) Patient educated on risks and aggravating factors of PVD, including conservative treatment options such as a diet and exercise regimen to aid in slowing progression of vascular disease. Check and protect LE bilateral daily. Call if any changes or concerns. Plan Of Treatment Treatment Notes Assessment Notes Tinea unguium FUNGAL TOENAILS: Discussed various treatment options for fungal toenails including debridement, topical antifungals, oral antifungals, toenail avulsion, or toenail matrixectomy. NAIL DEBRIDEMENT: Nails 1-5 Bilateral were debrided extensively with nail nippers and emery board, reducing length and girth to pink healthy tissue with any subungual debris and necrotic tissue removed Atherosclerosis of nikolai ar teries of extremities with intermittent claudication, bilateral legs Patient educated on risks and aggravatin g factors of PVD, including conservative treatment options such as a diet and exercise regimen to aid in slowing progression of vascular disease. Check and protect LE bilateral daily. Call if any changes or concerns. Next Appt Details Follow Up: 10-12 Weeks, Reas on: At Risk Foot care, sooner if problems arise Provider Name:JAZMINE MARTINEZ, 06/10/2025 01:30:00 PM, [address] [place] [address], [phone], History and Physical Notes * HPI (History of Present Illness) Category Sub-Category Detail Notes Category Not es HPI General care Patient presents to the office for at risk foot care. Patient states that their nails are thickened, elongated and painful. Patient states that it is aggravated by shoe gear. Onset is gradual. Patient denies being diabetic. Patient denies taking prescription blood thinners but does take a daily aspirin. Date last seen by Dr. Vogt was ?. Initials sea Examination Category Sub-Category Detail Notes Category Not es Dermatologic Skin findings: Skin is thin, at rophic and lacking pedal hair Nail pathology: Nails 1, 2, 3, 4, an d 5 bilateral are elongated, thick, discolored, and dystrophic with subungual debris. They are painful to palpation Neurologic Gross sensation Gross sensation is intact to light touch Vascular Dorsalis pedis pulse: 1/4 bilateral Edema: No edema, bilateral Capillary refill: greater than 3 secon ds Posterior tibial pulse: 0/4 bilateral Musculoskeletal Muscle Strength Muscle strength is 5/5 in regards to dorsiflexion, plantarflexion, inversion, and eversion in bilateral lower extremities Constitutional Constitutional The patient is a wake, alert, well developed, well groomed and well nourished Progress Notes * Ragini MCMILLANDOB:1940 (84 yo F)Acc No.[id number]:09/10/2024 Patient: Ragini Sotomayor Provider: Ranulfo GRAY :1940 A ge:84 Y S ex:Female Date:09/10/2024 [facility] [id number] Subjective: * Chief Complaints: * * General care * HPI: H PI: General care f or Domenic sanchez presents to the office for at risk foot care. Patient states that their nails are thickened, elongated and painful. Patient states that it is aggravated by shoe gear. Onset is gradual. Patient denies being diabetic. Patient denies taking prescription blood thinners but does take a daily aspirin. Date last seen by Dr. Vogt was ?. Initials sea. * ROS: G eneral / Constitutional: Patient denies w eakness. R espiratory: Patient denies c hronic cough, shortness of breath, sputum production. C ardiovascular: Patient denies c hest pain, history of OK, irregular heartbeat. M usculoskeletal: Patient complains of h ammertoes, arch pain. ? P eripheral Vascular: Patient denies b lanching of skin, cold extremities, decreased sensation in extremities. S kin: Patient complains of f ungal nails, nail changes. ? N eurologic: Patient denies d izziness, gait abnormality, headache. * Medical History: No Medical History Documented Medical History Verified * Family History: N o Family History documented.. F amily History Verified.. * Social History: Social History Verified. No Social History documented. * Medications: T akingPotassimin Theophylline Medication List reviewed and reconciled with the patientTaking Potassimin Taking Theophylline Medication List reviewed and reconciled with the patient * Allergies: N .K.JonnAllergies Verified. Objective: * Vitals: S hoe Size: 7, Wt: 84 lbs, Wt-k.1 kg, Ht: 62 in, Ht-cm: 157.48 cm, BMI: 15.36 Index, Body Surface Area: 1.29. * Examination: C onstitutional: Constitutional T he patient is awake, alert, well developed, well groomed and well nourished. D ermatologic: Skin findings: S kin is thin, atrophic and lacking pedal hair. Nail pathology: N ails 1, 2, 3, 4, and 5 bilateral are elongated, thick, discolored, and dystrophic with subungual debris. They are painful to palpation. ? V ascular: Dorsalis pedis pulse: 1 /4 b ilateral. Posterior tibial pulse: 0 /4 b ilateral. Capillary refill: g reater than 3 seconds. Edema: N o edema, bilateral. N eurologic: Gross sensation G ross sensation is intact to light touch.? M usculoskeletal: Muscle Strength M uscle strength is 5/5 in regards to dorsiflexion, plantarflexion, inversion, and eversion in bilateral lower extremities. ? Assessment: * Assessment: 1. T inea unguium - B35.1 (Primary) 2 . P ain in right toe(s) - M79.674? 3. P ain in left toe(s) - M79.675 4 . A therosclerosis of nikolai arteries of extremities with intermittent claudication, bilateral legs - I70.213 Plan: * Treatment: 2. A therosclerosis of nikolai arteries of extremities with intermittent claudication, bilateral legs Notes: Patient educated on risks and aggravating factors of PVD, including conservative treatment options such as a diet and exercise regimen to aid in slowing progression of vascular disease. Check and protect LE bilateral daily. Call if any changes or concerns. * Procedure Codes: 1 1721 DEBRIDE NAIL, 6 OR MORE, Modifiers: Q8 * Follow Up: 1 0-12 Weeks (Reason: At Risk Foot care, sooner if problems arise) Billing Information: * Procedure Codes: 28480 DEBRIDE NAIL, 6 OR MORE. Modifiers: Q8 * Electronic signature of CLOVIS GRAY DPM on 01/30/2025 at 06:07 PM [employer] Sign off status: Pending * Provider: Ranulfo GRAY Date: 0 09/10/2024 Generated for Pascual baez/Dulce Maria/Taniya on: 1 04/01/2024 06:07 PM [employer]
--- OUTSIDE RECORDS SUMMARY | 2024-12-10 07:10 | XMS_ITS ---
Author Organization [facility] Address [address] [place], [place] [id number] Care Team Providers Care Cam Milling Machine Operator Name Role Phone JAZMINE GRAY Unavailable [phone] Greyson Vogt Unavailable Unavailable Allergies No Known Allergies REASON FOR VISIT *General care Medications Medication SIG (Take, Route, Frequency, Duration) Notes Start Date End Date Status Potassimin Active Theophylline Active Vital Signs Height 62 in 12/10/2024 Weight 84 lbs 12/10/2024 BMI 15.36 kg/m2 12/10/2024 Height-cm 157.48 cm 12/10/2024 Weight-kg 38.1 kg 12/10/2024 Encounters Encounter Location Date Provider Diagnosis [address] [id number] 12/10/2024 JAZMINE GRAY Tinea unguium B35.1 ; Pain in right toe(s) M79.674 ; Pain in left toe(s) M79.675 and Atherosclerosis of [place] arteries of extremities with intermittent claudication, bilateral [...] toe(s) (ICD-10 - M79.675) 12/10/2024 Atherosclerosis of [place] arteries of extremities with intermittent claudication, bilateral [...] debris and necrotic tissue removed Atherosclerosis of [place] ar teries of extremities with intermittent claudication, [...] arise Provider Name:JAZMINE MARTINEZ, 06/10/2025 01:30:00 PM, [address] [place] [address], [phone], History and Physical Notes * HPI (History [...] Notes * Ragini MCMILLANDOB:1940 (84 yo F)Acc No.[id number]:12/10/2024 Patient: Ragini Sotomayor Provider: Ranulfo GRAY :1940 A ge:84 Y S ex:Female Date:12/10/2024 Address:[address] [place] [address] [id number] Subjective: * Chief Complaints: * * General [...] Patient denies c hest pain, history of [place], irregular heartbeat. M usculoskeletal: Patient complains of [...] - M79.675 4 . A therosclerosis of [place] arteries of extremities with intermittent claudication, bilateral legs - I70.213 Plan: * Treatment: 2. A therosclerosis of [place] arteries of extremities with intermittent claudication, bilateral legs Notes: Patient educated on risks and aggravating factors of PVD, including conservative treatment options such as a diet and exercise regimen to aid in slowing progression of vascular disease. Check and protect LE bilateral daily. Call if any changes or concerns. * Preventive Medicine: Screenings: F all risk screening F all Risk Assessment: N o falls in the past year. * Follow Up: 1 0-12 Weeks (Reason: At Risk Foot care, sooner if problems arise) Billing Information: * Procedure Codes: * Electronic signature of CLOVIS GRAY DPM on 01/30/2025 at 06:07 PM HORIZONTAL BORING MILL OPERATOR Sign off status: Pending * Provider: Ranulfo GRAY Date: Generated for Pascual baez/Dulce Maria/Taniya on: 04/01/2024 06:07 PM HORIZONTAL BORING MILL OPERATOR
[2025-01-30] VITALS (7 sets, daily range): BP systolic 141–187; BP diastolic 76–90; PULSE 61–70; RESP 17–24; TEMP 36.4–36.6; O2SAT 97–99; BMI 14.9
--- NOTE | ~2025-01-30 | XR_ITS ---
EXAMINATION: XR chest 1V portable COMPARISON: No comparisons available. HISTORY: Shortness of breath FINDINGS: COPD changes are noted otherwise the lungs appear clear No pneumothorax. Heart is normal size. Mediastinal and hilar contours are within normal limits. Bony thorax no acute abnormality. Miscellaneous: None Impression: No acute cardiopulmonary abnormality. Reviewed, dictated and finalized at location P. LASS CLIP ATTACHER Impression: No acute cardiopulmonary abnormality.
--- NOTE | ~2025-01-30 | XR_ITS ---
EXAMINATION: XR chest 2V, 01/31/2025 8:31 CIGARETTE FILTER INSPECTOR HISTORY: SOB/ Wheezing/ COPD COMPARISON: No comparisons available. Technique: 2 views obtained. Findings: COPD changes with trace left basilar infiltrate. No pneumothorax. Heart is normal size. Mediastinal and hilar contours are within normal limits. Bony thorax no acute abnormality. Impression: Early left lower lobe pneumonia superimposed on chronic lung disease. The findings appear relatively unchanged. Reviewed, dictated and finalized at location P. RETTE FILTER INSPECTOR Impression: Early left lower lobe pneumonia superimposed on chronic lung disease. The findi ngs appear relatively unchanged.
--- OUTSIDE RECORDS SUMMARY | 2025-01-30 18:07 | XMS_ITS | Patient Health Record ---
Author Organization [facility] Address [address] [place], [place] [id number] Care Team Providers Care Pediatric Immunologist Name Role Phone JAZMINE GRAY Unavailable [phone] Greyson Vogt Unavailable Unavailable JUDIT MENDOZA Unavailable [phone] Allergies No Known Allergies Reason For Referral No Information Medications Medication SIG (Take, Route, Frequency, Duration) Notes Start Date End Date Status Potassimin Active Theophylline Active Vital Signs Height-cm 157.48 cm 12/10/2024 Weight-kg 38.1 kg 12/10/2024 Height 62 in 12/10/2024 Weight 84 lbs 12/10/2024 BMI 15.36 kg/m2 12/10/2024 Encounters Encounter Location Date Provider Diagnosis [address] [id number] 09/10/2024 JAZMINE GRAY Tinea unguium B35.1 ; Pain in right toe(s) M79.674 ; Pain in left toe(s) M79.675 and Atherosclerosis of [place] arteries of extremities with intermittent claudication, bilateral legs I70.[address] [id number] 12/10/2024 JAZMINE GRAY Tinea unguium B35.1 ; Pain in right toe(s) M79.674 ; Pain in left toe(s) M79.675 and Atherosclerosis of [place] arteries of extremities with intermittent claudication, bilateral legs I70.[address] [id number] 07/09/2024 JUDIT MENDOZA Tinea unguium B35.1 ; Pain in right toe(s) M79.674 ; Pain in left toe(s) M79.675 and Atherosclerosis of [place] arteries of extremities with intermittent claudication, bilateral legs I70.213 Assessments Encounter Date Diagnosis (ICD Code) Assessment Notes Treatment Notes Treatment Clinical Notes Section Notes 07/09/2024 Tinea unguium (ICD-10 - B35.1) FUNGAL TOENAILS: Discussed various treatment options for fungal toenails including debridement, topical antifungals, oral antifungals, toenail avulsion, or toenail matrixectomy. NAIL DEBRIDEMENT: Nails 1-5 Bilateral were debrided extensively with nail nippers and emery board, reducing length and girth to pink healthy tissue with any subungual debris and necrotic tissue removed 07/09/2024 Pain in right toe(s) (ICD-10 - M79.674) 09/10/2024 Tinea unguium (ICD-10 - B35.1) FUNGAL [...] in right toe(s) (ICD-10 - M79.674) 12/10/2024 Tinea unguium (ICD-10 - B35.1) FUNGAL [...] in left toe(s) (ICD-10 - M79.675) 09/10/2024 Pain in left toe(s) (ICD-10 - M79.675) 07/09/2024 Pain in left toe(s) (ICD-10 - M79.675) 07/09/2024 Atherosclerosis of [place] arteries of extremities with intermittent claudication, bilateral legs (ICD-10 - I70.213) 09/10/2024 Atherosclerosis of [place] arteries of extremities with intermittent claudication, bilateral legs (ICD-10 - I70.213) Patient educated on risks and aggravating factors of PVD, including conservative treatment options such as a diet and exercise regimen to aid in slowing progression of vascular disease. Check and protect LE bilateral daily. Call if any changes or concerns. 12/10/2024 Atherosclerosis of [place] arteries of extremities with intermittent claudication, bilateral legs (ICD-10 - I70.213) Patient educated on risks and aggravating factors of PVD, including conservative treatment options such as a diet and exercise regimen to aid in slowing progression of vascular disease. Check and protect LE bilateral daily. Call if any changes or concerns. Plan Of Treatment Next Appt Details Provider Name:JAZMINE MARTINEZ, 06/10/2025 01:30:00 PM, [address] [place] [address], [phone], Insurance Providers Payer Name Payer Address Payer Phone Subscriber Number Group Number Insured Name Patient Relationship to Insured Coverage Start Date Coverage End Date Medicare Part B [facility] [address] [place] [phone] [id number] Ragini Rodas Self - patient is the insured [employer] [address] [place] [address] [id number] Ragini Rodas Self - patient is the insured
--- OUTSIDE RECORDS SUMMARY | 2025-01-30 18:07 | XMS_ITS | Clinical Summary ---
Author Organization [facility] Address [address] [place] [address] Care Team Providers Care Teacher Public Health Name Role Phone Muriel Zaho NP Primary Care Provider [phone] Allergies No known active allergies Medications theophylline (THEODUR) 300 mg 12 hr tablet 2 Active metoprolol XL (TOPROL-XL) 50 mg extended release tablet 2 Active potassium chloride ER 10 mEq CR tablet 2 Active lisinopril-hydr oCHLOROthiazide (ZESTORETIC) 10-12.5 mg per tablet 2 Active aspirin 81 mg enteric coated tablet Take 1 tablet (81 mg total) by mouth daily Active ipratropium (ATROVENT) 0.02 % nebulizer solution Take 2.5 mL (0.5 mg total) by nebulization every 6 (six) hours Active formoterol (PERFOROMIST) 20 mcg/2 mL nebulizer solution Take by nebulization 2 (two) times a day Active budesonide (PULMICORT) 0.25 mg/2 mL nebulizer solution Take 2 mL (0.25 mg total) by nebulization daily Rinse mouth with water after use. Do not swallow. Active revefenacin (Yupelri) 175 mcg/3 mL solution for nebulizationInd ications:Chroni c obstructive pulmonary disease, unspecified COPD type (HCC) Inhale 3 mL tufter before breakfast 90 mL 3 2 Active Active Problems No known active problems Social History Tobacco Use Types Packs/Day Years Used Date Smoking Tobacco: Former Cigarettes Q uit: 2014 Tobacco Cessation:Counseling Given: Not Answered Comments:Smoked off and one for many years until 7 or 8 years ago pt quit. Personal Safety Answer Date Recorded Getting School Help Needed Not on file 05/25 Comments Unknown Sex and Gender Information Value Date Recorded Sex Assigned at Not on file Legal Sex Female 3:14 PM CDT Gender Identity Not on file Sexual Orientation Not on file Last Filed Vital Signs Vital Sign Reading Time Taken Comments Blood Pressure 160/72 01/23/2022 11:07 AM NETWORK RELATIONS CONSULTANT pt has not taken bp meds yet today Pulse 63 01/23/2022 11:07 AM NETWORK RELATIONS CONSULTANT Temperature 36.6 C (97.8 F) 01/23/2022 11:07 AM NETWORK RELATIONS CONSULTANT Respiratory Rate 18 01/23/2022 11:0 7 AM NETWORK RELATIONS CONSULTANT Oxygen Saturation 98% 01/23/2022 11: 07 AM NETWORK RELATIONS CONSULTANT 2L of O2 Inhaled Oxygen Concentration - - Weight 38.9 kg (85 lb 12.8 oz) 01/23/2022 11:07 AM NETWORK RELATIONS CONSULTANT Height 157.5 cm (5' 2) 01/23/2022 11:0 7 AM NETWORK RELATIONS CONSULTANT Body Mass Index 15.69 01/23/2022 11:07 AM NETWORK RELATIONS CONSULTANT Plan of Treatment Not on file Insurance MEDICARE [facility] [place], [place] [id number] Care Teams Teacher Public Health Relationship Specialty Start Date End Date Muriel Zhao NP [address] [place] [address] PCP - General Nurse Practitioner 12/25/21
[2025-01-30] MEDS: IPRATROPIUM 0.5 MG/ALBUTEROL SULFATE 2.5 MG (BASE) AMPUL.NEB 3 ML INHALATION (18:20)
[2025-01-30] MEDS: MAGNESIUM SULF 2 GM/WATER 50ML 2 GM/50 ML BAG IVPB (18:31)
--- NOTE | 2025-01-30 18:31 | PC.NURSE ---
covid culture taken to lab
[2025-01-30 19:31] LABS: Hematocrit 37.7 % (35.0-42.0); Hemoglobin 11.8 g/dL (11.7-13.8); Immature Granulocyte Percent A 0.4 % (0.0-0.0); Lymphocytes Absolute Auto 1.84 K/mm3 (1.10-4.50); Mean Corpuscular HGB Conc 31.3 g/dL (32-36); Mean Corpuscular Hemoglobin 30.9 pg (27.0-31.0); Mean Corpuscular Volume 98.7 fL (78.0-102.0); Nucleated Red Blood Cells Absolute Auto 0.00 K/mm3 (0.00-0.00); Nucleated Red Blood Cells Perc 0.0 % (0-0.0); Platelet Count Result 205 K/mm3 (150-420); Red Blood Count 3.82 M/mm3 (4.20-5.40); White Blood Count 8.0 K/mm3 (4.8-10.8)
[2025-01-30 19:32] LABS: Influenza A QL RT-PCR Negative (Negative); Influenza B QL RT-PCR Negative (Negative); RSV RNA, RT-PCR Negative (Negative); SARS-CoV-2 RNA PCR Negative (Negative)
[2025-01-30 19:41] LABS: Alanine Aminotransferase 26 U/L (6-35); Albumin Level 4.3 g/dL (3.5-5.1); Alkaline Phosphatase 79 U/L (38-126); Anion Gap 6 mmol/L (4-12); Aspartate Amino Transferase 41 U/L (14-36); Bilirubin,Total 0.2 mg/dL (0.2-1.3); Blood Urea Nitrogen 21 mg/dL (7-17); Calcium 9.8 mg/dL (8.4-10.2); Carbon Dioxide 39 mmol/L (22-30); Chloride 98 mmol/L (98-107); Estimated CRCL calculation 27 ml/min; Estimated Glomerular Filt Rate > 60; Glucose 169 mg/dL (65-110); Magnesium 3.2 mg/dL (1.6-2.3); Osmolality Calculated 303 mOsm/kg (285-295); Potassium 4.2 mmol/L (3.4-5.0); Sodium 143 mmol/L (137-145); Total Protein 6.7 g/dL (6.3-8.2)
--- NOTE | 2025-01-30 19:43 | ED.SOB ---
HPI - SOB/Dyspnea General Chief Complaint: Shortness of Breath/Dyspnea Stated Complaint: sob Time Seen by Provider: 01/30/25 18:14 Source: patient and family Mode of arrival: wheelchair Limitations: physical limitation History of Present Illness HPI Narrative: This is an 84-year-old female with history of COPD and CHF currently on 3L of oxygen at home presents with some family with some increasing shortness of breath and weakness patient states that she is on 3L of oxygen at home her sats here are within normal range around 97 and 99% but feels like she just can not catch her breath. There is no chest pain no shortness of breath no fever chills no abdominal pain no nausea vomiting no diarrhea constipation MD elicited complaint: shortness of breath Pertinent past history: COPD and congestive heart failure Onset (ago): week(s) Context: recent illness Timing: constant Severity: moderate Exacerbating factors: movement Relieving factors: nothing Known history of: COPD and congestive heart failure Related Data Home Medications ?Medication ?Instructions ?Recorded ?Confirmed ?Last Taken ?Type aspirin 81 mg tablet,delayed 81 mg PO DAILY 05/04/19 10/10/23 03/10/22 History release (Adult Low Dose Aspirin) albuterol sulfate 90 mcg/actuation 2 puff inhalation BID 03/11/22 10/10/23 03/11/22 History aerosol inhaler (Ventolin HFA) Allergies Allergy/AdvReac Type Severity Reaction Status Date / Time No Known Allergies Allergy Verified 01/30/25 18:12 Review of Systems Review of Systems: All systems reviewed & are unremarkable except as noted in HPI and below PMFSH Past Medical History Medical History Intertrochanteric fracture of right hip CAP (community acquired pneumonia) Edema of both legs TALBERT (dyspnea on exertion) Weakness Pulmonary edema COPD exacerbation Pneumonia due to 2019 novel coronavirus COVID-19 Hypertension COPD (chronic obstructive pulmonary disease) Asthma Surgical History Surgical History History of open reduction and internal fixation (ORIF) procedure (~03/15/22) ORIF right hip fracture with cephalomedullary nail ORIF right distal radius fracture with volar plate Social History Social History Social History: the patient is . She has 3 daughters. 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 She now lives with her 1 daughter in [place]. She believes that her daughter is the durable power physicist light and optics for healthcare. The patient is a former smoker. She does not use any alcohol marijuana or illicit drugs. Code status full code Smoking packs per day: 0.75 Smoking cigarettes per day: 15.0 Years smoked: 30 Smoking pack-years: 22.50 Smoking status: Former smoker Second hand tobacco smoke exposure: No Additional smoking assessment comments: Quit July 2015. 50 pack-year history Alcohol intake: never Substance use: never Substance use type: does not use Lack of Transportation: No Lack of Food: Never True Current Housing: I Have Housing Concerned About Future Housing: No Difficulty Paying Gas/Electric Bills: No Difficulty Paying for Meds: No Currently Unemployed: No Education: Grade School Difficulty w/ Childcare or Family Care: No Living arrangements: with family Additional living arrangements comments: Lives with daughterElinor and son in law Sky. Occupation/Education: retired Gender identity (if verbalized by the patient): Female Sexual Orientation (if Verbalized by the Patient): Straight or Heterosexual Spiritual care concerns: No Exam Const: General: ill appearing Nutritional Appearance: thin Orientation/consciousness: patient oriented x3 Limitations: physical limitations Chest: Chest palpation & inspection: normal inspection of the chest Resp: Effort & Inspection: normal respiratory effort Auscultation: diminished lung sounds Cardio: Rate: regular rate Rhythm: regular rhythm GI: GI Palp: Yes Soft to palpation Auscultation: normal bowel sounds Skin: General skin exam: normal color Neuro: General: patient oriented x3, moves all extremities and no meningeal signs Extrem: General: normal to inspection Course Course Emergency Course: Medical decision making narrative: Patient was evaluated by myself in the emergency department. History obtained from the patient and family. Physical exam performed witnessed by nurse. External medical records were reviewed at this time. X-ray performed shows COPD changes above with no acute opacities or infiltrates Blood work shows a normal white count rest of her blood workup unremarkable. Patient did receive DuoNebs IV magnesium and IV Solu-Medrol. CMP reviewed with patient and family COVID is negative. Repeat assessment patient in no acute distress Symptoms have improved since arrival to the emergency department. Repeat vitals are stable patient currently on 3L of oxygen and satting at 99%. Family and patient agree with discussion and after shared medical decision-making and agree with admission. All questions answered to the patient and family satisfaction. Vital Signs Vital signs: Vital Signs Temperature 36.4 C 01/30/25 18:05 Pulse Rate 69 01/30/25 18:05 Respiratory Rate 24 H 01/30/25 18:05 Blood Pressure 187/80 H 01/30/25 18:05 Pulse Oximetry 99 01/30/25 18:05 Oxygen Delivery Nasal Cannula 01/30/25 18:05 Oxygen Flow Rate 3 01/30/25 18:05 Temperature 36.4 C 01/30/25 18:05 Pulse Rate 68 01/30/25 18:30 Respiratory Rate 17 01/30/25 18:30 Blood Pressure 142/80 H 01/30/25 18:30 Pulse Oximetry 99 01/30/25 18:30 Oxygen Delivery Room Air 01/30/25 18:30 Oxygen Flow Rate 3 01/30/25 18:05 MDM - SOB/Dyspnea Lab Data 01/30/25 19:23 01/30/25 19:23 Labs: Lab Results 01/30/25 01/30/25 Range/Units 18:29 19:23 WBC 8.0 (4.8-10.8) K/mm3 RBC 3.82 L (4.20-5.40) M/mm3 Hgb 11.8 (11.7-13.8) g/dL Hct 37.7 (35.0-42.0) % MCV 98.7 (78.0-102.0) fL MCH 30.9 (27.0-31.0) pg MCHC 31.3 L (32-36) g/dL RDW 13.2 (11.6-14.4) % Plt Count 205 (150-420) K/mm3 MPV 9.2 (9.2-11.8) fl Immature Gran % (Auto) 0.4 H (0.0-0.0) % Neut % (Auto) 64.7 (50.0-70.0) % Lymph % (Auto) 23.1 (18.0-42.0) % [place] % (Auto) 8.2 (2.0-11.0) % Eos % (Auto) 3.0 (1.0-6.0) % Baso % (Auto) 0.6 (0.0-1.0) % Lymph # (Auto) 1.84 (1.10-4.50) K/mm3 [place] # (Auto) 0.65 (0.10-0.90) K/mm3 Eos # (Auto) 0.24 (0.02-0.50) K/mm3 Baso # (Auto) 0.05 (0.00-0.10) K/mm3 Abs Immat Gran (auto) 0.03 H (0.00-0.00) K/mm3 Absolute Neuts (auto) 5.14 (1.70-7.20) K/mm3 Absolute Nucleated RBC 0.00 (0.00-0.00) K/mm3 Nucleated RBC % 0.0 (0-0.0) % PT Pending INR Pending APTT Pending Sodium Pending Potassium Pending Chloride Pending Carbon Dioxide Pending Anion Gap Pending BUN Pending Creatinine Pending Estim Creat Clear Calc Pending Estimated GFR Pending Glucose Pending Calculated Osmolality Pending Lactic Acid Pending Calcium Pending Magnesium Pending Total Bilirubin Pending AST Pending ALT Pending Alkaline Phosphatase Pending NT-Pro-B Natriuret Pep Pending Total Protein Pending Albumin Pending Influenza A (RT-PCR) Negative (Negative) Influenza B (RT-PCR) Negative (Negative) RSV (RT-PCR) Negative (Negative) SARS-CoV-2 RNA (RT-PCR) Negative (Negative) Critical Care Time Critical Care Time Critical Care Time: No Discharge Plan Discharge Clinical Impression: COPD (chronic obstructive pulmonary disease) Qualifiers: COPD type: unspecified COPD Qualified Code(s): J44.9 - Chronic obstructive pulmonary disease, unspecified Patient Disposition: Acute Care Hospital Condition: Guarded Prognosis Patient Language: Mauritanian Prescriptions: No Action prednisone 20 mg tablet 40 mg PO DAILY 4 Days Qty: 8 0RF doxycycline hyclate 100 mg tablet 100 mg PO BID Qty: 10 0RF furosemide [Lasix] 40 mg tablet 40 mg PO DAILY Qty: 5 0RF aspirin [Adult Low Dose Aspirin] 81 mg tablet,delayed release (DR/EC) 81 mg PO DAILY albuterol sulfate [Ventolin HFA] 90 mcg/actuation HFA aerosol inhaler 2 puff inhalation BID acetaminophen [Mapap (acetaminophen)] 325 mg Tablet 650 mg PO Q6HR Qty: 30 0RF sennosides-docusate sodium [Senokot-S] 8.6-50 mg Tablet 1 tab-cap PO Q12HR PRN (Reason: constipation) Qty: 30 0RF magnesium oxide 400 mg magnesium tablet 400 mg PO DAILY Qty: 30 5RF benzonatate 200 mg capsule 200 mg PO BID PRN (Reason: cough) Qty: 20 0RF metoprolol succinate 50 mg tablet extended release 24 hr See Rx Instructions .ROUTE .COMPLEX Qty: 90 3RF Dose Instruction: TAKE 1 TABLET BY MOUTH EVERY MORNING Rx Instructions: TAKE 1 TABLET BY MOUTH EVERY MORNING theophylline 300 mg tablet extended release 12 hr See Rx Instructions .ROUTE .COMPLEX Qty: 90 3RF Dose Instruction: TAKE 1 TABLET BY MOUTH DAILY Rx Instructions: TAKE 1 TABLET BY MOUTH DAILY lisinopril 10 mg tablet See Rx Instructions .ROUTE .COMPLEX Qty: 90 3RF Dose Instruction: TAKE 1 TABLET BY MOUTH DAILY AT 5PM, DIRECTED Rx Instructions: TAKE 1 TABLET BY MOUTH DAILY AT 5PM, DIRECTED potassium chloride 10 mEq tablet,ER particles/crystals See Rx Instructions .ROUTE .COMPLEX Qty: 90 3RF Dose Instruction: TAKE 1 TABLET BY MOUTH DAILY Rx Instructions: TAKE 1 TABLET BY MOUTH DAILY furosemide 20 mg tablet See Rx Instructions .ROUTE .COMPLEX Qty: 90 0RF Dose Instruction: TAKE 1 TABLET BY MOUTH EVERY OTHER DAY Rx Instructions: TAKE 1 TABLET BY MOUTH EVERY OTHER DAY Perforomist 20 mcg/2 mL solution for nebulization See Rx Instructions .ROUTE .COMPLEX Qty: 60 11RF Dose Instruction: USE 1 VIAL IN NEBULIZER TWICE DAILY - - Morning and Evening Rx Instructions: USE 1 VIAL IN NEBULIZER TWICE DAILY - - Morning and Evening Yupelri 175 mcg/3 mL solution for nebulization See Rx Instructions .ROUTE .COMPLEX Qty: 30 11RF Dose Instruction: USE 1 VIAL IN NEBULIZER DAILY - Sewing Machine Bobbin Winder Before Breakfast Rx Instructions: USE 1 VIAL IN NEBULIZER DAILY - Sewing Machine Bobbin Winder Before Breakfast budesonide 0.5 mg/2 mL suspension for nebulization See Rx Instructions .ROUTE .COMPLEX Qty: 60 11RF Dose Instruction: USE 1 VIAL IN NEBULIZER TWICE DAILY - - Rinse Mouth After Use Rx Instructions: USE 1 VIAL IN NEBULIZER TWICE DAILY - - Rinse Mouth After Use Follow-up/Referrals: Geilhausen,Muriel M., SOCIAL WORKER PALLIATIVE CARE [Primary Care Provider, [facility]] Time of Disposition: 19:49
[2025-01-30 19:44] LABS: INR 1.0; Partial Thromboplastin Time 27.8 Sec (23.9-30.70); Prothrombin Time 11.3 Seconds (9.50-12.1)
[2025-01-30 19:50] LABS: NT Pro B Type Natriuretic Pept 664 pg/mL (19.9-100)
[2025-01-30] MEDS: SODIUM CHLORIDE 0.9% IV 1,000 ML 100 ML IV CONT (20:31)
[2025-01-30] MEDS: DOXYCYCLINE HYCLATE 100 MG TABLET PO (20:31)
[2025-01-31] VITALS (11 sets, daily range): BP systolic 117–141; BP diastolic 57–80; PULSE 60–72; RESP 18; TEMP 36.4–36.8; O2SAT 96–100
[2025-01-31] MEDS: IPRATROPIUM 0.5 MG/ALBUTEROL SULFATE 2.5 MG (BASE) AMPUL.NEB 3 ML INHALATION ×4 (00:38→17:43)
[2025-01-31 05:52] LABS: Hematocrit 37.4 % (35.0-42.0); Hemoglobin 11.5 g/dL (11.7-13.8); Immature Granulocyte Percent A 0.2 % (0.0-0.0); Lymphocytes Absolute Auto 0.73 K/mm3 (1.10-4.50); Mean Corpuscular HGB Conc 30.7 g/dL (32-36); Mean Corpuscular Hemoglobin 30.4 pg (27.0-31.0); Mean Corpuscular Volume 98.9 fL (78.0-102.0); Nucleated Red Blood Cells Absolute Auto 0.00 K/mm3 (0.00-0.00); Nucleated Red Blood Cells Perc 0.0 % (0-0.0); Platelet Count Result 189 K/mm3 (150-420); Red Blood Count 3.78 M/mm3 (4.20-5.40); White Blood Count 5.3 K/mm3 (4.8-10.8)
[2025-01-31 06:04] LABS: Alanine Aminotransferase 24 U/L (6-35); Albumin Level 4.1 g/dL (3.5-5.1); Alkaline Phosphatase 77 U/L (38-126); Anion Gap 4 mmol/L (4-12); Aspartate Amino Transferase 31 U/L (14-36); Bilirubin,Total 0.1 mg/dL (0.2-1.3); Blood Urea Nitrogen 21 mg/dL (7-17); Calcium 9.3 mg/dL (8.4-10.2); Carbon Dioxide 40 mmol/L (22-30); Chloride 100 mmol/L (98-107); Estimated CRCL calculation 28 ml/min; Estimated Glomerular Filt Rate > 60; Glucose 130 mg/dL (65-110); Magnesium 2.8 mg/dL (1.6-2.3); Osmolality Calculated 303 mOsm/kg (285-295); Potassium 4.6 mmol/L (3.4-5.0); Sodium 144 mmol/L (137-145); Total Protein 6.4 g/dL (6.3-8.2)
[2025-01-31 06:16] LABS: NT Pro B Type Natriuretic Pept 1160 pg/mL (19.9-100)
[2025-01-31] MEDS: BUDESONIDE RESPULE NEB 0.5 MG/2 ML AMP INHALATION ×2 (06:29→17:43)
[2025-01-31] MEDS: METOPROLOL SUCCINATE EXT REL 50 MG TABCR BY MOUTH (08:04)
[2025-01-31] MEDS: THEOPHYLLINE 300 MG ER 12 HR TABLET BY MOUTH (08:04)
[2025-01-31] MEDS: DOXYCYCLINE HYCLATE 100 MG TABLET PO (08:05)
[2025-01-31] MEDS: FUROSEMIDE 40 MG TABLET PO (08:05)
[2025-01-31] MEDS: ASPIRIN 81 MG ENTERIC TABLET PO (08:05)
[2025-01-31] MEDS: POTASSIUM CHLORIDE 10 MEQ ER TABLET BY MOUTH (08:05)
[2025-01-31] MEDS: FUROSEMIDE 20 MG TABLET BY MOUTH (08:05)
[2025-01-31] MEDS: SODIUM CHLORIDE 0.9% IV 1,000 ML 100 ML IV CONT (08:06)
[2025-01-31] MEDS: AZITHROMYCIN 250 MG TABLET 500 MG PO (11:35)
[2025-01-31] MEDS: guaiFENesin 12 HR 600 MG TABCR PO ×2 (11:35→20:52)
[2025-01-31] MEDS: ALPRAZolam (*CRX) 0.25 MG TABLET PO ×2 (11:45→20:52)
--- NOTE | 2025-01-31 12:15 | P.HP_ITS ---
H&P: HPI History of Present Illness Date/Time: 01/31/25 12:15 Chief Complaint: SOB/ COPD exacerbation Narrative: Admission: Patient is an 84-year-old female with past medical history COPD, HTN, anxiety, and diastolic heart failure who presented to the emergency department with increased worsening COPD and inability to catch her breath. patient reports she is always short breath and barely able to ambulate to the bathroom however over the last day it had worsened and she was unable to catch her breath at which time she requested to come to the emergency department. Patient denied any chest pain, nausea, vomiting, fever, chills around any sick contacts. patient with severe end-stage COPD was following with a timber management technician outpatient but reported she longer followed up with them but is on chronic supplemental oxygen. In the ED: initial labs in the emergency department showed some mild anemia, normal WBC, and BNP of 664. Chest x-ray showing COPD changes hyperinflation no other acute cardiopulmonary abnormalities. Patient received a nebulizer treatment and IV methylprednisone in the emergency department and was admitted for further evaluation and treatment of COPD exacerbation. 01/31/2025: patient was seen assessed following day upon evaluation patient with moderate to severe work of breathing with tachypnea pursed lip breathing in use of accessory muscles. Patient reported she was extremely anxious and felt as though she could not catch her breath denied any chest pain, nausea vomiting or abdominal pain. did have a detailed long discussion with patient and her daughter bedside regarding her end-stage COPD and long-term prognosis patient reports she is a DNR DNI and is unsure if she would be able to tolerate BiPAP if ever needed. I did recommend referral and discussion with possible hospice/ palliative care at home. Review of Systems Review of Systems: All systems reviewed & are unremarkable except as noted in HPI and below PMFSH Past Medical History Medical History Intertrochanteric fracture of right hip CAP (community acquired pneumonia) Edema of both legs TALBERT (dyspnea on exertion) Weakness Pulmonary edema COPD exacerbation Pneumonia due to 2019 novel coronavirus COVID-19 Hypertension COPD (chronic obstructive pulmonary disease) Asthma Surgical History Surgical History History of open reduction and internal fixation (ORIF) procedure (~01/05/23) ORIF right hip fracture with cephalomedullary nail ORIF right distal radius fracture with volar plate Social History Social History Social History: the patient is . She has 3 daughters. 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 She now lives with her 1 daughter in [place]. She believes that her daughter is the durable power commonwealth attorney for healthcare. The patient is a former smoker. She does not use any alcohol marijuana or illicit drugs. Code status full code Smoking packs per day: 0.75 Smoking cigarettes per day: 15.0 Years smoked: 30 Smoking pack-years: 22.50 Smoking status: Former smoker Tobacco type: cigarettes Second hand tobacco smoke exposure: No Additional smoking assessment comments: Quit July 2015. 50 pack-year history Alcohol intake: never Substance use: never Substance use type: does not use Lack of Transportation: No Lack of Food: Never True Current Housing: I Have Housing Concerned About Future Housing: No Difficulty Paying Gas/Electric Bills: No Difficulty Paying for Meds: No Currently Unemployed: No Education: Grade School Difficulty w/ Childcare or Family Care: No Living arrangements: with family Additional living arrangements comments: Lives with daughter, Elinor and son in law Sky. Occupation/Education: retired Gender identity (if verbalized by the patient): Female Sexual Orientation (if Verbalized by the Patient): Straight or Heterosexual Spiritual care concerns: No Meds Home Medications and Allergies Home Medications ?Medication ?Instructions ?Recorded ?Confirmed ?Type aspirin 81 mg tablet,delayed 81 mg PO DAILY 05/04/19 1 04/01/24 History release (Adult Low Dose Aspirin) magnesium oxide 400 mg PO DAILY #30 tabs 11/3001/30/25 Rx albuterol sulfate 90 mcg/actuation 2 puff inhalation B ID 03/11/22 01/30/25 History aerosol inhaler (Ventolin HFA) acetaminophen 325 mg tablet (Mapap 650 mg (2 x 325 mg) PO Q6HR #30 03/19/22 01/30/25 Rx (acetaminophen)) tabs sennosides 8.6 mg-docusate sodium 1 tab-cap PO Q12HR P RN 03/19/22 01/30/25 Rx 50 mg tablet (Senokot-S) constipation #30 tabs metoprolol succinate 50 mg See Rx Instructions .Route 04/16/24 01/30/25 Rx tablet,extended release 24 hr .COMPLEX #90 tabs theophylline 300 mg See Rx Instructions .Route 0 04/16/24 01/30/25 Rx tablet,extended release,12 hr .COMPLEX #90 tabs lisinopril 10 mg tablet See Rx Instructions .Route 0 04/29/24 01/30/25 Rx .COMPLEX #90 tabs potassium chloride 10 mEq See Rx Instructions .Route 0 04/29/24 01/30/25 Rx tablet,extended release(part/cryst) .COMPLEX #90 tabs furosemide 20 mg tablet See Rx Instructions .Route 0 09/29/24 01/30/25 Rx Held on 12/27/24. .COMPLEX #90 tabs Instructions: Resume on 01/02/25. furosemide 40 mg tablet (Lasix) 40 mg PO DAILY #5 tabs 12/27/24 01/30/25 Rx budesonide 0.5 mg/2 mL suspension See Rx Instructions .Route 01/25/25 01/30/25 Rx for nebulization .COMPLEX #60 ea formoterol fumarate 20 mcg/2 mL See Rx Instructions .R oute 01/25/25 01/30/25 Rx solution for nebulization .COMPLEX #60 ea (Perforomist) revefenacin 175 mcg/3 mL solution See Rx Instructions .Route 01/25/25 01/30/25 Rx for nebulization (Yupelri) .COMPLEX #30 ea Allergies Allergy/AdvReac Type Severity Reaction Status Date / Time No Known Allergies Allergy Verified 01/30/25 21:50 Vital Signs Vital Signs - 24 hr 01/30/25 18:05 01/30/25 18:30 01/30/25 20:00 Temperature 97.6 F Pulse Rate 69 68 68 Respiratory Rate 24 H 17 20 Blood Pressure 187/80 H 142/80 H 141/76 H Pulse Oximetry 99 99 99 Oxygen Delivery Nasal Cannula Room Air Nasal Cannula Oxygen Flow Rate 3 2 01/30/25 20:45 01/30/25 21:00 01/30/25 21:30 Temperature 97.9 F Pulse Rate 68 61 70 Respiratory Rate 20 18 20 Blood Pressure 165/90 H Pulse Oximetry 99 98 97 Oxygen Delivery Nasal Cannula Nasal Cannula Nasal Cannula Oxygen Flow Rate 2 3 2 01/31/25 00:00 01/31/25 00:35 01/31/25 06:16 Temperature 98.2 F Pulse Rate 65 63 60 Respiratory Rate 18 18 18 Blood Pressure 141/80 H Pulse Oximetry 97 98 98 Oxygen Delivery Nasal Cannula Oxygen Flow Rate 3 3 3 01/31/25 06:42 01/31/25 08:00 01/31/25 08:00 Temperature 97.6 F Pulse Rate 69 62 62 Respiratory Rate 18 18 18 Blood Pressure 141/78 H Pulse Oximetry 100 97 97 Oxygen Delivery Nasal Cannula Nasal Cannula Oxygen Flow Rate 3 2 2 01/31/25 08:04 Temperature Pulse Rate 62 Respiratory Rate Blood Pressure Pulse Oximetry Oxygen Delivery Oxygen Flow Rate Exam Const: General: uncomfortable Other: chronically ill pleasant female HENMT: Mouth: Yes dry mucous membranes Eyes: General: appearance normal, both eyes and all related structures Neck: Neck: supple Resp: Effort & Inspection: Actively coughing, labored, pursed lip breathing, tachypneic and uses accessory muscles Auscultation: wheezes scattered wheezes Cardio: Rate: regular rate Rhythm: regular rhythm GI: GI Palp: Yes Soft to palpation Auscultation: normal bowel sounds Skin: General skin exam: normal color and no rashes or lesions noted Wounds: no wounds Neuro: General: gait normal Speech: normal speech Motor exam (neuro): 5/5 motor strength present throughout Sensory Exam: normal sensation Psych: Mental Status: mental status grossly normal Affect: Anxious affect present H&P: Results Labs Labs: Short CBC 01/30/25 01/31/25 Range/Units 19:23 05:41 WBC 8.0 5.3 (4.8-10.8) K/mm3 Hgb 11.8 11.5 L (11.7-13.8) g/dL Hct 37.7 37.4 (35.0-42.0) % Plt Count 205 189 (150-420) K/mm3 BMP 01/30/25 01/31/25 19:23 05:41 Sodium 143 144 Potassium 4.2 4.6 Chloride 98 100 Carbon Dioxide 39 H 40 H BUN 21 H 21 H Creatinine 0.79 0.75 Glucose 169 H 130 H Calcium 9.8 9.3 Liver Function 01/30/25 01/31/25 Range/Units 19:23 05:41 Total Bilirubin 0.2 0.1 L (0.2-1.3) mg/dL AST 41 H 31 (14-36) U/L ALT 26 24 (6-35) U/L Alkaline Phosphatase 79 77 (38-126) U/L Albumin 4.3 4.1 (3.5-5.1) g/dL Imaging Chest x-ray: Radiologist's impression: EXAMINATION: XR chest 1V portable COMPARISON: No comparisons available. HISTORY: Shortness of breath FINDINGS: COPD changes are noted otherwise the lungs appear clear No pneumothorax. Heart is normal size. Mediastinal and hilar contours are within normal limits. Bony thorax no acute abnormality. Miscellaneous: None Impression: No acute cardiopulmonary abnormality. Assessment and Plan Assessment and plan (1) COPD exacerbation: Code(s): J44.1 - Chronic obstructive pulmonary disease with (acute) exacerbation Status: Acute Assessment and Plan: patient with severe end-stage COPD low activity reserve * Bronchodilators Q6hr * incentive spirometry while awake. * steroids 40mg daily * azithromycin 500 daily * Mucinex * histamine started * encourage tripod breathing * Xanax t.i.d. for anxiety/ IV morphine for air hunger * supplemental oxygen therapy to maintain oxygen 92% wears 3L at home * Repeat hospitalization risk evaluation per [facility] * Follow-up with timber management technician as an outpatient recommended PFT testing outpatient (2) Chronic respiratory failure with hypoxia, on home oxygen therapy: Code(s): J96.11 - Chronic respiratory failure with hypoxia; Z99.81 - Dependence on supplemental oxygen Status: Chronic Assessment and Plan: * continue on supplemental oxygen 3 L do not go above 6 L patient is a CO2 retainer (3) Hypertension: Qualifiers: Hypertension type: unspecified Qualified Code(s): I10 - Essential (primary) hypertension Code(s): I10 - Essential (primary) hypertension Status: Chronic Assessment and Plan: * resume lisinopril * BP per unit protocol (4) Chronic diastolic (congestive) heart failure: Code(s): I50.32 - Chronic diastolic (congestive) heart failure Status: Acute Assessment and Plan: patient with history of diastolic grade 1 heart failure EF 65-70% not appear in any exacerbation at this time * changed patient's Lasix to p.r.n. with bilateral lower extremity edema due to patient's low reserve is worsening her respiratory status over time she has to use the restroom * family reported they started the Lasix when she had hyponatremia 2 years ago recommend discontinuing and continue to use just as needed (5) Anemia: Code(s): D64.9 - Anemia, unspecified Status: Acute Assessment and Plan: * hemoglobin stable at 10 no evidence of acute bleed * trend H&H * transfuse if Hgb <7.0 (6) Severe protein-calorie malnutrition: Code(s): E43 - Unspecified severe protein-calorie malnutrition Status: Acute Assessment and Plan: * recommended supplemental ensure is however patient at this time refuses * encourage regular diet (7) Anxiety: Code(s): F41.9 - Anxiety disorder, unspecified Status: Acute Assessment and Plan: patient with moderate to severe anxiety specially with COPD exacerbation and air hunger * started on sertraline nightly 25 mg can increase if needed * Xanax 0.25 t.i.d. p.r.n. for acute panic attacks Plan Code status: Full code per patient DVT prophylaxis: scd Stress ulcer prophylaxis: NA PT/OT notes: Ambulatory Disposition: patient continues admission for treatment of COPD exacerbation will continue with current treatment plan and possible referral to at home hospice will speak with care coordination as well as family and patient prior to discharge. Quality VTE Prophylaxis VTE prophylaxis: mechanical ordered -Patient's previous records reviewed on admission -ER notes reviewed in detail on admission -discussed all findings and current treatment plan with patient/Family/POA -Consultations reviewed for recommendations -Patient's disposition for safe discharge discussed with caser shoe parts -radiology imaging, EKG and test results I have personally reviewed and interpreted unless otherwise specified Dictation performed by [employer] direct speech recognition software, therefore rn geriatric variants and typographical errors may occur. Hospitalist MIPS Advance Care Plan I have confirmed that the patient's Advanced Care Plan is present, code status is documented, or surrogate decision maker is listed in patient medical record.: Yes Medication Reconciliation I have utilized all available resources to obtain, update and review the patients current medications (includes all prescriptions, OTC, herbals, cannabis, and nutritional supplements).: Yes The patient is not eligible for med reconciliation; the patient is in a emergent medical situation where delaying treatment would jeopardize the patients health.: No
[2025-01-31] MEDS: SERTRALINE HCL 25 MG TABLET PO (20:52)
[2025-01-31] MEDS: LORATADINE 10 MG TABLET PO (20:52)
[2025-02-01] VITALS (16 sets, daily range): BP systolic 90–136; BP diastolic 40–63; PULSE 54–78; RESP 16–18; TEMP 36.5–37.1; O2SAT 96–100
[2025-02-01] MEDS: IPRATROPIUM 0.5 MG/ALBUTEROL SULFATE 2.5 MG (BASE) AMPUL.NEB 3 ML INHALATION ×4 (00:32→17:14)
[2025-02-01 05:42] LABS: Hematocrit 32.5 % (35.0-42.0); Hemoglobin 10.4 g/dL (11.7-13.8); Mean Corpuscular HGB Conc 32.0 g/dL (32-36); Mean Corpuscular Hemoglobin 31.0 pg (27.0-31.0); Mean Corpuscular Volume 97.0 fL (78.0-102.0); Platelet Count Result 190 K/mm3 (150-420); Red Blood Count 3.35 M/mm3 (4.20-5.40); White Blood Count 12.0 K/mm3 (4.8-10.8)
[2025-02-01 05:52] LABS: Alanine Aminotransferase 17 U/L (6-35); Albumin Level 3.6 g/dL (3.5-5.1); Alkaline Phosphatase 65 U/L (38-126); Anion Gap 5 mmol/L (4-12); Aspartate Amino Transferase 25 U/L (14-36); Bilirubin,Total 0.1 mg/dL (0.2-1.3); Blood Urea Nitrogen 34 mg/dL (7-17); Calcium 9.2 mg/dL (8.4-10.2); Carbon Dioxide 38 mmol/L (22-30); Chloride 97 mmol/L (98-107); Estimated CRCL calculation 23 ml/min; Estimated Glomerular Filt Rate 60; Glucose 110 mg/dL (65-110); Magnesium 2.3 mg/dL (1.6-2.3); Osmolality Calculated 298 mOsm/kg (285-295); Potassium 3.6 mmol/L (3.4-5.0); Sodium 140 mmol/L (137-145); Total Protein 5.8 g/dL (6.3-8.2)
[2025-02-01] MEDS: BUDESONIDE RESPULE NEB 0.5 MG/2 ML AMP INHALATION ×2 (05:57→17:14)
[2025-02-01] MEDS: AZITHROMYCIN 250 MG TABLET 500 MG PO (09:35)
[2025-02-01] MEDS: THEOPHYLLINE 300 MG ER 12 HR TABLET BY MOUTH (09:36)
[2025-02-01] MEDS: POTASSIUM CHLORIDE 10 MEQ ER TABLET BY MOUTH (09:36)
[2025-02-01] MEDS: guaiFENesin 12 HR 600 MG TABCR PO ×2 (09:36→21:43)
[2025-02-01] MEDS: ASPIRIN 81 MG ENTERIC TABLET PO (09:36)
[2025-02-01] MEDS: METOPROLOL SUCCINATE EXT REL 50 MG TABCR BY MOUTH (09:48)
--- NOTE | 2025-02-01 11:05 | P.DS_ITS ---
DS: Admitting Diagnosis Discharge Date 02/01/2025 Admitting Diagnosis chronic respiratory failure with hypoxia and hypercapnia/COPD exacerbation/ anxiety DS: Discharge Diagnosis Discharge Diagnosis (1) COPD exacerbation: Code(s): J44.1 - Chronic obstructive pulmonary disease with (acute) exacerbation Status: Acute (2) Chronic respiratory failure with hypoxia, on home oxygen therapy: Code(s): J96.11 - Chronic respiratory failure with hypoxia; Z99.81 - Dependence on supplemental oxygen Status: Chronic (3) Hypertension: Qualifiers: Hypertension type: unspecified Qualified Code(s): I10 - Essential (primary) hypertension Code(s): I10 - Essential (primary) hypertension Status: Chronic (4) Chronic diastolic (congestive) heart failure: Code(s): I50.32 - Chronic diastolic (congestive) heart failure Status: Acute (5) Anemia: Code(s): D64.9 - Anemia, unspecified Status: Acute (6) Severe protein-calorie malnutrition: Code(s): E43 - Unspecified severe protein-calorie malnutrition Status: Acute (7) Anxiety: Code(s): F41.9 - Anxiety disorder, unspecified Status: Acute DS: Summary Hospital Course Reason for hospitalization: chronic respiratory failure with hypoxia and hypercapnia/COPD exacerbation/ anxiety Hospital Course: Admission: Patient is an 84-year-old female with past medical history COPD, HTN, anxiety, and diastolic heart failure who presented to the emergency department with increased worsening COPD and inability to catch her breath. patient reports she is always short breath and barely able to ambulate to the bathroom however over the last day it had worsened and she was unable to catch her breath at which time she requested to come to the emergency department. Patient denied any chest pain, nausea, vomiting, fever, chills around any sick contacts. patient with severe end-stage COPD was following with a sand analyst outpatient but reported she longer followed up with them but is on chronic supplemental oxygen. In the ED: initial labs in the emergency department showed some mild anemia, normal WBC, and BNP of 664. Chest x-ray showing COPD changes hyperinflation no other acute cardiopulmonary abnormalities. Patient received a nebulizer treatment and IV methylprednisone in the emergency department and was admitted for further evaluation and treatment of COPD exacerbation. Hospital Course: patient was seen assessed following day upon evaluation patient with moderate to severe work of breathing with tachypnea pursed lip breathing in use of accessory muscles. Patient reported she was extremely anxious and felt as though she could not catch her breath denied any chest pain, nausea vomiting or abdominal pain. did have a detailed long discussion with patient and her daughter bedside regarding her end-stage COPD and long-term prognosis patient reports she is a DNR DNI and is unsure if she would be able to tolerate BiPAP if ever needed. I did recommend referral and discussion with possible hospice/ palliative care at home. Patient and family agreed for hospice care at home. Patient with improvement to symptoms and patient was discharged to home with hospice care. Status at Discharge Functional status at discharge: uses cane/walker Overall status at discharge: patient is back to baseline Time Spent with Patient Time attestation: Total time spent providing and/or coordinating discharge services: Time spent: Greater than 30 minutes Exam Const: General: uncomfortable Other: chronically ill pleasant female HENMT: Mouth: Yes dry mucous membranes Eyes: General: appearance normal, both eyes and all related structures Neck: Neck: supple Resp: Effort & Inspection: Actively coughing, labored, pursed lip breathing, tachypneic and uses accessory muscles Auscultation: wheezes scattered wheezes Cardio: Rate: regular rate Rhythm: regular rhythm GI: Auscultation: normal bowel sounds Skin: General skin exam: normal color and no rashes or lesions noted Wo unds: no wounds Neuro: General: gait normal Speech: normal speech Motor exam (neuro): 5/5 motor strength present throughout Sensory Exam: normal sensation Psych: Mental Status: mental status grossly normal Affect: Anxious affect present DS: Data Data Completed and Pending Labs on day of discharge: Labs from last 24 hours 02/01/25 05:17 WBC 12.0 H RBC 3.35 L Hgb 10.4 L Hct 32.5 L MCV 97.0 MCH 31.0 MCHC 32.0 RDW 13.2 Plt Count 190 MPV 9.6 Sodium 140 Potassium 3.6 Chloride 97 L Carbon Dioxide 38 H Anion Gap 5 BUN 34 H D Creatinine 0.90 Estim Creat Clear Calc 23 Estimated GFR 60 Glucose 110 Calculated Osmolality 298 H Calcium 9.2 Magnesium 2.3 Total Bilirubin 0.1 L AST 25 ALT 17 Alkaline Phosphatase 65 Total Protein 5.8 L Albumin 3.6 Imaging Radiologist's impression: Chest x-ray: Radiologist's impression: EXAMINATION: XR chest 1V portable COMPARISON: No comparisons available. HISTORY: Shortness of breath FINDINGS: COPD changes are noted otherwise the lungs appear clear No pneumothorax. Heart is normal size. Mediastinal and hilar contours are within normal limits. Bony thorax no acute abnormality. Miscellaneous: None Impression: No acute cardiopulmonary abnormality. Discharge Plan Discharge Attending physician on discharge: Ezra Nam Consulting providers: Jessi Hernandez Discharging Clinician: Jessi Hernandez Anticipated Discharge Date/Time: 02/01/25 11:07 Patient Disposition: Hospice - Home Activity: may shower and as tolerated Diet: regular Discharge Instructions: 1). COPD/ anxiety * I have prescribed oral antibiotic therapy and steroids please take as indicated even if feeling better * continue to use your inhalers indicated * I also initiated a antihistamine to take daily * you have been started on sertraline which is an SSRI for anxiety 25 mg daily therapeutic effect usually will take 1-2 weeks may increase if needed * I have also prescribed Xanax 0.25 mg orally this is to be taken as needed for respiratory distress and panic attacks * I recommend Mucinex OTC 600 mg b.i.d. to help with secretions * I do encourage tripod positioning during COPD exacerbations to help with breathing pattern * I encouraged sleeping on at least 3 pillows or on your side to help with lung expansion * encourage you to continue to use your incentive spirometer at home * I have attached included educational information regarding COPD diagnosis 2). I would recommend discontinuing daily Lasix only take as needed for mild to moderate bilateral lower extremity edema may discontinue your potassium chloride supplement when not taking the Lasix. How can you care for yourself at home? ? Keep track of any new symptoms or changes in your symptoms. ? Rest until you feel better. ? Be safe with medicines. Take your medicines exactly as prescribed. Call your doctor if you think you are having a problem with your medicine. ? Do not drive after taking a prescription pain medicine. ? Ensure to follow-up with primary care physician as indicated and provide updated medication list provided to you at discharge. When should you call for help? Call 911 anytime you think you may need emergency care. For example, call if: ? You passed out (lost consciousness). Call your doctor now or seek immediate medical care if: ? You have new symptoms like fever, difficulty breathing, Chest pain, vomiting, or rash. ? You have new or different pain. ? You are confused and are having trouble thinking clearly. ? Your symptoms are getting worse. Watch closely for changes in your health, and be sure to contact your doctor if: ? You do not get better as expected. Patient Instructions: Emphysema (DC), COPD (Chronic Obstructive Pulmonary Disease) (DC), Anxiety (GEN), Panic Attack (GEN), Energy Conservation Techniques (DC), Dyspnea Scale and Exercise (DC), Nutrition Guidelines for People with COPD (DC) Patient Language: Irish Stand Alone Forms: General Discharge Information Follow-up/Referrals: Muriel Zhao FLANGE MACHINE OPERATOR [Primary Care Provider, Family Practice] - Keep Reg. Scheduled Appt. Discharge Medications: New azithromycin [Zithromax] 250 mg Tablet 500 mg PO DAILY Qty: 4 0RF prednisone 20 mg Tablet 40 mg PO DAILY@0800 Qty: 4 0RF sertraline [Zoloft] 50 mg Tablet 25 mg PO QHS Qty: 30 0RF guaifenesin [Mucus Relief ER] 600 mg Tablet Extended Release 12hr 600 mg PO Q12HR Qty: 30 0RF loratadine 10 mg Tablet 10 mg PO QHS Qty: 30 0RF Continued aspirin [Adult Low Dose Aspirin] 81 mg tablet,delayed release (DR/EC) 81 mg PO DAILY albuterol sulfate [Ventolin HFA] 90 mcg/actuation HFA aerosol inhaler 2 puff inhalation BID acetaminophen [Mapap (acetaminophen)] 325 mg Tablet 650 mg PO Q6HR Qty: 30 0RF sennosides-docusate sodium [Senokot-S] 8.6-50 mg Tablet 1 tab-cap PO Q12HR PRN (Reason: constipation) Qty: 30 0RF magnesium oxide 400 mg magnesium tablet 400 mg PO DAILY Qty: 30 5RF metoprolol succinate 50 mg tablet extended release 24 hr See Rx Instructions .ROUTE .COMPLEX Qty: 90 3RF Dose Instruction: TAKE 1 TABLET BY MOUTH EVERY MORNING Rx Instructions: TAKE 1 TABLET BY MOUTH EVERY MORNING theophylline 300 mg tablet extended release 12 hr See Rx Instructions .ROUTE .COMPLEX Qty: 90 3RF Dose Instruction: TAKE 1 TABLET BY MOUTH DAILY Rx Instructions: TAKE 1 TABLET BY MOUTH DAILY lisinopril 10 mg tablet See Rx Instructions .ROUTE .COMPLEX Qty: 90 3RF Dose Instruction: TAKE 1 TABLET BY MOUTH DAILY AT 5PM, DIRECTED Rx Instructions: TAKE 1 TABLET BY MOUTH DAILY AT 5PM, DIRECTED potassium chloride 10 mEq tablet,ER particles/crystals See Rx Instructions .ROUTE .COMPLEX Qty: 90 3RF Dose Instruction: TAKE 1 TABLET BY MOUTH DAILY Rx Instructions: TAKE 1 TABLET BY MOUTH DAILY Perforomist 20 mcg/2 mL solution for nebulization See Rx Instructions .ROUTE .COMPLEX Qty: 60 11RF Dose Instruction: USE 1 VIAL IN NEBULIZER TWICE DAILY - - Morning and Evening Rx Instructions: USE 1 VIAL IN NEBULIZER TWICE DAILY - - Morning and Evening Yupelri 175 mcg/3 mL solution for nebulization See Rx Instructions .ROUTE .COMPLEX Qty: 30 11RF Dose Instruction: USE 1 VIAL IN NEBULIZER DAILY - [employer] Technical Lead Before Breakfast Rx Instructions: USE 1 VIAL IN NEBULIZER DAILY - [employer] Technical Lead Before Breakfast budesonide 0.5 mg/2 mL suspension for nebulization See Rx Instructions .ROUTE .COMPLEX Qty: 60 11RF Dose Instruction: USE 1 VIAL IN NEBULIZER TWICE DAILY - - Rinse Mouth After Use Rx Instructions: USE 1 VIAL IN NEBULIZER TWICE DAILY - - Rinse Mouth After Use Changed furosemide [Lasix] 40 mg tablet 40 mg PO DAILY PRN (Reason: edema) Qty: 5 0RF Discontinued furosemide 20 mg tablet See Rx Instructions .ROUTE .COMPLEX Qty: 90 0RF Dose Instruction: TAKE 1 TABLET BY MOUTH EVERY OTHER DAY Rx Instructions: TAKE 1 TABLET BY MOUTH EVERY OTHER DAY Date of admission: 01/30/25 19:57 Primary Care Provider: Muriel Zhao Admitting Provider: Ezra Nam Attending physician on admission: Ezra Nam Condition: Guarded Prognosis Quality VTE Prophylaxis VTE prophylaxis: mechanical ordered -Patient's previous records reviewed on admission -ER notes reviewed in detail on admission -discussed all findings and current treatment plan with patient/Family/POA -Consultations reviewed for recommendations -Patient's disposition for safe discharge discussed with case management associate -radiology imaging, EKG and test results I have personally reviewed and interpreted unless otherwise specified Dictation performed by [employer] direct speech recognition software, therefore floor clerk variants and typographical errors may occur. Hospitalist MIPS Heart Failure (Exclusion) Patient has history of Heart Transplant or Left Ventricular Assistive Device?: No IF YES, STOP HERE Heart Failure (Qualifier) Patient has current or prior documentation of LVEF less than or equal to 40%, or mod/servere depressed LVSF?: No IF NO, STOP HERE
--- NOTE | 2025-02-01 14:09 | P.PNIM_ITS ---
Progress Note: A&P Assessment and Plan (1) COPD exacerbation: Code(s): J44.1 - Chronic obstructive pulmonary disease with (acute) exacerbation Status: Acute Assessment and Plan: patient with severe end-stage COPD low activity reserve * Bronchodilators Q6hr * incentive spirometry while awake. * steroids 40mg daily * azithromycin 500 daily * Mucinex * histamine started * encourage tripod breathing * Xanax t.i.d. for anxiety/ IV morphine for air hunger * supplemental oxygen therapy to maintain oxygen 92% wears 3L at home * Repeat hospitalization risk evaluation per [facility] * Follow-up with principal associate as an outpatient recommended PFT testing outpatient (2) Chronic respiratory failure with hypoxia, on home oxygen therapy: Code(s): J96.11 - Chronic respiratory failure with hypoxia; Z99.81 - Dependence on supplemental oxygen Status: Chronic Assessment and Plan: * continue on supplemental oxygen 3 L do not go above 6 L patient is a CO2 retainer (3) Hypertension: Qualifiers: Hypertension type: unspecified Qualified Code(s): I10 - Essential (primary) hypertension Code(s): I10 - Essential (primary) hypertension Status: Chronic Assessment and Plan: * resume lisinopril * BP per unit protocol (4) Chronic diastolic (congestive) heart failure: Code(s): I50.32 - Chronic diastolic (congestive) heart failure Status: Acute Assessment and Plan: patient with history of diastolic grade 1 heart failure EF 65-70% not appear in any exacerbation at this time * changed patient's Lasix to p.r.n. with bilateral lower extremity edema due to patient's low reserve is worsening her respiratory status over time she has to use the restroom * family reported they started the Lasix when she had hyponatremia 2 years ago recommend discontinuing and continue to use just as needed (5) Anemia: Code(s): D64.9 - Anemia, unspecified Status: Acute Assessment and Plan: * hemoglobin stable at 10 no evidence of acute bleed * trend H&H * transfuse if Hgb <7.0 (6) Severe protein-calorie malnutrition: Code(s): E43 - Unspecified severe protein-calorie malnutrition Status: Acute Assessment and Plan: * recommended supplemental ensure is however patient at this time refuses * encourage regular diet (7) Anxiety: Code(s): F41.9 - Anxiety disorder, unspecified Status: Acute Assessment and Plan: patient with moderate to severe anxiety specially with COPD exacerbation and air hunger * started on sertraline nightly 25 mg can increase if needed * Xanax 0.25 t.i.d. p.r.n. for acute panic attacks Plan Code status: Full code per patient DVT prophylaxis: scd Stress ulcer prophylaxis: NA PT/OT notes: Ambulatory Disposition: patient continues admission for treatment of COPD exacerbation will continue with current treatment plan and referral to at home hospice plan for discharge tomorrow to home with hospice Time Spent With Patient Time with patient: 15 - 25 minutes Subjective Date/time seen: 02/01/25 14:09 Interval history: Patient is a 84-year-old female admitted for further treatment of COPD exacerbation 02/02/2025: Patient respiratory status greatly improved today with treatment. Patient still reporting feeling anxious but breathing has improved. Had discussion about home hopsice with patient and family referral was sent and patient has requested home with hospice. Review of Systems Review of Systems: All systems reviewed & are unremarkable except as noted in HPI and below Exam Const: General: comfortable Other: chronically ill pleasant female HENMT: Mouth: Yes dry mucous membranes Eyes: General: appearance normal, both eyes and all related structures Neck: Neck: supple Resp: Effort & Inspection: normal respiratory effort and Actively coughing Auscultation: wheezes scattered wheezes Other: 2L NC respiratory status greatly improve d Cardio: Rate: regular rate Rhythm: regular rhythm GI: Auscultation: normal bowel sounds Skin: General skin exam: normal color and no rashes or lesions noted Wounds: no wounds Neuro: General: gait normal Speech: normal speech Motor exam (neuro): 5/5 motor strength present throughout Sensory Exam: normal sensation Psych: Mental Status: mental status grossly normal Affect: Anxious affect present Objective Data Vital Signs Vital Signs: Vital Signs - 24 hr 01/31/25 16:00 01/31/25 17:40 01/31/25 18:07 Temperature 98.2 F Pulse Rate 69 69 69 Respiratory Rate 18 18 18 Blood Pressure 117/57 L Pulse Oximetry 96 96 97 Oxygen Delivery Room Air Oxygen Flow Rate 2 2 01/31/25 20:00 02/01/25 00:00 02/01/25 00:36 Temperature 98.8 F Pulse Rate 72 76 72 Respiratory Rate 18 18 18 Blood Pressure 136/63 Pulse Oximetry 97 96 97 Oxygen Delivery Room Air Nasal Cannula Oxygen Flow Rate 2 2 02/01/25 00:54 02/01/25 05:58 02/01/25 06:14 Temperature Pulse Rate 59 L 66 68 Respiratory Rate 18 18 18 Blood Pressure Pulse Oximetry 98 99 100 Oxygen Delivery Oxygen Flow Rate 2 2 2 02/01/25 08:00 02/01/25 09:00 02/01/25 09:48 Temperature 97.7 F Pulse Rate 54 L 72 72 Respiratory Rate 16 Blood Pressure 97/46 L 111/54 L Pulse Oximetry 96 Oxygen Delivery Nasal Cannula Oxygen Flow Rate 2 02/01/25 11:22 02/01/25 11:30 Temperature Pulse Rate 64 78 Respiratory Rate 16 16 Blood Pressure Pulse Oximetry 98 99 Oxygen Delivery Oxygen Flow Rate 2 2 Intake/Output Intake/Output: Intake & Output 01/29/25 01/30/25 01/31/25 02/01/25 23:59 23:59 23:59 23:59 Intake Total 50 2560 680 Output Total 1750 650 Balance 50 810 30 Meds/Results Medications: Active Medications Generic Name Dose Route Start Last Admin Trade Name Freq PRN Reason Stop Dose Admin Acetaminophen 650 mg 01/30/25 19:56 Acetaminophen 325 Mg Tablet PO Q4H PRN Mild Pain (1-3) or Fever Albuterol/Ipratropium 3 ml 01/31/25 00:30 02/01/25 11:20 Ipratropium 0.5 Mg/Albuterol Sulfate 2.5 Mg (Base) Ampul.Neb 3 Ml INHALATION 3 ml Q6HRT CRISTEL Administration Alprazolam 0.25 mg 01/31/25 11:16 01/31/25 20:52 Alprazolam (*Crx) 0.25 Mg Tablet PO 0.25 mg TID PRN Administration Anxiety Aspirin 81 mg 01/31/25 09:00 02/01/25 09:36 Aspirin 81 Mg Enteric Tablet PO 81 mg DAILY CRISTEL Administration Azithromycin 500 mg 01/31/25 11:20 02/01/25 09:35 Azithromycin 250 Mg Tablet PO 500 mg DAILY CRISTEL Administration Benzonatate 200 mg 01/30/25 20:06 Benzonatate 100 Mg Capsule PO BID PRN cough Bisacodyl 5 mg 01/30/25 19:56 Bisacodyl 5 Mg Tablet Ec PO DAILY PRN Constipation Budesonide 0.5 mg 01/31/25 06:30 02/01/25 05:57 Budesonide Respule Neb 0.5 Mg/2 Ml Amp INHALATION 0.5 mg Q12HRT CRISTEL Administration Guaifenesin 600 mg 01/31/25 11:25 02/01/25 09:36 Guaifenesin 12 Hr 600 Mg Tabcr PO 600 mg Q12HR CRISTEL Administration Lisinopril 10 mg 01/30/25 20:00 01/31/25 16:36 Lisinopril 10 Mg Tablet BY MOUTH 10 mg DAILY@1700 CRISTEL Administration Loratadine 10 mg 01/31/25 21:00 01/31/25 20:52 Loratadine 10 Mg Tablet PO 10 mg QHS CRISTEL Administration Metoprolol Succinate 50 mg 01/31/25 09:00 02/01/25 09:48 Metoprolol Succinate Ext Rel 50 Mg Tabcr BY MOUTH 50 mg QAM CRISTEL Administration Morphine Sulfate 1 mg 01/31/25 11:16 Morphine Sulfate (*Crx) 4 Mg/Ml Inj IV PUSH Q4H PRN SOB/DYSPNEA Potassium Chloride 10 meq 01/31/25 09:00 02/01/25 09:36 Potassium Chloride 10 Meq Er Tablet BY MOUTH 10 meq DAILY CRISTEL Administration Prednisone 40 mg 01/31/25 11:25 02/01/25 09:35 Prednisone 20 Mg Tablet PO 40 mg DAILY@0800 CRISTEL Administration Sertraline HCl 25 mg 01/31/25 21:00 01/31/25 20:52 Sertraline Hcl 25 Mg Tablet PO 25 mg QHS [facility] Administration Theophylline 300 mg 01/31/25 09:00 02/01/25 09:36 Theophylline 300 Mg Er 12 Hr Tablet BY MOUTH 300 mg DAILY CRISTEL Administration Trazodone HCl 50 mg 01/31/25 12:12 01/31/25 20:52 Trazodone Hcl 50 Mg Tablet PO 50 mg HS PRN Administration Insomnia Radiology Results: ITS Impressions Chest X-Ray 01/31/25 14:13 Impression: Early left lower lobe pneumonia superimposed on chronic lung disease. The findings appear relatively unchanged. Labs Labs: Laboratory Results - last 24 hr 02/01/25 05:17 WBC 12.0 H RBC 3.35 L Hgb 10.4 L Hct 32.5 L MCV 97.0 MCH 31.0 MCHC 32.0 RDW 13.2 Plt Count 190 MPV 9.6 Sodium 140 Potassium 3.6 Chloride 97 L Carbon Dioxide 38 H Anion Gap 5 BUN 34 H D Creatinine 0.90 Estim Creat Clear Calc 23 Estimated GFR 60 Glucose 110 Calculated Osmolality 298 H Calcium 9.2 Magnesium 2.3 Total Bilirubin 0.1 L AST 25 ALT 17 Alkaline Phosphatase 65 Total Protein 5.8 L Albumin 3.6 Quality VTE Prophylaxis VTE prophylaxis: mechanical ordered -Patient's previous records reviewed on admission -ER notes reviewed in detail on admission -discussed all findings and current treatment plan with patient/Family/POA -Consultations reviewed for recommendations -Patient's disposition for safe discharge discussed with case liner -radiology imaging, EKG and test results I have personally reviewed and interpreted unless otherwise specified Dictation performed by [employer] direct speech recognition software, therefore angle bender variants and typographical errors may occur. Hospitalist [facility] Advance Care Plan I have confirmed that the patient's Advanced Care Plan is present, code status is documented, or surrogate decision maker is listed in patient medical record.: Yes Medication Reconciliation I have utilized all available resources to obtain, update and review the patients current medications (includes all prescriptions, OTC, herbals, cannabis, and nutritional supplements).: Yes The patient is not eligible for med reconciliation; the patient is in a emergent medical situation where delaying treatment would jeopardize the patients health.: No
[2025-02-01] MEDS: INFLUENZA VACCINE HIGH DOSE (>64) 180 MCG/0.5 ML SYRINGE IM (15:27)
[2025-02-01] MEDS: SERTRALINE HCL 25 MG TABLET PO (21:43)
[2025-02-01] MEDS: LORATADINE 10 MG TABLET PO (21:43)
[2025-02-02] VITALS (8 sets, daily range): BP systolic 95–142; BP diastolic 47–68; PULSE 56–70; RESP 16–18; TEMP 36.5–37.4; O2SAT 95–99
[2025-02-02] MEDS: IPRATROPIUM 0.5 MG/ALBUTEROL SULFATE 2.5 MG (BASE) AMPUL.NEB 3 ML INHALATION ×2 (00:33→05:48)
[2025-02-02 05:31] LABS: Hematocrit 32.6 % (35.0-42.0); Hemoglobin 10.2 g/dL (11.7-13.8); Mean Corpuscular HGB Conc 31.3 g/dL (32-36); Mean Corpuscular Hemoglobin 30.5 pg (27.0-31.0); Mean Corpuscular Volume 97.6 fL (78.0-102.0); Platelet Count Result 163 K/mm3 (150-420); Red Blood Count 3.34 M/mm3 (4.20-5.40); White Blood Count 10.5 K/mm3 (4.8-10.8)
[2025-02-02 05:42] LABS: Alanine Aminotransferase 17 U/L (6-35); Albumin Level 3.3 g/dL (3.5-5.1); Alkaline Phosphatase 58 U/L (38-126); Anion Gap 3 mmol/L (4-12); Aspartate Amino Transferase 21 U/L (14-36); Bilirubin,Total < 0.1 mg/dL (0.2-1.3); Blood Urea Nitrogen 55 mg/dL (7-17); Calcium 9.4 mg/dL (8.4-10.2); Carbon Dioxide 37 mmol/L (22-30); Chloride 97 mmol/L (98-107); Estimated CRCL calculation 18 ml/min; Estimated Glomerular Filt Rate 44; Glucose 104 mg/dL (65-110); Magnesium 2.3 mg/dL (1.6-2.3); Osmolality Calculated 299 mOsm/kg (285-295); Potassium 4.0 mmol/L (3.4-5.0); Sodium 137 mmol/L (137-145); Total Protein 5.4 g/dL (6.3-8.2)
[2025-02-02] MEDS: BUDESONIDE RESPULE NEB 0.5 MG/2 ML AMP INHALATION (05:48)
[2025-02-02] MEDS: POTASSIUM CHLORIDE 10 MEQ ER TABLET BY MOUTH (09:09)
[2025-02-02] MEDS: METOPROLOL SUCCINATE EXT REL 50 MG TABCR BY MOUTH (09:09)
[2025-02-02] MEDS: AZITHROMYCIN 250 MG TABLET 500 MG PO (09:09)
[2025-02-02] MEDS: THEOPHYLLINE 300 MG ER 12 HR TABLET BY MOUTH (09:09)
[2025-02-02] MEDS: ASPIRIN 81 MG ENTERIC TABLET PO (09:09)
[2025-02-02] MEDS: guaiFENesin 12 HR 600 MG TABCR PO (09:09)
--- NOTE | 2025-02-02 11:55 | PC.NURSE ---
today at 1140 Discharge instruction, medications to pharmacy, home meds and side effects of meds explained to patient and family prior to discharge. No questions stated by all parties and voiced understanding. Patient dressed and then escorted via WC out of facility with daughter by side to family vehicle in route to home. Residential hospice to meet family and patient there to admit to their care.
--- NOTE | 2025-02-03 12:22 | PC.NURSE ---
Discharge call back completed, no questions regarding medications, hospice is providing their scripts, doing well.
== END 2025-02-02 11:40 | disposition hospice, home (50) ==
LOC: CHSED 19:50 → CHS2ND 20:02
PROVIDERS: Nurse Practitioner Family; Admitting Provider Internal Medicine; Emergency Provider Emergency Medicine; PCP Nurse Practitioner Family; Visit Provider Internal Medicine
DX: J44.1 Chronic obstructive pulmonary disease with (acute) exacerbation (principal); J96.11 Chronic respiratory failure with hypoxia; J81.1 Chronic pulmonary edema; I11.0 Hypertensive heart disease with heart failure; I50.32 Chronic diastolic (congestive) heart failure; D64.9 Anemia, unspecified; F41.9 Anxiety disorder, unspecified; E43 Unspecified severe protein-calorie malnutrition; Z68.1 Body mass index [BMI] 19.9 or less, adult; Z20.822 Contact with and (suspected) exposure to COVID-19; Z23 Encounter for immunization; Z99.81 Dependence on supplemental oxygen; Z79.82 Long term (current) use of aspirin; Z79.52 Long term (current) use of systemic steroids; Z79.2 Long term (current) use of antibiotics; Z87.09 Personal history of other diseases of the respiratory system; Z87.891 Personal history of nicotine dependence; Z96.641 Presence of right artificial hip joint
CPT/HCPCS: 36415; 71045; 71046; 80053; 83605; 83735; 83880; 85025; 85027; 85610; 85730; 87040; 87637; 90471; 90662; 94640; 96365; 96366; 96375; 99285; A9270; G0008; G0378; J2919; J3475; J7030; J7512

== ENCOUNTER 2025-03-05 17:40 | Emergency (ER) | payer MEDICARE, OTHER, SELFPAY ==
--- OUTSIDE RECORDS SUMMARY | 2024-12-10 07:10 | XMS_ITS ---
Author Organization [facility] Address [address] [place], [place] [id number] Care Team Providers Care Machine Striper Name Role Phone JAZMINE GRAY Unavailable [phone] Greyson Vogt Unavailable Unavailable Allergies No Known Allergies REASON FOR VISIT *General care Medications Medication SIG (Take, Route, Frequency, Duration) Notes Start Date End Date Status Potassimin Active Theophylline Active Vital Signs Height 62 in 12/10/2024 Weight 84 lbs 12/10/2024 BMI 15.36 kg/m2 12/10/2024 Height-cm 157.48 cm 12/10/2024 Weight-kg 38.1 kg 12/10/2024 Encounters Encounter Location Date Provider Diagnosis [address] [id number] 12/10/2024 JAZMINE GRAY Tinea unguium B35.1 ; Pain in right toe(s) M79.674 ; Pain in left toe(s) M79.675 ; Atherosclerosis of [place] arteries of extremities with intermittent claudication, bilateral legs I70.213 and Acquired keratoderma L85.1 Assessments Encounter Date Diagnosis (ICD Code) Assessment Notes Treatment Notes Treatment Clinical Notes Section Notes 12/10/2024 Tinea unguium (ICD-10 - B35.1) FUNGAL TOENAILS: Discussed various treatment options for fungal toenails including debridement, topical antifungals, oral antifungals, toenail avulsion, or toenail matrixectomy. NAIL DEBRIDEMENT: Nails 1-5 Bilateral were debrided extensively with nail nippers and emery board, reducing length and girth to pink healthy tissue with any subungual debris and necrotic tissue removed 12/10/2024 Pain in right toe(s) (ICD-10 - M79.674) 12/10/2024 Pain in left toe(s) (ICD-10 - M79.675) 12/10/2024 Atherosclerosis of [place] arteries of extremities with intermittent claudication, bilateral legs (ICD-10 - I70.213) Patient educated on risks and aggravating factors of PVD, including conservative treatment options such as a diet and exercise regimen to aid in slowing progression of vascular disease. Check and protect LE bilateral daily. Call if any changes or concerns. 12/10/2024 Acquired keratoderma (ICD-10 - L85.1) Plan Of Treatment Treatment Notes Assessment Notes Tinea unguium FUNGAL TOENAILS: Discussed various treatment options for fungal toenails including debridement, topical antifungals, oral antifungals, toenail avulsion, or toenail matrixectomy. NAIL DEBRIDEMENT: Nails 1-5 Bilateral were debrided extensively with nail nippers and emery board, reducing length and girth to pink healthy tissue with any subungual debris and necrotic tissue removed Atherosclerosis of [place] ar teries of extremities with intermittent claudication, [...] arise Provider Name:JAZMINE MARTINEZ, 06/10/2025 01:30:00 PM, [address] [place] [address], [id number], History and Physical Notes * HPI (History of Present Illness) Category Sub-Category Detail Notes Category Not es HPI General care Patient presents to the office for at risk foot care. Patient states that their nails are thickened, elongated and painful. Patient states that it is aggravated by shoe gear. Onset is gradual. Patient denies being diabetic., Patient denies taking prescription blood thinners but does take a daily aspirin., Date last seen by Dr. Vogt was September 2024., Initials ab Examination Category Sub-Category Detail Notes Category Not [...] Notes * Ragini MCMILLANDOB:1940 (84 yo F)Acc No.[id number]:12/10/2024 Patient: Ragini Sotomayor Provider: Ranulfo GRAY :1940 A ge:84 Y S ex:Female Date:12/10/2024 Address:[address] [place], [place] [id number] Subjective: * Chief Complaints: * * General care * HPI: H PI: General care P atient presents to the office for at risk foot care. Patient states that their nails are thickened, elongated and painful. Patient states that it is aggravated by shoe gear. Onset is gradual. Patient denies being diabetic., Patient denies taking prescription blood thinners but does take a daily aspirin., Date last seen by Dr. Vogt was September 2024., Initials ab. * ROS: G eneral / Constitutional: Patient denies w eakness. R espiratory: Patient denies c hronic cough, shortness of breath, sputum production. C ardiovascular: Patient denies c hest pain, history of [place], irregular heartbeat. M usculoskeletal: Patient complains of h ammertoes, arch pain. ? P eripheral Vascular: Patient denies b lanching of skin, cold extremities, decreased sensation in extremities. S kin: Patient complains of f ungal nails, nail changes. ? N eurologic: Patient denies d izziness, gait abnormality, headache. * Medical History: Denies Past Medical History No Medical History Documented Medical History Verified * Surgical History: Denies Past Surgical History. Surgical History verified. * Hospitalization/Major Diagno stic Procedure: Denies Past Hospitalization. Hospitalization Verified. * Family History: F amily History Verified.. N on-Contributory.. * Social History: Social History Verified. No Social History documented. * Medications: T akingPotassimin Theophylline Medication List reviewed and reconciled with the patientTaking Potassimin Taking Theophylline Medication List reviewed and reconciled with the patient * Allergies: N .K.D.A.yesAllergies Verified. Objective: * Vitals: S hoe Size: [...] - M79.675 4 . A therosclerosis of [place] arteries of extremities with intermittent claudication, bilateral legs - I70.213 5 . A cquired keratoderma - L85.1 Plan: * Treatment: 2. A therosclerosis of [place] arteries of extremities with intermittent claudication, bilateral legs Notes: Patient educated on risks and aggravating factors of PVD, including conservative treatment options such as a diet and exercise regimen to aid in slowing progression of vascular disease. Check and protect LE bilateral daily. Call if any changes or concerns. * Procedure Codes: 1 1056 TRIM SKIN LESIONS, 2 TO 4, Modifiers: Q8 95758 DEBRIDE NAIL, 6 OR MORE, Modifiers: 59 , Q8 * Preventive Medicine: Screenings: F all risk screening F all Risk Assessment: N o falls in the past year. * Follow Up: 1 0-12 Weeks (Reason: At Risk Foot care, sooner if problems arise) Billing Information: * Procedure Codes: 24240 TRIM SKIN LESIONS, 2 TO 4. Modifiers: Q8 57894 DEBRIDE NAIL, 6 OR MORE. Modifiers: 59, Q8 * Electronic signature of CLOVIS GRAY DPM on 03/05/2025 at 05:47 PM BUTTON SAWYER Sign off status: Pending * Provider: Ranulfo GRAY Date: 1 Generated for Pascual baez/Dulce Maria/Taniya on: 05/06/2024 05:47 PM BUTTON SAWYER
[2025-03-05 17:40] VITALS: BP 116/78; PULSE 70; RESP 16; TEMP 37.3; O2SAT 99
--- OUTSIDE RECORDS SUMMARY | 2025-03-05 17:47 | XMS_ITS | Clinical Summary ---
Author Organization [facility] Address [address] [place] [address] Care Team Providers Care Storage Receipt Poster Name Role Phone Muriel Zhao NP Primary Care Provider [phone] Allergies No known active allergies Medications theophylline [...] unspecified COPD type (HCC) Inhale 3 mL taxation accountant before breakfast 90 mL 3 2 Active [...] Comments Blood Pressure 160/72 01/23/2022 11:07 AM CREAM CHEESE MAKER pt has not taken bp meds yet today Pulse 63 01/23/2022 11:07 AM CREAM CHEESE MAKER Temperature 36.6 C (97.8 F) 01/23/2022 11:07 AM CREAM CHEESE MAKER Respiratory Rate 18 01/23/2022 11:0 7 AM CREAM CHEESE MAKER Oxygen Saturation 98% 01/23/2022 11: 07 AM CREAM CHEESE MAKER 2L of O2 Inhaled Oxygen Concentration - - Weight 38.9 kg (85 lb 12.8 oz) 01/23/2022 11:07 AM CREAM CHEESE MAKER Height 157.5 cm (5' 2) 01/23/2022 11:0 7 AM CREAM CHEESE MAKER Body Mass Index 15.69 01/23/2022 11:07 AM CREAM CHEESE MAKER Plan of Treatment Not on file Insurance MEDICARE [facility] [place], [place] [id number] Care Teams Storage Receipt Poster Relationship Specialty Start Date End Date Muriel Zhao NP [address] [place] [address] PCP - General Nurse Practitioner 12/25/21
--- OUTSIDE RECORDS SUMMARY | 2025-03-05 17:47 | XMS_ITS | Patient Health Record ---
Author Organization [facility] Address [address] [place], [place] [id number] Care Team Providers Care Information Tech Name Role Phone JAZMINE GRAY Unavailable [phone] Greyson Vogt Unavailable Unavailable JUDIT MENDOZA Unavailable [phone] Allergies No Known Allergies Reason For Referral No Information Medications Medication SIG (Take, Route, Frequency, Duration) Notes Start Date End Date Status Potassimin Active Theophylline Active Vital Signs Height-cm 157.48 cm 12/10/2024 Weight-kg 38.1 kg 12/10/2024 Height 62 in 12/10/2024 Weight 84 lbs 12/10/2024 BMI 15.36 kg/m2 12/10/2024 Encounters Encounter Location Date Provider Diagnosis [address] [id number] 09/10/2024 JAZMINE GRAY Tinea unguium B35.1 ; Pain in right toe(s) M79.674 ; Pain in left toe(s) M79.675 and Atherosclerosis of [place] arteries of extremities with intermittent claudication, bilateral legs I70.[address] [id number] 12/10/2024 JAZMINE GRAY Tinea unguium B35.1 ; Pain in right toe(s) M79.674 ; Pain in left toe(s) M79.675 ; Atherosclerosis of [place] arteries of extremities with intermittent claudication, bilateral legs I70.213 and Acquired keratoderma L85.[address] [id number] 07/09/2024 JUDIT MENDOZA Tinea unguium B35.1 ; Pain in right toe(s) M79.674 ; Pain in left toe(s) M79.675 and Atherosclerosis of [place] arteries of extremities with intermittent claudication, bilateral [...] toe(s) (ICD-10 - M79.675) 07/09/2024 Atherosclerosis of [place] arteries of extremities with intermittent claudication, bilateral legs (ICD-10 - I70.213) 09/10/2024 Atherosclerosis of [place] arteries of extremities with intermittent claudication, bilateral legs (ICD-10 - I70.213) Patient educated on risks and aggravating factors of PVD, including conservative treatment options such as a diet and exercise regimen to aid in slowing progression of vascular disease. Check and protect LE bilateral daily. Call if any changes or concerns. 12/10/2024 Atherosclerosis of [place] arteries of extremities with intermittent claudication, bilateral legs (ICD-10 - I70.213) Patient educated on risks and aggravating factors of PVD, including conservative treatment options such as a diet and exercise regimen to aid in slowing progression of vascular disease. Check and protect LE bilateral daily. Call if any changes or concerns. 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
--- NOTE | 2025-03-05 18:16 | ED.SKABFB ---
HPI - Skin/Abscess/Foreign Bdy General Chief complaint: Skin/Abscess/Foreign Body Stated complaint: laceration to leg Time Seen by Provider: 03/05/25 17:48 Source: patient and family Mode of arrival: EMS Limitations: no limitations History of Present Illness HPI narrative: Patient is a 84-year-old female with left lower holloway injury from a cardboard box landing on her while sitting in a chair. The cardboard box caused a skin tear and bleeding so family called EMS. Tetanus shot up-to-date. Only blood thinner is aspirin. MD complaint: laceration Onset (ago): minute(s) (Thirty) Tetanus up to date: yes Location: LLE (Anterior leg) Severity: mild Severity scale (1-10): 2 Quality: burning Pain Consistency: intermittent and now resolved Relieving factors: immobilization Exacerbating factors: palpation and movement Context: other (Patient had a cardboard box landed on her left lower holloway/lower extremity/leg and caused a skin tear with bleeding) Associated symptoms: denies other symptoms Treatments prior to arrival: bandages (Via EMS) Related Data Home Medications ?Medication ?Instructions ?Recorded ?Confirmed ?Last Taken ?Type aspirin 81 mg tablet,delayed 81 mg PO DAILY 05/04/19 01/30/25 01/30/25 History release (Adult Low Dose Aspirin) albuterol sulfate 90 mcg/actuation 2 puff inhalation BID 03/11/22 01/30/25 03/11/22 History aerosol inhaler (Ventolin HFA) Allergies Allergy/AdvReac Type Severity Reaction Status Date / Time No Known Allergies Allergy Verified 01/30/25 21:50 Review of Systems Review of Systems: All systems reviewed & are unremarkable except as noted in HPI and below Constitutional: Constitutional: Reports no additional constitutional complaints Eyes: Eyes: Reports no additional eye complaints ENT: Reports system reviewed and no additional complaints, except as documented Cardiovascular: Cardiovascular: Reports no additional cardiovascular complaints Respiratory: Respiratory: Reports no additional respiratory complaints Gastrointestinal: Gastrointestinal: Reports no additional gastrointestinal complaints Genitourinary: Genitourinary: Reports no additional female genitourinary complaints Musculoskeletal: Musculoskeletal: Reports no additional musculoskeletal complaints Integumentary/Breasts: Skin/Breast: Reports system reviewed and no additional complaints, except as docu Neurologic: Reports system reviewed and no additional complaints, except as documented Psychiatric: Psychiatric: Reports no additional psychiatric complaints Endocrine: Endocrine: Reports no additional endocrine complaints Hematologic/Lymphatic: Hematologic/Lymphatic: Reports no additional hematologic/lymphatic complaints Allergic/Immunologic: Allergic/Immunologic: Reports no additional allergic/immunologic complaints [facility] Past Medical History Medical History Intertrochanteric fracture of right hip CAP (community acquired pneumonia) Edema of both legs TALBERT (dyspnea on exertion) Weakness Pulmonary edema COPD exacerbation Pneumonia due to 2019 novel coronavirus COVID-19 Hypertension COPD (chronic obstructive pulmonary disease) Asthma Surgical History Surgical History History of open reduction and internal fixation (ORIF) procedure (~03/15/22) ORIF right hip fracture with cephalomedullary nail ORIF right distal radius fracture with volar plate Social History Social History Social History: the patient is . She has 3 daughters. 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 She now lives with her 1 daughter in [place]. She believes that her daughter is the durable power splunk developer for healthcare. The patient is a former smoker. She does not use any alcohol marijuana or illicit drugs. Code status full code Smoking packs per day: 0.75 Smoking cigarettes per day: 15.0 Years smoked: 30 Smoking pack-years: 22.50 Smoking status: Former smoker Tobacco type: cigarettes Second hand tobacco smoke exposure: No Additional smoking assessment comments: Quit July 2015. 50 pack-year history Alcohol intake: never Substance use: never Substance use type: does not use Lack of Transportation: No Lack of Food: Never True Current Housing: I Have Housing Concerned About Future Housing: No Difficulty Paying Gas/Electric Bills: No Difficulty Paying for Meds: No Currently Unemployed: No Education: Grade School Difficulty w/ Childcare or Family Care: No Living arrangements: with family Additional living arrangements comments: Lives with daughterElinor and son in law Sky. Occupation/Education: retired Gender identity (if verbalized by the patient): Female Sexual Orientation (if Verbalized by the Patient): Straight or Heterosexual Spiritual care concerns: No Exam Const: General: healthy appearing Nutritional Appearance: well nourished Orientation/consciousness: patient oriented x3 Limitations: no limitations HENMT: Head: normal to inspection Ears: external ears normal Face/Nose/Sinus: Normal external nose present Eyes: Conjunctivae: conjunctivae normal Pupils: Equal, round and reactive pupils present EOM: EOMs intact bilaterally Neck: Neck: normal visual inspection Chest: Chest palpation & inspection: normal inspection of the chest Resp: Effort & Inspection: normal respiratory effort and not labored Auscultation: clear to auscultation bilaterally and no crackles Cardio: Rate: regular rate Rhythm: regular rhythm Heart sounds: no murmurs GI: Inspection: non-distended Auscultation: normal bowel sounds and bowel sounds present : General: Yes bladder normal to palpation Back/Spine/Pelvis: Back: no CVA tenderness Skin: General skin exam: normal color Rashes: no rashes Wounds: wound noted Other: Left lower extremity at the anterior holloway/leg has a U shaped upside-down flap at 6 cm in length and superficial skin tear seen with very thin skin where edwin or suturing would not hold Neuro: General: patient oriented x3, moves all extremities and no meningeal signs Extrem: General: abnormal to inspection (See skin exam), no clubbing, cyanosis or edema and no pedal edema Psych: Mental Status: mental status grossly normal Affect: normal affect Attitude: cooperative Course Vital Signs Vital signs: Vital Signs Temperature 37.3 C 03/05/25 17:40 Pulse Rate 70 03/05/25 17:40 Respiratory Rate 16 03/05/25 17:40 Blood Pressure 116/78 03/05/25 17:40 Pulse Oximetry 99 03/05/25 17:40 Oxygen Delivery Room Air 03/05/25 17:40 Temperature 37.3 C 03/05/25 17:40 Pulse Rate 62 03/05/25 18:48 Respiratory Rate 20 03/05/25 18:48 Blood Pressure 129/63 03/05/25 18:48 Pulse Oximetry 100 03/05/25 18:48 Oxygen Delivery Room Air 03/05/25 18:48 Procedures Other Procedure Procedure 1: Other Procedure: Left anterior holloway has a large U shaped skin tear: 6 cm: Area was cleaned with chlorhexidine, area was paced did back down to its proper position in total, Steri-Strips placed for retention, no complications and patient tolerated procedure well MDM MDM Narrative Medical decision making narrative: Patient is an 84-year-old female with a left lower extremity skin tear. Steri-Strips to the area to hold back in perfect position. There was a large portion of the bottom of the U shaped which actually is the top of the actual letter connected in total to good tissue and the skin flap itself had good tissue for replacement back in place which was done and Steri-Strips into position. Tetanus up-to-date. Differential Diagnosis Differential Diagnosis: Skin tear, skin laceration Discharge Plan Discharge Clinical Impression: Skin tear Patient Disposition: Home Condition: Stable Instructions: Skin Tear (ED), Skin Adhesive Strips (ED) Patient Language: Upper Sorbian Prescriptions: No Action azithromycin [Zithromax] 250 mg Tablet 500 mg PO DAILY Qty: 4 0RF guaifenesin [Mucus Relief ER] 600 mg Tablet Extended Release 12hr 600 mg PO Q12HR Qty: 30 0RF loratadine 10 mg Tablet 10 mg PO QHS Qty: 30 0RF prednisone 20 mg Tablet 40 mg PO DAILY@0800 Qty: 4 0RF sertraline [Zoloft] 50 mg Tablet 25 mg PO QHS Qty: 30 0RF furosemide [Lasix] 40 mg tablet 40 mg PO DAILY PRN (Reason: edema) Qty: 5 0RF aspirin [Adult Low Dose Aspirin] 81 mg tablet,delayed release (DR/EC) 81 mg PO DAILY albuterol sulfate [Ventolin HFA] 90 mcg/actuation HFA aerosol inhaler 2 puff inhalation BID acetaminophen [Mapap (acetaminophen)] 325 mg Tablet 650 mg PO Q6HR Qty: 30 0RF sennosides-docusate sodium [Senokot-S] 8.6-50 mg Tablet 1 tab-cap PO Q12HR PRN (Reason: constipation) Qty: 30 0RF magnesium oxide 400 mg magnesium tablet 400 mg PO DAILY Qty: 30 5RF metoprolol succinate 50 mg tablet extended release 24 hr See Rx Instructions .ROUTE .COMPLEX Qty: 90 3RF Dose Instruction: TAKE 1 TABLET BY MOUTH EVERY MORNING Rx Instructions: TAKE 1 TABLET BY MOUTH EVERY MORNING theophylline 300 mg tablet extended release 12 hr See Rx Instructions .ROUTE .COMPLEX Qty: 90 3RF Dose Instruction: TAKE 1 TABLET BY MOUTH DAILY Rx Instructions: TAKE 1 TABLET BY MOUTH DAILY lisinopril 10 mg tablet See Rx Instructions .ROUTE .COMPLEX Qty: 90 3RF Dose Instruction: TAKE 1 TABLET BY MOUTH DAILY AT 5PM, DIRECTED Rx Instructions: TAKE 1 TABLET BY MOUTH DAILY AT 5PM, DIRECTED potassium chloride 10 mEq tablet,ER particles/crystals See Rx Instructions .ROUTE .COMPLEX Qty: 90 3RF Dose Instruction: TAKE 1 TABLET BY MOUTH DAILY Rx Instructions: TAKE 1 TABLET BY MOUTH DAILY Perforomist 20 mcg/2 mL solution for nebulization See Rx Instructions .ROUTE .COMPLEX Qty: 60 11RF Dose Instruction: USE 1 VIAL IN NEBULIZER TWICE DAILY - - Morning and Evening Rx Instructions: USE 1 VIAL IN NEBULIZER TWICE DAILY - - Morning and Evening Yupelri 175 mcg/3 mL solution for nebulization See Rx Instructions .ROUTE .COMPLEX Qty: 30 11RF Dose Instruction: USE 1 VIAL IN NEBULIZER DAILY - Software Sales Representative Before Breakfast Rx Instructions: USE 1 VIAL IN NEBULIZER DAILY - Software Sales Representative Before Breakfast budesonide 0.5 mg/2 mL suspension for nebulization See Rx Instructions .ROUTE .COMPLEX Qty: 60 11RF Dose Instruction: USE 1 VIAL IN NEBULIZER TWICE DAILY - - Rinse Mouth After Use Rx Instructions: USE 1 VIAL IN NEBULIZER TWICE DAILY - - Rinse Mouth After Use Follow-up/Referrals: Muriel Zhao NP [Primary Care Provider, Family Practice] Time of Disposition: 17:54
[2025-03-05 18:48] VITALS: BP 129/63; PULSE 62; RESP 20; O2SAT 100
== END 2025-03-05 18:48 | disposition home or self-care (01) ==
PROVIDERS: Emergency Provider Emergency Medicine; PCP Nurse Practitioner Family
DX: S81.812A Laceration without foreign body, left lower leg, initial encounter (principal); I10 Essential (primary) hypertension; J44.9 Chronic obstructive pulmonary disease, unspecified; Z87.891 Personal history of nicotine dependence; W45.8XXA Other foreign body or object entering through skin, initial encounter
CPT/HCPCS: 99282